=== PATIENT | male | born 1935 | race Caucasian/White ===

== ENCOUNTER 2017-03-01 15:54 | Inpatient (IN) | payer MEDICARE, OTHER ==
[~2017-03-01] VITALS: Ht 170.2 cm; Wt 99.8 kg
[2017-03-01] MEDS ORDERED: ONDANSETRON PF 4 MG/2 ML VIAL. IV PRN ×2 (16:15→17:00)
[2017-03-01 16:19] LABS: BASO % 1 % (0-3); EOS % 1 % (0-3); HEMATOCRIT 47.3 % (39.0-53.0); HEMOGLOBIN 15.9 g/dL (13.0-17.5); LYMPH # 1.6 x10^3/uL (1.0-4.8); LYMPH % 29 % (24-48); MEAN CORPUSCULAR HEMOGLOBIN 31 pg (25-35); MEAN CORPUSCULAR HGB CONC 34 g/dL (31-37); MEAN CORPUSCULAR VOLUME 91 fL (79-100); MONO % 8 % (0-9); NEUT % 61 % (31-73); PLATELET COUNT 187 x10^3/uL (140-400); WHITE BLOOD COUNT 5.4 x10^3/uL (4.0-11.0)
--- NOTE | 2017-03-01 16:19 | PHYS DOC ---
Past Medical History Past Medical History: Dementia, Kidney Stone, Stroke Past Surgical History: Tonsillectomy Alcohol Use: None Drug Use: None Adult General Chief Complaint Chief Complaint: ALTERED MENTAL STATUS [facility] HPI Patient is a 81 year old male presenting to the emergency department for evaluation of worsening confusion to the point where her daughter does not feel comfortable taking care of him at home anymore. 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 Patient was found 3 blocks from his house yesterday Implan[facility] walking to [facility] however [facility] is 7 miles from his house. Patient denies any complaints to me including pain shortness of breath fevers chills nausea vomiting or diarrhea. Review of Systems Review of Systems Constitutional: Denies fever or chills [] Eyes: Denies change in visual acuity, redness, or eye pain [] HENT: Denies nasal congestion or sore throat [] Respiratory: Denies cough or shortness of breath [] Cardiovascular: No additional information not addressed in HPI [] GI: Denies abdominal pain, nausea, vomiting, bloody stools or diarrhea [] : Denies dysuria or hematuria [] Musculoskeletal: Denies back pain or joint pain [] Integument: Denies rash or skin lesions [] Neurologic: Denies headache, focal weakness or sensory changes [] Current Medications Current Medications Current Medications Medications (Trade) Dose Ordered Sig/Ida Start Time Stop Time Status Last Admin Dose Admin Ondansetron HCl (Zofran) 4 mg PRN Q8HRS PRN 03/01/17 16:15 03/01/17 16:47 DC Allergies Allergies Allergies Coded Allergies Type Severity Reaction Last Updated Verified No Known Drug Allergies 03/01/17 No Physical Exam Physical Exam Constitutional: Well developed, well nourished, no acute distress, non-toxic appearance. [] HENT: Normocephalic, atraumatic, bilateral external ears normal, oropharynx moist, no oral exudates, nose normal. [] Eyes: PERRLA, EOMI, conjunctiva normal, no discharge. [] Neck: Normal range of motion, no tenderness, supple, no stridor. [] Cardiovascular:Heart rate regular rhythm, no murmur [] Lungs & Thorax: Bilateral breath sounds clear to auscultation [] Abdomen: Bowel sounds normal, soft, no tenderness, no masses, no pulsatile masses. [] Skin: Warm, dry, no erythema, no rash. [] Back: No tenderness, no CVA tenderness. [] Extremities: No tenderness, no cyanosis, no clubbing, ROM intact, no edema. [] Neurologic: Alert and oriented X 3, normal motor function, normal sensory function, no focal deficits noted. [] Current Patient Data Vital Signs Vital Signs Date Time Temp Pulse Resp B/P (MAP) Pulse Ox O2 Delivery O2 Flow Rate FiO2 03/01/17 16:40 64 108/69 (82) 92 Room Air 03/01/17 16:03 97.7 10 97.7 Lab Values Laboratory Tests Test 03/01/17 16:10 03/01/17 16:25 White Blood Count 5.4 x10^3/uL (4.0-11.0) Red Blood Count 5.20 x10^6/uL (4.30-5.70) Hemoglobin 15.9 g/dL (13.0-17.5) Hematocrit 47.3 % (39.0-53.0) Mean Corpuscular Volume 91 fL (79-100) Mean Corpuscular Hemoglobin 31 pg (25-35) Mean Corpuscular Hemoglobin Concent 34 g/dL (31-37) Red Cell Distribution Width 14.0 % (11.5-14.5) Platelet Count 187 x10^3/uL (140-400) Neutrophils (%) (Auto) 61 % (31-73) Lymphocytes (%) (Auto) 29 % (24-48) Monocytes (%) (Auto) 8 % (0-9) Eosinophils (%) (Auto) 1 % (0-3) Basophils (%) (Auto) 1 % (0-3) Neutrophils # (Auto) 3.3 x10^3uL (1.8-7.7) Lymphocytes # (Auto) 1.6 x10^3/uL (1.0-4.8) Monocytes # (Auto) 0.5 x10^3/uL (0.0-1.1) Eosinophils # (Auto) 0.1 x10^3/uL (0.0-0.7) Basophils # (Auto) 0.0 x10^3/uL (0.0-0.2) Prothrombin Time 13.9 SEC (11.7-14.0) Prothrombin Time INR 1.1 (0.8-1.1) PTT 35 SEC (24-38) Sodium Level 140 mmol/L (136-145) Potassium Level 4.8 mmol/L (3.5-5.1) Chloride Level 105 mmol/L (98-107) Carbon Dioxide Level 27 mmol/L (21-32) Anion Gap 8 (6-14) Blood Urea Nitrogen 15 mg/dL (8-26) Creatinine 1.2 mg/dL (0.7-1.3) Estimated GFR (Cockcroft-Gault) 58.4 BUN/Creatinine Ratio 13 (6-20) Glucose Level 107 mg/dL (70-99) H Calcium Level 9.1 mg/dL (8.5-10.1) Magnesium Level 2.3 mg/dL (1.8-2.4) Total Bilirubin 0.7 mg/dL (0.2-1.0) Aspartate Amino Transferase (AST) 23 U/L (15-37) Alanine Aminotransferase (ALT) 29 U/L (16-63) Alkaline Phosphatase 89 U/L (46-116) Total Protein 6.9 g/dL (6.4-8.2) Albumin 3.6 g/dL (3.4-5.0) Albumin/Globulin Ratio 1.1 (1.0-1.7) Thyroid Stimulating Hormone (TSH) 1.100 uIU/mL (0.358-3.74) Ethyl Alcohol Level < 10 mg/dL (0-10) Urine Collection Type Unknown Urine Color Yellow Urine Clarity Clear Urine pH 6.0 Urine Specific [place] 1.020 Urine Protein Negative mg/dL (NEG-TRACE) Urine Glucose (UA) Negative mg/dL (NEG) Urine Ketones (Stick) Negative mg/dL (NEG) Urine Blood Negative (NEG) Urine Nitrite Negative (NEG) Urine Bilirubin Negative (NEG) Urine Urobilinogen Dipstick 1.0 mg/dL (0.2 mg/dL) Urine Leukocyte Esterase Negative (NEG) Urine RBC 0 /HPF (0-2) Urine WBC 1-4 /HPF (0-4) Urine Squamous Epithelial Cells Few /LPF Urine Bacteria 0 /HPF (0-FEW) Urine Mucus Mod /LPF Urine Opiates Screen Neg (NEG) Urine Methadone Screen Neg (NEG) Urine Barbiturates Neg (NEG) Urine Phencyclidine Screen Neg (NEG) Urine Amphetamine/Methamphetamine Neg (NEG) Urine Benzodiazepines Screen Neg (NEG) Urine Cocaine Screen Neg (NEG) Urine Cannabinoids Screen Neg (NEG) Urine Ethyl Alcohol Neg (NEG) Laboratory Tests 03/01/17 16:10 Laboratory Tests 03/01/17 16:10 EKG EKG [] Radiology/Procedures Radiology/Procedures CT HEAD WO CONTRAST dated 03/01/2017 4:52 PM Indication:CONFUSION. NO PREVIOUS. Comparison: No comparison is available. Technique: Noncontrast images were performed. One or more of the following individualized dose reduction techniques were utilized for this examination: 1. Automated exposure control 2. Adjustment of the mA and/or kV according to patient size 3. Use of iterative reconstruction technique Findings: No intracranial hemorrhage or abnormal extra-axial fluid collection is seen. No mass is evident. Multiple areas of abnormal low density are shown in the brain. There is periventricular low attenuation likely indicating regions of chronic small vessel ischemic injury. Larger areas of abnormal density extending to the cortex and are consistent with chronic infarcts. No definite acute abnormality is seen, although a small acute infarct could easily be obscured by the larger chronic abnormalities. The ventricles and basilar cisterns are normally positioned. The sinuses and mastoid air cells are clear. IMPRESSION: No definite acute abnormality. Regions of abnormal density are favored to be chronic. If further imaging evaluation is needed, MRI may be useful. Electronically signed by: Kristina Cornejo Jr., MD (03/01/2017 5:14 PM) [facility] DICTATED and SIGNED BY: KRISTINA CORNEJO Jr, MD DATE: 03/01/17 1712 Course & Med Decision Making Course & Med Decision Making Patient has worsening confusion to the point he is not safe at his current residence. We will admit for further evaluation and treatment. Dragon Disclaimer Dragon Disclaimer This electronic medical record was generated, in whole or in part, using a voice recognition dictation system. Departure Departure Impression: Primary Impression: Encephalopathy acute Disposition: 09 ADMITTED INPATIENT Admitting Physician: Elmira Garcia Condition: STABLE PHIL HOSKINS DO Mar 01, 2017 16:19
[2017-03-01 16:27] LABS: INR 1.1 (0.8-1.1); PROTHROMBIN TIME PATIENT 13.9 SEC (11.7-14.0)
[2017-03-01 16:28] LABS: CALCIUM 9.1 mg/dL (8.5-10.1); CREATININE 1.2 mg/dL (0.7-1.3); GFR 58.4; POTASSIUM 4.8 mmol/L (3.5-5.1)
[2017-03-01 16:33] LABS: ALBUMIN 3.6 g/dL (3.4-5.0); TOTAL PROTEIN 6.9 g/dL (6.4-8.2)
[2017-03-01 16:34] LABS: ALBUMIN/GLOBULIN RATIO 1.1 (1.0-1.7); MAGNESIUM 2.3 mg/dL (1.8-2.4); TOTAL BILIRUBIN 0.7 mg/dL (0.2-1.0)
[2017-03-01 16:37] LABS: BILIRUBIN,URINE NEGATIVE (NEG); GLUCOSE,URINE NEGATIVE (NEG); NITRITE,URINE NEGATIVE (NEG); PROTEIN,URINE NEGATIVE (NEG-TRACE)
[2017-03-01 16:41] LABS: BARBITURATES NEG (NEG); BENZODIAZEPINES NEG (NEG); CANNABINOIDS NEG (NEG); COCAINE NEG (NEG); METHADONE NEG (NEG); OPIATES NEG (NEG); PHENCYCLIDINE NEG (NEG)
[2017-03-01 16:42] LABS: BACTERIA,URINE 0 /HPF (0-FEW); RBC,URINE 0 /HPF (0-2); SQUAMOUS EPITHELIAL CELL,UR FEW /LPF
[2017-03-01] MEDS ORDERED: HYDROcodone/APAP 5/325MG 1 TAB TABLET PO PRN (16:45)
[2017-03-01] MEDS ORDERED: ACETAMINOPHEN 500 MG TABLET PO PRN (16:45)
--- NOTE | 2017-03-01 17:18 | RAD ---
CT HEAD WO CONTRAST dated 03/01/2017 4:52 PM Indication:CONFUSION. NO PREVIOUS. Comparison: No comparison is available. Technique: Noncontrast images were performed. One or more of the following individualized dose reduction techniques were utilized for this examination: 1. Automated exposure control 2. Adjustment of the mA and/or kV according to patient size 3. Use of iterative reconstruction technique Findings: No intracranial hemorrhage or abnormal extra-axial fluid collection is seen. No mass is evident. Multiple areas of abnormal low density are shown in the brain. There is periventricular low attenuation likely indicating regions of chronic small vessel ischemic injury. Larger areas of abnormal density extending to the cortex and are consistent with chronic infarcts. No definite acute abnormality is seen, although a small acute infarct could easily be obscured by the larger chronic abnormalities. The ventricles and basilar cisterns are normally positioned. The sinuses and mastoid air cells are clear. IMPRESSION: No definite acute abnormality. Regions of abnormal density are favored to be chronic. If further imaging evaluation is needed, MRI may be useful. Electronically signed by: Mohamud Gonzales Jr., MD (03/01/2017 5:14 PM) [facility]
--- NOTE | 2017-03-01 17:20 | PDOC1 ---
History and Physical Date of Admission Date of Admission DATE: 03/01/17 TIME: 17:12 Identification/Chief Complaint Chief Complaint dtr cant take care of him anymore, confusion Problems: Source Source: Caregiver, Chart review, Patient History of Present Illness History of Present Illness 81 y.o male who lives with dtr, hx CVA x 4 ischemic,. 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 LAbs all good, CT head just done, Was dx with beginning dementia when he had the CVA in May 2014, As per dtr, he is cleared to go to SNU despite the ankle monitor as long as it is within the 50 mile radius of their house, She wishes for her dad to go to SNU. Past Medical History Renal/: Benign prostatic enlarg. Past Surgical History Past Surgical History: No pertinent history Family History Family History: No Significant Social History Smoke: Quit ALCOHOL: none Drugs: None Current Problem List Problem List Problems Medical Problems: (1) Encephalopathy acute Status: Acute Problems: Current Medications Current Medications Current Medications Ondansetron HCl (Zofran) 4 mg PRN Q8HRS PRN IV NAUSEA/VOMITING; Start 03/01/17 at 16:15; Stop 03/01/17 at 16:47; Status DC Ondansetron HCl (Zofran) 4 mg PRN Q6HRS PRN IV NAUSEA/VOMITING; Start 03/01/17 at 17:00; Stop 03/02/17 at 16:59 Acetaminophen (Tylenol) 500 mg PRN Q6HRS PRN PO MILD PAIN / TEMP; Start at 16:45 Acetaminophen/ Hydrocodone Bitart (Lortab 5/325) 1 tab PRN Q4HRS PRN PO PAIN; Start 03/01/17 at 16:45 Allergies Allergies: Coded Allergies: No Known Drug Allergies (Unverified , 03/01/17) ROS Review of System forgetfullness, behavior issues per HPI all else is neg Physical Exam General: Alert, Oriented X3, Cooperative, No acute distress HEENT: Atraumatic, PERRLA, EOMI Lungs: Clear to auscultation, Normal air movement Heart: S1S2, RRR, no thrills, no rubs, no gallops, no murmurs Cardiovascular: S1 Abdomen: Normal bowel sounds, Soft, No tenderness, No hepatosplenomegaly, No masses Male Genitals Exam: normal genitalia, normal prostate Extremities: No clubbing, No cyanosis, No edema, Normal pulses, No tenderness/ swelling Skin: No rashes, No breakdown, No significant lesion Neuro: Normal gait, Normal speech, Strength at 5/5 X4 ext, Normal tone, Sensation intact, Cranial nerves 3-12 NL, Reflexes 2+ Psych/Mental Status: Mental status NL, Mood NL Vitals Vitals Vital Signs Date Time Temp Pulse Resp B/P (MAP) Pulse Ox O2 Delivery O2 Flow Rate FiO2 03/01/17 16:40 64 108/69 (82) 92 Room Air 03/01/17 16:03 97.7 10 97.7 Labs Labs Laboratory Tests Test 03/01/17 16:10 03/01/17 16:25 White Blood Count 5.4 x10^3/uL (4.0-11.0) Red Blood Count 5.20 x10^6/uL (4.30-5.70) Hemoglobin 15.9 g/dL (13.0-17.5) Hematocrit 47.3 % (39.0-53.0) Mean Corpuscular Volume 91 fL (79-100) Mean Corpuscular Hemoglobin 31 pg (25-35) Mean Corpuscular Hemoglobin Concent 34 g/dL (31-37) Red Cell Distribution Width 14.0 % (11.5-14.5) Platelet Count 187 x10^3/uL (140-400) Neutrophils (%) (Auto) 61 % (31-73) Lymphocytes (%) (Auto) 29 % (24-48) Monocytes (%) (Auto) 8 % (0-9) Eosinophils (%) (Auto) 1 % (0-3) Basophils (%) (Auto) 1 % (0-3) Neutrophils # (Auto) 3.3 x10^3uL (1.8-7.7) Lymphocytes # (Auto) 1.6 x10^3/uL (1.0-4.8) Monocytes # (Auto) 0.5 x10^3/uL (0.0-1.1) Eosinophils # (Auto) 0.1 x10^3/uL (0.0-0.7) Basophils # (Auto) 0.0 x10^3/uL (0.0-0.2) Prothrombin Time 13.9 SEC (11.7-14.0) Prothromb Time International Ratio 1.1 (0.8-1.1) Activated Partial Thromboplast Time 35 SEC (24-38) Sodium Level 140 mmol/L (136-145) Potassium Level 4.8 mmol/L (3.5-5.1) Chloride Level 105 mmol/L (98-107) Carbon Dioxide Level 27 mmol/L (21-32) Anion Gap 8 (6-14) Blood Urea Nitrogen 15 mg/dL (8-26) Creatinine 1.2 mg/dL (0.7-1.3) Estimated GFR (Cockcroft-Gault) 58.4 BUN/Creatinine Ratio 13 (6-20) Glucose Level 107 mg/dL (70-99) Calcium Level 9.1 mg/dL (8.5-10.1) Magnesium Level 2.3 mg/dL (1.8-2.4) Total Bilirubin 0.7 mg/dL (0.2-1.0) Aspartate Amino Transf (AST/SGOT) 23 U/L (15-37) Alanine Aminotransferase (ALT/SGPT) 29 U/L (16-63) Alkaline Phosphatase 89 U/L (46-116) Total Protein 6.9 g/dL (6.4-8.2) Albumin 3.6 g/dL (3.4-5.0) Albumin/Globulin Ratio 1.1 (1.0-1.7) Thyroid Stimulating Hormone (TSH) 1.100 uIU/mL (0.358-3.74) Ethyl Alcohol Level < 10 mg/dL (0-10) Urine Collection Type Unknown Urine Color Yellow Urine Clarity Clear Urine pH 6.0 Urine Specific [place] 1.020 Urine Protein Negative mg/dL (NEG-TRACE) Urine Glucose (UA) Negative mg/dL (NEG) Urine Ketones (Stick) Negative mg/dL (NEG) Urine Blood Negative (NEG) Urine Nitrite Negative (NEG) Urine Bilirubin Negative (NEG) Urine Urobilinogen Dipstick 1.0 mg/dL (0.2 mg/dL) Urine Leukocyte Esterase Negative (NEG) Urine RBC 0 /HPF (0-2) Urine WBC 1-4 /HPF (0-4) Urine Squamous Epithelial Cells Few /LPF Urine Bacteria 0 /HPF (0-FEW) Urine Mucus Mod /LPF Urine Opiates Screen Neg (NEG) Urine Methadone Screen Neg (NEG) Urine Barbiturates Neg (NEG) Urine Phencyclidine Screen Neg (NEG) Urine Amphetamine/Methamphetamine Neg (NEG) Urine Benzodiazepines Screen Neg (NEG) Urine Cocaine Screen Neg (NEG) Urine Cannabinoids Screen Neg (NEG) Urine Ethyl Alcohol Neg (NEG) Laboratory Tests Test 03/01/17 16:10 03/01/17 16:25 White Blood Count 5.4 x10^3/uL (4.0-11.0) Red Blood Count 5.20 x10^6/uL (4.30-5.70) Hemoglobin 15.9 g/dL (13.0-17.5) Hematocrit 47.3 % (39.0-53.0) Mean Corpuscular Volume 91 fL (79-100) Mean Corpuscular Hemoglobin 31 pg (25-35) Mean Corpuscular Hemoglobin Concent 34 g/dL (31-37) Red Cell Distribution Width 14.0 % (11.5-14.5) Platelet Count 187 x10^3/uL (140-400) Neutrophils (%) (Auto) 61 % (31-73) Lymphocytes (%) (Auto) 29 % (24-48) Monocytes (%) (Auto) 8 % (0-9) Eosinophils (%) (Auto) 1 % (0-3) Basophils (%) (Auto) 1 % (0-3) Neutrophils # (Auto) 3.3 x10^3uL (1.8-7.7) Lymphocytes # (Auto) 1.6 x10^3/uL (1.0-4.8) Monocytes # (Auto) 0.5 x10^3/uL (0.0-1.1) Eosinophils # (Auto) 0.1 x10^3/uL (0.0-0.7) Basophils # (Auto) 0.0 x10^3/uL (0.0-0.2) Prothrombin Time 13.9 SEC (11.7-14.0) Prothromb Time International Ratio 1.1 (0.8-1.1) Activated Partial Thromboplast Time 35 SEC (24-38) Sodium Level 140 mmol/L (136-145) Potassium Level 4.8 mmol/L (3.5-5.1) Chloride Level 105 mmol/L (98-107) Carbon Dioxide Level 27 mmol/L (21-32) Anion Gap 8 (6-14) Blood Urea Nitrogen 15 mg/dL (8-26) Creatinine 1.2 mg/dL (0.7-1.3) Estimated GFR (Cockcroft-Gault) 58.4 BUN/Creatinine Ratio 13 (6-20) Glucose Level 107 mg/dL (70-99) Calcium Level 9.1 mg/dL (8.5-10.1) Magnesium Level 2.3 mg/dL (1.8-2.4) Total Bilirubin 0.7 mg/dL (0.2-1.0) Aspartate Amino Transf (AST/SGOT) 23 U/L (15-37) Alanine Aminotransferase (ALT/SGPT) 29 U/L (16-63) Alkaline Phosphatase 89 U/L (46-116) Total Protein 6.9 g/dL (6.4-8.2) Albumin 3.6 g/dL (3.4-5.0) Albumin/Globulin Ratio 1.1 (1.0-1.7) Thyroid Stimulating Hormone (TSH) 1.100 uIU/mL (0.358-3.74) Ethyl Alcohol Level < 10 mg/dL (0-10) Urine Collection Type Unknown Urine Color Yellow Urine Clarity Clear Urine pH 6.0 Urine Specific [place] 1.020 Urine Protein Negative mg/dL (NEG-TRACE) Urine Glucose (UA) Negative mg/dL (NEG) Urine Ketones (Stick) Negative mg/dL (NEG) Urine Blood Negative (NEG) Urine Nitrite Negative (NEG) Urine Bilirubin Negative (NEG) Urine Urobilinogen Dipstick 1.0 mg/dL (0.2 mg/dL) Urine Leukocyte Esterase Negative (NEG) Urine RBC 0 /HPF (0-2) Urine WBC 1-4 /HPF (0-4) Urine Squamous Epithelial Cells Few /LPF Urine Bacteria 0 /HPF (0-FEW) Urine Mucus Mod /LPF Urine Opiates Screen Neg (NEG) Urine Methadone Screen Neg (NEG) Urine Barbiturates Neg (NEG) Urine Phencyclidine Screen Neg (NEG) Urine Amphetamine/Methamphetamine Neg (NEG) Urine Benzodiazepines Screen Neg (NEG) Urine Cocaine Screen Neg (NEG) Urine Cannabinoids Screen Neg (NEG) Urine Ethyl Alcohol Neg (NEG) VTE Prophylaxis Ordered VTE Prophylaxis Devices: Yes VTE Pharmacological Prophylaxi: Yes Assessment/Plan Assessment/Plan 1. Dementia, moderate to advanced 2. BPH on flomax 3. Ex smoker - some 40 yrs back 4. 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
[2017-03-01 19:00] VITALS: BP 122/66
[2017-03-01] MEDS ORDERED: TAMS0.4C97 PO (19:10)
[2017-03-01] MEDS: TAMSULOSIN 0.4 MG CAP.ER.24H. PO SCH (20:08)
[2017-03-01 23:00] VITALS: BP 123/64
[2017-03-02 03:15] VITALS: BP 95/51
[2017-03-02 07:00] VITALS: BP 110/66
[2017-03-02 11:00] VITALS: BP 114/68
--- NOTE | 2017-03-02 12:04 | PDOC2 ---
NEUROLOGY CONSULT Date of Admission Date of Admission DATE: 03/02/17 TIME: 11:58 Reason for Consult Reason for Consult: Altered mental status Referring Physician Referring Physician: Dr. Garcia Source Source: Caregiver, Chart review, Patient History of Present Illness History of Present Illness The patient is a 81-year-old right-handed male who is not sure why he is here. 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 He has been living with her, but she can no longer handle him. The last straw was 2 nights ago when he attempted to walk 7 miles to [facility]. He says he went out because he wants to stretch his legs and was confined in halfway. There is no history of seizure or head injury. He feels fine now. Past Medical History CENTRAL NERVOUS SYSTEM: CVA, Dementia Renal/: Benign prostatic enlarg. Past Surgical History Past Surgical History: No pertinent history Family History Family History: Cancer Social History Social History Lives with daughter, quit using alcohol and tobacco several years ago Current Medications Current Medications Current Medications Ondansetron HCl (Zofran) 4 mg PRN Q8HRS PRN IV NAUSEA/VOMITING; Start 03/01/17 at 16:15; Stop 03/01/17 at 16:47; Status DC Ondansetron HCl (Zofran) 4 mg PRN Q6HRS PRN IV NAUSEA/VOMITING; Start 03/01/17 at 17:00; Stop 03/02/17 at 16:59 Acetaminophen (Tylenol) 500 mg PRN Q6HRS PRN PO MILD PAIN / TEMP; Start at 16:45 Acetaminophen/ Hydrocodone Bitart (Lortab 5/325) 1 tab PRN Q4HRS PRN PO MODERATE TO SEVERE PAIN; Start 03/01/17 at 16:45 Tamsulosin HCl (Flomax) 0.4 mg QHS PO Last administered on 03/01/17t 20:08; Start 03/01/17 at 21:00 Active Scripts Active Reported Flomax (Tamsulosin Hcl) 0.4 Mg Cap.er.24h 0.4 Mg PO HS Allergies Allergies: Coded Allergies: No Known Drug Allergies (Unverified , 03/01/17) ROS Review of System Negative for fevers, chills, weight loss, shortness of breath, chest pain, indigestion, hematochezia, melena, dysuria. Full 14-point review systems is negative. Physical Exam Physical Examination PHYSICAL EXAMINATION: Vital signs: see above. General appearance is normal and in no acute distress. HEENT: Normocephalic and nontraumatic. Eyes, nose, ears, and throat are unremarkable. Neck is supple. No lymphadenopathy. No bruits are heard over the carotid artery. No crepitus. NEUROLOGICAL EXAMINATION: Mental Status Examination: Alert. Oriented to time, place, and person. Answers questions and follows commends. He is a poor historian. Pupils are equal round and reactive to light and accommodation. Funduscopic exam: No papilledema. Extraocular movements are intact. Visual field exam shows no defect on the direct confrontation. No motor or sensory deficits on the facial exam. Uvula in the midline and the soft palate elevated symmetrically. No deviation of the tongue to any direction. Gross hearing is normal. Shoulder shrug normal. Muscle tone is normal. Muscle strength is 5-/5 on left, 5/5 on right. Deep tendon reflexes are 2+ all around. Plantar reflex is with flexion response bilaterally. [id number] test performance is accurate. Alternative movements are accurate. Romberg test is negative. Gait is consistent with left hemiparesis. Sensory exam shows no deficits. No cerebellar signs are elicited. Vitals VITALS Vital Signs Date Time Temp Pulse Resp B/P (MAP) Pulse Ox O2 Delivery O2 Flow Rate FiO2 03/02/17 11:00 97.3 66 18 114/68 (83) 95 Room Air 97.3 Labs Labs Laboratory Tests Test 03/01/17 16:05 03/01/17 16:10 03/01/17 16:25 Vitamin B12 Level 265 pg/mL (247-911) White Blood Count 5.4 x10^3/uL (4.0-11.0) Red Blood Count 5.20 x10^6/uL (4.30-5.70) Hemoglobin 15.9 g/dL (13.0-17.5) Hematocrit 47.3 % (39.0-53.0) Mean Corpuscular Volume 91 fL (79-100) Mean Corpuscular Hemoglobin 31 pg (25-35) Mean Corpuscular Hemoglobin Concent 34 g/dL (31-37) Red Cell Distribution Width 14.0 % (11.5-14.5) Platelet Count 187 x10^3/uL (140-400) Neutrophils (%) (Auto) 61 % (31-73) Lymphocytes (%) (Auto) 29 % (24-48) Monocytes (%) (Auto) 8 % (0-9) Eosinophils (%) (Auto) 1 % (0-3) Basophils (%) (Auto) 1 % (0-3) Neutrophils # (Auto) 3.3 x10^3uL (1.8-7.7) Lymphocytes # (Auto) 1.6 x10^3/uL (1.0-4.8) Monocytes # (Auto) 0.5 x10^3/uL (0.0-1.1) Eosinophils # (Auto) 0.1 x10^3/uL (0.0-0.7) Basophils # (Auto) 0.0 x10^3/uL (0.0-0.2) Erythrocyte Sedimentation Rate 2 (0-15) Prothrombin Time 13.9 SEC (11.7-14.0) Prothromb Time International Ratio 1.1 (0.8-1.1) Activated Partial Thromboplast Time 35 SEC (24-38) Sodium Level 140 mmol/L (136-145) Potassium Level 4.8 mmol/L (3.5-5.1) Chloride Level 105 mmol/L (98-107) Carbon Dioxide Level 27 mmol/L (21-32) Anion Gap 8 (6-14) Blood Urea Nitrogen 15 mg/dL (8-26) Creatinine 1.2 mg/dL (0.7-1.3) Estimated GFR (Cockcroft-Gault) 58.4 BUN/Creatinine Ratio 13 (6-20) Glucose Level 107 mg/dL (70-99) Calcium Level 9.1 mg/dL (8.5-10.1) Magnesium Level 2.3 mg/dL (1.8-2.4) Total Bilirubin 0.7 mg/dL (0.2-1.0) Aspartate Amino Transf (AST/SGOT) 23 U/L (15-37) Alanine Aminotransferase (ALT/SGPT) 29 U/L (16-63) Alkaline Phosphatase 89 U/L (46-116) Total Protein 6.9 g/dL (6.4-8.2) Albumin 3.6 g/dL (3.4-5.0) Albumin/Globulin Ratio 1.1 (1.0-1.7) Thyroid Stimulating Hormone (TSH) 1.100 uIU/mL (0.358-3.74) Ethyl Alcohol Level < 10 mg/dL (0-10) Urine Collection Type Unknown Urine Color Yellow Urine Clarity Clear Urine pH 6.0 Urine Specific [place] 1.020 Urine Protein Negative mg/dL (NEG-TRACE) Urine Glucose (UA) Negative mg/dL (NEG) Urine Ketones (Stick) Negative mg/dL (NEG) Urine Blood Negative (NEG) Urine Nitrite Negative (NEG) Urine Bilirubin Negative (NEG) Urine Urobilinogen Dipstick 1.0 mg/dL (0.2 mg/dL) Urine Leukocyte Esterase Negative (NEG) Urine RBC 0 /HPF (0-2) Urine WBC 1-4 /HPF (0-4) Urine Squamous Epithelial Cells Few /LPF Urine Bacteria 0 /HPF (0-FEW) Urine Mucus Mod /LPF Urine Opiates Screen Neg (NEG) Urine Methadone Screen Neg (NEG) Urine Barbiturates Neg (NEG) Urine Phencyclidine Screen Neg (NEG) Urine Amphetamine/Methamphetamine Neg (NEG) Urine Benzodiazepines Screen Neg (NEG) Urine Cocaine Screen Neg (NEG) Urine Cannabinoids Screen Neg (NEG) Urine Ethyl Alcohol Neg (NEG) Laboratory Tests Test 03/01/17 16:05 03/01/17 16:10 03/01/17 16:25 Vitamin B12 Level 265 pg/mL (247-911) White Blood Count 5.4 x10^3/uL (4.0-11.0) Red Blood Count 5.20 x10^6/uL (4.30-5.70) Hemoglobin 15.9 g/dL (13.0-17.5) Hematocrit 47.3 % (39.0-53.0) Mean Corpuscular Volume 91 fL (79-100) Mean Corpuscular Hemoglobin 31 pg (25-35) Mean Corpuscular Hemoglobin Concent 34 g/dL (31-37) Red Cell Distribution Width 14.0 % (11.5-14.5) Platelet Count 187 x10^3/uL (140-400) Neutrophils (%) (Auto) 61 % (31-73) Lymphocytes (%) (Auto) 29 % (24-48) Monocytes (%) (Auto) 8 % (0-9) Eosinophils (%) (Auto) 1 % (0-3) Basophils (%) (Auto) 1 % (0-3) Neutrophils # (Auto) 3.3 x10^3uL (1.8-7.7) Lymphocytes # (Auto) 1.6 x10^3/uL (1.0-4.8) Monocytes # (Auto) 0.5 x10^3/uL (0.0-1.1) Eosinophils # (Auto) 0.1 x10^3/uL (0.0-0.7) Basophils # (Auto) 0.0 x10^3/uL (0.0-0.2) Erythrocyte Sedimentation Rate 2 (0-15) Prothrombin Time 13.9 SEC (11.7-14.0) Prothromb Time International Ratio 1.1 (0.8-1.1) Activated Partial Thromboplast Time 35 SEC (24-38) Sodium Level 140 mmol/L (136-145) Potassium Level 4.8 mmol/L (3.5-5.1) Chloride Level 105 mmol/L (98-107) Carbon Dioxide Level 27 mmol/L (21-32) Anion Gap 8 (6-14) Blood Urea Nitrogen 15 mg/dL (8-26) Creatinine 1.2 mg/dL (0.7-1.3) Estimated GFR (Cockcroft-Gault) 58.4 BUN/Creatinine Ratio 13 (6-20) Glucose Level 107 mg/dL (70-99) Calcium Level 9.1 mg/dL (8.5-10.1) Magnesium Level 2.3 mg/dL (1.8-2.4) Total Bilirubin 0.7 mg/dL (0.2-1.0) Aspartate Amino Transf (AST/SGOT) 23 U/L (15-37) Alanine Aminotransferase (ALT/SGPT) 29 U/L (16-63) Alkaline Phosphatase 89 U/L (46-116) Total Protein 6.9 g/dL (6.4-8.2) Albumin 3.6 g/dL (3.4-5.0) Albumin/Globulin Ratio 1.1 (1.0-1.7) Thyroid Stimulating Hormone (TSH) 1.100 uIU/mL (0.358-3.74) Ethyl Alcohol Level < 10 mg/dL (0-10) Urine Collection Type Unknown Urine Color Yellow Urine Clarity Clear Urine pH 6.0 Urine Specific [place] 1.020 Urine Protein Negative mg/dL (NEG-TRACE) Urine Glucose (UA) Negative mg/dL (NEG) Urine Ketones (Stick) Negative mg/dL (NEG) Urine Blood Negative (NEG) Urine Nitrite Negative (NEG) Urine Bilirubin Negative (NEG) Urine Urobilinogen Dipstick 1.0 mg/dL (0.2 mg/dL) Urine Leukocyte Esterase Negative (NEG) Urine RBC 0 /HPF (0-2) Urine WBC 1-4 /HPF (0-4) Urine Squamous Epithelial Cells Few /LPF Urine Bacteria 0 /HPF (0-FEW) Urine Mucus Mod /LPF Urine Opiates Screen Neg (NEG) Urine Methadone Screen Neg (NEG) Urine Barbiturates Neg (NEG) Urine Phencyclidine Screen Neg (NEG) Urine Amphetamine/Methamphetamine Neg (NEG) Urine Benzodiazepines Screen Neg (NEG) Urine Cocaine Screen Neg (NEG) Urine Cannabinoids Screen Neg (NEG) Urine Ethyl Alcohol Neg (NEG) Images Images CT head: No intracranial hemorrhage or abnormal extra-axial fluid collection is seen. No mass is evident. Multiple areas of abnormal low density are shown in the brain. There is periventricular low attenuation likely indicating regions of chronic small vessel ischemic injury. Larger areas of abnormal density extending to the cortex and are consistent with chronic infarcts. No definite acute abnormality is seen, although a small acute infarct could easily be obscured by the larger chronic abnormalities. The ventricles and basilar cisterns are normally positioned. The sinuses and mastoid air cells are clear. IMPRESSION: No definite acute abnormality. Regions of abnormal density are favored to be chronic. If further imaging evaluation is needed, MRI may be useful. Assessment/Plan Assessment/Plan Impression: History of strokes with residual left hemiparesis I am not so sure he is demented, may more be a problem with judgment, which of course could represent a frontal-lobe dementia. Suspect prior substance abuse which may contribute. Recommendations: Daughter says she can't handle him at home, so need to work on placement. Await laboratory studies Speech cognitive evaluation Physical and occupational therapy I will consider a trial of donepezil depending on the results. I discussed my findings with the patient's daughter. Thank you for letting me help the patient's care. WALLY DAVIS MD Mar 02, 2017 12:04
--- NOTE | 2017-03-02 14:09 | PDOC ---
PROGRESS NOTES Chief Complaint Chief Complaint 1. Dementia, moderate with h/o CVA 2. BPH on flomax 3. Ex smoker - some 40 yrs back 4. Recent incarceration x 33 yrs - has ankle monitor with 50 mile radius clearance h/o CVA x4 times with left side weakness vitb12 insurficiency Plan: fu with neuro add vitb12 po daily cont PTOT head ct NEG SW involve for SNF placement swallow eval pending History of Present Illness History of Present Illness ROS: no fever, chills, sob or chest pain feels ok, some forgetful Vitals Vitals Vital Signs Date Time Temp Pulse Resp B/P (MAP) Pulse Ox O2 Delivery O2 Flow Rate FiO2 03/02/17 11:00 97.3 66 18 114/68 (83) 95 Room Air 97.3 Physical Exam General: Alert, Oriented X3, Cooperative, No acute distress Heart: Regular rate, Normal S1, Normal S2 Lungs: Clear Abdomen: Normal bowel sounds, Soft, No tenderness, No hepatosplenomegaly, No masses Extremities: No clubbing, No cyanosis, No edema, Normal pulses, No tenderness/ swelling Skin: No rashes, No breakdown, No significant lesion Labs LABS Laboratory Tests Test 03/01/17 16:05 03/01/17 16:10 03/01/17 16:25 Vitamin B12 Level 265 pg/mL (247-911) White Blood Count 5.4 x10^3/uL (4.0-11.0) Red Blood Count 5.20 x10^6/uL (4.30-5.70) Hemoglobin 15.9 g/dL (13.0-17.5) Hematocrit 47.3 % (39.0-53.0) Mean Corpuscular Volume 91 fL (79-100) Mean Corpuscular Hemoglobin 31 pg (25-35) Mean Corpuscular Hemoglobin Concent 34 g/dL (31-37) Red Cell Distribution Width 14.0 % (11.5-14.5) Platelet Count 187 x10^3/uL (140-400) Neutrophils (%) (Auto) 61 % (31-73) Lymphocytes (%) (Auto) 29 % (24-48) Monocytes (%) (Auto) 8 % (0-9) Eosinophils (%) (Auto) 1 % (0-3) Basophils (%) (Auto) 1 % (0-3) Neutrophils # (Auto) 3.3 x10^3uL (1.8-7.7) Lymphocytes # (Auto) 1.6 x10^3/uL (1.0-4.8) Monocytes # (Auto) 0.5 x10^3/uL (0.0-1.1) Eosinophils # (Auto) 0.1 x10^3/uL (0.0-0.7) Basophils # (Auto) 0.0 x10^3/uL (0.0-0.2) Erythrocyte Sedimentation Rate 2 (0-15) Prothrombin Time 13.9 SEC (11.7-14.0) Prothromb Time International Ratio 1.1 (0.8-1.1) Activated Partial Thromboplast Time 35 SEC (24-38) Sodium Level 140 mmol/L (136-145) Potassium Level 4.8 mmol/L (3.5-5.1) Chloride Level 105 mmol/L (98-107) Carbon Dioxide Level 27 mmol/L (21-32) Anion Gap 8 (6-14) Blood Urea Nitrogen 15 mg/dL (8-26) Creatinine 1.2 mg/dL (0.7-1.3) Estimated GFR (Cockcroft-Gault) 58.4 BUN/Creatinine Ratio 13 (6-20) Glucose Level 107 mg/dL (70-99) Calcium Level 9.1 mg/dL (8.5-10.1) Magnesium Level 2.3 mg/dL (1.8-2.4) Total Bilirubin 0.7 mg/dL (0.2-1.0) Aspartate Amino Transf (AST/SGOT) 23 U/L (15-37) Alanine Aminotransferase (ALT/SGPT) 29 U/L (16-63) Alkaline Phosphatase 89 U/L (46-116) Total Protein 6.9 g/dL (6.4-8.2) Albumin 3.6 g/dL (3.4-5.0) Albumin/Globulin Ratio 1.1 (1.0-1.7) Thyroid Stimulating Hormone (TSH) 1.100 uIU/mL (0.358-3.74) Ethyl Alcohol Level < 10 mg/dL (0-10) Urine Collection Type Unknown Urine Color Yellow Urine Clarity Clear Urine pH 6.0 Urine Specific [place] 1.020 Urine Protein Negative mg/dL (NEG-TRACE) Urine Glucose (UA) Negative mg/dL (NEG) Urine Ketones (Stick) Negative mg/dL (NEG) Urine Blood Negative (NEG) Urine Nitrite Negative (NEG) Urine Bilirubin Negative (NEG) Urine Urobilinogen Dipstick 1.0 mg/dL (0.2 mg/dL) Urine Leukocyte Esterase Negative (NEG) Urine RBC 0 /HPF (0-2) Urine WBC 1-4 /HPF (0-4) Urine Squamous Epithelial Cells Few /LPF Urine Bacteria 0 /HPF (0-FEW) Urine Mucus Mod /LPF Urine Opiates Screen Neg (NEG) Urine Methadone Screen Neg (NEG) Urine Barbiturates Neg (NEG) Urine Phencyclidine Screen Neg (NEG) Urine Amphetamine/Methamphetamine Neg (NEG) Urine Benzodiazepines Screen Neg (NEG) Urine Cocaine Screen Neg (NEG) Urine Cannabinoids Screen Neg (NEG) Urine Ethyl Alcohol Neg (NEG) Assessment and Plan Assessmemt and Plan Problems Medical Problems: (1) Encephalopathy acute Status: Acute Problems: Comment Review of Relevant I have reviewed the following items elizabeth (where applicable) has been applied. Labs Laboratory Tests Test 03/01/17 16:05 03/01/17 16:10 03/01/17 16:25 Vitamin B12 Level 265 pg/mL (247-911) White Blood Count 5.4 x10^3/uL (4.0-11.0) Red Blood Count 5.20 x10^6/uL (4.30-5.70) Hemoglobin 15.9 g/dL (13.0-17.5) Hematocrit 47.3 % (39.0-53.0) Mean Corpuscular Volume 91 fL (79-100) Mean Corpuscular Hemoglobin 31 pg (25-35) Mean Corpuscular Hemoglobin Concent 34 g/dL (31-37) Red Cell Distribution Width 14.0 % (11.5-14.5) Platelet Count 187 x10^3/uL (140-400) Neutrophils (%) (Auto) 61 % (31-73) Lymphocytes (%) (Auto) 29 % (24-48) Monocytes (%) (Auto) 8 % (0-9) Eosinophils (%) (Auto) 1 % (0-3) Basophils (%) (Auto) 1 % (0-3) Neutrophils # (Auto) 3.3 x10^3uL (1.8-7.7) Lymphocytes # (Auto) 1.6 x10^3/uL (1.0-4.8) Monocytes # (Auto) 0.5 x10^3/uL (0.0-1.1) Eosinophils # (Auto) 0.1 x10^3/uL (0.0-0.7) Basophils # (Auto) 0.0 x10^3/uL (0.0-0.2) Erythrocyte Sedimentation Rate 2 (0-15) Prothrombin Time 13.9 SEC (11.7-14.0) Prothromb Time International Ratio 1.1 (0.8-1.1) Activated Partial Thromboplast Time 35 SEC (24-38) Sodium Level 140 mmol/L (136-145) Potassium Level 4.8 mmol/L (3.5-5.1) Chloride Level 105 mmol/L (98-107) Carbon Dioxide Level 27 mmol/L (21-32) Anion Gap 8 (6-14) Blood Urea Nitrogen 15 mg/dL (8-26) Creatinine 1.2 mg/dL (0.7-1.3) Estimated GFR (Cockcroft-Gault) 58.4 BUN/Creatinine Ratio 13 (6-20) Glucose Level 107 mg/dL (70-99) Calcium Level 9.1 mg/dL (8.5-10.1) Magnesium Level 2.3 mg/dL (1.8-2.4) Total Bilirubin 0.7 mg/dL (0.2-1.0) Aspartate Amino Transf (AST/SGOT) 23 U/L (15-37) Alanine Aminotransferase (ALT/SGPT) 29 U/L (16-63) Alkaline Phosphatase 89 U/L (46-116) Total Protein 6.9 g/dL (6.4-8.2) Albumin 3.6 g/dL (3.4-5.0) Albumin/Globulin Ratio 1.1 (1.0-1.7) Thyroid Stimulating Hormone (TSH) 1.100 uIU/mL (0.358-3.74) Ethyl Alcohol Level < 10 mg/dL (0-10) Urine Collection Type Unknown Urine Color Yellow Urine Clarity Clear Urine pH 6.0 Urine Specific [place] 1.020 Urine Protein Negative mg/dL (NEG-TRACE) Urine Glucose (UA) Negative mg/dL (NEG) Urine Ketones (Stick) Negative mg/dL (NEG) Urine Blood Negative (NEG) Urine Nitrite Negative (NEG) Urine Bilirubin Negative (NEG) Urine Urobilinogen Dipstick 1.0 mg/dL (0.2 mg/dL) Urine Leukocyte Esterase Negative (NEG) Urine RBC 0 /HPF (0-2) Urine WBC 1-4 /HPF (0-4) Urine Squamous Epithelial Cells Few /LPF Urine Bacteria 0 /HPF (0-FEW) Urine Mucus Mod /LPF Urine Opiates Screen Neg (NEG) Urine Methadone Screen Neg (NEG) Urine Barbiturates Neg (NEG) Urine Phencyclidine Screen Neg (NEG) Urine Amphetamine/Methamphetamine Neg (NEG) Urine Benzodiazepines Screen Neg (NEG) Urine Cocaine Screen Neg (NEG) Urine Cannabinoids Screen Neg (NEG) Urine Ethyl Alcohol Neg (NEG) Laboratory Tests Test 03/01/17 16:05 03/01/17 16:10 03/01/17 16:25 Vitamin B12 Level 265 pg/mL (247-911) White Blood Count 5.4 x10^3/uL (4.0-11.0) Red Blood Count 5.20 x10^6/uL (4.30-5.70) Hemoglobin 15.9 g/dL (13.0-17.5) Hematocrit 47.3 % (39.0-53.0) Mean Corpuscular Volume 91 fL (79-100) Mean Corpuscular Hemoglobin 31 pg (25-35) Mean Corpuscular Hemoglobin Concent 34 g/dL (31-37) Red Cell Distribution Width 14.0 % (11.5-14.5) Platelet Count 187 x10^3/uL (140-400) Neutrophils (%) (Auto) 61 % (31-73) Lymphocytes (%) (Auto) 29 % (24-48) Monocytes (%) (Auto) 8 % (0-9) Eosinophils (%) (Auto) 1 % (0-3) Basophils (%) (Auto) 1 % (0-3) Neutrophils # (Auto) 3.3 x10^3uL (1.8-7.7) Lymphocytes # (Auto) 1.6 x10^3/uL (1.0-4.8) Monocytes # (Auto) 0.5 x10^3/uL (0.0-1.1) Eosinophils # (Auto) 0.1 x10^3/uL (0.0-0.7) Basophils # (Auto) 0.0 x10^3/uL (0.0-0.2) Erythrocyte Sedimentation Rate 2 (0-15) Prothrombin Time 13.9 SEC (11.7-14.0) Prothromb Time International Ratio 1.1 (0.8-1.1) Activated Partial Thromboplast Time 35 SEC (24-38) Sodium Level 140 mmol/L (136-145) Potassium Level 4.8 mmol/L (3.5-5.1) Chloride Level 105 mmol/L (98-107) Carbon Dioxide Level 27 mmol/L (21-32) Anion Gap 8 (6-14) Blood Urea Nitrogen 15 mg/dL (8-26) Creatinine 1.2 mg/dL (0.7-1.3) Estimated GFR (Cockcroft-Gault) 58.4 BUN/Creatinine Ratio 13 (6-20) Glucose Level 107 mg/dL (70-99) Calcium Level 9.1 mg/dL (8.5-10.1) Magnesium Level 2.3 mg/dL (1.8-2.4) Total Bilirubin 0.7 mg/dL (0.2-1.0) Aspartate Amino Transf (AST/SGOT) 23 U/L (15-37) Alanine Aminotransferase (ALT/SGPT) 29 U/L (16-63) Alkaline Phosphatase 89 U/L (46-116) Total Protein 6.9 g/dL (6.4-8.2) Albumin 3.6 g/dL (3.4-5.0) Albumin/Globulin Ratio 1.1 (1.0-1.7) Thyroid Stimulating Hormone (TSH) 1.100 uIU/mL (0.358-3.74) Ethyl Alcohol Level < 10 mg/dL (0-10) Urine Collection Type Unknown Urine Color Yellow Urine Clarity Clear Urine pH 6.0 Urine Specific [place] 1.020 Urine Protein Negative mg/dL (NEG-TRACE) Urine Glucose (UA) Negative mg/dL (NEG) Urine Ketones (Stick) Negative mg/dL (NEG) Urine Blood Negative (NEG) Urine Nitrite Negative (NEG) Urine Bilirubin Negative (NEG) Urine Urobilinogen Dipstick 1.0 mg/dL (0.2 mg/dL) Urine Leukocyte Esterase Negative (NEG) Urine RBC 0 /HPF (0-2) Urine WBC 1-4 /HPF (0-4) Urine Squamous Epithelial Cells Few /LPF Urine Bacteria 0 /HPF (0-FEW) Urine Mucus Mod /LPF Urine Opiates Screen Neg (NEG) Urine Methadone Screen Neg (NEG) Urine Barbiturates Neg (NEG) Urine Phencyclidine Screen Neg (NEG) Urine Amphetamine/Methamphetamine Neg (NEG) Urine Benzodiazepines Screen Neg (NEG) Urine Cocaine Screen Neg (NEG) Urine Cannabinoids Screen Neg (NEG) Urine Ethyl Alcohol Neg (NEG) Medications Current Medications Ondansetron HCl (Zofran) 4 mg PRN Q8HRS PRN IV NAUSEA/VOMITING; Start 03/01/17 at 16:15; Stop 03/01/17 at 16:47; Status DC Ondansetron HCl (Zofran) 4 mg PRN Q6HRS PRN IV NAUSEA/VOMITING; Start 03/01/17 at 17:00; Stop 03/02/17 at 16:59 Acetaminophen (Tylenol) 500 mg PRN Q6HRS PRN PO MILD PAIN / TEMP; Start at 16:45 Acetaminophen/ Hydrocodone Bitart (Lortab 5/325) 1 tab PRN Q4HRS PRN PO MODERATE TO SEVERE PAIN; Start 03/01/17 at 16:45 Tamsulosin HCl (Flomax) 0.4 mg QHS PO Last administered on 03/01/17t 20:08; Start 03/01/17 at 21:00 Active Scripts Active Reported Flomax (Tamsulosin Hcl) 0.4 Mg Cap.er.24h 0.4 Mg PO HS Vitals/I & O Vital Sign - Last 24 Hours 03/01/17 03/01/17 03/01/17 03/01/17 16:03 16:40 17:50 19:00 Temp 97.7 97.5 97.7 97.5 Pulse 77 64 84 Resp 10 18 B/P (MAP) 119/75 (90) 108/69 (82) 122/66 (84) Pulse Ox 92 92 93 O2 Delivery Room Air Room Air Room Air Room Air 03/01/17 03/01/17 03/02/17 03/02/17 20:02 23:00 03:15 07:00 Temp 96.6 96.7 96.6 96.7 Pulse 67 67 Resp 18 18 B/P (MAP) 123/64 (83) 95/51 (66) Pulse Ox 94 95 O2 Delivery Room Air Room Air Room Air Room Air 03/02/17 03/02/17 07:00 11:00 Temp 97.4 97.3 97.4 97.3 Pulse 58 66 Resp 18 18 B/P (MAP) 110/66 (81) 114/68 (83) Pulse Ox 93 95 O2 Delivery Room Air Room Air KRISS MA MD Mar 02, 2017 14:09
[2017-03-02 15:00] VITALS: BP 131/76
[2017-03-02] MEDS: CYANOCOBALAMIN (VITAMIN B-12) 1,000 MCG TABLET. PO SCH (15:24)
[2017-03-02 19:49] VITALS: BP 125/72
[2017-03-02] MEDS: TAMSULOSIN 0.4 MG CAP.ER.24H. PO SCH (20:49)
[2017-03-02 23:19] VITALS: BP 108/64
[2017-03-03 03:27] VITALS: BP 96/60
[2017-03-03 05:04] LABS: BASO % 1 % (0-3); EOS % 2 % (0-3); HEMATOCRIT 43.2 % (39.0-53.0); LYMPH # 1.7 x10^3/uL (1.0-4.8); LYMPH % 28 % (24-48); MEAN CORPUSCULAR HEMOGLOBIN 31 pg (25-35); MEAN CORPUSCULAR HGB CONC 35 g/dL (31-37); MEAN CORPUSCULAR VOLUME 89 fL (79-100); MONO % 10 % (0-9); NEUT % 59 % (31-73); PLATELET COUNT 171 x10^3/uL (140-400); RED BLOOD COUNT 4.85 x10^6/uL (4.30-5.70); RED CELL DISTRIBUTION WIDTH 13.7 % (11.5-14.5); WHITE BLOOD COUNT 5.9 x10^3/uL (4.0-11.0)
[2017-03-03 05:15] LABS: CALCIUM 8.3 mg/dL (8.5-10.1); CREATININE 1.3 mg/dL (0.7-1.3); GFR 53.3; POTASSIUM 4.1 mmol/L (3.5-5.1)
[2017-03-03 07:00] VITALS: BP 114/74
[2017-03-03] MEDS ORDERED: hydrALAZINE 20 MG/ML VIAL. IVP PRN (08:30)
[2017-03-03] MEDS ORDERED: ONDANSETRON PF 4 MG/2 ML VIAL. IV PRN (08:30)
[2017-03-03] MEDS ORDERED: MORPHINE SULFATE 4 MG/ML DISP.SYRIN. IV PRN (08:30)
[2017-03-03] MEDS ORDERED: ACETAMINOPHEN 325 MG TABLET. PO PRN (08:30)
[2017-03-03] MEDS ORDERED: DOCUSATE SODIUM 100 MG CAPSULE. PO PRN (08:30)
[2017-03-03] MEDS ORDERED: traMADol 50 MG TABLET PO PRN (08:30)
[2017-03-03] MEDS: CYANOCOBALAMIN (VITAMIN B-12) 1,000 MCG TABLET. PO SCH (08:33)
[2017-03-03 11:00] VITALS: BP 121/69
--- NOTE | 2017-03-03 12:31 | PDOC ---
PROGRESS NOTES Assessment Problems Medical Problems: (1) Encephalopathy acute Status: Acute History of strokes with residual left hemiparesis I am not so sure he is demented, may more be a problem with judgment, which of course could represent a frontal-lobe dementia. Suspect prior substance abuse which may contribute. He does have a low-normal B12 level Plan Placement. Donepezil B-12 injections Subjective No complaints Objective Vital Signs Date Time Temp Pulse Resp B/P (MAP) Pulse Ox O2 Delivery O2 Flow Rate FiO2 03/03/17 11:00 97.5 60 18 121/69 (86) 96 Room Air 97.5 PHYSICAL EXAM Alert. Oriented to place and person, does not know date. PERRL. EOMI. CN: no focal findings. Muscle tone: normal. Muscle strength: 5-/5 left hemiparesis, 5/5 on right DTR: 2+ Plantar reflex: flexor Gait: not examined in bed. Sensory exam: no abnormal findings. No cerebellar signs elicited. Review of Relevant I have reviewed the following items elizabeth (where applicable) has been applied. Labs Laboratory Tests Test 03/01/17 16:05 03/01/17 16:10 03/01/17 16:25 03/03/17 03:50 Vitamin B12 Level 265 pg/mL (247-911) White Blood Count 5.4 x10^3/uL (4.0-11.0) 5.9 x10^3/uL (4.0-11.0) Red Blood Count 5.20 x10^6/uL (4.30-5.70) 4.85 x10^6/uL (4.30-5.70) Hemoglobin 15.9 g/dL (13.0-17.5) 15.0 g/dL (13.0-17.5) Hematocrit 47.3 % (39.0-53.0) 43.2 % (39.0-53.0) Mean Corpuscular Volume 91 fL (79-100) 89 fL (79-100) Mean Corpuscular Hemoglobin 31 pg (25-35) 31 pg (25-35) Mean Corpuscular Hemoglobin Concent 34 g/dL (31-37) 35 g/dL (31-37) Red Cell Distribution Width 14.0 % (11.5-14.5) 13.7 % (11.5-14.5) Platelet Count 187 x10^3/uL (140-400) 171 x10^3/uL (140-400) Neutrophils (%) (Auto) 61 % (31-73) 59 % (31-73) Lymphocytes (%) (Auto) 29 % (24-48) 28 % (24-48) Monocytes (%) (Auto) 8 % (0-9) 10 % (0-9) Eosinophils (%) (Auto) 1 % (0-3) 2 % (0-3) Basophils (%) (Auto) 1 % (0-3) 1 % (0-3) Neutrophils # (Auto) 3.3 x10^3uL (1.8-7.7) 3.5 x10^3uL (1.8-7.7) Lymphocytes # (Auto) 1.6 x10^3/uL (1.0-4.8) 1.7 x10^3/uL (1.0-4.8) Monocytes # (Auto) 0.5 x10^3/uL (0.0-1.1) 0.6 x10^3/uL (0.0-1.1) Eosinophils # (Auto) 0.1 x10^3/uL (0.0-0.7) 0.1 x10^3/uL (0.0-0.7) Basophils # (Auto) 0.0 x10^3/uL (0.0-0.2) 0.0 x10^3/uL (0.0-0.2) Erythrocyte Sedimentation Rate 2 (0-15) Prothrombin Time 13.9 SEC (11.7-14.0) Prothromb Time International Ratio 1.1 (0.8-1.1) Activated Partial Thromboplast Time 35 SEC (24-38) Sodium Level 140 mmol/L (136-145) 141 mmol/L (136-145) Potassium Level 4.8 mmol/L (3.5-5.1) 4.1 mmol/L (3.5-5.1) Chloride Level 105 mmol/L (98-107) 107 mmol/L (98-107) Carbon Dioxide Level 27 mmol/L (21-32) 27 mmol/L (21-32) Anion Gap 8 (6-14) 7 (6-14) Blood Urea Nitrogen 15 mg/dL (8-26) 19 mg/dL (8-26) Creatinine 1.2 mg/dL (0.7-1.3) 1.3 mg/dL (0.7-1.3) Estimated GFR (Cockcroft-Gault) 58.4 53.3 BUN/Creatinine Ratio 13 (6-20) Glucose Level 107 mg/dL (70-99) 92 mg/dL (70-99) Calcium Level 9.1 mg/dL (8.5-10.1) 8.3 mg/dL (8.5-10.1) Magnesium Level 2.3 mg/dL (1.8-2.4) Total Bilirubin 0.7 mg/dL (0.2-1.0) Aspartate Amino Transf (AST/SGOT) 23 U/L (15-37) Alanine Aminotransferase (ALT/SGPT) 29 U/L (16-63) Alkaline Phosphatase 89 U/L (46-116) Total Protein 6.9 g/dL (6.4-8.2) Albumin 3.6 g/dL (3.4-5.0) Albumin/Globulin Ratio 1.1 (1.0-1.7) Thyroid Stimulating Hormone (TSH) 1.100 uIU/mL (0.358-3.74) Ethyl Alcohol Level < 10 mg/dL (0-10) Urine Collection Type Unknown Urine Color Yellow Urine Clarity Clear Urine pH 6.0 Urine Specific [place] 1.020 Urine Protein Negative mg/dL (NEG-TRACE) Urine Glucose (UA) Negative mg/dL (NEG) Urine Ketones (Stick) Negative mg/dL (NEG) Urine Blood Negative (NEG) Urine Nitrite Negative (NEG) Urine Bilirubin Negative (NEG) Urine Urobilinogen Dipstick 1.0 mg/dL (0.2 mg/dL) Urine Leukocyte Esterase Negative (NEG) Urine RBC 0 /HPF (0-2) Urine WBC 1-4 /HPF (0-4) Urine Squamous Epithelial Cells Few /LPF Urine Bacteria 0 /HPF (0-FEW) Urine Mucus Mod /LPF Urine Opiates Screen Neg (NEG) Urine Methadone Screen Neg (NEG) Urine Barbiturates Neg (NEG) Urine Phencyclidine Screen Neg (NEG) Urine Amphetamine/Methamphetamine Neg (NEG) Urine Benzodiazepines Screen Neg (NEG) Urine Cocaine Screen Neg (NEG) Urine Cannabinoids Screen Neg (NEG) Urine Ethyl Alcohol Neg (NEG) Laboratory Tests Test 03/03/17 03:50 White Blood Count 5.9 x10^3/uL (4.0-11.0) Red Blood Count 4.85 x10^6/uL (4.30-5.70) Hemoglobin 15.0 g/dL (13.0-17.5) Hematocrit 43.2 % (39.0-53.0) Mean Corpuscular Volume 89 fL (79-100) Mean Corpuscular Hemoglobin 31 pg (25-35) Mean Corpuscular Hemoglobin Concent 35 g/dL (31-37) Red Cell Distribution Width 13.7 % (11.5-14.5) Platelet Count 171 x10^3/uL (140-400) Neutrophils (%) (Auto) 59 % (31-73) Lymphocytes (%) (Auto) 28 % (24-48) Monocytes (%) (Auto) 10 % (0-9) Eosinophils (%) (Auto) 2 % (0-3) Basophils (%) (Auto) 1 % (0-3) Neutrophils # (Auto) 3.5 x10^3uL (1.8-7.7) Lymphocytes # (Auto) 1.7 x10^3/uL (1.0-4.8) Monocytes # (Auto) 0.6 x10^3/uL (0.0-1.1) Eosinophils # (Auto) 0.1 x10^3/uL (0.0-0.7) Basophils # (Auto) 0.0 x10^3/uL (0.0-0.2) Sodium Level 141 mmol/L (136-145) Potassium Level 4.1 mmol/L (3.5-5.1) Chloride Level 107 mmol/L (98-107) Carbon Dioxide Level 27 mmol/L (21-32) Anion Gap 7 (6-14) Blood Urea Nitrogen 19 mg/dL (8-26) Creatinine 1.3 mg/dL (0.7-1.3) Estimated GFR (Cockcroft-Gault) 53.3 Glucose Level 92 mg/dL (70-99) Calcium Level 8.3 mg/dL (8.5-10.1) Medications Current Medications Ondansetron HCl (Zofran) 4 mg PRN Q8HRS PRN IV NAUSEA/VOMITING; Start 03/01/17 at 16:15; Stop 03/01/17 at 16:47; Status DC Ondansetron HCl (Zofran) 4 mg PRN Q6HRS PRN IV NAUSEA/VOMITING; Start 03/01/17 at 17:00; Stop 03/02/17 at 16:59; Status DC Acetaminophen (Tylenol) 500 mg PRN Q6HRS PRN PO MILD PAIN / TEMP; Start at 16:45; Stop 03/03/17 at 08:22; Status DC Acetaminophen/ Hydrocodone Bitart (Lortab 5/325) 1 tab PRN Q4HRS PRN PO MODERATE TO SEVERE PAIN; Start 03/01/17 at 16:45 Tamsulosin HCl (Flomax) 0.4 mg QHS PO Last administered on 03/02/17 20:49; Start 03/01/17 at 21:00 Cyanocobalamin (Vitamin B-12) 1,000 mcg DAILY PO Last administered on 08:33; Start 03/02/17 at 14:30 Acetaminophen (Tylenol) 650 mg PRN Q6HRS PRN PO FEVER; Start 03/03/17 at 08:30 Ondansetron HCl (Zofran) 4 mg PRN Q6HRS PRN IV NAUSEA/VOMITING; Start 03/03/17 at 08:30 Morphine Sulfate 2 mg PRN Q2HR PRN IV PAIN; Start 03/03/17 at 08:30 Tramadol HCl (Ultram) 50 mg PRN Q6HRS PRN PO PAIN; Start 03/03/17 at 08:30 Hydralazine HCl (Apresoline) 10 mg PRN Q4HRS PRN IVP ELEVATED BP, SEE COMMENTS ; Start 03/03/17 at 08:30 Docusate Sodium (Colace) 100 mg PRN DAILY PRN PO CONSTIPATION; Start 03/03/17 at 08:30 Active Scripts Active Reported Flomax (Tamsulosin Hcl) 0.4 Mg Cap.er.24h 0.4 Mg PO HS Vitals/I & O Vital Sign - Last 24 Hours 03/02/17 03/02/17 03/02/17 03/02/17 15:00 19:49 20:00 23:19 Temp 98.0 97.9 98.7 98.0 97.9 98.7 Pulse 71 72 59 Resp 18 18 18 B/P (MAP) 131/76 (94) 125/72 (89) 108/64 (79) Pulse Ox 95 92 95 O2 Delivery Room Air Room Air Room Air Room Air 03/03/17 03/03/17 03/03/17 03/03/17 03:27 07:00 08:20 11:00 Temp 97.9 97.7 97.5 97.9 97.7 97.5 Pulse 67 60 60 Resp 18 18 18 B/P (MAP) 96/60 (72) 114/74 (87) 121/69 (86) Pulse Ox 95 99 96 O2 Delivery Room Air Room Air Room Air Room Air WALLY DAVIS MD Mar 03, 2017 12:31
--- NOTE | 2017-03-03 12:54 | PDOC ---
PROGRESS NOTES Chief Complaint Chief Complaint 1. Dementia, moderate with h/o CVA 2. BPH on flomax 3. Ex smoker - some 40 yrs back 4. 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 neuro add IM qm aricept added by neuro cont PTOT head ct NEG SW involve for SNF placement swallow eval passed , regular diet now plan dc tmr when find a SNF History of Present Illness History of Present Illness ROS: no fever, chills, sob or chest pain feels ok, some forgetful low b12 Vitals Vitals Vital Signs Date Time Temp Pulse Resp B/P (MAP) Pulse Ox O2 Delivery O2 Flow Rate FiO2 03/03/17 11:00 97.5 60 18 121/69 (86) 96 Room Air 97.5 Physical Exam General: Alert, Oriented X3, Cooperative, No acute distress Heart: Regular rate, Normal S1, Normal S2 Lungs: Clear Abdomen: Normal bowel sounds, Soft, No tenderness, No hepatosplenomegaly, No masses Extremities: No clubbing, No cyanosis, No edema, Normal pulses, No tenderness/ swelling Skin: No rashes, No breakdown, No significant lesion Labs LABS Laboratory Tests Test 03/03/17 03:50 White Blood Count 5.9 x10^3/uL (4.0-11.0) Red Blood Count 4.85 x10^6/uL (4.30-5.70) Hemoglobin 15.0 g/dL (13.0-17.5) Hematocrit 43.2 % (39.0-53.0) Mean Corpuscular Volume 89 fL (79-100) Mean Corpuscular Hemoglobin 31 pg (25-35) Mean Corpuscular Hemoglobin Concent 35 g/dL (31-37) Red Cell Distribution Width 13.7 % (11.5-14.5) Platelet Count 171 x10^3/uL (140-400) Neutrophils (%) (Auto) 59 % (31-73) Lymphocytes (%) (Auto) 28 % (24-48) Monocytes (%) (Auto) 10 % (0-9) Eosinophils (%) (Auto) 2 % (0-3) Basophils (%) (Auto) 1 % (0-3) Neutrophils # (Auto) 3.5 x10^3uL (1.8-7.7) Lymphocytes # (Auto) 1.7 x10^3/uL (1.0-4.8) Monocytes # (Auto) 0.6 x10^3/uL (0.0-1.1) Eosinophils # (Auto) 0.1 x10^3/uL (0.0-0.7) Basophils # (Auto) 0.0 x10^3/uL (0.0-0.2) Sodium Level 141 mmol/L (136-145) Potassium Level 4.1 mmol/L (3.5-5.1) Chloride Level 107 mmol/L (98-107) Carbon Dioxide Level 27 mmol/L (21-32) Anion Gap 7 (6-14) Blood Urea Nitrogen 19 mg/dL (8-26) Creatinine 1.3 mg/dL (0.7-1.3) Estimated GFR (Cockcroft-Gault) 53.3 Glucose Level 92 mg/dL (70-99) Calcium Level 8.3 mg/dL (8.5-10.1) Assessment and Plan Assessmemt and Plan Problems Medical Problems: (1) Encephalopathy acute Status: Acute Problems: Comment Review of Relevant I have reviewed the following items elizabeth (where applicable) has been applied. Labs Laboratory Tests Test 03/01/17 16:05 03/01/17 16:10 03/01/17 16:25 03/03/17 03:50 Vitamin B12 Level 265 pg/mL (247-911) White Blood Count 5.4 x10^3/uL (4.0-11.0) 5.9 x10^3/uL (4.0-11.0) Red Blood Count 5.20 x10^6/uL (4.30-5.70) 4.85 x10^6/uL (4.30-5.70) Hemoglobin 15.9 g/dL (13.0-17.5) 15.0 g/dL (13.0-17.5) Hematocrit 47.3 % (39.0-53.0) 43.2 % (39.0-53.0) Mean Corpuscular Volume 91 fL (79-100) 89 fL (79-100) Mean Corpuscular Hemoglobin 31 pg (25-35) 31 pg (25-35) Mean Corpuscular Hemoglobin Concent 34 g/dL (31-37) 35 g/dL (31-37) Red Cell Distribution Width 14.0 % (11.5-14.5) 13.7 % (11.5-14.5) Platelet Count 187 x10^3/uL (140-400) 171 x10^3/uL (140-400) Neutrophils (%) (Auto) 61 % (31-73) 59 % (31-73) Lymphocytes (%) (Auto) 29 % (24-48) 28 % (24-48) Monocytes (%) (Auto) 8 % (0-9) 10 % (0-9) Eosinophils (%) (Auto) 1 % (0-3) 2 % (0-3) Basophils (%) (Auto) 1 % (0-3) 1 % (0-3) Neutrophils # (Auto) 3.3 x10^3uL (1.8-7.7) 3.5 x10^3uL (1.8-7.7) Lymphocytes # (Auto) 1.6 x10^3/uL (1.0-4.8) 1.7 x10^3/uL (1.0-4.8) Monocytes # (Auto) 0.5 x10^3/uL (0.0-1.1) 0.6 x10^3/uL (0.0-1.1) Eosinophils # (Auto) 0.1 x10^3/uL (0.0-0.7) 0.1 x10^3/uL (0.0-0.7) Basophils # (Auto) 0.0 x10^3/uL (0.0-0.2) 0.0 x10^3/uL (0.0-0.2) Erythrocyte Sedimentation Rate 2 (0-15) Prothrombin Time 13.9 SEC (11.7-14.0) Prothromb Time International Ratio 1.1 (0.8-1.1) Activated Partial Thromboplast Time 35 SEC (24-38) Sodium Level 140 mmol/L (136-145) 141 mmol/L (136-145) Potassium Level 4.8 mmol/L (3.5-5.1) 4.1 mmol/L (3.5-5.1) Chloride Level 105 mmol/L (98-107) 107 mmol/L (98-107) Carbon Dioxide Level 27 mmol/L (21-32) 27 mmol/L (21-32) Anion Gap 8 (6-14) 7 (6-14) Blood Urea Nitrogen 15 mg/dL (8-26) 19 mg/dL (8-26) Creatinine 1.2 mg/dL (0.7-1.3) 1.3 mg/dL (0.7-1.3) Estimated GFR (Cockcroft-Gault) 58.4 53.3 BUN/Creatinine Ratio 13 (6-20) Glucose Level 107 mg/dL (70-99) 92 mg/dL (70-99) Calcium Level 9.1 mg/dL (8.5-10.1) 8.3 mg/dL (8.5-10.1) Magnesium Level 2.3 mg/dL (1.8-2.4) Total Bilirubin 0.7 mg/dL (0.2-1.0) Aspartate Amino Transf (AST/SGOT) 23 U/L (15-37) Alanine Aminotransferase (ALT/SGPT) 29 U/L (16-63) Alkaline Phosphatase 89 U/L (46-116) Total Protein 6.9 g/dL (6.4-8.2) Albumin 3.6 g/dL (3.4-5.0) Albumin/Globulin Ratio 1.1 (1.0-1.7) Thyroid Stimulating Hormone (TSH) 1.100 uIU/mL (0.358-3.74) Ethyl Alcohol Level < 10 mg/dL (0-10) Urine Collection Type Unknown Urine Color Yellow Urine Clarity Clear Urine pH 6.0 Urine Specific [place] 1.020 Urine Protein Negative mg/dL (NEG-TRACE) Urine Glucose (UA) Negative mg/dL (NEG) Urine Ketones (Stick) Negative mg/dL (NEG) Urine Blood Negative (NEG) Urine Nitrite Negative (NEG) Urine Bilirubin Negative (NEG) Urine Urobilinogen Dipstick 1.0 mg/dL (0.2 mg/dL) Urine Leukocyte Esterase Negative (NEG) Urine RBC 0 /HPF (0-2) Urine WBC 1-4 /HPF (0-4) Urine Squamous Epithelial Cells Few /LPF Urine Bacteria 0 /HPF (0-FEW) Urine Mucus Mod /LPF Urine Opiates Screen Neg (NEG) Urine Methadone Screen Neg (NEG) Urine Barbiturates Neg (NEG) Urine Phencyclidine Screen Neg (NEG) Urine Amphetamine/Methamphetamine Neg (NEG) Urine Benzodiazepines Screen Neg (NEG) Urine Cocaine Screen Neg (NEG) Urine Cannabinoids Screen Neg (NEG) Urine Ethyl Alcohol Neg (NEG) Laboratory Tests Test 03/03/17 03:50 White Blood Count 5.9 x10^3/uL (4.0-11.0) Red Blood Count 4.85 x10^6/uL (4.30-5.70) Hemoglobin 15.0 g/dL (13.0-17.5) Hematocrit 43.2 % (39.0-53.0) Mean Corpuscular Volume 89 fL (79-100) Mean Corpuscular Hemoglobin 31 pg (25-35) Mean Corpuscular Hemoglobin Concent 35 g/dL (31-37) Red Cell Distribution Width 13.7 % (11.5-14.5) Platelet Count 171 x10^3/uL (140-400) Neutrophils (%) (Auto) 59 % (31-73) Lymphocytes (%) (Auto) 28 % (24-48) Monocytes (%) (Auto) 10 % (0-9) Eosinophils (%) (Auto) 2 % (0-3) Basophils (%) (Auto) 1 % (0-3) Neutrophils # (Auto) 3.5 x10^3uL (1.8-7.7) Lymphocytes # (Auto) 1.7 x10^3/uL (1.0-4.8) Monocytes # (Auto) 0.6 x10^3/uL (0.0-1.1) Eosinophils # (Auto) 0.1 x10^3/uL (0.0-0.7) Basophils # (Auto) 0.0 x10^3/uL (0.0-0.2) Sodium Level 141 mmol/L (136-145) Potassium Level 4.1 mmol/L (3.5-5.1) Chloride Level 107 mmol/L (98-107) Carbon Dioxide Level 27 mmol/L (21-32) Anion Gap 7 (6-14) Blood Urea Nitrogen 19 mg/dL (8-26) Creatinine 1.3 mg/dL (0.7-1.3) Estimated GFR (Cockcroft-Gault) 53.3 Glucose Level 92 mg/dL (70-99) Calcium Level 8.3 mg/dL (8.5-10.1) Medications Current Medications Ondansetron HCl (Zofran) 4 mg PRN Q8HRS PRN IV NAUSEA/VOMITING; Start 03/01/17 at 16:15; Stop 03/01/17 at 16:47; Status DC Ondansetron HCl (Zofran) 4 mg PRN Q6HRS PRN IV NAUSEA/VOMITING; Start 03/01/17 at 17:00; Stop 03/02/17 at 16:59; Status DC Acetaminophen (Tylenol) 500 mg PRN Q6HRS PRN PO MILD PAIN / TEMP; Start at 16:45; Stop 03/03/17 at 08:22; Status DC Acetaminophen/ Hydrocodone Bitart (Lortab 5/325) 1 tab PRN Q4HRS PRN PO MODERATE TO SEVERE PAIN; Start 03/01/17 at 16:45 Tamsulosin HCl (Flomax) 0.4 mg QHS PO Last administered on 03/02/17 20:49; Start 03/01/17 at 21:00 Cyanocobalamin (Vitamin B-12) 1,000 mcg DAILY PO Last administered on 08:33; Start 03/02/17 at 14:30 Acetaminophen (Tylenol) 650 mg PRN Q6HRS PRN PO FEVER; Start 03/03/17 at 08:30 Ondansetron HCl (Zofran) 4 mg PRN Q6HRS PRN IV NAUSEA/VOMITING; Start 03/03/17 at 08:30 Morphine Sulfate 2 mg PRN Q2HR PRN IV PAIN; Start 03/03/17 at 08:30 Tramadol HCl (Ultram) 50 mg PRN Q6HRS PRN PO PAIN; Start 03/03/17 at 08:30 Hydralazine HCl (Apresoline) 10 mg PRN Q4HRS PRN IVP ELEVATED BP, SEE COMMENTS ; Start 03/03/17 at 08:30 Docusate Sodium (Colace) 100 mg PRN DAILY PRN PO CONSTIPATION; Start 03/03/17 at 08:30 Cyanocobalamin (Vitamin B-12) 1,000 mcg QMONTH IM ; Start 03/03/17 at 13:00 Donepezil HCl (Aricept) 5 mg DAILY PO ; Start 03/03/17 at 13:00 Active Scripts Active Reported Flomax (Tamsulosin Hcl) 0.4 Mg Cap.er.24h 0.4 Mg PO HS Vitals/I & O Vital Sign - Last 24 Hours 03/02/17 03/02/17 03/02/17 03/02/17 15:00 19:49 20:00 23:19 Temp 98.0 97.9 98.7 98.0 97.9 98.7 Pulse 71 72 59 Resp 18 18 18 B/P (MAP) 131/76 (94) 125/72 (89) 108/64 (79) Pulse Ox 95 92 95 O2 Delivery Room Air Room Air Room Air Room Air 03/03/17 03/03/17 03/03/17 03/03/17 03:27 07:00 08:20 11:00 Temp 97.9 97.7 97.5 97.9 97.7 97.5 Pulse 67 60 60 Resp 18 18 18 B/P (MAP) 96/60 (72) 114/74 (87) 121/69 (86) Pulse Ox 95 99 96 O2 Delivery Room Air Room Air Room Air Room Air KRISS MA MD Mar 03, 2017 12:54
[2017-03-03] MEDS ORDERED: CYANOCOBALAMIN (VITAMIN B-12) 1,000 MCG/ML VIAL IM SCH (13:00)
[2017-03-03] MEDS: DONEPEZIL HCL 5 MG TABLET. PO SCH (14:28)
[2017-03-03 15:00] VITALS: BP 119/68
[2017-03-03 19:46] VITALS: BP 112/69
[2017-03-03] MEDS: TAMSULOSIN 0.4 MG CAP.ER.24H. PO SCH (20:44)
[2017-03-03 23:15] VITALS: BP 109/65
[2017-03-04 03:29] VITALS: BP 105/59
[2017-03-04 07:00] VITALS: BP 95/44
[2017-03-04] MEDS: DONEPEZIL HCL 5 MG TABLET. PO SCH (08:37)
[2017-03-04] MEDS: CYANOCOBALAMIN (VITAMIN B-12) 1,000 MCG TABLET. PO SCH (08:38)
--- NOTE | 2017-03-04 10:01 | PDOC ---
PROGRESS NOTES Assessment Problems Medical Problems: (1) Encephalopathy acute Status: Acute History of strokes with residual left hemiparesis I am not so sure he is demented, may more be a problem with judgment, which of course could represent a frontal-lobe dementia. Suspect prior substance abuse which may contribute. He does have a low-normal B12 level Plan Placement. Donepezil B-12 injections Follow-up with me in 2 months Subjective No complaints Objective Vital Signs Date Time Temp Pulse Resp B/P (MAP) Pulse Ox O2 Delivery O2 Flow Rate FiO2 03/04/17 07:00 98.0 55 16 95/44 (61) 90 Room Air 98.0 PHYSICAL EXAM Alert. Oriented to place and person, does not know date. PERRL. EOMI. CN: no focal findings. Muscle tone: normal. Muscle strength: 5-/5 left hemiparesis, 5/5 on right DTR: 2+ Plantar reflex: flexor Gait: not examined in bed. Sensory exam: no abnormal findings. No cerebellar signs elicited. Review of Relevant I have reviewed the following items elizabeth (where applicable) has been applied. Labs Laboratory Tests Test 03/03/17 03:50 White Blood Count 5.9 x10^3/uL (4.0-11.0) Red Blood Count 4.85 x10^6/uL (4.30-5.70) Hemoglobin 15.0 g/dL (13.0-17.5) Hematocrit 43.2 % (39.0-53.0) Mean Corpuscular Volume 89 fL (79-100) Mean Corpuscular Hemoglobin 31 pg (25-35) Mean Corpuscular Hemoglobin Concent 35 g/dL (31-37) Red Cell Distribution Width 13.7 % (11.5-14.5) Platelet Count 171 x10^3/uL (140-400) Neutrophils (%) (Auto) 59 % (31-73) Lymphocytes (%) (Auto) 28 % (24-48) Monocytes (%) (Auto) 10 % (0-9) Eosinophils (%) (Auto) 2 % (0-3) Basophils (%) (Auto) 1 % (0-3) Neutrophils # (Auto) 3.5 x10^3uL (1.8-7.7) Lymphocytes # (Auto) 1.7 x10^3/uL (1.0-4.8) Monocytes # (Auto) 0.6 x10^3/uL (0.0-1.1) Eosinophils # (Auto) 0.1 x10^3/uL (0.0-0.7) Basophils # (Auto) 0.0 x10^3/uL (0.0-0.2) Sodium Level 141 mmol/L (136-145) Potassium Level 4.1 mmol/L (3.5-5.1) Chloride Level 107 mmol/L (98-107) Carbon Dioxide Level 27 mmol/L (21-32) Anion Gap 7 (6-14) Blood Urea Nitrogen 19 mg/dL (8-26) Creatinine 1.3 mg/dL (0.7-1.3) Estimated GFR (Cockcroft-Gault) 53.3 Glucose Level 92 mg/dL (70-99) Calcium Level 8.3 mg/dL (8.5-10.1) Medications Current Medications Ondansetron HCl (Zofran) 4 mg PRN Q8HRS PRN IV NAUSEA/VOMITING; Start 03/01/17 at 16:15; Stop 03/01/17 at 16:47; Status DC Ondansetron HCl (Zofran) 4 mg PRN Q6HRS PRN IV NAUSEA/VOMITING; Start 03/01/17 at 17:00; Stop 03/02/17 at 16:59; Status DC Acetaminophen (Tylenol) 500 mg PRN Q6HRS PRN PO MILD PAIN / TEMP; Start at 16:45; Stop 03/03/17 at 08:22; Status DC Acetaminophen/ Hydrocodone Bitart (Lortab 5/325) 1 tab PRN Q4HRS PRN PO MODERATE TO SEVERE PAIN; Start 03/01/17 at 16:45 Tamsulosin HCl (Flomax) 0.4 mg QHS PO Last administered on 03/03/17 20:44; Start 03/01/17 at 21:00 Cyanocobalamin (Vitamin B-12) 1,000 mcg DAILY PO Last administered on 08:38; Start 03/02/17 at 14:30 Acetaminophen (Tylenol) 650 mg PRN Q6HRS PRN PO FEVER; Start 03/03/17 at 08:30 Ondansetron HCl (Zofran) 4 mg PRN Q6HRS PRN IV NAUSEA/VOMITING; Start 03/03/17 at 08:30 Morphine Sulfate 2 mg PRN Q2HR PRN IV PAIN; Start 03/03/17 at 08:30 Tramadol HCl (Ultram) 50 mg PRN Q6HRS PRN PO PAIN; Start 03/03/17 at 08:30 Hydralazine HCl (Apresoline) 10 mg PRN Q4HRS PRN IVP ELEVATED BP, SEE COMMENTS ; Start 03/03/17 at 08:30 Docusate Sodium (Colace) 100 mg PRN DAILY PRN PO CONSTIPATION; Start 03/03/17 at 08:30 Cyanocobalamin (Vitamin B-12) 1,000 mcg QMONTH IM Last administered on 14:24; Start 03/03/17 at 13:00 Donepezil HCl (Aricept) 5 mg DAILY PO Last administered on 03/04/17 08:37; Start 03/03/17 at 13:00 Active Scripts Active Reported Flomax (Tamsulosin Hcl) 0.4 Mg Cap.er.24h 0.4 Mg PO HS Vitals/I & O Vital Sign - Last 24 Hours 03/03/17 03/03/17 03/03/17 03/03/17 11:00 15:00 19:45 19:46 Temp 97.5 97.4 97.6 97.5 97.4 97.6 Pulse 60 65 61 Resp 18 18 18 B/P (MAP) 121/69 (86) 119/68 (85) 112/69 (83) Pulse Ox 96 95 93 O2 Delivery Room Air Room Air Room Air Room Air 03/03/17 03/04/17 03/04/17 23:15 03:29 07:00 Temp 97.8 97.6 98.0 97.8 97.6 98.0 Pulse 56 64 55 Resp 18 18 16 B/P (MAP) 109/65 (80) 105/59 (74) 95/44 (61) Pulse Ox 93 91 90 O2 Delivery Room Air Room Air Room Air WALLY DAVIS MD Mar 04, 2017 10:01
[2017-03-04] MEDS ORDERED: CYAN10005 PO (10:42)
[2017-03-04] MEDS ORDERED: DONE5TAB56 PO (10:43)
[2017-03-04 11:00] VITALS: BP 93/51
--- NOTE | 2017-03-04 14:15 | PDOC ---
PROGRESS NOTES Chief Complaint Chief Complaint 1. Dementia, moderate with h/o CVA 2. BPH on flomax 3. Ex smoker - some 40 yrs back 4. 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 neuro add IM qm aricept added by neuro cont PTOT head ct NEG SW involve for SNF placement swallow eval passed , regular diet now plan dc tmr when find a SNF History of Present Illness History of Present Illness ROS: no fever, chills, sob or chest pain feels ok, some forgetful low b12 Vitals Vitals Vital Signs Date Time Temp Pulse Resp B/P (MAP) Pulse Ox O2 Delivery O2 Flow Rate FiO2 03/04/17 11:00 98.7 61 16 93/51 (65) 92 Room Air 98.7 Physical Exam General: Alert, Oriented X3, Cooperative, No acute distress Heart: Regular rate, Normal S1, Normal S2 Lungs: Clear Abdomen: Normal bowel sounds, Soft, No tenderness, No hepatosplenomegaly, No masses Extremities: No clubbing, No cyanosis, No edema, Normal pulses, No tenderness/ swelling Skin: No rashes, No breakdown, No significant lesion Assessment and Plan Assessmemt and Plan Problems Medical Problems: (1) Encephalopathy acute Status: Acute Problems: Comment Review of Relevant I have reviewed the following items elizabeth (where applicable) has been applied. Labs Laboratory Tests Test 03/03/17 03:50 White Blood Count 5.9 x10^3/uL (4.0-11.0) Red Blood Count 4.85 x10^6/uL (4.30-5.70) Hemoglobin 15.0 g/dL (13.0-17.5) Hematocrit 43.2 % (39.0-53.0) Mean Corpuscular Volume 89 fL (79-100) Mean Corpuscular Hemoglobin 31 pg (25-35) Mean Corpuscular Hemoglobin Concent 35 g/dL (31-37) Red Cell Distribution Width 13.7 % (11.5-14.5) Platelet Count 171 x10^3/uL (140-400) Neutrophils (%) (Auto) 59 % (31-73) Lymphocytes (%) (Auto) 28 % (24-48) Monocytes (%) (Auto) 10 % (0-9) Eosinophils (%) (Auto) 2 % (0-3) Basophils (%) (Auto) 1 % (0-3) Neutrophils # (Auto) 3.5 x10^3uL (1.8-7.7) Lymphocytes # (Auto) 1.7 x10^3/uL (1.0-4.8) Monocytes # (Auto) 0.6 x10^3/uL (0.0-1.1) Eosinophils # (Auto) 0.1 x10^3/uL (0.0-0.7) Basophils # (Auto) 0.0 x10^3/uL (0.0-0.2) Sodium Level 141 mmol/L (136-145) Potassium Level 4.1 mmol/L (3.5-5.1) Chloride Level 107 mmol/L (98-107) Carbon Dioxide Level 27 mmol/L (21-32) Anion Gap 7 (6-14) Blood Urea Nitrogen 19 mg/dL (8-26) Creatinine 1.3 mg/dL (0.7-1.3) Estimated GFR (Cockcroft-Gault) 53.3 Glucose Level 92 mg/dL (70-99) Calcium Level 8.3 mg/dL (8.5-10.1) Medications Current Medications Ondansetron HCl (Zofran) 4 mg PRN Q8HRS PRN IV NAUSEA/VOMITING; Start 03/01/17 at 16:15; Stop 03/01/17 at 16:47; Status DC Ondansetron HCl (Zofran) 4 mg PRN Q6HRS PRN IV NAUSEA/VOMITING; Start 03/01/17 at 17:00; Stop 03/02/17 at 16:59; Status DC Acetaminophen (Tylenol) 500 mg PRN Q6HRS PRN PO MILD PAIN / TEMP; Start at 16:45; Stop 03/03/17 at 08:22; Status DC Acetaminophen/ Hydrocodone Bitart (Lortab 5/325) 1 tab PRN Q4HRS PRN PO MODERATE TO SEVERE PAIN; Start 03/01/17 at 16:45 Tamsulosin HCl (Flomax) 0.4 mg QHS PO Last administered on 03/03/17t 20:44; Start 03/01/17 at 21:00 Cyanocobalamin (Vitamin B-12) 1,000 mcg DAILY PO Last administered on 08:38; Start 03/02/17 at 14:30 Acetaminophen (Tylenol) 650 mg PRN Q6HRS PRN PO FEVER; Start 03/03/17 at 08:30 Ondansetron HCl (Zofran) 4 mg PRN Q6HRS PRN IV NAUSEA/VOMITING; Start 03/03/17 at 08:30 Morphine Sulfate 2 mg PRN Q2HR PRN IV PAIN; Start 03/03/17 at 08:30 Tramadol HCl (Ultram) 50 mg PRN Q6HRS PRN PO PAIN; Start 03/03/17 at 08:30 Hydralazine HCl (Apresoline) 10 mg PRN Q4HRS PRN IVP ELEVATED BP, SEE COMMENTS ; Start 03/03/17 at 08:30 Docusate Sodium (Colace) 100 mg PRN DAILY PRN PO CONSTIPATION; Start 03/03/17 at 08:30 Cyanocobalamin (Vitamin B-12) 1,000 mcg QMONTH IM Last administered on 14:24; Start 03/03/17 at 13:00 Donepezil HCl (Aricept) 5 mg DAILY PO Last administered on 03/04/17 08:37; Start 03/03/17 at 13:00 Active Scripts Active Aricept (Donepezil Hcl) 5 Mg Tablet 5 Mg PO DAILY Vitamin B-12 (Cyanocobalamin (Vitamin B-12)) 1,000 Mcg Tablet 1,000 Mcg PO DAILY Reported Flomax (Tamsulosin Hcl) 0.4 Mg Cap.er.24h 0.4 Mg PO HS Vitals/I & O Vital Sign - Last 24 Hours 03/03/17 03/03/17 03/03/17 03/03/17 15:00 19:45 19:46 23:15 Temp 97.4 97.6 97.8 97.4 97.6 97.8 Pulse 65 61 56 Resp 18 18 18 B/P (MAP) 119/68 (85) 112/69 (83) 109/65 (80) Pulse Ox 95 93 93 O2 Delivery Room Air Room Air Room Air Room Air 03/04/17 03/04/17 03/04/17 03/04/17 03:29 07:00 08:15 11:00 Temp 97.6 98.0 98.7 97.6 98.0 98.7 Pulse 64 55 61 Resp 18 16 16 B/P (MAP) 105/59 (74) 95/44 (61) 93/51 (65) Pulse Ox 91 90 92 O2 Delivery Room Air Room Air Room Air Room Air KRISS MA MD Mar 04, 2017 14:15
[2017-03-04 15:00] VITALS: BP 112/66
[2017-03-04 19:00] VITALS: BP 117/65
[2017-03-04] MEDS: TAMSULOSIN 0.4 MG CAP.ER.24H. PO SCH (21:13)
[2017-03-04 23:11] VITALS: BP 103/52
[2017-03-05 03:26] VITALS: BP 113/65
[2017-03-05 07:00] VITALS: BP 120/73
[2017-03-05] MEDS: CYANOCOBALAMIN (VITAMIN B-12) 1,000 MCG TABLET. PO SCH (09:19)
[2017-03-05] MEDS: DONEPEZIL HCL 5 MG TABLET. PO SCH (09:19)
--- NOTE | 2017-03-05 12:39 | PDOC3 ---
Discharge Summary Visit Information Date of Admission: Mar 01, 2017 Date of Discharge: Mar 05, 2017 Admitting Diagnosis Comment: Assessment/Plan 1. Dementia, moderate to advanced 2. BPH on flomax 3. Ex smoker - some 40 yrs back 4. Recent incarceration x 33 yrs - has ankle monitor with 50 mile radius clearance Final Diagnosis Problems Medical Problems: (1) Encephalopathy acute Status: Acute Brief Hospital Course Allergies Allergies Coded Allergies Type Severity Reaction Last Updated Verified No Known Drug Allergies 03/01/17 No Vital Signs Vital Signs Date Time Temp Pulse Resp B/P (MAP) Pulse Ox O2 Delivery O2 Flow Rate FiO2 03/05/17 08:00 Room Air 03/05/17 07:00 98.5 66 18 120/73 (89) 94 98.5 Brief Hospital Course Mr. Hannah is a 81 old [sex] who presented with [ ]81 y.o male who lives with dtr, hx CVA x 4 ischemic,. 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 LAbs all good, CT head just done, Was dx with beginning dementia when he had the CVA in May 2014, As per dtr, he is cleared to go to SNU despite the ankle monitor as long as it is within the 50 mile radius of their house, She wishes for her dad to go to SNU. COURSE: admitted, neuro agrees with dementia assessment, no other med issues, Accepted at [facility] Seen and examined Only new meds are pain meds prn Cleared to take to SNU by police/security time 31 mins Discharge Information Condition at Discharge: Improved, Stable Disposition/Orders: Other (snu) Scheduled Cyanocobalamin (Vitamin B-12) (Vitamin B-12), 1,000 MCG PO DAILY Donepezil Hcl (Aricept), 5 MG PO DAILY Tamsulosin Hcl (Flomax), 0.4 MG PO HS, (Reported) LAWRENCE BATISTA MD Mar 05, 2017 12:39
--- NOTE | 2017-03-05 14:03 | PDOC ---
PROGRESS NOTES Assessment Problems Medical Problems: (1) Encephalopathy acute Status: Acute History of strokes with residual left hemiparesis I am not so sure he is demented, may more be a problem with judgment, which of course could represent a frontal-lobe dementia. Suspect prior substance abuse which may contribute. He does have a low-normal B12 level Plan Placement. Donepezil B-12 injections Follow-up with me in 2 months Subjective no complaints Objective Vital Signs Date Time Temp Pulse Resp B/P (MAP) Pulse Ox O2 Delivery O2 Flow Rate FiO2 03/05/17 08:00 Room Air 03/05/17 07:00 98.5 66 18 120/73 (89) 94 98.5 Intake and Output 03/06/17 07:00 Intake Total 120 ml Balance 120 ml Intake Oral 120 ml PHYSICAL EXAM Alert. Oriented to place and person, does not know date. PERRL. EOMI. CN: no focal findings. Muscle tone: normal. Muscle strength: 5-/5 left hemiparesis, 5/5 on right DTR: 2+ Plantar reflex: flexor Gait: not examined in bed. Sensory exam: no abnormal findings. No cerebellar signs elicited. Review of Relevant I have reviewed the following items elizabeth (where applicable) has been applied. Medications Current Medications Ondansetron HCl (Zofran) 4 mg PRN Q8HRS PRN IV NAUSEA/VOMITING; Start 03/01/17 at 16:15; Stop 03/01/17 at 16:47; Status DC Ondansetron HCl (Zofran) 4 mg PRN Q6HRS PRN IV NAUSEA/VOMITING; Start 03/01/17 at 17:00; Stop 03/02/17 at 16:59; Status DC Acetaminophen (Tylenol) 500 mg PRN Q6HRS PRN PO MILD PAIN / TEMP; Start at 16:45; Stop 03/03/17 at 08:22; Status DC Acetaminophen/ Hydrocodone Bitart (Lortab 5/325) 1 tab PRN Q4HRS PRN PO MODERATE TO SEVERE PAIN; Start 03/01/17 at 16:45 Tamsulosin HCl (Flomax) 0.4 mg QHS PO Last administered on 03/04/17t 21:13; Start 03/01/17 at 21:00 Cyanocobalamin (Vitamin B-12) 1,000 mcg DAILY PO Last administered on 09:19; Start 03/02/17 at 14:30 Acetaminophen (Tylenol) 650 mg PRN Q6HRS PRN PO FEVER; Start 03/03/17 at 08:30 Ondansetron HCl (Zofran) 4 mg PRN Q6HRS PRN IV NAUSEA/VOMITING; Start 03/03/17 at 08:30 Morphine Sulfate 2 mg PRN Q2HR PRN IV PAIN; Start 03/03/17 at 08:30 Tramadol HCl (Ultram) 50 mg PRN Q6HRS PRN PO PAIN; Start 03/03/17 at 08:30 Hydralazine HCl (Apresoline) 10 mg PRN Q4HRS PRN IVP ELEVATED BP, SEE COMMENTS ; Start 03/03/17 at 08:30 Docusate Sodium (Colace) 100 mg PRN DAILY PRN PO CONSTIPATION; Start 03/03/17 at 08:30 Cyanocobalamin (Vitamin B-12) 1,000 mcg QMONTH IM Last administered on 14:24; Start 03/03/17 at 13:00 Donepezil HCl (Aricept) 5 mg DAILY PO Last administered on 03/05/17 09:19; Start 03/03/17 at 13:00 Active Scripts Active Aricept (Donepezil Hcl) 5 Mg Tablet 5 Mg PO DAILY Vitamin B-12 (Cyanocobalamin (Vitamin B-12)) 1,000 Mcg Tablet 1,000 Mcg PO DAILY Reported Flomax (Tamsulosin Hcl) 0.4 Mg Cap.er.24h 0.4 Mg PO HS Vitals/I & O Vital Sign - Last 24 Hours 03/04/17 03/04/17 03/04/17 03/04/17 15:00 19:00 19:25 23:11 Temp 97.3 98.3 98.7 97.3 98.3 98.7 Pulse 59 57 59 Resp 16 18 18 B/P (MAP) 112/66 (81) 117/65 (82) 103/52 (69) Pulse Ox 94 93 93 O2 Delivery Room Air Room Air Room Air Room Air 03/05/17 03/05/17 03/05/17 03:26 07:00 08:00 Temp 98.1 98.5 98.1 98.5 Pulse 71 66 Resp 18 18 B/P (MAP) 113/65 (81) 120/73 (89) Pulse Ox 92 94 O2 Delivery Room Air Room Air Room Air Intake and Output 03/05/17 03/05/17 03/06/17 15:00 23:00 07:00 Intake Total 120 ml Balance 120 ml WALLY DAVIS MD Mar 05, 2017 14:03
== END 2017-03-05 14:15 | DRG 884 ==
LOC: ER 15:54 → 4 NORTH 16:40
PROVIDERS: ADMIT Internal Medicine; ATTEND Internal Medicine
DX: F03.90 Unspecified dementia, unspecified severity, without behavioral disturbance, psychotic disturbance, mood disturbance, and anxiety (principal); I69.354 Hemiplegia and hemiparesis following cerebral infarction affecting left non-dominant side; N40.0 Benign prostatic hyperplasia without lower urinary tract symptoms; Z87.442 Personal history of urinary calculi; Z87.891 Personal history of nicotine dependence; Z90.89 Acquired absence of other organs; Z84.89 Family history of other specified conditions; E53.9 Vitamin B deficiency, unspecified
CPT/HCPCS: 36415; 70450; 80048; 80053; 80307; 81001; 82607; 83735; 84443; 85025; 85610; 85651; 85730; G0480; J3420; 92523; 92610; 97110; 97116; 97530; 99285-25; G0479

== ENCOUNTER 2017-11-02 13:02 | Inpatient (IN) | payer MEDICARE, OTHER ==
[2017-11-02] MEDS: LIDO:MAALOX 1:1 20 ML SINGLE DOSE. SWSW (13:33)
[2017-11-02] MEDS: IV NORMAL SALINE 1000ML BAG 1,000 ML IV ×3 (13:34→22:59)
[2017-11-02] MEDS: fentaNYL PF VIAL 100 MCG/2 ML VIAL IV (13:35)
[2017-11-02 13:41] LABS: BASO % 0 % (0-3); EOS % 0 % (0-3); HEMATOCRIT 46.5 % (39.0-53.0); HEMOGLOBIN 16.2 g/dL (13.0-17.5); LYMPH # 0.6 x10^3/uL (1.0-4.8); LYMPH % 6 % (24-48); MEAN CORPUSCULAR HEMOGLOBIN 32 pg (25-35); MEAN CORPUSCULAR HGB CONC 35 g/dL (31-37); MEAN CORPUSCULAR VOLUME 91 fL (79-100); MONO # 0.4 x10^3/uL (0.0-1.1); MONO % 4 % (0-9); NEUT # 9.1 x10^3uL (1.8-7.7); NEUT % 90 % (31-73); PLATELET COUNT 186 x10^3/uL (140-400); RED BLOOD COUNT 5.12 x10^6/uL (4.30-5.70); RED CELL DISTRIBUTION WIDTH 14.4 % (11.5-14.5); WHITE BLOOD COUNT 10.1 x10^3/uL (4.0-11.0)
[2017-11-02 13:46] LABS: ADD MAN DIFF? YES
[2017-11-02 13:48] LABS: ANION GAP 9 (6-14); BLOOD UREA NITROGEN 17 mg/dL (8-26); BUN/CREATININE RATIO 13 (6-20); CALCIUM 8.6 mg/dL (8.5-10.1); CARBON DIOXIDE 25 mmol/L (21-32); CHLORIDE 104 mmol/L (98-107); CREATININE 1.3 mg/dL (0.7-1.3); GFR 53.1; GLUCOSE 131 mg/dL (70-99); POTASSIUM 4.5 mmol/L (3.5-5.1); SODIUM 138 mmol/L (136-145)
[2017-11-02 13:49] LABS: ETHANOL < 10 mg/dL (0-10)
[2017-11-02 13:53] LABS: BILIRUBIN,URINE NEGATIVE (NEG); CLARITY,URINE CLEAR; COLOR,URINE YELLOW; GLUCOSE,URINE NEGATIVE (NEG); NITRITE,URINE NEGATIVE (NEG); PROTEIN,URINE 30 mg/dL (NEG-TRACE)
[2017-11-02 13:54] LABS: ALBUMIN 3.6 g/dL (3.4-5.0); ALBUMIN/GLOBULIN RATIO 1.1 (1.0-1.7); ALK PHOS 81 U/L (46-116); ALT (SGPT) 37 U/L (16-63); AST (SGOT) 23 U/L (15-37); LIPASE 142 U/L (73-393); TOTAL BILIRUBIN 0.9 mg/dL (0.2-1.0)
[2017-11-02 13:57] LABS: TROPONINI < 0.017 ng/mL (0.000-0.055)
[2017-11-02 14:18] LABS: BACTERIA,URINE FEW /HPF (0-FEW); SQUAMOUS EPITHELIAL CELL,UR FEW /LPF
[2017-11-02 14:27] LABS: % BANDS 7 % (0-9); % BASOS 1 % (0-3); % LYMPHS 5 % (24-48); % MONOS 2 % (0-10); % SEGS 85 % (35-66)
[2017-11-02 14:29] LABS: PLT ESTIMATE ADEQUATE (ADEQUATE)
[2017-11-02] MEDS: IOHEXOL 300 MG/ML 100ML VIAL. IV (14:45)
[2017-11-02] MEDS ORDERED: CONTRAST GIVEN. MC (14:45)
[2017-11-02] MEDS: MORPHINE SULFATE 4 MG/ML DISP.SYRIN. IV ×3 (16:07→22:58)
[2017-11-02] MEDS ORDERED: ONDANSETRON PF 4 MG/2 ML VIAL. IV ×2 (18:00→18:15)
[2017-11-02] MEDS ORDERED: ACETAMINOPHEN 325 MG TABLET. PO (18:15)
[2017-11-02] MEDS ORDERED: DOCUSATE SODIUM 100 MG CAPSULE. PO (18:15)
[2017-11-02] MEDS ORDERED: hydrALAZINE 20 MG/ML VIAL. IVP (18:15)
[2017-11-02] MEDS ORDERED: MORPHINE SULFATE 4 MG/ML DISP.SYRIN. IV (18:15)
[2017-11-02] MEDS: HEPARIN PF for SUB-Q USE 5,000 UNIT/0.5 ML VIAL. SQ (22:00)
[2017-11-02] MEDS: traMADol 50 MG TABLET PO (22:58)
[2017-11-02] MEDS: FAMOTIDINE 20 MG/2 ML VIAL IVP (22:58)
[2017-11-03 03:52] LABS: ADD MAN DIFF? NO
[2017-11-03 04:27] LABS: ALBUMIN 3.1 g/dL (3.4-5.0); ALK PHOS 72 U/L (46-116); ALT (SGPT) 27 U/L (16-63); ANION GAP 7 (6-14); AST (SGOT) 20 U/L (15-37); BLOOD UREA NITROGEN 15 mg/dL (8-26); CALCIUM 8.5 mg/dL (8.5-10.1); CARBON DIOXIDE 26 mmol/L (21-32); CHLORIDE 105 mmol/L (98-107); CREATININE 1.2 mg/dL (0.7-1.3); DIRECT BILIRUBIN 0.3 mg/dL (0.0-0.2); GFR 58.3; GLUCOSE 97 mg/dL (70-99); POTASSIUM 4.5 mmol/L (3.5-5.1); SODIUM 138 mmol/L (136-145); TOTAL BILIRUBIN 1.1 mg/dL (0.2-1.0); TOTAL PROTEIN 6.5 g/dL (6.4-8.2)
[2017-11-03 05:11] LABS: BASO % 0 % (0-3); EOS % 0 % (0-3); HEMATOCRIT 41.7 % (39.0-53.0); HEMOGLOBIN 14.3 g/dL (13.0-17.5); LYMPH # 1.1 x10^3/uL (1.0-4.8); LYMPH % 11 % (24-48); MEAN CORPUSCULAR HEMOGLOBIN 31 pg (25-35); MEAN CORPUSCULAR HGB CONC 34 g/dL (31-37); MEAN CORPUSCULAR VOLUME 91 fL (79-100); MONO % 10 % (0-9); NEUT # 7.6 x10^3uL (1.8-7.7); NEUT % 79 % (31-73); PLATELET COUNT 163 x10^3/uL (140-400); RED BLOOD COUNT 4.59 x10^6/uL (4.30-5.70); RED CELL DISTRIBUTION WIDTH 14.3 % (11.5-14.5); WHITE BLOOD COUNT 9.6 x10^3/uL (4.0-11.0)
[2017-11-03] MEDS: HEPARIN PF for SUB-Q USE 5,000 UNIT/0.5 ML VIAL. SQ ×3 (06:00→21:50)
[2017-11-03] MEDS: DONEPEZIL HCL 5 MG TABLET. PO (08:55)
[2017-11-03] MEDS: MORPHINE SULFATE 4 MG/ML DISP.SYRIN. IV ×2 (08:56→13:14)
[2017-11-03] MEDS: CYANOCOBALAMIN (VITAMIN B-12) 1,000 MCG TABLET. PO (09:00)
[2017-11-03] MEDS: IV NORMAL SALINE 1000ML BAG 1,000 ML IV (13:19)
[2017-11-03] MEDS: IV RINGERS,LACTATED 1000ML 1,000 ML IV ×2 (13:57→13:58)
[2017-11-03] MEDS ORDERED: LIDOCAINE 1% PF 2 ML VIAL. ID (14:00)
[2017-11-03] MEDS ORDERED: MORPHINE SULFATE 4 MG/ML DISP.SYRIN. IV (14:00)
[2017-11-03] MEDS ORDERED: fentaNYL PF VIAL 100 MCG/2 ML VIAL IV ×2 (14:00)
[2017-11-03] MEDS ORDERED: ONDANSETRON PF 4 MG/2 ML VIAL. IV (14:00)
[2017-11-03] MEDS ORDERED: PROCHLORPERAZINE 10 MG/2 ML VIAL. IV (14:00)
[2017-11-03] MEDS ORDERED: LIDOCAINE 2% PF Vial for OR 5 ML VIAL. (14:29)
[2017-11-03] MEDS ORDERED: PROPOFOL 40 ML IV (14:29)
[2017-11-03] MEDS: ATORVASTATIN CALCIUM 20 MG TABLET PO (21:41)
[2017-11-03] MEDS: TAMSULOSIN 0.4 MG CAP.ER.24H. PO (21:42)
[2017-11-03] MEDS: TERAZOSIN 5 MG CAPSULE. PO (21:42)
[2017-11-03] MEDS: traMADol 50 MG TABLET PO (21:42)
[2017-11-03] MEDS: FAMOTIDINE 20 MG/2 ML VIAL IVP (21:43)
[2017-11-04] MEDS: IV NORMAL SALINE 1000ML BAG 1,000 ML IV ×3 (06:10→15:00)
[2017-11-04] MEDS: traMADol 50 MG TABLET PO ×2 (06:12→15:37)
[2017-11-04] MEDS: HEPARIN PF for SUB-Q USE 5,000 UNIT/0.5 ML VIAL. SQ ×2 (06:18→15:41)
[2017-11-04] MEDS: CYANOCOBALAMIN (VITAMIN B-12) 1,000 MCG TABLET. PO (09:25)
[2017-11-04] MEDS: FINASTERIDE 5 MG TABLET. PO (09:25)
[2017-11-04] MEDS: DONEPEZIL HCL 5 MG TABLET. PO (09:25)
[2017-11-05] MEDS ORDERED: PANTOPRAZOLE 40 MG TABLET.DR. PO (07:30)
[2017-11-05] MEDS ORDERED: POLYETHYLENE GLYCOL 3350 17 GM PACKET. PO (09:00)
== END 2017-11-04 16:35 | disposition home health service (06) | DRG 446 ==
LOC: ER 13:02 → 4 NORTH 17:37
PROC: 0DB38ZX Excision of Lower Esophagus, Via Natural or Artificial Opening Endoscopic, Diagnostic (ICD-10-PCS; principal; 2017-11-03 14:30)
PROC: 0DB78ZX Excision of Stomach, Pylorus, Via Natural or Artificial Opening Endoscopic, Diagnostic (ICD-10-PCS; 2017-11-03 14:30)
PROC: 0D758ZZ Dilation of Esophagus, Via Natural or Artificial Opening Endoscopic (ICD-10-PCS; 2017-11-03 14:30)
DX: K80.20 Calculus of gallbladder without cholecystitis without obstruction (principal); K22.2 Esophageal obstruction; F03.90 Unspecified dementia, unspecified severity, without behavioral disturbance, psychotic disturbance, mood disturbance, and anxiety; K76.89 Other specified diseases of liver; K20.9 Esophagitis, unspecified; N40.1 Benign prostatic hyperplasia with lower urinary tract symptoms; E78.5 Hyperlipidemia, unspecified; G47.00 Insomnia, unspecified; K44.9 Diaphragmatic hernia without obstruction or gangrene; K57.30 Diverticulosis of large intestine without perforation or abscess without bleeding; K82.8 Other specified diseases of gallbladder; N28.89 Other specified disorders of kidney and ureter; Z79.82 Long term (current) use of aspirin; Z86.73 Personal history of transient ischemic attack (TIA), and cerebral infarction without residual deficits; Z87.442 Personal history of urinary calculi; Z87.891 Personal history of nicotine dependence; K29.60 Other gastritis without bleeding
CPT/HCPCS: 36415; 74177; 76705; 76770; 80048; 80053; 80076; 81001; 83690; 84484; 85007; 85025; 87086; 88305; 88342; 93005; 96361; 96374; 96375; 99285; 99285-25; G0480; J2270; J2704; J3010; J7030; J7120; Q9967; S0028

== ENCOUNTER 2018-04-27 10:15 | Emergency (ER) | payer MEDICARE, OTHER ==
[~2018-04-27] VITALS: Ht 175.3 cm; Wt 103.0 kg
[2018-04-27 10:15] VITALS: BP 114/70
[~2018-04-27 10:15] MED LIST: ATOR20TA58 PO; CYAN10005 PO; DOCU-109 PO; DONE5TAB56 PO; FINA5TAB4 PO; Pantoprazole PO; TAMS0.4C97 PO; TERA10CA3 PO; TRAM50TA PO
--- NOTE | 2018-04-27 10:41 | PHYS DOC ---
Past Medical History Past Medical History: CVA, Dementia, Kidney Stone, Stroke Past Surgical History: Tonsillectomy Alcohol Use: None Drug Use: Marijuana Adult General Chief Complaint Chief Complaint: LOWER EXT PAIN HPI HPI Patient is an 82-year-old male who presents to the emergency department for evaluation. He states for the past week or so he has been having pain in his left leg, primarily along the posterior aspect, from his buttocks, radiating all the way down his right leg posteriorly, towards the area of his knee. He denies any injury or falls. He has had some edema in his leg, and he went see his eye doctor today, who thought he might have a DVT and called an ambulance and sent the patient to the emergency department. The patient denies any chest pain or shortness of breath, pleuritic pain, dizziness or lightheadedness, or any other painful areas. Ambulation does seem to worsen his pain. There are no alleviating factors to his symptoms. Review of Systems Review of Systems Constitutional: Denies fever or chills [] Eyes: Denies change in visual acuity, redness, or eye pain [] HENT: Denies nasal congestion or sore throat [] Respiratory: Denies cough or shortness of breath [] Cardiovascular: The patient denies any shortness of breath, chest pain, palpitations, or orthopnea [] GI: Denies abdominal pain, nausea, vomiting, bloody stools or diarrhea [] : Denies dysuria or hematuria [] Musculoskeletal: Denies back pain or joint pain, or myalgias except as noted in the history of present illness [] Integument: Denies rash or skin lesions [] Neurologic: Denies headache, focal weakness or sensory changes [] Endocrine: Denies polyuria or polydipsia [] All other systems were reviewed and found to be within normal limits, except as documented in this note. Allergies Allergies Allergies Coded Allergies Type Severity Reaction Last Updated Verified No Known Drug Allergies 03/01/17 No Physical Exam Physical Exam PHYSICAL EXAM: CONSTITUTIONAL: Well developed, well nourished HEAD: normocephalic, atraumatic EENT: PERRL, EOMI. Conjunctivae normal color, sclerae non-icteric; moist mucous membranes. NECK: Supple, non-tender; no meningismus. LUNGS: Lungs CTA, breathing even and unlabored. Normal air movement. HEART: Regular rate and rhythm, no murmur CHEST: No deformity; non-tender ABDOMEN: The abdomen is soft, and non-tender, no masses or bruits. EXTREM: There is mild tenderness to palpation diffusely in the soft tissues of the posterior left calf, and posterior thigh. There is no tenderness to palpation in the medial thigh and there is no palpable cord. There is no bony tenderness to palpation of the left leg. The knee is not warm, with no effusion , no bony tenderness to palpation. The remainder of extremities are unremarkable , with Normal ROM; no deformity, no calf tenderness. Normal pulses palpable in all extremities. There is no pedal edema. SKIN: No rash; no diaphoresis NEURO: Alert; normal speech and cognition; CN's grossly intact; strength grossly intact without focal deficit. Straight leg raise is negative. There is no foot drop. There is no perineal anesthesia. BACK: No CVA TTP.There is no bony tenderness to palpation of the thoracic or lumbar spine. Current Patient Data Vital Signs Vital Signs Date Time Temp Pulse Resp B/P (MAP) Pulse Ox O2 Delivery O2 Flow Rate FiO2 04/27/18 10:15 97.7 53 20 114/70 (85) 95 Room Air 97.7 EKG EKG [] Radiology/Procedures Radiology/Procedures [PROCEDURE: VENOUS LOWER EXTREMITY LEFT EXAM: Left lower extremity venous Doppler sonogram. HISTORY: Pain and swelling. TECHNIQUE: Garcia scale and color Doppler sonographic evaluation of the left lower extremity veins with spectral waveform analysis was performed. FINDINGS: There is normal color flow, normal compressibility and there are normal spectral waveforms in the common femoral, superficial femoral, popliteal, posterior tibial and greater saphenous veins. IMPRESSION: No Doppler evidence of lower extremity deep venous thrombosis.] PROCEDURE: TIBIA FIBULA LEFT EXAM: Left tibia and fibula, 2 views; left femur, 2 views. HISTORY: Pain. COMPARISON: None. FINDINGS: 2 views of the tibia and fibula and femur are obtained. There is no acute fracture, dislocation or subluxation. There is medial and lateral compartment spurring involving the knee. There is a large enthesophytes along the posterior calcaneus. There is a tiny plantar spur. There is mild marginal femoral head osteophyte formation. There are vascular calcifications. IMPRESSION: 1. Moderate medial and lateral compartment osteoarthritis of left knee. 2. Mild left hip arthritis. Course & Med Decision Making Course & Med Decision Making Pertinent Imaging studies reviewed. (See chart for details) [11:45 AM:Patient remains stable. I discussed test results, the need for close follow-up, and return precautions.] The patient will be given referral to local primary care providers to help establish follow-up. Dragon Disclaimer Dragon Disclaimer This electronic medical record was generated, in whole or in part, using a voice recognition dictation system. Departure Departure Impression: Primary Impression: Pain in left leg Disposition: 01 HOME, SELF-CARE Condition: STABLE Patient Instructions: Arthritis, Nonspecific Additional Instructions: Ibuprofen 400 mg every 6 hours may help improve your symptoms. Applying ice to the affected area may help improve your symptoms. Use the provided list of local physicians to establish care with a primary care provider for further outpatient evaluation and follow-up. PHIL EMMANUEL MD Apr 27, 2018 10:41
--- NOTE | 2018-04-27 10:59 | RAD ---
EXAM: Left lower extremity venous Doppler sonogram. HISTORY: Pain and swelling. TECHNIQUE: Garcia scale and color Doppler sonographic evaluation of the left lower extremity veins with spectral waveform analysis was performed. FINDINGS: There is normal color flow, normal compressibility and there are normal spectral waveforms in the common femoral, superficial femoral, popliteal, posterior tibial and greater saphenous veins. IMPRESSION: No Doppler evidence of lower extremity deep venous thrombosis. Electronically signed by: Barb Pereyra MD (04/27/2018 10:56 AM) [id number]
--- NOTE | 2018-04-27 11:19 | RAD ---
EXAM: Left tibia and fibula, 2 views; left femur, 2 views. HISTORY: Pain. COMPARISON: None. FINDINGS: 2 views of the tibia and fibula and femur are obtained. There is no acute fracture, dislocation or subluxation. There is medial and lateral compartment spurring involving the knee. There is a large enthesophytes along the posterior calcaneus. There is a tiny plantar spur. There is mild marginal femoral head osteophyte formation. There are vascular calcifications. IMPRESSION: 1. Moderate medial and lateral compartment osteoarthritis of left knee. 2. Mild left hip arthritis. Electronically signed by: Barb Pereyra MD (04/27/2018 11:16 AM) [id number]
--- NOTE | 2018-04-27 11:19 | RAD ---
EXAM: Left tibia and fibula, 2 views; left femur, 2 views. HISTORY: Pain. COMPARISON: None. FINDINGS: 2 views of the tibia and fibula and femur are obtained. There is no acute fracture, dislocation or subluxation. There is medial and lateral compartment spurring involving the knee. There is a large enthesophytes along the posterior calcaneus. There is a tiny plantar spur. There is mild marginal femoral head osteophyte formation. There are vascular calcifications. IMPRESSION: 1. Moderate medial and lateral compartment osteoarthritis of left knee. 2. Mild left hip arthritis. Electronically signed by: Barb Pereyra MD (04/27/2018 11:16 AM) [email or web address]
== END 2018-04-27 12:12 | disposition home or self-care (01) ==
LOC: ER 10:15
DX: M17.12 Unilateral primary osteoarthritis, left knee (principal); M16.12 Unilateral primary osteoarthritis, left hip; F03.90 Unspecified dementia, unspecified severity, without behavioral disturbance, psychotic disturbance, mood disturbance, and anxiety; Z86.73 Personal history of transient ischemic attack (TIA), and cerebral infarction without residual deficits
CPT/HCPCS: 73552; 73590; 93971; 99284-25

== ENCOUNTER 2019-01-15 05:24 | Emergency (ER) | payer OTHER, MEDICAID ==
[~2019-01-15] VITALS: Ht 175.3 cm; Wt 105.7 kg
[~2019-01-15 05:24] MED LIST changes: +CYAN-25 PO; -CYAN10005 PO
[2019-01-15 05:38] LABS: BASO % 0 % (0-3); EOS % 1 % (0-3); HEMATOCRIT 45.2 % (39.0-53.0); HEMOGLOBIN 15.5 g/dL (13.0-17.5); LYMPH % 16 % (24-48); MEAN CORPUSCULAR HEMOGLOBIN 31 pg (25-35); MEAN CORPUSCULAR HGB CONC 34 g/dL (31-37); MEAN CORPUSCULAR VOLUME 89 fL (79-100); MONO # 0.4 x10^3/uL (0.0-1.1); MONO % 7 % (0-9); NEUT # 4.8 x10^3/uL (1.8-7.7); NEUT % 77 % (31-73); PLATELET COUNT 205 x10^3/uL (140-400); RED BLOOD COUNT 5.06 x10^6/uL (4.30-5.70); RED CELL DISTRIBUTION WIDTH 14.5 % (11.5-14.5); WHITE BLOOD COUNT 6.3 x10^3/uL (4.0-11.0)
[2019-01-15 05:48] LABS: PROTHROMBIN TIME PATIENT 14.2 SEC (11.7-14.0)
[2019-01-15 06:00] LABS: CALCIUM 9.2 mg/dL (8.5-10.1); CREATININE 1.3 mg/dL (0.7-1.3); POTASSIUM 4.1 mmol/L (3.5-5.1)
[2019-01-15] MEDS ORDERED: KETOROLAC 15 MG/ML VIAL. IV ONE (06:00)
[2019-01-15] MEDS ORDERED: ONDANSETRON PF 4 MG/2 ML VIAL. IV ONE (06:00)
[2019-01-15] MEDS ORDERED: FAMOTIDINE 20 MG/2 ML VIAL IVP ONE (06:00)
[2019-01-15] MEDS ORDERED: IV NORMAL SALINE 1000ML BAG 1,000 ML IV ONE (06:00)
--- NOTE | 2019-01-15 06:05 | PHYS DOC ---
Past Medical History Past Medical History: CVA, Dementia, Kidney Stone, Stroke Past Medical History Limited due to dementia Past Surgical History: Tonsillectomy Past Surgical History Limited due to dementia Smoking: Quit Greater Than 1 Year Alcohol Use: None Drug Use: Marijuana Social History Limited due to dementia Adult General Chief Complaint Chief Complaint: NAUSEA/VOMITING/DIARRHA HPI HPI 83-year-old male presents via EMS with report of nausea and vomiting which started at 0430 this morning. Patient denies any significant pain. Denies fever or chills. Denies known sick contacts. Patient does report pain to his left knee and hip which is chronic in nature. Patient also reporting a headache. Patient does report recent falls. Patient also reports he feels very weak. Patient is a poor historian with past medical history of dementia. History of present illness limited due to dementia. Review of Systems Review of Systems Constitutional: Denies fever or chills GI: Denies abdominal pain; reports nausea and vomiting Musculoskeletal: Reports left knee and hip pain Integument: Denies rash or skin lesions Neurologic: Reports headache Review of systems limited due to dementia Current Medications Current Medications Current Medications Medications (Trade) Dose Ordered Sig/Ida Start Time Stop Time Status Last Admin Dose Admin Famotidine (Pepcid Vial) 20 mg 1X ONCE 01/15/19 06:00 01/15/19 06:01 01/15/19 05:43 20 MG Ketorolac Tromethamine (Toradol 15mg Vial) 10 mg 1X ONCE 01/15/19 06:00 01/15/19 06:01 01/15/19 05:43 10 MG Ondansetron HCl (Zofran) 4 mg 1X ONCE 01/15/19 06:00 01/15/19 06:01 01/15/19 05:43 4 MG Sodium Chloride 1,000 ml @ 1,000 mls/hr 1X ONCE 01/15/19 06:00 01/15/19 06:59 01/15/19 05:43 1,000 MLS/HR Allergies Allergies Allergies Coded Allergies Type Severity Reaction Last Updated Verified No Known Drug Allergies 03/01/17 No Physical Exam Physical Exam Constitutional: Well developed, well nourished, no acute distress, non-toxic appearance HENT: Normocephalic, atraumatic, oropharynx moist Eyes: Conjunctiva normal, no discharge Neck: Normal range of motion, no tenderness, supple Cardiovascular: Heart rate normal, regular rhythm Lungs & Thorax: Bilateral breath sounds clear to auscultation, no wheezing Abdomen: Soft, no tenderness; pelvis stable and nontender Skin: Warm, dry, no erythema, no rash Extremities: left knee tenderness on ROM, no deformity Neurologic: Alert but confused, no focal deficits noted Psychologic: Affect normal, judgement abnormal Current Patient Data Vital Signs Vital Signs Date Time Temp Pulse Resp B/P (MAP) Pulse Ox O2 Delivery O2 Flow Rate FiO2 01/15/19 05:32 97.5 54 16 165/81 (109) 96 Room Air 97.5 Lab Values Laboratory Tests Test 01/15/19 05:23 White Blood Count 6.3 x10^3/uL (4.0-11.0) Red Blood Count 5.06 x10^6/uL (4.30-5.70) Hemoglobin 15.5 g/dL (13.0-17.5) Hematocrit 45.2 % (39.0-53.0) Mean Corpuscular Volume 89 fL (79-100) Mean Corpuscular Hemoglobin 31 pg (25-35) Mean Corpuscular Hemoglobin Concent 34 g/dL (31-37) Red Cell Distribution Width 14.5 % (11.5-14.5) Platelet Count 205 x10^3/uL (140-400) Neutrophils (%) (Auto) 77 % (31-73) H Lymphocytes (%) (Auto) 16 % (24-48) L Monocytes (%) (Auto) 7 % (0-9) Eosinophils (%) (Auto) 1 % (0-3) Basophils (%) (Auto) 0 % (0-3) Neutrophils # (Auto) 4.8 x10^3/uL (1.8-7.7) Lymphocytes # (Auto) 1.0 x10^3/uL (1.0-4.8) Monocytes # (Auto) 0.4 x10^3/uL (0.0-1.1) Eosinophils # (Auto) 0.0 x10^3/uL (0.0-0.7) Basophils # (Auto) 0.0 x10^3/uL (0.0-0.2) Prothrombin Time 14.2 SEC (11.7-14.0) H Prothrombin Time INR 1.1 (0.8-1.1) Activated Partial Thromboplast Time 29 SEC (24-38) Laboratory Tests 01/15/19 05:23 EKG EKG @0537 Sinus bradycardia at 52bpm, NO ST elevation, Q wave in aVL, compared to prior EKG per [facility] from 11/02/17 without significant change. Radiology/Procedures Radiology/Procedures [] Course & Med Decision Making Course & Med Decision Making Elderly patient with pmh of dementia presents with report of N/V, weakness, and headache which started this AM. Abdomen nonperitoneal. Labs ordered and pending. CT abd/pelvis and XR left knee also pending. Symptomatic treatment provided. Sign out given to Dr. Mata for further evaluation and final disposition. Karime Disclaimer Karime Disclaimer This electronic medical record was generated, in whole or in part, using a voice recognition dictation system. Departure Departure Referrals: NO PCP (PCP) CESIA POOLE DO Jan 15, 2019 06:05
[2019-01-15 06:06] LABS: ALBUMIN 3.6 g/dL (3.4-5.0); ALBUMIN/GLOBULIN RATIO 1.1 (1.0-1.7); MAGNESIUM 2.2 mg/dL (1.8-2.4); TOTAL BILIRUBIN 0.8 mg/dL (0.2-1.0); TOTAL PROTEIN 6.8 g/dL (6.4-8.2)
[2019-01-15 06:11] LABS: BILIRUBIN,URINE NEGATIVE (NEG); CLARITY,URINE CLEAR; COLOR,URINE YELLOW; NITRITE,URINE NEGATIVE (NEG); PH,URINE 5.5; PROTEIN,URINE NEGATIVE (NEG-TRACE)
[2019-01-15] MEDS ORDERED: CONTRAST GIVEN. MC PRN (06:15)
[2019-01-15 06:23] LABS: HYALINE CASTS, URINE FEW /HPF; SQUAMOUS EPITHELIAL CELL,UR FEW /LPF
[2019-01-15 06:24] LABS: BACTERIA,URINE FEW /HPF (0-FEW); RBC,URINE OCC /HPF (0-2)
[2019-01-15] MEDS ORDERED: IOHEXOL 300 MG/ML 100ML VIAL. IV ONE (06:30)
--- NOTE | 2019-01-15 06:51 | RAD ---
CT abdomen pelvis with contrast dated 01/15/2019. Comparison made to 11/02/2017. CLINICAL INDICATION: Abdominal pain nausea vomiting. TECHNIQUE: Contiguous axial imaging of the abdomen and pelvis performed after the administration of 60 cc Omnipaque 300. One or more of the following individualized dose reduction techniques were utilized for this examination: 1. Automated exposure control 2. Adjustment of the mA and/or kV according to patient size 3. Use of iterative reconstruction technique. FINDINGS: Limited images of lung bases show pleural thickening and pleural calcifications posteriorly on the left, unchanged. Heart size is stable. Coronary artery calcifications. No pleural or pericardial effusion. There are well-circumscribed low-density lesions in the liver, most consistent with cysts, unchanged. Gallbladder is distended and there is layering sludge and/or small stones at the gallbladder neck, unchanged. No biliary ductal dilatation. Spleen is normal in size. Pancreas, adrenal glands unremarkable. Large calcific stone at the midpole left kidney measures up to 2.2 cm in size, unchanged. There are also prominent cyst at the mid to lower pole left kidney, unchanged. No ureteral stone or hydronephrosis. Unopacified GI tract normal in caliber and contour. Extensive diverticula within the sigmoid colon. There is questionable mild wall thickening of the sigmoid without significant inflammatory changes in the perisigmoid fat. No free fluid or lymphadenopathy. Appendix is normal in caliber. Small umbilical hernia containing only fat. Images the pelvis show mild enlargement of the prostate. Urinary bladder is nondistended. No free fluid or lymphadenopathy. Bone windows show no acute findings. Mild multilevel spondylosis. IMPRESSION: 1. No acute abnormality of abdomen or pelvis. Normal appendix. 2. Extensive diverticulosis with possible mild wall thickening of the sigmoid. This could be related to subacute diverticulitis or very early diverticulitis. There are no significant inflammatory changes in the perisigmoid fat. Correlate clinically. 3. Multiple liver cysts and left renal cysts, unchanged. 4. Gallbladder sludge and/or small stones, unchanged. 5. Left-sided nephrolithiasis, nonobstructive Electronically signed by: Lamin Taylor MD (01/15/2019 6:48 AM) [facility]
--- NOTE | 2019-01-15 07:12 | RAD ---
KNEE LEFT 3V History: Pain after a fall Comparison: Left femur radiographs April 27, 2018 Findings: 4 views of left knee are submitted. There is tricompartmental osteoarthritic change, moderate degenerative change of the medial compartment and patellofemoral articulation, to lesser degree of lateral compartment. No acute fracture is identified by radiographs. There is vascular calcification. IMPRESSION: 1. No acute fracture is identified. There is tricompartmental osteoarthritic change. Electronically signed by: Avelino Rider MD (01/15/2019 7:09 AM) [facility]
[2019-01-15] MEDS ORDERED: ONDA4TAB7 PO (09:29)
[2019-01-15 10:30] VITALS: BP 161/83
--- NOTE | 2019-01-15 12:50 | EKG ---
[facility] [address] [place] [address] Test Date: 2019-01-15 Test Time: 05:37:23 Pat Name: JOSE DEMPSEY Department: Room: Gender: M [employer]: : 1935 Requested By: CESIA POOLE Order Number: [id number] Reading MD: Measurements Intervals [place] Rate: 52 P: 0 SD: 160 QRS: -28 QRSD: 100 T: 17 QT: 452 QTc: 422 Interpretive Statements SINUS RHYTHM LEFTWARD AXIS NO SPECIFIC ECG ABNORMALITIES RI6.01 Unconfirmed report No previous ECG available for comparison
== END 2019-01-15 10:57 | disposition home or self-care (01) ==
LOC: ER 05:24
DX: R11.2 Nausea with vomiting, unspecified (principal); R51 Headache; R53.1 Weakness; M25.562 Pain in left knee; R00.1 Bradycardia, unspecified; F03.90 Unspecified dementia, unspecified severity, without behavioral disturbance, psychotic disturbance, mood disturbance, and anxiety; Z86.73 Personal history of transient ischemic attack (TIA), and cerebral infarction without residual deficits; Z87.442 Personal history of urinary calculi; Z87.891 Personal history of nicotine dependence; W18.39XA Other fall on same level, initial encounter; Y93.89 Activity, other specified; Y92.89 Other specified places as the place of occurrence of the external cause; Y99.8 Other external cause status
CPT/HCPCS: 36415; 73562; 74177; 80053; 81001; 82553; 83690; 83735; 84484; 85025; 85610; 85730; 93005; 96361; 96374; 96375; 99285; J1885; J2405; J3490; J7030; Q9967

== ENCOUNTER 2020-07-24 20:37 | Inpatient (IN) | payer OTHER, MEDICAID ==
[~2020-07-24] VITALS: Ht 175.3 cm; Wt 92.1 kg
[~2020-07-24 20:37] MED LIST changes: +ONDA4TAB7 PO
--- NOTE | 2020-07-24 20:50 | PHYS DOC ---
Past Medical History Past Medical History: CVA, Dementia, Kidney Stone, Stroke Past Surgical History: Tonsillectomy Smoking Status: Former Smoker Alcohol Use: None Drug Use: Marijuana General Adult HPI: HPI: 84-year-old male with significant history of hypertension, hyperlipidemia, dementia, CVA with residual left-sided deficits, who presents from nursing facility for the evaluation of possible "dehydration". They attempted to draw lab work at the outside facility via a 22-gauge wrist IV. However, as they were unable to do so, there was concern for dehydration. Mild hypotension in the 90s prior to arrival. The patient's chief complaint is mild generalized weakness of unclear duration. Staff also reports to EMS that patient may have "aspirated" today. Unclear whether if patient is exclusively tube fed or not. The patient is otherwise a poor historian due to baseline dementia. Review of Systems: Review of Systems: Review of systems limited secondary to baseline dementia. Heart Score: Risk Factors: Risk Factors: DM, Current or recent (<one month) smoker, HTN, HLP, family history of CAD, obesity. Risk Scores: Score 0 - 3: 2.5% MACE over next 6 weeks - Discharge Home Score 4 - 6: 20.3% MACE over next 6 weeks - Admit for Clinical Observation Score 7 - 10: 72.7% MACE over next 6 weeks - Early Invasive Strategies Allergies: Allergies: Allergies Coded Allergies Type Severity Reaction Last Updated Verified No Known Drug Allergies 03/01/17 No Physical Exam: PE: Gen: NAD. Well nourished. Head: NC/AT. Eyes: No scleral icterus. No conjunctival injection. PERRL 3 mm. ENT: MMM. Neck: Supple. CV: RRR. Peripheral pulses intact. Resp: CTAB. Abd: Soft. NT. ND. Left upper abdominal PEG tube in place without surrounding acute skin changes. MSK: No peripheral cyanosis. Mild lower extremity edema. Neuro: Awake and alert. Moves all 4 extremities. Skin. Warm. Dry. Psych: Appropriate mood & affect. Current Patient Data: Labs: Laboratory Tests Test 07/24/20 21:07 White Blood Count 18.0 x10^3/uL (4.0-11.0) Red Blood Count 4.13 x10^6/uL (4.30-5.70) Hemoglobin 12.1 g/dL (13.0-17.5) Hematocrit 37.0 % (39.0-53.0) Mean Corpuscular Volume 90 fL (79-100) Mean Corpuscular Hemoglobin 29 pg (25-35) Mean Corpuscular Hemoglobin Concent 33 g/dL (31-37) Red Cell Distribution Width 15.3 % (11.5-14.5) Platelet Count 206 x10^3/uL (140-400) Neutrophils (%) (Auto) 89 % (31-73) Lymphocytes (%) (Auto) 4 % (24-48) Monocytes (%) (Auto) 7 % (0-9) Eosinophils (%) (Auto) 0 % (0-3) Basophils (%) (Auto) 0 % (0-3) Neutrophils # (Auto) 16.0 x10^3/uL (1.8-7.7) Lymphocytes # (Auto) 0.8 x10^3/uL (1.0-4.8) Monocytes # (Auto) 1.2 x10^3/uL (0.0-1.1) Eosinophils # (Auto) 0.0 x10^3/uL (0.0-0.7) Basophils # (Auto) 0.0 x10^3/uL (0.0-0.2) Segmented Neutrophils % 74 % (35-66) Band Neutrophils % 15 % (0-9) Lymphocytes % 7 % (24-48) Monocytes % 3 % (0-10) Basophils % 1 % (0-3) Toxic Granulation Slight Platelet Estimate Adequate (ADEQUATE) Sodium Level 135 mmol/L (136-145) Chloride Level 101 mmol/L (98-107) Carbon Dioxide Level 27 mmol/L (21-32) Anion Gap 7 (6-14) Blood Urea Nitrogen 34 mg/dL (8-26) Estimated GFR (Cockcroft-Gault) 44.8 BUN/Creatinine Ratio 23 (6-20) Glucose Level 125 mg/dL (70-99) Calcium Level 9.2 mg/dL (8.5-10.1) Total Bilirubin 0.6 mg/dL (0.2-1.0) Aspartate Amino Transf (AST/SGOT) 168 U/L (15-37) Alkaline Phosphatase 104 U/L (46-116) Total Protein 6.7 g/dL (6.4-8.2) Albumin 2.2 g/dL (3.4-5.0) Albumin/Globulin Ratio 0.5 (1.0-1.7) EKG: EKG: [] Radiology/Procedures: Radiology/Procedures: AP chest x-ray HISTORY: Weakness. FINDINGS: Patient is rotated to the left in light of this there is likely mild cardiomegaly present. Calcified granulomas posterior of the heart at the medial left lung base. Prominence of the pulmonary vasculature raising the possibility of mild vascular congestion. Indistinct density at the left lung base limiting visualization of the lateral angle suggesting lower lobe opacity, small left pleural effusion along the diaphragm is not excluded. IMPRESSION: Cardiomegaly and pulmonary vascular congestion. Left lower lobe atelectasis/infiltrate partially obscuring the diaphragm, a small left pleural effusion along the diaphragm is not excluded. Electronically signed by: Conner Chandler MD (07/24/2020 9:38 PM) [facility] [place] Course & Med Decision Making: Course & Med Decision Making Pertinent Labs and Imaging studies reviewed. (See chart for details) In summary, 84M p/w "dehydration" with prehospital hypotension, improved with IVF. NH staff reported an "aspiration" event earlier today as well. HDS. Rhonchorous breath sounds on auscultation. Labs notable for leukocytosis 18 with left shift. CXR shows LLL infiltrate. Will be treated with abx. Will admit. Karime Disclaimer: Karime Disclaimer: This electronic medical record was generated, in whole or in part, using a voice recognition dictation system. Departure Departure Impression: Primary Impression: LLL pneumonia Disposition: ADMITTED INPT THIS HOSP Admitting Physician: AKIKO Condition: STABLE Referrals: DORENE CASTELLANOS D.O. (PCP) DEBRA KINGSLEY DO Jul 24, 2020 20:50
[2020-07-24] MEDS ORDERED: IV NORMAL SALINE 500ML BAG 500 ML IV ONE (21:00)
[2020-07-24 21:25] LABS: BASO % 0 % (0-3); EOS % 0 % (0-3); HEMOGLOBIN 12.1 g/dL (13.0-17.5); LYMPH # 0.8 x10^3/uL (1.0-4.8); LYMPH % 4 % (24-48); MEAN CORPUSCULAR HEMOGLOBIN 29 pg (25-35); MEAN CORPUSCULAR HGB CONC 33 g/dL (31-37); MEAN CORPUSCULAR VOLUME 90 fL (79-100); MONO # 1.2 x10^3/uL (0.0-1.1); MONO % 7 % (0-9); NEUT % 89 % (31-73); PLATELET COUNT 206 x10^3/uL (140-400); RED BLOOD COUNT 4.13 x10^6/uL (4.30-5.70); RED CELL DISTRIBUTION WIDTH 15.3 % (11.5-14.5)
[2020-07-24 21:38] LABS: CALCIUM 9.2 mg/dL (8.5-10.1); CREATININE 1.5 mg/dL (0.7-1.3); GFR 44.8; POTASSIUM 4.2 mmol/L (3.5-5.1)
--- NOTE | 2020-07-24 21:40 | RAD ---
AP chest x-ray HISTORY: Weakness. FINDINGS: Patient is rotated to the left in light of this there is likely mild cardiomegaly present. Calcified granulomas posterior of the heart at the medial left lung base. Prominence of the pulmonary vasculature raising the possibility of mild vascular congestion. Indistinct density at the left lung base limiting visualization of the lateral angle suggesting lower lobe opacity, small left pleural e ffusion along the diaphragm is not excluded. IMPRESSION: Cardiomegaly and pulmonary vascular congestion. Left lower lobe atelectasis/infiltrate partially obsc uring the diaphragm, a small left pleural effusion along the diaphragm is not excluded. Electronically signed by: Conner Chandler MD (07/24/2020 9:38 PM) [facility]
[2020-07-24 21:45] LABS: % BANDS 15 % (0-9); % BASOS 1 % (0-3); % LYMPHS 7 % (24-48); % MONOS 3 % (0-10); % SEGS 74 % (35-66); ALBUMIN 2.2 g/dL (3.4-5.0); ALBUMIN/GLOBULIN RATIO 0.5 (1.0-1.7); MAGNESIUM 1.9 mg/dL (1.8-2.4); PLT ESTIMATE ADEQUATE (ADEQUATE); TOTAL BILIRUBIN 0.6 mg/dL (0.2-1.0); TOTAL PROTEIN 6.7 g/dL (6.4-8.2)
[2020-07-24 21:46] LABS: TOXIC GRANULATION SLIGHT
[2020-07-24] MEDS ORDERED: AZITHRMYCN 500MG IVPB FOR OMNI 250 ML IV ONE (22:30)
[2020-07-24] MEDS ORDERED: cefTRIAXone IV Push 1 GM VIAL. IVP ONE (22:30)
[2020-07-24] MEDS ORDERED: ONDANSETRON PF 4 MG/2 ML VIAL. IV PRN (22:30)
[2020-07-24 22:39] LABS: BILIRUBIN,URINE SMALL (NEG); CLARITY,URINE CLEAR; COLOR,URINE AMBER; NITRITE,URINE NEGATIVE (NEG); PH,URINE 5.5 (<5.0-8.0); PROTEIN,URINE 30 mg/dL (NEG-TRACE)
[2020-07-24 22:52] LABS: HYALINE CASTS, URINE MANY /HPF
[2020-07-24 22:57] LABS: BACTERIA,URINE 0 /HPF (0-FEW)
[2020-07-24 22:58] LABS: GRANULAR CASTS,URINE FEW /HPF
--- NOTE | 2020-07-24 23:53 | NUR ---
Bolus started 2344. Order hasnt appeared in [facility] yet.
[2020-07-24 23:55] VITALS: BP 87/44
[2020-07-25] VITALS (22 sets, daily range): BP systolic 75–132; BP diastolic 40–63
[2020-07-25] MEDS ORDERED: IV NORMAL SALINE 1000ML BAG 1,000 ML IV ONE
[2020-07-25] MEDS ORDERED: ACET650S19 PEG (02:34)
--- NOTE | 2020-07-25 04:09 | NUR ---
Pt arrived to unit by bed @ 0330, accompanied by 5N RN. Pt had no fluids/meds running- alert and oriented (Told me where he was, what day it was and his full name). Updated Dr. Schumacher about current status. No complaints of pain, call light in reach. Will continue monitoring.
[2020-07-25] MEDS: IV NORMAL SALINE 1000ML BAG 1,000 ML IV SCH ×5 (04:30→17:50)
[2020-07-25] MEDS ORDERED: NOREPINEPHRINE VIAL 8 MG in IV DEXTROSE 5% 250 ML IV PRN ×2 (05:15→10:00)
[2020-07-25] MEDS ORDERED: AZIT250T6 PO (05:24)
[2020-07-25] MEDS ORDERED: DOCUSATE SODIUM PEG (05:24)
[2020-07-25] MEDS ORDERED: LIDO1ADH63 TP (05:24)
[2020-07-25] MEDS ORDERED: ATOR10TA PEG (05:24)
[2020-07-25] MEDS ORDERED: SIME80TA14 PEG (05:24)
[2020-07-25] MEDS ORDERED: VITS42.55 TP (05:24)
[2020-07-25] MEDS ORDERED: DOXA2TAB2 PEG (05:24)
[2020-07-25] MEDS ORDERED: MELA5TAB20 PEG (05:24)
[2020-07-25] MEDS ORDERED: DICL100G54 TP (05:24)
[2020-07-25] MEDS ORDERED: GLYC1SUP RC (05:24)
[2020-07-25] MEDS ORDERED: DEBROX EACH EAR (05:24)
[2020-07-25] MEDS ORDERED: METH-38 PO (05:24)
[2020-07-25] MEDS ORDERED: GUAI100L34 PO (05:24)
[2020-07-25] MEDS ORDERED: DEXT15DR5 EACHEYE (05:24)
[2020-07-25] MEDS ORDERED: TRAZ-118 PEG (05:24)
[2020-07-25] MEDS ORDERED: QUET25TA5 PEG (05:24)
[2020-07-25] MEDS ORDERED: OXYCODONE PEG (05:24)
[2020-07-25] MEDS ORDERED: GABA250S6 PO (05:24)
[2020-07-25] MEDS ORDERED: POLY17PO29 PO (05:24)
[2020-07-25] MEDS ORDERED: DONE10TA61 PEG (05:24)
[2020-07-25] MEDS ORDERED: ceftriaxone IV (05:24)
--- NOTE | 2020-07-25 05:25 | NUR ---
Received pt fr ED @ 2330. Lethargic. Unable to get more info from pt due to mental status. Appeared not to be in respiratory distress. Lungs clear but diminished with some rhonchi. Hypotensive @ 80's/40's. Able to state his name, off with the year he's born, he knows he's in the hospital. Dr Schumacher notified of pt's BP, a liter of NS was ordered to run for 3 hrs and update him afterwards. Monitored pt during the administration, no respiratory distress noted, O2 saturation remained stable mid 90's @ 2L/NC. Post bolus, BP remained within 80's/40's range. Dr. Schumacher notified. CXR report was read to Dr. Schumacher. Pt dont seemed to be in respiratory distress/congested. Dr. Schumacher ordered transfer to ICU, pressors to start. Pt more awake @ this time, able to respond to questions. Report given. Unable to notify kin due to no info found from the transfer report papers fr [facility].
--- NOTE | 2020-07-25 09:44 | PDOC1 ---
History and Physical Date of Admission Date of Admission DATE: 07/25/20 TIME: 09:42 Identification/Chief Complaint Chief Complaint SOA, HYPOTENSION History of Present Illness History of Present Illness 84 yr old male presented from nursing facility for the evaluation of possible "dehydration". initial concern for concern for dehydration. Mild hypotension in the 90s prior to arrival. chief complaint is mild generalized weakness of unclear duration. Staff also reports to EMS that patient may have "aspirated" . Unclear whether if patient is exclusively tube fed or not. The patient is otherwise a poor historian due to baseline dementia. became hypotensive after admit, transferred to icu for pressor support, ID, PULM, CARDS CONSULTED Past Medical History Past Medical History Past Medical History Past Medical History: CVA, Dementia, Kidney Stone, Stroke Past Surgical History: Tonsillectomy Smoking Status: Former Smoker Alcohol Use: None Drug Use: Marijuana Past Medical History CENTRAL NERVOUS SYSTEM: CVA, Dementia Renal/: Benign prostatic enlarg. Past Surgical History Past Surgical History: Tonsillectomy Family History Family History: No Significant Social History Smoke: Quit ALCOHOL: none FHX COPD CENTRAL NERVOUS SYSTEM: CVA, Dementia Renal/: Benign prostatic enlarg. Past Surgical History Past Surgical History: Tonsillectomy Family History Family History: No Significant, High Cholestrol Social History Smoke: Quit ALCOHOL: none Drugs: None Current Problem List Problem List Problems Medical Problems: (1) LLL pneumonia Status: Acute Current Medications Current Medications Current Medications Sodium Chloride 500 ml @ 500 mls/hr 1X ONCE IV Last administered on 07/24/20at 21:23; Start 07/24/20 at 21:00; Stop 07/24/20 at 21:59; Status DC Ceftriaxone Sodium (Rocephin) 1 gm 1X ONCE IVP Last administered on 07/24/20at 22:45; Start 07/24/20 at 22:30; Stop 07/24/20 at 22:31; Status DC Azithromycin 250 ml @ 250 mls/hr 1X ONCE IV Last administered on 07/24/20at 22:47; Start 07/24/20 at 22:30; Stop 07/24/20 at 23:29; Status DC Ondansetron HCl (Zofran) 4 mg PRN Q8HRS PRN IV NAUSEA/VOMITING; Start 07/24/20 at 22:30; Stop 07/25/20 at 22:29 Sodium Chloride 1,000 ml @ 1,000 mls/hr 1X ONCE IV Last administered on 07/24/20at 23:55; Start 07/25/20 at 00:00; Stop 07/25/20 at 00:59; Status DC Sodium Chloride 1,000 ml @ 75 mls/hr [id number] IV Last administered on 07/25/20at 04:30; Start 07/25/20 at 04:30 Norepinephrine Bitartrate 8 mg/ Dextrose 258 ml @ 19.06 mls/ hr CONT PRN IV PER PROTOCOL Last administered on 07/25/20at 05:27; Start 07/25/20 at 05:15 Active Scripts Active Reported A and D Ointment (Vits A and D/White Pet/Lanolin) 42.5 Gm Oint...g. 1 [place]ay[place] TP DAILY Trazodone Hcl 50 Mg Tablet 50 Mg PEG HS Simethicone 80 Mg Tab.chew 80 Mg PEG Q6HRS PRN Seroquel (Quetiapine Fumarate) 25 Mg Tablet 1 Tab PEG QHS Miralax (Polyethylene Glycol 3350) 17 Gm Powd.pack 1 Packet PO DAILY PRN 2 Days dissolve in water [oxycodone vandana ] 10 Mg PEG Q4HRS PRN Robaxin-750 (Methocarbamol) 750 Mg Tablet 1 Tab PO Q8HRS 30 Days Melatonin 5 Mg Tab.rapdis 1 Tab PEG QHS 30 Days Lipitor (Atorvastatin Calcium) 10 Mg Tablet 1 Tab PEG DAILY Lidocaine 1 Each Adh..patch 1 Each TP DAILY Tussin (Guaifenesin) 100 Mg/5 Ml Liquid 10 Ml PO Q4HRS PRN 10 Days Adult Glycerin (Glycerin) 1 Each Supp.rect 1 Each RC DAILY PRN Gabapentin Oral Solution (Gabapentin) 250 Mg/5 Ml Solution 4 Ml PO Q8HRS Doxazosin Mesylate 2 Mg Tablet 1 Mg PEG DAILY [docusate sodium liq] 100 Mg PEG BID Voltaren (Diclofenac Sodium) 100 Gm Gel..gram. 1 Chayo TP QID 30 Days apply to affected area(s) Artificial Tears Eye Drops (Dextran 70/Hypromellose) 15 Ml Drops 1 Drop EACHEYE QID PRN [debrox solution] 5 Drop EACH EAR QID [ceftriaxone] 1 Gm IV DAILY PRN Azithromycin Tablet (Azithromycin) 250 Mg Tablet 250 Mg PO DAILY X5 days start 07/25 Aricept (Donepezil Hcl) 10 Mg Tablet 1 Tab PEG DAILY 30 Days Acetaminophen 650 Mg/20.3 Ml Solution 650 Mg PEG Q6HRS PRN Allergies Allergies: Coded Allergies: No Known Drug Allergies (Unverified , 03/01/17) ROS Review of System UNABLE TO GIVE ADEQUATE HX FOR ROS Physical Exam Physical Exam Head: NC/AT. Eyes: No scleral icterus. No conjunctival injection. PERRL 3 mm. ENT: MMM. Neck: Supple. CV: RRR. Peripheral pulses intact. Resp: CTAB. Abd: Soft. NT. ND. Left upper abdominal PEG tube in place without surrounding acute skin changes. MSK: No peripheral cyanosis. Mild lower extremity edema. Neuro: Awake and alert. Moves all 4 extremities. Skin. Warm. Dry. Psych: Appropriate mood & affect. General: Cooperative, mild distress Lungs: Other (FEW CRACKLES lll ) Heart: RRR Breasts: Not examined Abdomen: Normal bowel sounds, Soft Rectal Exam: not examined Extremities: No cyanosis Neuro: Normal speech, Cranial nerves 3-12 NL Vitals Vitals Vital Signs Date Time Temp Pulse Resp B/P (MAP) Pulse Ox O2 Delivery O2 Flow Rate FiO2 07/25/20 09:00 85 31 98/52 (67) 96 Nasal Cannula 2.0 07/25/20 08:00 97.8 97.8 Labs Labs Laboratory Tests Test 07/24/20 21:07 07/24/20 21:27 07/25/20 00:21 White Blood Count 18.0 x10^3/uL (4.0-11.0) Red Blood Count 4.13 x10^6/uL (4.30-5.70) Hemoglobin 12.1 g/dL (13.0-17.5) Hematocrit 37.0 % (39.0-53.0) Mean Corpuscular Volume 90 fL (79-100) Mean Corpuscular Hemoglobin 29 pg (25-35) Mean Corpuscular Hemoglobin Concent 33 g/dL (31-37) Red Cell Distribution Width 15.3 % (11.5-14.5) Platelet Count 206 x10^3/uL (140-400) Neutrophils (%) (Auto) 89 % (31-73) Lymphocytes (%) (Auto) 4 % (24-48) Monocytes (%) (Auto) 7 % (0-9) Eosinophils (%) (Auto) 0 % (0-3) Basophils (%) (Auto) 0 % (0-3) Neutrophils # (Auto) 16.0 x10^3/uL (1.8-7.7) Lymphocytes # (Auto) 0.8 x10^3/uL (1.0-4.8) Monocytes # (Auto) 1.2 x10^3/uL (0.0-1.1) Eosinophils # (Auto) 0.0 x10^3/uL (0.0-0.7) Basophils # (Auto) 0.0 x10^3/uL (0.0-0.2) Segmented Neutrophils % 74 % (35-66) Band Neutrophils % 15 % (0-9) Lymphocytes % 7 % (24-48) Monocytes % 3 % (0-10) Basophils % 1 % (0-3) Toxic Granulation Slight Platelet Estimate Adequate (ADEQUATE) Sodium Level 135 mmol/L (136-145) Potassium Level 4.2 mmol/L (3.5-5.1) Chloride Level 101 mmol/L (98-107) Carbon Dioxide Level 27 mmol/L (21-32) Anion Gap 7 (6-14) Blood Urea Nitrogen 34 mg/dL (8-26) Creatinine 1.5 mg/dL (0.7-1.3) Estimated GFR (Cockcroft-Gault) 44.8 BUN/Creatinine Ratio 23 (6-20) Glucose Level 125 mg/dL (70-99) Lactic Acid Level 1.2 mmol/L (0.4-2.0) Calcium Level 9.2 mg/dL (8.5-10.1) Magnesium Level 1.9 mg/dL (1.8-2.4) Total Bilirubin 0.6 mg/dL (0.2-1.0) Aspartate Amino Transf (AST/SGOT) 168 U/L (15-37) Alanine Aminotransferase (ALT/SGPT) 158 U/L (16-63) Alkaline Phosphatase 104 U/L (46-116) Total Protein 6.7 g/dL (6.4-8.2) Albumin 2.2 g/dL (3.4-5.0) Albumin/Globulin Ratio 0.5 (1.0-1.7) Urine Collection Type Unknown Urine Color Chasity Urine Clarity Clear Urine pH 5.5 (<5.0-8.0) Urine Specific [place] 1.025 (1.000-1.030) Urine Protein 30 mg/dL (NEG-TRACE) Urine Glucose (UA) Negative mg/dL (NEG) Urine Ketones (Stick) Trace mg/dL (NEG) Urine Blood Negative (NEG) Urine Nitrite Negative (NEG) Urine Bilirubin Small (NEG) Urine Urobilinogen Dipstick 1.0 mg/dL (0.2 mg/dL) Urine Leukocyte Esterase Small (NEG) Urine RBC 3-5 /HPF (0-2) Urine WBC 1-4 /HPF (0-4) Urine Renal Epithelial Cells Mod /LPF Urine Bacteria 0 /HPF (0-FEW) Urine Hyaline Casts Many /HPF Urine Granular Casts Few /HPF Urine Mucus Marked /LPF Glucose (Fingerstick) 129 mg/dL (70-99) Laboratory Tests Test 07/24/20 21:07 07/24/20 21:27 07/25/20 00:21 White Blood Count 18.0 x10^3/uL (4.0-11.0) Red Blood Count 4.13 x10^6/uL (4.30-5.70) Hemoglobin 12.1 g/dL (13.0-17.5) Hematocrit 37.0 % (39.0-53.0) Mean Corpuscular Volume 90 fL (79-100) Mean Corpuscular Hemoglobin 29 pg (25-35) Mean Corpuscular Hemoglobin Concent 33 g/dL (31-37) Red Cell Distribution Width 15.3 % (11.5-14.5) Platelet Count 206 x10^3/uL (140-400) Neutrophils (%) (Auto) 89 % (31-73) Lymphocytes (%) (Auto) 4 % (24-48) Monocytes (%) (Auto) 7 % (0-9) Eosinophils (%) (Auto) 0 % (0-3) Basophils (%) (Auto) 0 % (0-3) Neutrophils # (Auto) 16.0 x10^3/uL (1.8-7.7) Lymphocytes # (Auto) 0.8 x10^3/uL (1.0-4.8) Monocytes # (Auto) 1.2 x10^3/uL (0.0-1.1) Eosinophils # (Auto) 0.0 x10^3/uL (0.0-0.7) Basophils # (Auto) 0.0 x10^3/uL (0.0-0.2) Segmented Neutrophils % 74 % (35-66) Band Neutrophils % 15 % (0-9) Lymphocytes % 7 % (24-48) Monocytes % 3 % (0-10) Basophils % 1 % (0-3) Toxic Granulation Slight Platelet Estimate Adequate (ADEQUATE) Sodium Level 135 mmol/L (136-145) Potassium Level 4.2 mmol/L (3.5-5.1) Chloride Level 101 mmol/L (98-107) Carbon Dioxide Level 27 mmol/L (21-32) Anion Gap 7 (6-14) Blood Urea Nitrogen 34 mg/dL (8-26) Creatinine 1.5 mg/dL (0.7-1.3) Estimated GFR (Cockcroft-Gault) 44.8 BUN/Creatinine Ratio 23 (6-20) Glucose Level 125 mg/dL (70-99) Lactic Acid Level 1.2 mmol/L (0.4-2.0) Calcium Level 9.2 mg/dL (8.5-10.1) Magnesium Level 1.9 mg/dL (1.8-2.4) Total Bilirubin 0.6 mg/dL (0.2-1.0) Aspartate Amino Transf (AST/SGOT) 168 U/L (15-37) Alanine Aminotransferase (ALT/SGPT) 158 U/L (16-63) Alkaline Phosphatase 104 U/L (46-116) Total Protein 6.7 g/dL (6.4-8.2) Albumin 2.2 g/dL (3.4-5.0) Albumin/Globulin Ratio 0.5 (1.0-1.7) Urine Collection Type Unknown Urine Color Chasity Urine Clarity Clear Urine pH 5.5 (<5.0-8.0) Urine Specific [place] 1.025 (1.000-1.030) Urine Protein 30 mg/dL (NEG-TRACE) Urine Glucose (UA) Negative mg/dL (NEG) Urine Ketones (Stick) Trace mg/dL (NEG) Urine Blood Negative (NEG) Urine Nitrite Negative (NEG) Urine Bilirubin Small (NEG) Urine Urobilinogen Dipstick 1.0 mg/dL (0.2 mg/dL) Urine Leukocyte Esterase Small (NEG) Urine RBC 3-5 /HPF (0-2) Urine WBC 1-4 /HPF (0-4) Urine Renal Epithelial Cells Mod /LPF Urine Bacteria 0 /HPF (0-FEW) Urine Hyaline Casts Many /HPF Urine Granular Casts Few /HPF Urine Mucus Marked /LPF Glucose (Fingerstick) 129 mg/dL (70-99) Images Images PATIENT: JOSE DEMPSEY ACCOUNT: [id number] : 1935 LOCATION: ER AGE: 84 SEX: M EXAM STATUS: REG ER ORD. PHYSICIAN: DEBRA KINGSLEY DO REASON: Weakness PROCEDURE: CHEST AP ONLY AP chest x-ray HISTORY: Weakness. FINDINGS: Patient is rotated to the left in light of this there is likely mild cardiomegaly present. Calcified granulomas posterior of the heart at the medial left lung base. Prominence of the pulmonary vasculature raising the possibility of mild vascular congestion. Indistinct density at the left lung base limiting visualization of the lateral angle suggesting lower lobe opacity, small left pleural effusion along the diaphragm is not excluded. IMPRESSION: Cardiomegaly and pulmonary vascular congestion. Left lower lobe atel ectasis/infiltrate partially obscuring the diaphragm, a small left pleural effusion along the diaphragm is not excluded. Electronically signed by: Tom Khalil MD (07/24/2020 9:38 PM) [facility] [place] DICTATED and SIGNED BY: TOM KHALIL MD DATE: 07/24/20 [id number] VTE Prophylaxis Ordered VTE Prophylaxis Devices: No VTE Pharmacological Prophylaxi: No Assessment/Plan Assessment/Plan IMPRESSION: Cardiomegaly and pulmonary vascular congestion. Left lower lobe atelectasis/infiltrate GRAM NEG RODS prilim blood culture septic shock dementia plan admit ICU BLOOD CULT Emperic iv antibiotics dvt prophylaxis dictated 36 min cc time Justifications for Admission Other Justification LUZ ELENA BECERRA MD Jul 25, 2020 09:44
[2020-07-25] MEDS ORDERED: IV NORMAL SALINE 500ML BAG 500 ML IV PRN (10:00)
[2020-07-25] MEDS ORDERED: BISACODYL 10 MG SUPP.RECT. PR PRN (10:00)
[2020-07-25] MEDS ORDERED: ONDANSETRON PF 4 MG/2 ML VIAL. IVP PRN (10:00)
[2020-07-25] MEDS ORDERED: 0.9 % SODIUM CHLORIDE 10 ML DISP.SYRIN. IV PRN (10:00)
[2020-07-25 10:42] LABS: CALCIUM 8.9 mg/dL (8.5-10.1); GFR 71.5; POTASSIUM 3.9 mmol/L (3.5-5.1)
[2020-07-25 10:45] LABS: MAGNESIUM 2.1 mg/dL (1.8-2.4)
--- NOTE | 2020-07-25 11:09 | PDOC ---
PULMONARY PROGRESS NOTES DATE: 07/25/20 TIME: 11:08 Vitals Vital Signs Date Time Temp Pulse Resp B/P (MAP) Pulse Ox O2 Delivery O2 Flow Rate FiO2 07/25/20 10:00 64 19 96/49 (65) 99 Nasal Cannula 2.0 07/25/20 08:00 97.8 97.8 Lungs: Clear Cardiovascular: S1 Labs Laboratory Tests Test 07/24/20 21:07 07/24/20 21:27 07/25/20 00:21 07/25/20 10:15 White Blood Count 18.0 x10^3/uL (4.0-11.0) Red Blood Count 4.13 x10^6/uL (4.30-5.70) Hemoglobin 12.1 g/dL (13.0-17.5) Hematocrit 37.0 % (39.0-53.0) Mean Corpuscular Volume 90 fL (79-100) Mean Corpuscular Hemoglobin 29 pg (25-35) Mean Corpuscular Hemoglobin Concent 33 g/dL (31-37) Red Cell Distribution Width 15.3 % (11.5-14.5) Platelet Count 206 x10^3/uL (140-400) Neutrophils (%) (Auto) 89 % (31-73) Lymphocytes (%) (Auto) 4 % (24-48) Monocytes (%) (Auto) 7 % (0-9) Eosinophils (%) (Auto) 0 % (0-3) Basophils (%) (Auto) 0 % (0-3) Neutrophils # (Auto) 16.0 x10^3/uL (1.8-7.7) Lymphocytes # (Auto) 0.8 x10^3/uL (1.0-4.8) Monocytes # (Auto) 1.2 x10^3/uL (0.0-1.1) Eosinophils # (Auto) 0.0 x10^3/uL (0.0-0.7) Basophils # (Auto) 0.0 x10^3/uL (0.0-0.2) Segmented Neutrophils % 74 % (35-66) Band Neutrophils % 15 % (0-9) Lymphocytes % 7 % (24-48) Monocytes % 3 % (0-10) Basophils % 1 % (0-3) Toxic Granulation Slight Platelet Estimate Adequate (ADEQUATE) Sodium Level 135 mmol/L (136-145) 141 mmol/L (136-145) Potassium Level 4.2 mmol/L (3.5-5.1) 3.9 mmol/L (3.5-5.1) Chloride Level 101 mmol/L (98-107) 108 mmol/L (98-107) Carbon Dioxide Level 27 mmol/L (21-32) 27 mmol/L (21-32) Anion Gap 7 (6-14) 6 (6-14) Blood Urea Nitrogen 34 mg/dL (8-26) 33 mg/dL (8-26) Creatinine 1.5 mg/dL (0.7-1.3) 1.0 mg/dL (0.7-1.3) Estimated GFR (Cockcroft-Gault) 44.8 71.5 BUN/Creatinine Ratio 23 (6-20) Glucose Level 125 mg/dL (70-99) 116 mg/dL (70-99) Lactic Acid Level 1.2 mmol/L (0.4-2.0) Calcium Level 9.2 mg/dL (8.5-10.1) 8.9 mg/dL (8.5-10.1) Magnesium Level 1.9 mg/dL (1.8-2.4) 2.1 mg/dL (1.8-2.4) Total Bilirubin 0.6 mg/dL (0.2-1.0) Aspartate Amino Transf (AST/SGOT) 168 U/L (15-37) Alanine Aminotransferase (ALT/SGPT) 158 U/L (16-63) Alkaline Phosphatase 104 U/L (46-116) Total Protein 6.7 g/dL (6.4-8.2) Albumin 2.2 g/dL (3.4-5.0) Albumin/Globulin Ratio 0.5 (1.0-1.7) Urine Collection Type Unknown Urine Color Chasity Urine Clarity Clear Urine pH 5.5 (<5.0-8.0) Urine Specific [place] 1.025 (1.000-1.030) Urine Protein 30 mg/dL (NEG-TRACE) Urine Glucose (UA) Negative mg/dL (NEG) Urine Ketones (Stick) Trace mg/dL (NEG) Urine Blood Negative (NEG) Urine Nitrite Negative (NEG) Urine Bilirubin Small (NEG) Urine Urobilinogen Dipstick 1.0 mg/dL (0.2 mg/dL) Urine Leukocyte Esterase Small (NEG) Urine RBC 3-5 /HPF (0-2) Urine WBC 1-4 /HPF (0-4) Urine Renal Epithelial Cells Mod /LPF Urine Bacteria 0 /HPF (0-FEW) Urine Hyaline Casts Many /HPF Urine Granular Casts Few /HPF Urine Mucus Marked /LPF Glucose (Fingerstick) 129 mg/dL (70-99) Lactate Dehydrogenase 262 U/L (85-227) Troponin I Quantitative 0.036 ng/mL (0.000-0.055) Thyroid Stimulating Hormone (TSH) 0.373 uIU/mL (0.358-3.74) Laboratory Tests Test 07/24/20 21:07 07/24/20 21:27 07/25/20 00:21 07/25/20 10:15 White Blood Count 18.0 x10^3/uL (4.0-11.0) Red Blood Count 4.13 x10^6/uL (4.30-5.70) Hemoglobin 12.1 g/dL (13.0-17.5) Hematocrit 37.0 % (39.0-53.0) Mean Corpuscular Volume 90 fL (79-100) Mean Corpuscular Hemoglobin 29 pg (25-35) Mean Corpuscular Hemoglobin Concent 33 g/dL (31-37) Red Cell Distribution Width 15.3 % (11.5-14.5) Platelet Count 206 x10^3/uL (140-400) Neutrophils (%) (Auto) 89 % (31-73) Lymphocytes (%) (Auto) 4 % (24-48) Monocytes (%) (Auto) 7 % (0-9) Eosinophils (%) (Auto) 0 % (0-3) Basophils (%) (Auto) 0 % (0-3) Neutrophils # (Auto) 16.0 x10^3/uL (1.8-7.7) Lymphocytes # (Auto) 0.8 x10^3/uL (1.0-4.8) Monocytes # (Auto) 1.2 x10^3/uL (0.0-1.1) Eosinophils # (Auto) 0.0 x10^3/uL (0.0-0.7) Basophils # (Auto) 0.0 x10^3/uL (0.0-0.2) Segmented Neutrophils % 74 % (35-66) Band Neutrophils % 15 % (0-9) Lymphocytes % 7 % (24-48) Monocytes % 3 % (0-10) Basophils % 1 % (0-3) Toxic Granulation Slight Platelet Estimate Adequate (ADEQUATE) Sodium Level 135 mmol/L (136-145) 141 mmol/L (136-145) Potassium Level 4.2 mmol/L (3.5-5.1) 3.9 mmol/L (3.5-5.1) Chloride Level 101 mmol/L (98-107) 108 mmol/L (98-107) Carbon Dioxide Level 27 mmol/L (21-32) 27 mmol/L (21-32) Anion Gap 7 (6-14) 6 (6-14) Blood Urea Nitrogen 34 mg/dL (8-26) 33 mg/dL (8-26) Creatinine 1.5 mg/dL (0.7-1.3) 1.0 mg/dL (0.7-1.3) Estimated GFR (Cockcroft-Gault) 44.8 71.5 BUN/Creatinine Ratio 23 (6-20) Glucose Level 125 mg/dL (70-99) 116 mg/dL (70-99) Lactic Acid Level 1.2 mmol/L (0.4-2.0) Calcium Level 9.2 mg/dL (8.5-10.1) 8.9 mg/dL (8.5-10.1) Magnesium Level 1.9 mg/dL (1.8-2.4) 2.1 mg/dL (1.8-2.4) Total Bilirubin 0.6 mg/dL (0.2-1.0) Aspartate Amino Transf (AST/SGOT) 168 U/L (15-37) Alanine Aminotransferase (ALT/SGPT) 158 U/L (16-63) Alkaline Phosphatase 104 U/L (46-116) Total Protein 6.7 g/dL (6.4-8.2) Albumin 2.2 g/dL (3.4-5.0) Albumin/Globulin Ratio 0.5 (1.0-1.7) Urine Collection Type Unknown Urine Color Chasity Urine Clarity Clear Urine pH 5.5 (<5.0-8.0) Urine Specific [place] 1.025 (1.000-1.030) Urine Protein 30 mg/dL (NEG-TRACE) Urine Glucose (UA) Negative mg/dL (NEG) Urine Ketones (Stick) Trace mg/dL (NEG) Urine Blood Negative (NEG) Urine Nitrite Negative (NEG) Urine Bilirubin Small (NEG) Urine Urobilinogen Dipstick 1.0 mg/dL (0.2 mg/dL) Urine Leukocyte Esterase Small (NEG) Urine RBC 3-5 /HPF (0-2) Urine WBC 1-4 /HPF (0-4) Urine Renal Epithelial Cells Mod /LPF Urine Bacteria 0 /HPF (0-FEW) Urine Hyaline Casts Many /HPF Urine Granular Casts Few /HPF Urine Mucus Marked /LPF Glucose (Fingerstick) 129 mg/dL (70-99) Lactate Dehydrogenase 262 U/L (85-227) Troponin I Quantitative 0.036 ng/mL (0.000-0.055) Thyroid Stimulating Hormone (TSH) 0.373 uIU/mL (0.358-3.74) Medications Active Scripts Medications Dose Route/Sig Max Daily Dose Days Date Category Dose Instructions A and D Ointment (Vits A and D/White Pet/Lanolin) 42.5 Gm Oint...g. 1 Chayo TP DAILY 07/25/20 Reported Trazodone Hcl 50 Mg Tablet 50 Mg PEG HS 07/25/20 Reported Simethicone 80 Mg Tab.chew 80 Mg PEG Q6HRS PRN 07/25/20 Reported Seroquel (Quetiapine Fumarate) 25 Mg Tablet 1 Tab PEG QHS 07/25/20 Reported Miralax (Polyethylene Glycol 3350) 17 Gm Powd.pack 1 Packet PO DAILY PRN 2 07/25/20 Reported dissolve in water [oxycodone vandana ] 10 Mg PEG Q4HRS PRN 07/25/20 Reported Robaxin-750 (Methocarbamol) 750 Mg Tablet 1 Tab PO Q8HRS 30 07/25/20 Reported Melatonin 5 Mg Tab.rapdis 1 Tab PEG QHS 30 07/25/20 Reported Lipitor (Atorvastatin Calcium) 10 Mg Tablet 1 Tab PEG DAILY 07/25/20 Reported Lidocaine 1 Each Adh..patch 1 Each TP DAILY 07/25/20 Reported Tussin (Guaifenesin) 100 Mg/5 Ml Liquid 10 Ml PO Q4HRS PRN 10 07/25/20 Reported Adult Glycerin (Glycerin) 1 Each Supp.rect 1 Each RC DAILY PRN 07/25/20 Reported Gabapentin Oral Solution (Gabapentin) 250 Mg/5 Ml Solution 4 Ml PO Q8HRS 07/25/20 Reported Doxazosin Mesylate 2 Mg Tablet 1 Mg PEG DAILY 07/25/20 Reported [docusate sodium liq] 100 Mg PEG BID 07/25/20 Reported Voltaren (Diclofenac Sodium) 100 Gm Gel..gram. 1 Chayo TP QID 30 07/25/20 Reported apply to affected area(s) Artificial Tears Eye Drops (Dextran 70/Hypromellose) 15 Ml Drops 1 Drop EACHEYE QID PRN 07/25/20 Reported [debrox solution] 5 Drop EACH EAR QID 07/25/20 Reported [ceftriaxone] 1 Gm IV DAILY PRN 07/25/20 Reported Azithromycin Tablet (Azithromycin) 250 Mg Tablet 250 Mg PO DAILY 07/25/20 Reported X5 days start 07/25 Aricept (Donepezil Hcl) 10 Mg Tablet 1 Tab PEG DAILY 30 07/25/20 Reported Acetaminophen 650 Mg/20.3 Ml Solution 650 Mg PEG Q6HRS PRN 07/25/20 Reported Impression . FULL CONSULT DICTATED SEPSIS PNEUMONIA RULE OUT NESHA SANTIAGO MD Jul 25, 2020 11:09
[2020-07-25 11:12] LABS: BASO % 0 % (0-3); EOS % 0 % (0-3); HEMATOCRIT 33.3 % (39.0-53.0); HEMOGLOBIN 10.8 g/dL (13.0-17.5); LYMPH # 0.9 x10^3/uL (1.0-4.8); LYMPH % 6 % (24-48); MEAN CORPUSCULAR HEMOGLOBIN 29 pg (25-35); MEAN CORPUSCULAR HGB CONC 32 g/dL (31-37); MEAN CORPUSCULAR VOLUME 90 fL (79-100); MONO # 1.2 x10^3/uL (0.0-1.1); MONO % 7 % (0-9); NEUT # 13.6 x10^3/uL (1.8-7.7); NEUT % 87 % (31-73); PLATELET COUNT 210 x10^3/uL (140-400); RED BLOOD COUNT 3.69 x10^6/uL (4.30-5.70); RED CELL DISTRIBUTION WIDTH 15.5 % (11.5-14.5); WHITE BLOOD COUNT 15.7 x10^3/uL (4.0-11.0)
[2020-07-25] MEDS ORDERED: PIP/TAZO PER PHARMACY MC PRN (11:15)
[2020-07-25 11:56] LABS: INFLUENZA A PATIENT NEGATIVE (NEGATIVE); INFLUENZA B PATIENT NEGATIVE (NEGATIVE)
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
[2020-07-25] MEDS: PIPERACILLIN/TAZOBACTAM 3.375 GM in IV NORMAL SALINE 50ML 50 ML IV SCH ×2 (12:00→18:00)
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
--- NOTE | 2020-07-25 12:27 | PDOC ---
Infectious Disease Note Vital Sign Vital Signs Vital Signs Date Time Temp Pulse Resp B/P (MAP) Pulse Ox O2 Delivery O2 Flow Rate FiO2 07/25/20 11:00 74 19 92/53 (66) 98 Nasal Cannula 2.0 07/25/20 08:00 97.8 97.8 Labs Lab Laboratory Tests Test 07/24/20 21:07 07/24/20 21:27 07/25/20 00:21 07/25/20 10:15 White Blood Count 18.0 x10^3/uL (4.0-11.0) 15.7 x10^3/uL (4.0-11.0) Red Blood Count 4.13 x10^6/uL (4.30-5.70) 3.69 x10^6/uL (4.30-5.70) Hemoglobin 12.1 g/dL (13.0-17.5) 10.8 g/dL (13.0-17.5) Hematocrit 37.0 % (39.0-53.0) 33.3 % (39.0-53.0) Mean Corpuscular Volume 90 fL (79-100) 90 fL (79-100) Mean Corpuscular Hemoglobin 29 pg (25-35) 29 pg (25-35) Mean Corpuscular Hemoglobin Concent 33 g/dL (31-37) 32 g/dL (31-37) Red Cell Distribution Width 15.3 % (11.5-14.5) 15.5 % (11.5-14.5) Platelet Count 206 x10^3/uL (140-400) 210 x10^3/uL (140-400) Neutrophils (%) (Auto) 89 % (31-73) 87 % (31-73) Lymphocytes (%) (Auto) 4 % (24-48) 6 % (24-48) Monocytes (%) (Auto) 7 % (0-9) 7 % (0-9) Eosinophils (%) (Auto) 0 % (0-3) 0 % (0-3) Basophils (%) (Auto) 0 % (0-3) 0 % (0-3) Neutrophils # (Auto) 16.0 x10^3/uL (1.8-7.7) 13.6 x10^3/uL (1.8-7.7) Lymphocytes # (Auto) 0.8 x10^3/uL (1.0-4.8) 0.9 x10^3/uL (1.0-4.8) Monocytes # (Auto) 1.2 x10^3/uL (0.0-1.1) 1.2 x10^3/uL (0.0-1.1) Eosinophils # (Auto) 0.0 x10^3/uL (0.0-0.7) 0.0 x10^3/uL (0.0-0.7) Basophils # (Auto) 0.0 x10^3/uL (0.0-0.2) 0.0 x10^3/uL (0.0-0.2) Segmented Neutrophils % 74 % (35-66) Band Neutrophils % 15 % (0-9) Lymphocytes % 7 % (24-48) Monocytes % 3 % (0-10) Basophils % 1 % (0-3) Toxic Granulation Slight Platelet Estimate Adequate (ADEQUATE) Sodium Level 135 mmol/L (136-145) 141 mmol/L (136-145) Potassium Level 4.2 mmol/L (3.5-5.1) 3.9 mmol/L (3.5-5.1) Chloride Level 101 mmol/L (98-107) 108 mmol/L (98-107) Carbon Dioxide Level 27 mmol/L (21-32) 27 mmol/L (21-32) Anion Gap 7 (6-14) 6 (6-14) Blood Urea Nitrogen 34 mg/dL (8-26) 33 mg/dL (8-26) Creatinine 1.5 mg/dL (0.7-1.3) 1.0 mg/dL (0.7-1.3) Estimated GFR (Cockcroft-Gault) 44.8 71.5 BUN/Creatinine Ratio 23 (6-20) Glucose Level 125 mg/dL (70-99) 116 mg/dL (70-99) Lactic Acid Level 1.2 mmol/L (0.4-2.0) Calcium Level 9.2 mg/dL (8.5-10.1) 8.9 mg/dL (8.5-10.1) Magnesium Level 1.9 mg/dL (1.8-2.4) 2.1 mg/dL (1.8-2.4) Total Bilirubin 0.6 mg/dL (0.2-1.0) Aspartate Amino Transf (AST/SGOT) 168 U/L (15-37) Alanine Aminotransferase (ALT/SGPT) 158 U/L (16-63) Alkaline Phosphatase 104 U/L (46-116) Total Protein 6.7 g/dL (6.4-8.2) Albumin 2.2 g/dL (3.4-5.0) Albumin/Globulin Ratio 0.5 (1.0-1.7) Urine Collection Type Unknown Urine Color Chasity Urine Clarity Clear Urine pH 5.5 (<5.0-8.0) Urine Specific [place] 1.025 (1.000-1.030) Urine Protein 30 mg/dL (NEG-TRACE) Urine Glucose (UA) Negative mg/dL (NEG) Urine Ketones (Stick) Trace mg/dL (NEG) Urine Blood Negative (NEG) Urine Nitrite Negative (NEG) Urine Bilirubin Small (NEG) Urine Urobilinogen Dipstick 1.0 mg/dL (0.2 mg/dL) Urine Leukocyte Esterase Small (NEG) Urine RBC 3-5 /HPF (0-2) Urine WBC 1-4 /HPF (0-4) Urine Renal Epithelial Cells Mod /LPF Urine Bacteria 0 /HPF (0-FEW) Urine Hyaline Casts Many /HPF Urine Granular Casts Few /HPF Urine Mucus Marked /LPF Glucose (Fingerstick) 129 mg/dL (70-99) Lactate Dehydrogenase 262 U/L (85-227) Troponin I Quantitative 0.036 ng/mL (0.000-0.055) Thyroid Stimulating Hormone (TSH) 0.373 uIU/mL (0.358-3.74) Test 07/25/20 11:20 Influenza Type A Antigen Negative (NEGATIVE) Influenza Type B Antigen Negative (NEGATIVE) Objective Assessment Aspiration pneumonia Sepsis with hypotension, now of levophed Leukocytosis Transaminitis Dementia h/o CVA Dysphagia PMH/PSH: includes HLD, BPH, diverticulosis, depression, tonsillectomy and adenoidectomy; h/o smoking Plan Plan of Care Zyvox and Zosyn f/u cultures including BC from [place] 07/24 Monitor lab values/VS Maintain aspiration precautions Discussed with nursing Critically ill Thank you [id number] Attending Co-Sign The patient was seen and examined at the bedside on 07/25. The chart was reviewed. The case was discussed with [facility]. Agree with above A/P. WYATT HOLLINGSWORTH APRN Jul 25, 2020 12:27 GABE MEIER MD Jul 26, 2020 07:58
--- NOTE | 2020-07-25 12:32 | RAD ---
Portable chest x-ray compared to similar exam from July 22, 2020 for pneumonia. FINDINGS: Dense consolidation left lung base is grossly unchanged, likely infiltrate and/or atelectas is. Cardiomegaly and pulmonary vascular congestion is also unchanged. No new lung parenchymal abnorma lities. IMPRESSION: 1. Stable chest x-ray with cardiomegaly and pulmonary vascular congestion as well as persistent dense opacification of the left lung base concerning for pneumonia. Electronically signed by: Shadi Abel MD (07/25/2020 12:29 PM) [id number]
--- NOTE | 2020-07-25 13:02 | CONS ---
DATE OF CONSULTATION: 07/25/2020 Flaco Peoples, nurse practitioner dictating for Dr. Rigo Baum, Infectious Disease. REFERRING PHYSICIAN: Anselmo Schumacher MD REASON FOR CONSULTATION: Pneumonia and severe sepsis. HISTORY OF PRESENT ILLNESS: This patient is an 84-year-old male who is a long term resident with dementia, sent to the Emergency Department for possible aspiration and dehydration. He was started on ceftriaxone and azithromycin prior. He was found to have WBC count of 18,000, segs 74%, bands 15%. A chest x-ray showed indistinct ____ at the left lung base, limiting visualization of the lateral ankle, suggesting lower lobe opacity, small left pleural effusion not excluded. He became hypotensive, requiring vasopressor support and IV fluid resuscitation. Antibiotics have been switched to linezolid and Zosyn. Blood cultures have been ordered. Today, the patient says he is not feeling too good. He complains of sore throat, dry mouth, cough. He is on 3 liters of supplemental oxygen. No fevers have been reported. He experienced choking with a drink of water earlier. He is now n.p.o., awaiting speech evaluation. He has a Davidson catheter that was changed. PAST MEDICAL HISTORY: Dementia, cerebrovascular accident and dysphagia, atrial septal defect, hyperlipidemia, hypertension, benign prostate hyperplasia, depression, bilateral sensorineural hearing loss, kidney stones. PAST SURGICAL HISTORY: Gastrostomy tube. FAMILY HISTORY: Cancer, chronic obstructive pulmonary disease. SOCIAL HISTORY: half-way resident. ALLERGIES: No known drug allergies. MEDICATIONS: Reviewed on MAR includes linezolid, Zosyn. Off Levophed. REVIEW OF SYSTEMS: Per HPI, otherwise all other review of systems are negative. PHYSICAL EXAMINATION: VITAL SIGNS: Temperature 97.8, blood pressure 92/53, heart rate 74, respiratory rate 19, pulse oximetry 98% on 2 liters oxygen. GENERAL: The patient is propped up in bed, alert, calm, in no distress. HEENT: Pupils equally round. Normal conjunctivae. Oropharynx dry. NECK: Supple. LUNGS: Clear to auscultation. No accessory muscle use. HEART: S1 and S2 regular. ABDOMEN: Nondistended, soft, nontender with bowel sounds present. GENITOURINARY: Indwelling Davidson in place. EXTREMITIES: No gross edema or cyanosis. DERMATOLOGIC: Warm to touch. No signs of generalized rash. NEUROLOGIC: Alert, oriented to place. Follows commands. LINES: Peripheral IV looks okay. LABORATORY DATA: WBC 15.7 from 18.0 on admission, hemoglobin 10.8, platelets 210,000, segs 74%, bands 15%. Sodium 141, potassium 3.9, creatinine 1.0, BUN 33, glucose 116. Lactic acid 1.2, total bilirubin 0.6, AST 168, ALT 158, albumin 2.2. Troponin 0.036, LDH 262. TSH 0.373. Influenza screen negative. COVID and blood cultures pending. Urinalysis unremarkable for infection. Chest x-ray per HPI. Repeat pending. Recent blood cultures reportedly show gram-negative rods. IMPRESSION: 1. Sepsis with hypotension. 2. Gram negative bacteremia, 3. Aspiration pneumonia. 4. Leukocytosis. 5. Transaminitis. 6. Dementia. 7. History of cerebrovascular accident. 8. Dysphagia. 9. Pt was on ceftriaxone and azithromycin prior to admission PLAN: 1. Follow up blood cultures including those from a long term, which were done on the and here. 2. Continue the linezolid and Zosyn. 3. Monitor laboratory values and vital signs. 4. Maintain aspiration precautions. 5. Records from [facility] reviewed. Thank you, Dr. Schumacher, for asking us to participate in this patient's care. Should you have further questions or concerns, please call. The patient is seen and examined and plan of care implemented by Dr. Rigo Baum. RIGO BAUM MD DR: HIEN/daniele JOB#: [id number] / [id number] RASHMI
--- NOTE | 2020-07-25 13:15 | HP ---
ADMIT DATE: 07/24/2020 ADMISSION HISTORY AND PHYSICAL CHIEF COMPLAINT: Shortness of air, hypotension and confusion. HISTORY OF PRESENT ILLNESS: This is an 84-year-old male with history of dementia who resides at [facility] who apparently has been there for rehab after a hip fracture a few months ago. He was found to be hypotensive at the care home. Attempts were made for blood draw, but he was a difficult pick. He was sent to the Emergency Room, was found to have leukocytosis and early pneumonia. He was admitted to the regular floor, 15. He became hypotensive, was placed initially on IV Rocephin. This was switched to Zosyn. He was given a fluid challenge, which he did not respond to. He was therefore transferred down to the ICU. Blood cultures were done and he was started on IV Zosyn. PAST MEDICAL HISTORY: Significant for previous stroke, dementia, kidney stones. Former smoker. Drug use includes marijuana. This has a history of benign prostatic enlargement, previous tonsillectomy. FAMILY HISTORY: Positive for severe COPD. CURRENT MEDICATIONS: Please see medication reconciliation. REVIEW OF SYSTEMS: He has no specific complaints except for weakness. He is an unreliable historian due to dementia. After the fluid challenge, he was more alert, but was unable to describe any significant history, was able to recall when he was last admitted here or to the last hospital he was admitted. PHYSICAL EXAMINATION NECK: Supple, atraumatic. HEENT: Throat and pharynx are clear. ABDOMEN: Soft. He has PEG tube in place without surrounding cellulitis. No peripheral cyanosis. There is mild lower extremity edema. EXTREMITIES: He moves all extremities well. SKIN: Dry. Capillary refill less than 2 seconds. LUNGS: Auscultation of the lung showed a few crackles in the left lower lobe. CARDIOVASCULAR: Regular rate. RECTAL: Exam was deferred. NEUROLOGIC: Cranial nerves III-XII are grossly intact. VITAL SIGNS: Blood pressure was 98/52, O2 sat was 96% on 2 liters nasal cannula. LABORATORY DATA: Show white count of 18,000; hemoglobin 12.1; MCV 90; ____ 74%; platelets adequate. BUN 34, creatinine 1.5. GFR was 44.8. Glucose 125, lactic acid 1.2, magnesium 1.9. AST was 168, ALT 158, alk phos 104, albumin 3.2. UA: Specific gravity 1.025, pH is 5.14, nitrite negative small, leukocyte esterase positive, many hyaline casts per high-power field. Arthroscopic exam ____ . Chest x-ray shows pulmonary vascular congestion, left lower lobe atelectasis or infiltrate. ASSESSMENT: This is an 84-year-old male with admission for pneumonia who became hypotensive and septic after admission was transferred to the Intensive Care Unit. We will consult Infectious Disease as well as Pulmonary and Cardiology. 1. Gram-negative rods protocol pulmonary blood cultures. 2. Septic shock. 3. Dementia. 4. Remote tobacco abuse. 5. Severe protein caloric malnutrition. PLAN: Empiric IV antibiotics, DVT prophylaxis. ID, pulmonary and Cardiology consult. Echocardiogram, which is pending. We will repeat blood cultures x 2. Total critical care time was 37 minutes. Prognosis is guarded. We will also ____ COVID-19 PCR antigen. The patient is currently on respiratory isolation. LUZ ELENA BECERRA MD DR: JESSICA/daniele JOB#: [id number] / [id number]
--- NOTE | 2020-07-25 14:42 | NUR ---
SS following for discharge planning. SS reviewed pt chart and discussed with pt RN. Pt is [facility] resident from [place], ; fax [phone]. Pt is currently requiring oxygen at two liters nasal canula. PT/OT ordered. COVID19 test pending. Pt on IV Zosyn and IV Zyvox. Pt transferring to room 648 today. Mariposa SINHA, to follow. Addendum: 07/25/20 at 1447 by SADA MILLER DPOA paperwork in chart. Daughter, Maggi Clarke, , is DPOA.
[2020-07-25] MEDS: HEPARIN for SUB-Q USE 5,000 UNIT/ML VIAL. SQ SCH ×2 (15:39→21:16)
--- NOTE | 2020-07-25 15:52 | RAD ---
Left knee x-rays 2 views HISTORY: Left knee pain. FINDINGS: There is cortical regularity of the proximal fibula metadiaphysis, assessment is limited gi mami overlapping of the tibia and fibula densities on both the AP and lateral views, a fracture at thi s region is a consideration. The tibia, femur and patella demonstrate no fracture or dislocation. Adv anced osteoarthritic joint space narrowing and bone spurring at all 3 compartments. Arterial vascular calcifications are noted. There is lateral knee soft tissue edema. IMPRESSION: Cortical regularity of the proximal fibula metadiaphysis raising the possibility of an ac patricio traumatic fracture. Osteoarthritis of the knee. See above. Left foot x-rays 2 views HISTORY: Left foot pain. FINDINGS: No fracture. No dislocation. Large enthesophyte Achilles tendon insertion calcaneus. Small spur the plantar calcaneus. Arterial vascular calcification. Osteoarthritis of the first MTP joint wi th bone spurring. No fracture or dislocation is evident. IMPRESSION: No acute osseous injury. Electronically signed by: Conner Chandler MD (07/25/2020 3:50 PM) JANINE
[2020-07-25] MEDS ORDERED: ELECTROLYTE (NON-ICU) PROTOCOL. MC PRN (17:45)
--- NOTE | 2020-07-25 19:01 | NUR ---
Pt arrived on unit from ICU at 1800 via bed. IV abx infusing. 2 side rails up, call light in place. Pt watching television. No concerns noted at this time. Will assume care of this pt.
[2020-07-25] MEDS ORDERED: ACETAMINOPHEN 325 MG TABLET. PO PRN (20:15)
[2020-07-25] MEDS: FAMOTIDINE 20 MG/2 ML VIAL IVP SCH (21:12)
[2020-07-25] MEDS: oxyCODONE IR 5 MG TABLET PO PRN (21:12)
[2020-07-25] MEDS: DICLOFENAC SODIUM 1% TOPICAL GEL 100GM TUBE. TP SCH (21:12)
[2020-07-25] MEDS ORDERED: ZOLPIDEM 5 MG TABLET. PO PRN (22:00)
[2020-07-26] MEDS: oxyCODONE IR 5 MG TABLET PO PRN (00:38)
[2020-07-26] MEDS: PIPERACILLIN/TAZOBACTAM 3.375 GM in IV NORMAL SALINE 50ML 50 ML IV SCH ×4 (00:38→18:29)
[2020-07-26 03:00] VITALS: BP 104/62
[2020-07-26] MEDS: HEPARIN for SUB-Q USE 5,000 UNIT/ML VIAL. SQ SCH ×3 (05:54→21:52)
[2020-07-26 06:31] LABS: BASO % 0 % (0-3); EOS % 0 % (0-3); HEMATOCRIT 32.1 % (39.0-53.0); HEMOGLOBIN 10.3 g/dL (13.0-17.5); LYMPH % 7 % (24-48); MEAN CORPUSCULAR HEMOGLOBIN 29 pg (25-35); MEAN CORPUSCULAR HGB CONC 32 g/dL (31-37); MEAN CORPUSCULAR VOLUME 90 fL (79-100); MONO % 8 % (0-9); NEUT # 11.2 x10^3/uL (1.8-7.7); NEUT % 85 % (31-73); PLATELET COUNT 190 x10^3/uL (140-400); RED BLOOD COUNT 3.57 x10^6/uL (4.30-5.70); RED CELL DISTRIBUTION WIDTH 15.7 % (11.5-14.5); WHITE BLOOD COUNT 13.2 x10^3/uL (4.0-11.0)
[2020-07-26 06:39] LABS: PROTHROMBIN TIME PATIENT 16.2 SEC (11.7-14.0)
[2020-07-26 06:51] LABS: ALBUMIN 1.7 g/dL (3.4-5.0); ALBUMIN/GLOBULIN RATIO 0.4 (1.0-1.7); CALCIUM 8.5 mg/dL (8.5-10.1); CREATININE 0.9 mg/dL (0.7-1.3); GFR 80.8; POTASSIUM 3.6 mmol/L (3.5-5.1); TOTAL BILIRUBIN 0.4 mg/dL (0.2-1.0); TOTAL PROTEIN 5.5 g/dL (6.4-8.2)
[2020-07-26 07:00] VITALS: BP 90/51
--- NOTE | 2020-07-26 08:02 | PDOC ---
Infectious Disease Note Subjective: Subjective Patient says does not feel well today He is not able to pinpoint his symptoms to me Feels weak Denies any fever, chills, headache nausea or vomiting, diarrhea Vital Signs: Vital Signs Vital Signs Date Time Temp Pulse Resp B/P (MAP) Pulse Ox O2 Delivery O2 Flow Rate FiO2 07/26/20 07:00 94.7 65 18 90/51 (64) 93 Room Air 94.7 07/26/20 01:38 2.0 Physical Exam: PHYSICAL EXAM GENERAL: , alert, calm, tired appearing male in no acute distress HEENT: Pupils equally round. Normal conjunctivae. Oropharynx dry. NECK: Supple. LUNGS: Clear to auscultation. No accessory muscle use. HEART: S1 and S2 regular. ABDOMEN: Nondistended, soft, nontender with bowel sounds present. GENITOURINARY: Indwelling Davidson in place. EXTREMITIES: No gross edema or cyanosis. DERMATOLOGIC: Warm to touch. No signs of generalized rash. NEUROLOGIC: Alert, oriented to place. Follows commands.Lt sided weakness( chronic) LINES: Peripheral IV looks okay. Medications: Inpatient Meds: Medications reviewed. Labs: Lab Laboratory Tests Test 07/25/20 10:15 07/25/20 11:20 07/26/20 05:40 White Blood Count 15.7 x10^3/uL (4.0-11.0) 13.2 x10^3/uL (4.0-11.0) Red Blood Count 3.69 x10^6/uL (4.30-5.70) 3.57 x10^6/uL (4.30-5.70) Hemoglobin 10.8 g/dL (13.0-17.5) 10.3 g/dL (13.0-17.5) Hematocrit 33.3 % (39.0-53.0) 32.1 % (39.0-53.0) Mean Corpuscular Volume 90 fL (79-100) 90 fL (79-100) Mean Corpuscular Hemoglobin 29 pg (25-35) 29 pg (25-35) Mean Corpuscular Hemoglobin Concent 32 g/dL (31-37) 32 g/dL (31-37) Red Cell Distribution Width 15.5 % (11.5-14.5) 15.7 % (11.5-14.5) Platelet Count 210 x10^3/uL (140-400) 190 x10^3/uL (140-400) Neutrophils (%) (Auto) 87 % (31-73) 85 % (31-73) Lymphocytes (%) (Auto) 6 % (24-48) 7 % (24-48) Monocytes (%) (Auto) 7 % (0-9) 8 % (0-9) Eosinophils (%) (Auto) 0 % (0-3) 0 % (0-3) Basophils (%) (Auto) 0 % (0-3) 0 % (0-3) Neutrophils # (Auto) 13.6 x10^3/uL (1.8-7.7) 11.2 x10^3/uL (1.8-7.7) Lymphocytes # (Auto) 0.9 x10^3/uL (1.0-4.8) 1.0 x10^3/uL (1.0-4.8) Monocytes # (Auto) 1.2 x10^3/uL (0.0-1.1) 1.0 x10^3/uL (0.0-1.1) Eosinophils # (Auto) 0.0 x10^3/uL (0.0-0.7) 0.0 x10^3/uL (0.0-0.7) Basophils # (Auto) 0.0 x10^3/uL (0.0-0.2) 0.0 x10^3/uL (0.0-0.2) Sodium Level 141 mmol/L (136-145) 142 mmol/L (136-145) Potassium Level 3.9 mmol/L (3.5-5.1) 3.6 mmol/L (3.5-5.1) Chloride Level 108 mmol/L (98-107) 110 mmol/L (98-107) Carbon Dioxide Level 27 mmol/L (21-32) 26 mmol/L (21-32) Anion Gap 6 (6-14) 6 (6-14) Blood Urea Nitrogen 33 mg/dL (8-26) 25 mg/dL (8-26) Creatinine 1.0 mg/dL (0.7-1.3) 0.9 mg/dL (0.7-1.3) Estimated GFR (Cockcroft-Gault) 71.5 80.8 Glucose Level 116 mg/dL (70-99) 86 mg/dL (70-99) Calcium Level 8.9 mg/dL (8.5-10.1) 8.5 mg/dL (8.5-10.1) Magnesium Level 2.1 mg/dL (1.8-2.4) Lactate Dehydrogenase 262 U/L (85-227) Troponin I Quantitative 0.036 ng/mL (0.000-0.055) Procalcitonin 2.79 ng/mL (0.00-0.10) Thyroid Stimulating Hormone (TSH) 0.373 uIU/mL (0.358-3.74) Coronavirus (PCR) Not detected (Not Detected) Influenza Type A Antigen Negative (NEGATIVE) Influenza Type B Antigen Negative (NEGATIVE) Prothrombin Time 16.2 SEC (11.7-14.0) Prothromb Time International Ratio 1.3 (0.8-1.1) Activated Partial Thromboplast Time 35 SEC (24-38) BUN/Creatinine Ratio 28 (6-20) Total Bilirubin 0.4 mg/dL (0.2-1.0) Aspartate Amino Transf (AST/SGOT) 104 U/L (15-37) Alanine Aminotransferase (ALT/SGPT) 155 U/L (16-63) Alkaline Phosphatase 87 U/L (46-116) Total Protein 5.5 g/dL (6.4-8.2) Albumin 1.7 g/dL (3.4-5.0) Albumin/Globulin Ratio 0.4 (1.0-1.7) Objective: Assessment: 1.Gram neg bacteremia on admission 07/05 bottles 2. Sepsis with hypotension. 3. Leukocytosis. 4. Aspiration pneumonia. 5. Transaminitis. 5. Dementia. 6. History of cerebrovascular accident. 7. Dysphagia. Plan: Plan of Care Zyvox and Zosyn f/u cultures including BC from NH 07/24 and here on 07/25 Monitor lab values and cultures Maintain aspiration precautions Critically ill Discussed with nursing GABE MEIER MD Jul 26, 2020 08:02
[2020-07-26] MEDS: ASPIRIN ENTERIC COATED 81 MG TABLET.DR. PO SCH (08:15)
[2020-07-26] MEDS: FAMOTIDINE 20 MG/2 ML VIAL IVP SCH ×2 (08:40→21:39)
[2020-07-26] MEDS: DICLOFENAC SODIUM 1% TOPICAL GEL 100GM TUBE. TP SCH ×2 (09:00→21:40)
[2020-07-26] MEDS ORDERED: PERFLUTREN PROTEIN-A MICROSPHR 0.22 MG/ML 3 ML VIAL. IV ONE ×2 (09:33→10:15)
[2020-07-26 11:00] VITALS: BP 102/50
--- NOTE | 2020-07-26 11:06 | PDOC ---
ESE ROOT WARM IN 07/26/20 1106: CARDIO Progress Notes Date and Time Date of Service 07/26/20 Time of Evaluation 1110 Subjective Subjective: No Chest Pain, No shortness of breath, No Palpitations Vitals Vitals Vital Signs Date Time Temp Pulse Resp B/P (MAP) Pulse Ox O2 Delivery O2 Flow Rate FiO2 07/26/20 08:08 Nasal Cannula 2.0 07/26/20 07:00 98.1 65 18 90/51 (64) 93 98.1 Weight Weight [ ] Input and Output Intake and Output Intake and Output 07/26/20 07:00 Intake Total 2600 ml Output Total 1025 ml Balance 1575 ml Intake Oral 120 ml IV Total 2480 ml Output Urine Total 1025 ml Laboratory Labs Laboratory Tests Test 07/25/20 11:20 07/26/20 05:40 Coronavirus (PCR) Not detected (Not Detected) Influenza Type A Antigen Negative (NEGATIVE) Influenza Type B Antigen Negative (NEGATIVE) White Blood Count 13.2 x10^3/uL (4.0-11.0) Red Blood Count 3.57 x10^6/uL (4.30-5.70) Hemoglobin 10.3 g/dL (13.0-17.5) Hematocrit 32.1 % (39.0-53.0) Mean Corpuscular Volume 90 fL (79-100) Mean Corpuscular Hemoglobin 29 pg (25-35) Mean Corpuscular Hemoglobin Concent 32 g/dL (31-37) Red Cell Distribution Width 15.7 % (11.5-14.5) Platelet Count 190 x10^3/uL (140-400) Neutrophils (%) (Auto) 85 % (31-73) Lymphocytes (%) (Auto) 7 % (24-48) Monocytes (%) (Auto) 8 % (0-9) Eosinophils (%) (Auto) 0 % (0-3) Basophils (%) (Auto) 0 % (0-3) Neutrophils # (Auto) 11.2 x10^3/uL (1.8-7.7) Lymphocytes # (Auto) 1.0 x10^3/uL (1.0-4.8) Monocytes # (Auto) 1.0 x10^3/uL (0.0-1.1) Eosinophils # (Auto) 0.0 x10^3/uL (0.0-0.7) Basophils # (Auto) 0.0 x10^3/uL (0.0-0.2) Prothrombin Time 16.2 SEC (11.7-14.0) Prothromb Time International Ratio 1.3 (0.8-1.1) Activated Partial Thromboplast Time 35 SEC (24-38) Sodium Level 142 mmol/L (136-145) Potassium Level 3.6 mmol/L (3.5-5.1) Chloride Level 110 mmol/L (98-107) Carbon Dioxide Level 26 mmol/L (21-32) Anion Gap 6 (6-14) Blood Urea Nitrogen 25 mg/dL (8-26) Creatinine 0.9 mg/dL (0.7-1.3) Estimated GFR (Cockcroft-Gault) 80.8 BUN/Creatinine Ratio 28 (6-20) Glucose Level 86 mg/dL (70-99) Calcium Level 8.5 mg/dL (8.5-10.1) Total Bilirubin 0.4 mg/dL (0.2-1.0) Aspartate Amino Transf (AST/SGOT) 104 U/L (15-37) Alanine Aminotransferase (ALT/SGPT) 155 U/L (16-63) Alkaline Phosphatase 87 U/L (46-116) Total Protein 5.5 g/dL (6.4-8.2) Albumin 1.7 g/dL (3.4-5.0) Albumin/Globulin Ratio 0.4 (1.0-1.7) Microbiology Micro Microbiology 07/25/20 Blood Culture - Preliminary, Resulted NO GROWTH AFTER 1 DAY Physical Exam HEENT: Neck Supple W Full Motion Chest: Symmetric LUNGS: Other (diminished bases ) Heart: RRR Abdomen: Soft N/T Extremities: Other (trace bilateral LE edema ) Neurology: alert, follow commands, other (forgetful ) Assessment Assessment 1. Leukocytosis, bacteremia, sepsis. BC with GNR 2. Probable aspiration PNA. 3. Mild acute on chronic diastolic CHF; appears compensated 4. ANTHONY; improved 5. H/o hypertension with present hypotension; low end, but adequate 6. Hyperlipidemia 7. H/o CVA 8. BPH 9. Transaminitis 10. Dysphagia; overt aspiration with thin liquids Recommendations Echo as ordered Ongoing antibiotic therapy Follow cultures, ID recs Secondary prevention as able No statin with transaminitis ASA therapy Supportive care Justicifation of Admission Dx: Justifications for Admission: Justification of Admission Dx: Yes Comments: sepsis bacteremia KRISTINA HALEY MD 07/26/20 1745: CARDIO Progress Notes Assessment Assessment Patient seen and examined I agree with our nurse practitioners assessment and plan. Possible aspiration PNA. Covid negative. Continue present treatment. Mild acute on chronic diastolic CHF. compensated ANTHONY; improved H/o hypertension with present hypotension; low end, but adequate Hyperlipidemia. No statins with transaminitis H/o CVA ESE ROOT APRN Jul 26, 2020 11:06 KRISTINA HALEY MD Jul 26, 2020 17:45
--- NOTE | 2020-07-26 11:18 | PDOC ---
[employer] PROGRESS NOTE Date of Service DOS: DATE: 07/26/20 TIME: 11:15 Chief Complaint Chief Complaint Pneumonia History of Present Illness History of Present Illness 07/26/2020 Patient seen and examined, was undergoing echo Will go to CT later today DWRN Chart reviewed Vitals/I&O Vitals/I&O: Vital Signs Date Time Temp Pulse Resp B/P (MAP) Pulse Ox O2 Delivery O2 Flow Rate FiO2 07/26/20 08:08 Nasal Cannula 2.0 07/26/20 07:00 98.1 65 18 90/51 (64) 93 98.1 I & O 07/25/20 07/25/20 07/26/20 15:00 23:00 07:00 Intake Total 2430 ml 170 ml 0 ml Output Total 550 ml 75 ml 400 ml Balance 1880 ml 95 ml -400 ml Physical Exam Physical Exam: GENERAL: , alert, calm, tired appearing male in no acute distress HEENT: Pupils equally round. Normal conjunctivae. Oropharynx dry. NECK: Supple. LUNGS: Clear to auscultation. No accessory muscle use. HEART: S1 and S2 regular. ABDOMEN: Nondistended, soft, nontender with bowel sounds present. GENITOURINARY: Indwelling Davidson in place. EXTREMITIES: No gross edema or cyanosis. DERMATOLOGIC: Warm to touch. No signs of generalized rash. NEUROLOGIC: Alert, oriented to place. Follows commands.Lt sided weakness( chronic) LINES: Peripheral IV looks okay. General: Alert, Cooperative, No acute distress, Other (alert to person and place ) Heart: Regular rate Lungs: Clear Abdomen: Soft, No tenderness Extremities: No edema Skin: No significant lesion Labs Labs: Laboratory Tests Test 07/25/20 11:20 07/26/20 05:40 Coronavirus (PCR) Not detected (Not Detected) Influenza Type A Antigen Negative (NEGATIVE) Influenza Type B Antigen Negative (NEGATIVE) White Blood Count 13.2 x10^3/uL (4.0-11.0) Red Blood Count 3.57 x10^6/uL (4.30-5.70) Hemoglobin 10.3 g/dL (13.0-17.5) Hematocrit 32.1 % (39.0-53.0) Mean Corpuscular Volume 90 fL (79-100) Mean Corpuscular Hemoglobin 29 pg (25-35) Mean Corpuscular Hemoglobin Concent 32 g/dL (31-37) Red Cell Distribution Width 15.7 % (11.5-14.5) Platelet Count 190 x10^3/uL (140-400) Neutrophils (%) (Auto) 85 % (31-73) Lymphocytes (%) (Auto) 7 % (24-48) Monocytes (%) (Auto) 8 % (0-9) Eosinophils (%) (Auto) 0 % (0-3) Basophils (%) (Auto) 0 % (0-3) Neutrophils # (Auto) 11.2 x10^3/uL (1.8-7.7) Lymphocytes # (Auto) 1.0 x10^3/uL (1.0-4.8) Monocytes # (Auto) 1.0 x10^3/uL (0.0-1.1) Eosinophils # (Auto) 0.0 x10^3/uL (0.0-0.7) Basophils # (Auto) 0.0 x10^3/uL (0.0-0.2) Prothrombin Time 16.2 SEC (11.7-14.0) Prothromb Time International Ratio 1.3 (0.8-1.1) Activated Partial Thromboplast Time 35 SEC (24-38) Sodium Level 142 mmol/L (136-145) Potassium Level 3.6 mmol/L (3.5-5.1) Chloride Level 110 mmol/L (98-107) Carbon Dioxide Level 26 mmol/L (21-32) Anion Gap 6 (6-14) Blood Urea Nitrogen 25 mg/dL (8-26) Creatinine 0.9 mg/dL (0.7-1.3) Estimated GFR (Cockcroft-Gault) 80.8 BUN/Creatinine Ratio 28 (6-20) Glucose Level 86 mg/dL (70-99) Calcium Level 8.5 mg/dL (8.5-10.1) Total Bilirubin 0.4 mg/dL (0.2-1.0) Aspartate Amino Transf (AST/SGOT) 104 U/L (15-37) Alanine Aminotransferase (ALT/SGPT) 155 U/L (16-63) Alkaline Phosphatase 87 U/L (46-116) Total Protein 5.5 g/dL (6.4-8.2) Albumin 1.7 g/dL (3.4-5.0) Albumin/Globulin Ratio 0.4 (1.0-1.7) Review of Systems Review of Systems: No fever or nausea Assessment and Plan Assessmemt and Plan Problems Medical Problems: (1) LLL pneumonia Status: Acute Cardiomegaly and pulmonary vascular congestion. Left lower lobe atelectasis/infiltrate GRAM NEG RODS prilim blood culture septic shock dementia Plan Cont 2L O2 per NC PRN Await results from echo and CT Cont cardiac monitoring Cont IV abx Cont DVT prophylaxis Await input from specialists Full code Comment Review of Relevant I have reviewed the following items elizabeth (where applicable) has been applied. Medications: Current Medications Medications (Trade) Dose Ordered Sig/Ida Route PRN Reason Start Time Stop Time Status Last Admin Dose Admin Famotidine (Pepcid Vial) 20 mg BID IVP 07/25/20 21:00 07/26/20 08:40 Heparin Sodium (Porcine) (Heparin Sodium) 5,000 unit Q8HRS SQ 07/25/20 14:00 07/26/20 05:54 Piperacillin Sod/ Tazobactam Sod 3.375 gm/Sodium Chloride 50 ml @ 100 mls/hr Q6HRS IV 07/25/20 12:00 07/26/20 05:53 Aspirin (Ecotrin) 81 mg [id number] PO 07/26/20 08:00 07/26/20 08:15 Diclofenac Sodium (Voltaren) 1 monie BID TP 07/25/20 21:00 07/25/20 21:12 Acetaminophen (Tylenol) 650 mg PRN Q6HRS PRN PO MILD PAIN / TEMP > 100.3'F 07/25/20 20:15 07/25/20 21:11 Oxycodone HCl (Roxicodone) 5 mg PRN Q6HRS PRN PO MODERATE - SEVERE PAIN 07/25/20 20:15 07/26/20 00:38 Zolpidem Tartrate (Ambien) 5 mg 1X PRN PRN PO INSOMNIA 07/25/20 22:00 07/27/20 21:59 07/25/20 22:04 Perflutren Protein Type A Microsphe (Optison) 0.66 mg 1X ONCE IV 07/26/20 10:15 07/26/20 10:19 DC 07/26/20 10:16 Justifications for Admission Other Justification PNEUMONIA WITH SEPSIS NICHOLE CARD III DO Jul 26, 2020 11:18
--- NOTE | 2020-07-26 11:33 | NUR ---
SS following up with discharge planning. SS reviewed pt chart and discussed with pt RN. Pt is currently on room air. Pt is LTC resident from [place], ; fax [phone]. Pt on IV Zosyn and IV Zyvox. COVID19 negative. PT/OT recommended LTC placement. Pt is able to return when medically stable for discharge. SS will continue to follow for discharge planning.
--- NOTE | 2020-07-26 11:40 | RAD ---
CT scan abdomen and pelvis without contrast 07/26/2020 CLINICAL HISTORY: Rectal pain aggravated with bowel movements. TECHNIQUE: Unenhanced, contiguous, 2.5 mm axial sections were obtained through the abdomen and pelvis . One or more of the following individualized dose reduction techniques were utilized for this study: 1. Automated exposure control. 2. Adjustment of the mA and/or kV according to patient size. 3. Use of iterative reconstruction technique. FINDINGS: Comparison study is dated 11/02/2017. Images through the lung bases demonstrate mild to moderate cardiomegaly. Small calcified granulomas a re seen involving both lower lobes. There is a small left pleural effusion. Bilateral lower lobe atel ectasis and/or infiltrate is seen. Multiple rounded low-attenuation lesions are seen scattered throughout both lobes of the liver consis tent with hepatic cysts. These measure 3 mm to 3.4 cm in size. A cyst is seen projecting anteriorly f rom the left lobe of the liver. This measures 3.3 cm in size. It has a partially calcified wall, post eriorly. It is unchanged. The spleen, pancreas, adrenal glands and right kidney are within normal mortensen its. A 7 mm nonobstructing calculus is seen involving the superior pole of the left kidney. A group o f nonobstructing calculi are seen involving the midpole of the left kidney. These measure 2 mm to 1.6 cm in size. Rounded low-attenuation lesions are seen involving the mid/lower pole of the left kidney which measure 1 to 4.4 cm in size. They likely represent cysts. No further imaging evaluation is rec ommended. Atherosclerotic calcification of the abdominal aorta is seen. The abdominal aorta tapers normally. Th e gallbladder is contracted. A gastrostomy tube extends into the body the stomach. No free fluid or f ree air is within the abdomen. There is no evidence of bowel obstruction. Images through the pelvis demonstrate a Davidson catheter within the urinary bladder contracted. A moder ate to large amount stool is seen involving the rectum and sigmoid colon. Scattered diverticula are s een involving the descending and sigmoid colon. No inflammatory changes are seen in the adjacent fat. No free fluid is seen. Minimal S-shaped curvature of the thoracolumbar spine is seen. Degenerative c hanges are seen involving the lower thoracic and throughout the lumbar spine along with both hips. A hip screw and intramedullary carlie are seen within the proximal right femur. IMPRESSION: Moderate to large amount of stool is seen throughout the colon. No acute abnormality is s een. Electronically signed by: Jose Padilla MD (07/26/2020 11:38 AM) [id number]
[2020-07-26] MEDS: IV NORMAL SALINE 1000ML BAG 1,000 ML IV SCH (12:05)
--- NOTE | 2020-07-26 14:17 | PDOC ---
PULMONARY PROGRESS NOTES DATE: 07/26/20 TIME: 14:15 Vitals Vital Signs Date Time Temp Pulse Resp B/P (MAP) Pulse Ox O2 Delivery O2 Flow Rate FiO2 07/26/20 11:00 98.1 67 20 102/50 (67) 93 Room Air 98.1 07/26/20 08:08 2.0 Lungs: Clear Cardiovascular: S1 Labs Laboratory Tests Test 07/24/20 21:07 07/24/20 21:27 07/25/20 00:21 07/25/20 10:15 White Blood Count 18.0 x10^3/uL (4.0-11.0) 15.7 x10^3/uL (4.0-11.0) Red Blood Count 4.13 x10^6/uL (4.30-5.70) 3.69 x10^6/uL (4.30-5.70) Hemoglobin 12.1 g/dL (13.0-17.5) 10.8 g/dL (13.0-17.5) Hematocrit 37.0 % (39.0-53.0) 33.3 % (39.0-53.0) Mean Corpuscular Volume 90 fL (79-100) 90 fL (79-100) Mean Corpuscular Hemoglobin 29 pg (25-35) 29 pg (25-35) Mean Corpuscular Hemoglobin Concent 33 g/dL (31-37) 32 g/dL (31-37) Red Cell Distribution Width 15.3 % (11.5-14.5) 15.5 % (11.5-14.5) Platelet Count 206 x10^3/uL (140-400) 210 x10^3/uL (140-400) Neutrophils (%) (Auto) 89 % (31-73) 87 % (31-73) Lymphocytes (%) (Auto) 4 % (24-48) 6 % (24-48) Monocytes (%) (Auto) 7 % (0-9) 7 % (0-9) Eosinophils (%) (Auto) 0 % (0-3) 0 % (0-3) Basophils (%) (Auto) 0 % (0-3) 0 % (0-3) Neutrophils # (Auto) 16.0 x10^3/uL (1.8-7.7) 13.6 x10^3/uL (1.8-7.7) Lymphocytes # (Auto) 0.8 x10^3/uL (1.0-4.8) 0.9 x10^3/uL (1.0-4.8) Monocytes # (Auto) 1.2 x10^3/uL (0.0-1.1) 1.2 x10^3/uL (0.0-1.1) Eosinophils # (Auto) 0.0 x10^3/uL (0.0-0.7) 0.0 x10^3/uL (0.0-0.7) Basophils # (Auto) 0.0 x10^3/uL (0.0-0.2) 0.0 x10^3/uL (0.0-0.2) Segmented Neutrophils % 74 % (35-66) Band Neutrophils % 15 % (0-9) Lymphocytes % 7 % (24-48) Monocytes % 3 % (0-10) Basophils % 1 % (0-3) Toxic Granulation Slight Platelet Estimate Adequate (ADEQUATE) Sodium Level 135 mmol/L (136-145) 141 mmol/L (136-145) Potassium Level 4.2 mmol/L (3.5-5.1) 3.9 mmol/L (3.5-5.1) Chloride Level 101 mmol/L (98-107) 108 mmol/L (98-107) Carbon Dioxide Level 27 mmol/L (21-32) 27 mmol/L (21-32) Anion Gap 7 (6-14) 6 (6-14) Blood Urea Nitrogen 34 mg/dL (8-26) 33 mg/dL (8-26) Creatinine 1.5 mg/dL (0.7-1.3) 1.0 mg/dL (0.7-1.3) Estimated GFR (Cockcroft-Gault) 44.8 71.5 BUN/Creatinine Ratio 23 (6-20) Glucose Level 125 mg/dL (70-99) 116 mg/dL (70-99) Lactic Acid Level 1.2 mmol/L (0.4-2.0) Calcium Level 9.2 mg/dL (8.5-10.1) 8.9 mg/dL (8.5-10.1) Magnesium Level 1.9 mg/dL (1.8-2.4) 2.1 mg/dL (1.8-2.4) Total Bilirubin 0.6 mg/dL (0.2-1.0) Aspartate Amino Transf (AST/SGOT) 168 U/L (15-37) Alanine Aminotransferase (ALT/SGPT) 158 U/L (16-63) Alkaline Phosphatase 104 U/L (46-116) Total Protein 6.7 g/dL (6.4-8.2) Albumin 2.2 g/dL (3.4-5.0) Albumin/Globulin Ratio 0.5 (1.0-1.7) Urine Collection Type Unknown Urine Color Chasity Urine Clarity Clear Urine pH 5.5 (<5.0-8.0) Urine Specific [place] 1.025 (1.000-1.030) Urine Protein 30 mg/dL (NEG-TRACE) Urine Glucose (UA) Negative mg/dL (NEG) Urine Ketones (Stick) Trace mg/dL (NEG) Urine Blood Negative (NEG) Urine Nitrite Negative (NEG) Urine Bilirubin Small (NEG) Urine Urobilinogen Dipstick 1.0 mg/dL (0.2 mg/dL) Urine Leukocyte Esterase Small (NEG) Urine RBC 3-5 /HPF (0-2) Urine WBC 1-4 /HPF (0-4) Urine Renal Epithelial Cells Mod /LPF Urine Bacteria 0 /HPF (0-FEW) Urine Hyaline Casts Many /HPF Urine Granular Casts Few /HPF Urine Mucus Marked /LPF Glucose (Fingerstick) 129 mg/dL (70-99) Lactate Dehydrogenase 262 U/L (85-227) Troponin I Quantitative 0.036 ng/mL (0.000-0.055) Procalcitonin 2.79 ng/mL (0.00-0.10) Thyroid Stimulating Hormone (TSH) 0.373 uIU/mL (0.358-3.74) Test 07/25/20 11:20 07/26/20 05:40 Coronavirus (PCR) Not detected (Not Detected) Influenza Type A Antigen Negative (NEGATIVE) Influenza Type B Antigen Negative (NEGATIVE) White Blood Count 13.2 x10^3/uL (4.0-11.0) Red Blood Count 3.57 x10^6/uL (4.30-5.70) Hemoglobin 10.3 g/dL (13.0-17.5) Hematocrit 32.1 % (39.0-53.0) Mean Corpuscular Volume 90 fL (79-100) Mean Corpuscular Hemoglobin 29 pg (25-35) Mean Corpuscular Hemoglobin Concent 32 g/dL (31-37) Red Cell Distribution Width 15.7 % (11.5-14.5) Platelet Count 190 x10^3/uL (140-400) Neutrophils (%) (Auto) 85 % (31-73) Lymphocytes (%) (Auto) 7 % (24-48) Monocytes (%) (Auto) 8 % (0-9) Eosinophils (%) (Auto) 0 % (0-3) Basophils (%) (Auto) 0 % (0-3) Neutrophils # (Auto) 11.2 x10^3/uL (1.8-7.7) Lymphocytes # (Auto) 1.0 x10^3/uL (1.0-4.8) Monocytes # (Auto) 1.0 x10^3/uL (0.0-1.1) Eosinophils # (Auto) 0.0 x10^3/uL (0.0-0.7) Basophils # (Auto) 0.0 x10^3/uL (0.0-0.2) Prothrombin Time 16.2 SEC (11.7-14.0) Prothromb Time International Ratio 1.3 (0.8-1.1) Activated Partial Thromboplast Time 35 SEC (24-38) Sodium Level 142 mmol/L (136-145) Potassium Level 3.6 mmol/L (3.5-5.1) Chloride Level 110 mmol/L (98-107) Carbon Dioxide Level 26 mmol/L (21-32) Anion Gap 6 (6-14) Blood Urea Nitrogen 25 mg/dL (8-26) Creatinine 0.9 mg/dL (0.7-1.3) Estimated GFR (Cockcroft-Gault) 80.8 BUN/Creatinine Ratio 28 (6-20) Glucose Level 86 mg/dL (70-99) Calcium Level 8.5 mg/dL (8.5-10.1) Total Bilirubin 0.4 mg/dL (0.2-1.0) Aspartate Amino Transf (AST/SGOT) 104 U/L (15-37) Alanine Aminotransferase (ALT/SGPT) 155 U/L (16-63) Alkaline Phosphatase 87 U/L (46-116) Total Protein 5.5 g/dL (6.4-8.2) Albumin 1.7 g/dL (3.4-5.0) Albumin/Globulin Ratio 0.4 (1.0-1.7) Laboratory Tests Test 07/26/20 05:40 White Blood Count 13.2 x10^3/uL (4.0-11.0) Red Blood Count 3.57 x10^6/uL (4.30-5.70) Hemoglobin 10.3 g/dL (13.0-17.5) Hematocrit 32.1 % (39.0-53.0) Mean Corpuscular Volume 90 fL (79-100) Mean Corpuscular Hemoglobin 29 pg (25-35) Mean Corpuscular Hemoglobin Concent 32 g/dL (31-37) Red Cell Distribution Width 15.7 % (11.5-14.5) Platelet Count 190 x10^3/uL (140-400) Neutrophils (%) (Auto) 85 % (31-73) Lymphocytes (%) (Auto) 7 % (24-48) Monocytes (%) (Auto) 8 % (0-9) Eosinophils (%) (Auto) 0 % (0-3) Basophils (%) (Auto) 0 % (0-3) Neutrophils # (Auto) 11.2 x10^3/uL (1.8-7.7) Lymphocytes # (Auto) 1.0 x10^3/uL (1.0-4.8) Monocytes # (Auto) 1.0 x10^3/uL (0.0-1.1) Eosinophils # (Auto) 0.0 x10^3/uL (0.0-0.7) Basophils # (Auto) 0.0 x10^3/uL (0.0-0.2) Prothrombin Time 16.2 SEC (11.7-14.0) Prothromb Time International Ratio 1.3 (0.8-1.1) Activated Partial Thromboplast Time 35 SEC (24-38) Sodium Level 142 mmol/L (136-145) Potassium Level 3.6 mmol/L (3.5-5.1) Chloride Level 110 mmol/L (98-107) Carbon Dioxide Level 26 mmol/L (21-32) Anion Gap 6 (6-14) Blood Urea Nitrogen 25 mg/dL (8-26) Creatinine 0.9 mg/dL (0.7-1.3) Estimated GFR (Cockcroft-Gault) 80.8 BUN/Creatinine Ratio 28 (6-20) Glucose Level 86 mg/dL (70-99) Calcium Level 8.5 mg/dL (8.5-10.1) Total Bilirubin 0.4 mg/dL (0.2-1.0) Aspartate Amino Transf (AST/SGOT) 104 U/L (15-37) Alanine Aminotransferase (ALT/SGPT) 155 U/L (16-63) Alkaline Phosphatase 87 U/L (46-116) Total Protein 5.5 g/dL (6.4-8.2) Albumin 1.7 g/dL (3.4-5.0) Albumin/Globulin Ratio 0.4 (1.0-1.7) Medications Active Scripts Medications Dose Route/Sig Max Daily Dose Days Date Category Dose Instructions A and D Ointment (Vits A and D/White Pet/Lanolin) 42.5 Gm Oint...g. 1 Chayo TP DAILY 07/25/20 Reported Trazodone Hcl 50 Mg Tablet 50 Mg PEG HS 07/25/20 Reported Simethicone 80 Mg Tab.chew 80 Mg PEG Q6HRS PRN 07/25/20 Reported Seroquel (Quetiapine Fumarate) 25 Mg Tablet 1 Tab PEG QHS 07/25/20 Reported Miralax (Polyethylene Glycol 3350) 17 Gm Powd.pack 1 Packet PO DAILY PRN 2 07/25/20 Reported dissolve in water [oxycodone vandana ] 10 Mg PEG Q4HRS PRN 07/25/20 Reported Robaxin-750 (Methocarbamol) 750 Mg Tablet 1 Tab PO Q8HRS 30 07/25/20 Reported Melatonin 5 Mg Tab.rapdis 1 Tab PEG QHS 30 07/25/20 Reported Lipitor (Atorvastatin Calcium) 10 Mg Tablet 1 Tab PEG DAILY 07/25/20 Reported Lidocaine 1 Each Adh..patch 1 Each TP DAILY 07/25/20 Reported Tussin (Guaifenesin) 100 Mg/5 Ml Liquid 10 Ml PO Q4HRS PRN 10 07/25/20 Reported Adult Glycerin (Glycerin) 1 Each Supp.rect 1 Each RC DAILY PRN 07/25/20 Reported Gabapentin Oral Solution (Gabapentin) 250 Mg/5 Ml Solution 4 Ml PO Q8HRS 07/25/20 Reported Doxazosin Mesylate 2 Mg Tablet 1 Mg PEG DAILY 07/25/20 Reported [docusate sodium liq] 100 Mg PEG BID 07/25/20 Reported Voltaren (Diclofenac Sodium) 100 Gm Gel..gram. 1 Chayo TP QID 30 07/25/20 Reported apply to affected area(s) Artificial Tears Eye Drops (Dextran 70/Hypromellose) 15 Ml Drops 1 Drop EACHEYE QID PRN 07/25/20 Reported [debrox solution] 5 Drop EACH EAR QID 07/25/20 Reported [ceftriaxone] 1 Gm IV DAILY PRN 07/25/20 Reported Azithromycin Tablet (Azithromycin) 250 Mg Tablet 250 Mg PO DAILY 07/25/20 Reported X5 days start 07/25 Aricept (Donepezil Hcl) 10 Mg Tablet 1 Tab PEG DAILY 30 07/25/20 Reported Acetaminophen 650 Mg/20.3 Ml Solution 650 Mg PEG Q6HRS PRN 07/25/20 Reported Impression . IMPRESSION: 1. Acute hypoxemic respiratory failure, multifactorial, suspect combination of congestive heart failure and pneumonia. 2. Abnormal x-ray compatible with pneumonia, possible gram-negative, gram-positive. 3. SARS Covid 2 neg 4. Hypotension related to sepsis. 5. Acute kidney injury. 6. Protein malnutrition present upon admission. 7. Elevated liver chemistries. 8. Chronic anemia. Other comorbidities as listed above, dementia, hyperlipidemia, previous cerebrovascular accident. Plan . 1. Continue support with oxygen supplementation. 2. IV fluids. 3. Pressors for mean arterial pressure above 60. 4. Empiric antibiotics to cover both gram-positive and gram-negative organism. 5. SARS-CoV-2 pending. 6. DVT prophylaxis. 7. Continue home medications. NESHA VIZCAINO MD Jul 26, 2020 14:17
[2020-07-26 15:00] VITALS: BP 106/58
--- NOTE | 2020-07-26 16:03 | PDOC ---
PULMONARY PROGRESS NOTES DATE: 07/26/20 TIME: 16:02 Subjective Patient feels better, not more short of air. Vitals Vital Signs Date Time Temp Pulse Resp B/P (MAP) Pulse Ox O2 Delivery O2 Flow Rate FiO2 07/26/20 15:00 97.9 61 20 106/58 (74) 91 Room Air 97.9 07/26/20 08:08 2.0 ROS: No Nausea, No Chest Pain, No Abdominal Pain, No Increase Cough Lungs: Clear Cardiovascular: S1 Abdomen: Soft Neuro Exam: Alert Extremities: No Edema Skin: Warm Labs Laboratory Tests Test 07/24/20 21:07 07/24/20 21:27 07/25/20 00:21 07/25/20 10:15 White Blood Count 18.0 x10^3/uL (4.0-11.0) 15.7 x10^3/uL (4.0-11.0) Red Blood Count 4.13 x10^6/uL (4.30-5.70) 3.69 x10^6/uL (4.30-5.70) Hemoglobin 12.1 g/dL (13.0-17.5) 10.8 g/dL (13.0-17.5) Hematocrit 37.0 % (39.0-53.0) 33.3 % (39.0-53.0) Mean Corpuscular Volume 90 fL (79-100) 90 fL (79-100) Mean Corpuscular Hemoglobin 29 pg (25-35) 29 pg (25-35) Mean Corpuscular Hemoglobin Concent 33 g/dL (31-37) 32 g/dL (31-37) Red Cell Distribution Width 15.3 % (11.5-14.5) 15.5 % (11.5-14.5) Platelet Count 206 x10^3/uL (140-400) 210 x10^3/uL (140-400) Neutrophils (%) (Auto) 89 % (31-73) 87 % (31-73) Lymphocytes (%) (Auto) 4 % (24-48) 6 % (24-48) Monocytes (%) (Auto) 7 % (0-9) 7 % (0-9) Eosinophils (%) (Auto) 0 % (0-3) 0 % (0-3) Basophils (%) (Auto) 0 % (0-3) 0 % (0-3) Neutrophils # (Auto) 16.0 x10^3/uL (1.8-7.7) 13.6 x10^3/uL (1.8-7.7) Lymphocytes # (Auto) 0.8 x10^3/uL (1.0-4.8) 0.9 x10^3/uL (1.0-4.8) Monocytes # (Auto) 1.2 x10^3/uL (0.0-1.1) 1.2 x10^3/uL (0.0-1.1) Eosinophils # (Auto) 0.0 x10^3/uL (0.0-0.7) 0.0 x10^3/uL (0.0-0.7) Basophils # (Auto) 0.0 x10^3/uL (0.0-0.2) 0.0 x10^3/uL (0.0-0.2) Segmented Neutrophils % 74 % (35-66) Band Neutrophils % 15 % (0-9) Lymphocytes % 7 % (24-48) Monocytes % 3 % (0-10) Basophils % 1 % (0-3) Toxic Granulation Slight Platelet Estimate Adequate (ADEQUATE) Sodium Level 135 mmol/L (136-145) 141 mmol/L (136-145) Potassium Level 4.2 mmol/L (3.5-5.1) 3.9 mmol/L (3.5-5.1) Chloride Level 101 mmol/L (98-107) 108 mmol/L (98-107) Carbon Dioxide Level 27 mmol/L (21-32) 27 mmol/L (21-32) Anion Gap 7 (6-14) 6 (6-14) Blood Urea Nitrogen 34 mg/dL (8-26) 33 mg/dL (8-26) Creatinine 1.5 mg/dL (0.7-1.3) 1.0 mg/dL (0.7-1.3) Estimated GFR (Cockcroft-Gault) 44.8 71.5 BUN/Creatinine Ratio 23 (6-20) Glucose Level 125 mg/dL (70-99) 116 mg/dL (70-99) Lactic Acid Level 1.2 mmol/L (0.4-2.0) Calcium Level 9.2 mg/dL (8.5-10.1) 8.9 mg/dL (8.5-10.1) Magnesium Level 1.9 mg/dL (1.8-2.4) 2.1 mg/dL (1.8-2.4) Total Bilirubin 0.6 mg/dL (0.2-1.0) Aspartate Amino Transf (AST/SGOT) 168 U/L (15-37) Alanine Aminotransferase (ALT/SGPT) 158 U/L (16-63) Alkaline Phosphatase 104 U/L (46-116) Total Protein 6.7 g/dL (6.4-8.2) Albumin 2.2 g/dL (3.4-5.0) Albumin/Globulin Ratio 0.5 (1.0-1.7) Urine Collection Type Unknown Urine Color Chasity Urine Clarity Clear Urine pH 5.5 (<5.0-8.0) Urine Specific [place] 1.025 (1.000-1.030) Urine Protein 30 mg/dL (NEG-TRACE) Urine Glucose (UA) Negative mg/dL (NEG) Urine Ketones (Stick) Trace mg/dL (NEG) Urine Blood Negative (NEG) Urine Nitrite Negative (NEG) Urine Bilirubin Small (NEG) Urine Urobilinogen Dipstick 1.0 mg/dL (0.2 mg/dL) Urine Leukocyte Esterase Small (NEG) Urine RBC 3-5 /HPF (0-2) Urine WBC 1-4 /HPF (0-4) Urine Renal Epithelial Cells Mod /LPF Urine Bacteria 0 /HPF (0-FEW) Urine Hyaline Casts Many /HPF Urine Granular Casts Few /HPF Urine Mucus Marked /LPF Glucose (Fingerstick) 129 mg/dL (70-99) Lactate Dehydrogenase 262 U/L (85-227) Troponin I Quantitative 0.036 ng/mL (0.000-0.055) Procalcitonin 2.79 ng/mL (0.00-0.10) Thyroid Stimulating Hormone (TSH) 0.373 uIU/mL (0.358-3.74) Test 07/25/20 11:20 07/26/20 05:40 Coronavirus (PCR) Not detected (Not Detected) Influenza Type A Antigen Negative (NEGATIVE) Influenza Type B Antigen Negative (NEGATIVE) White Blood Count 13.2 x10^3/uL (4.0-11.0) Red Blood Count 3.57 x10^6/uL (4.30-5.70) Hemoglobin 10.3 g/dL (13.0-17.5) Hematocrit 32.1 % (39.0-53.0) Mean Corpuscular Volume 90 fL (79-100) Mean Corpuscular Hemoglobin 29 pg (25-35) Mean Corpuscular Hemoglobin Concent 32 g/dL (31-37) Red Cell Distribution Width 15.7 % (11.5-14.5) Platelet Count 190 x10^3/uL (140-400) Neutrophils (%) (Auto) 85 % (31-73) Lymphocytes (%) (Auto) 7 % (24-48) Monocytes (%) (Auto) 8 % (0-9) Eosinophils (%) (Auto) 0 % (0-3) Basophils (%) (Auto) 0 % (0-3) Neutrophils # (Auto) 11.2 x10^3/uL (1.8-7.7) Lymphocytes # (Auto) 1.0 x10^3/uL (1.0-4.8) Monocytes # (Auto) 1.0 x10^3/uL (0.0-1.1) Eosinophils # (Auto) 0.0 x10^3/uL (0.0-0.7) Basophils # (Auto) 0.0 x10^3/uL (0.0-0.2) Prothrombin Time 16.2 SEC (11.7-14.0) Prothromb Time International Ratio 1.3 (0.8-1.1) Activated Partial Thromboplast Time 35 SEC (24-38) Sodium Level 142 mmol/L (136-145) Potassium Level 3.6 mmol/L (3.5-5.1) Chloride Level 110 mmol/L (98-107) Carbon Dioxide Level 26 mmol/L (21-32) Anion Gap 6 (6-14) Blood Urea Nitrogen 25 mg/dL (8-26) Creatinine 0.9 mg/dL (0.7-1.3) Estimated GFR (Cockcroft-Gault) 80.8 BUN/Creatinine Ratio 28 (6-20) Glucose Level 86 mg/dL (70-99) Calcium Level 8.5 mg/dL (8.5-10.1) Total Bilirubin 0.4 mg/dL (0.2-1.0) Aspartate Amino Transf (AST/SGOT) 104 U/L (15-37) Alanine Aminotransferase (ALT/SGPT) 155 U/L (16-63) Alkaline Phosphatase 87 U/L (46-116) Total Protein 5.5 g/dL (6.4-8.2) Albumin 1.7 g/dL (3.4-5.0) Albumin/Globulin Ratio 0.4 (1.0-1.7) Laboratory Tests Test 07/26/20 05:40 White Blood Count 13.2 x10^3/uL (4.0-11.0) Red Blood Count 3.57 x10^6/uL (4.30-5.70) Hemoglobin 10.3 g/dL (13.0-17.5) Hematocrit 32.1 % (39.0-53.0) Mean Corpuscular Volume 90 fL (79-100) Mean Corpuscular Hemoglobin 29 pg (25-35) Mean Corpuscular Hemoglobin Concent 32 g/dL (31-37) Red Cell Distribution Width 15.7 % (11.5-14.5) Platelet Count 190 x10^3/uL (140-400) Neutrophils (%) (Auto) 85 % (31-73) Lymphocytes (%) (Auto) 7 % (24-48) Monocytes (%) (Auto) 8 % (0-9) Eosinophils (%) (Auto) 0 % (0-3) Basophils (%) (Auto) 0 % (0-3) Neutrophils # (Auto) 11.2 x10^3/uL (1.8-7.7) Lymphocytes # (Auto) 1.0 x10^3/uL (1.0-4.8) Monocytes # (Auto) 1.0 x10^3/uL (0.0-1.1) Eosinophils # (Auto) 0.0 x10^3/uL (0.0-0.7) Basophils # (Auto) 0.0 x10^3/uL (0.0-0.2) Prothrombin Time 16.2 SEC (11.7-14.0) Prothromb Time International Ratio 1.3 (0.8-1.1) Activated Partial Thromboplast Time 35 SEC (24-38) Sodium Level 142 mmol/L (136-145) Potassium Level 3.6 mmol/L (3.5-5.1) Chloride Level 110 mmol/L (98-107) Carbon Dioxide Level 26 mmol/L (21-32) Anion Gap 6 (6-14) Blood Urea Nitrogen 25 mg/dL (8-26) Creatinine 0.9 mg/dL (0.7-1.3) Estimated GFR (Cockcroft-Gault) 80.8 BUN/Creatinine Ratio 28 (6-20) Glucose Level 86 mg/dL (70-99) Calcium Level 8.5 mg/dL (8.5-10.1) Total Bilirubin 0.4 mg/dL (0.2-1.0) Aspartate Amino Transf (AST/SGOT) 104 U/L (15-37) Alanine Aminotransferase (ALT/SGPT) 155 U/L (16-63) Alkaline Phosphatase 87 U/L (46-116) Total Protein 5.5 g/dL (6.4-8.2) Albumin 1.7 g/dL (3.4-5.0) Albumin/Globulin Ratio 0.4 (1.0-1.7) Medications Active Scripts Medications Dose Route/Sig Max Daily Dose Days Date Category Dose Instructions A and D Ointment (Vits A and D/White Pet/Lanolin) 42.5 Gm Oint...g. 1 Chayo TP DAILY 07/25/20 Reported Trazodone Hcl 50 Mg Tablet 50 Mg PEG HS 07/25/20 Reported Simethicone 80 Mg Tab.chew 80 Mg PEG Q6HRS PRN 07/25/20 Reported Seroquel (Quetiapine Fumarate) 25 Mg Tablet 1 Tab PEG QHS 07/25/20 Reported Miralax (Polyethylene Glycol 3350) 17 Gm Powd.pack 1 Packet PO DAILY PRN 2 07/25/20 Reported dissolve in water [oxycodone vandana ] 10 Mg PEG Q4HRS PRN 07/25/20 Reported Robaxin-750 (Methocarbamol) 750 Mg Tablet 1 Tab PO Q8HRS 30 07/25/20 Reported Melatonin 5 Mg Tab.rapdis 1 Tab PEG QHS 30 07/25/20 Reported Lipitor (Atorvastatin Calcium) 10 Mg Tablet 1 Tab PEG DAILY 07/25/20 Reported Lidocaine 1 Each Adh..patch 1 Each TP DAILY 07/25/20 Reported Tussin (Guaifenesin) 100 Mg/5 Ml Liquid 10 Ml PO Q4HRS PRN 10 07/25/20 Reported Adult Glycerin (Glycerin) 1 Each Supp.rect 1 Each RC DAILY PRN 07/25/20 Reported Gabapentin Oral Solution (Gabapentin) 250 Mg/5 Ml Solution 4 Ml PO Q8HRS 07/25/20 Reported Doxazosin Mesylate 2 Mg Tablet 1 Mg PEG DAILY 07/25/20 Reported [docusate sodium liq] 100 Mg PEG BID 07/25/20 Reported Voltaren (Diclofenac Sodium) 100 Gm Gel..gram. 1 Chayo TP QID 30 07/25/20 Reported apply to affected area(s) Artificial Tears Eye Drops (Dextran 70/Hypromellose) 15 Ml Drops 1 Drop EACHEYE QID PRN 07/25/20 Reported [debrox solution] 5 Drop EACH EAR QID 07/25/20 Reported [ceftriaxone] 1 Gm IV DAILY PRN 07/25/20 Reported Azithromycin Tablet (Azithromycin) 250 Mg Tablet 250 Mg PO DAILY 07/25/20 Reported X5 days start 07/25 Aricept (Donepezil Hcl) 10 Mg Tablet 1 Tab PEG DAILY 30 07/25/20 Reported Acetaminophen 650 Mg/20.3 Ml Solution 650 Mg PEG Q6HRS PRN 07/25/20 Reported Impression . IMPRESSION: 1. Acute hypoxemic respiratory failure, multifactorial, suspect combination of congestive heart failure and pneumonia. 2. Abnormal x-ray compatible with pneumonia, possible gram-negative, gram-positive. 3. SARS Covid 2 neg 4. Hypotension related to sepsis. 5. Acute kidney injury. 6. Protein malnutrition present upon admission. 7. Elevated liver chemistries. 8. Chronic anemia. Other comorbidities as listed above, dementia, hyperlipidemia, previous cerebrovascular accident. Plan . Suspect mostly CHF Responded nicely to diuresis Antibiotics per ID Continue current support NESHA VIZCAINO MD Jul 26, 2020 16:03
--- NOTE | 2020-07-26 16:05 | CARD ---
MR#: [id number] Date of Study: 07/26/2020 Ordering Physician: LUZ ELENA BECERRA, Referring Physician: LUZ ELENA BECERRA, Tech: Sarah Rdz [facility] APPROVED REPORT EXAM: Two-dimensional and M-mode echocardiogram with Doppler and color Doppler. Other Information Quality : AverageHR: 61bpm Rhythm : NSRTechnically limited study due to body habitus. INDICATION CVA/TIA Echo Enhancing Agent Indication: Rule out thrombus Agent/Amount Used: Optison 2mL RISK FACTORS Hypertension 2D DIMENSIONS RVDd3.8 (2.9-3.5cm)Left Atrium(2D)4.7 (1.6-4.0cm) IVSd1.0 (0.7-1.1cm)Aortic Root(2D)3.8 (2.0-3.7cm) LVDd5.7 (3.9-5.9cm)LVOT Diameter2.1 (1.8-2.4cm) PWd1.1 (0.7-1.1cm)LVDs4.2 (2.5-4.0cm) FS (%) 25.3 %SV78.1 ml LVEF(%)49.2 (>50%) Aortic Valve AoV Peak Markel.144.4cm/sAoV VTI29.9cm AO Peak GR.8.3mmHgLVOT Peak Markel.87.7cm/s AO Mean GR.4mmHgAVA (VMAX)2.04cm2 Mitral Valve MV E Bnpvnwmy47.3cm/sMV DECEL [id number] MV A Mfjruuez75.8cm/sE/A Ratio1.0 Pulmonary Valve PV Peak Hnbiuvpw276.2cm/s Tricuspid Valve TR P. Qulznvid206qt/sTR Peak Gr.30mmHg LEFT VENTRICLE The left ventricle is borderline dialated at 5.7 cm. There is normal left ventricular wall thickness. The systolic function is mildly impaired. Estimated ejection fraction 45-50%. There is mild global h ypokinesis of the left ventricle. Tissue Doppler imaging reveals moderate left ventricular diastolic dysfunction. No left ventricle thrombus noted on this study. RIGHT VENTRICLE The right ventricle is normal size. There is normal right ventricular wall thickness. The right ventr icular systolic function is normal. ATRIA The left atrium size is normal. The right atrium size is normal. The interatrial septum is intact wit h no evidence for an atrial septal defect or patent foramen ovale as noted on 2-D or Doppler imaging. AORTIC VALVE The aortic valve is normal in structure and function. Doppler and Color Flow revealed no significant aortic regurgitation. There is no significant aortic valvular stenosis. There is no aortic valvular v egetation. MITRAL VALVE The mitral valve is normal in structure and function. There is no evidence of mitral valve prolapse. There is no mitral valve stenosis. Doppler and Color-flow revealed mild mitral regurgitation. TRICUSPID VALVE The tricuspid valve is normal in structure and function. Doppler and Color Flow revealed mild tricusp id regurgitation. Estimated PAP 35 mmHg. There is no tricuspid valve stenosis. PULMONIC VALVE Doppler and Color Flow revealed moderate pulmonic valvular regurgitation. There is no pulmonic valvul ar stenosis. GREAT VESSELS The aortic root is mildly enlarged. The ascending aorta is mildly dilated at 3.8 cm. The IVC is isela l in size and collapses >50% with inspiration. PERICARDIAL EFFUSION There is no evidence of significant pericardial effusion. Critical Notification Critical Value: No <Conclusion> The systolic function is mildly impaired. Estimated ejection fraction 45%. There is mild global hypokinesis of the left ventricle. Septal motion suggestive of conduction defect . Doppler and Color Flow revealed moderate pulmonic valvular regurgitation. The ascending aorta is mildly dilated at 3.8 cm. Signed by : Brett Ventura, Electronically Approved : 07/26/2020 16:04:46
--- NOTE | 2020-07-26 18:27 | NUR ---
Pt transferred to room 202 by bed at approx 1820. Pt had BM prior to transfer-pt cleaned, and positioned supine. Report given to BRONWYN Medina.
[2020-07-26 19:00] VITALS: BP 152/59
[2020-07-26] MEDS: LACTOBACILLUS RHAMNOSUS GG 1 CAPSULE. PO SCH (21:39)
[2020-07-26 22:28] VITALS: BP 142/55
[2020-07-27] MEDS: PIPERACILLIN/TAZOBACTAM 3.375 GM in IV NORMAL SALINE 50ML 50 ML IV SCH ×3 (00:12→11:16)
[2020-07-27] MEDS: IV NORMAL SALINE 1000ML BAG 1,000 ML IV SCH ×3 (02:09→23:55)
[2020-07-27 02:37] VITALS: BP 122/61
[2020-07-27] MEDS: HEPARIN for SUB-Q USE 5,000 UNIT/ML VIAL. SQ SCH ×3 (05:57→21:15)
[2020-07-27 07:00] VITALS: BP 122/71
[2020-07-27] MEDS: ASPIRIN ENTERIC COATED 81 MG TABLET.DR. PO SCH (07:49)
[2020-07-27] MEDS: oxyCODONE IR 5 MG TABLET PO PRN ×2 (07:49→12:59)
[2020-07-27] MEDS: FAMOTIDINE 20 MG/2 ML VIAL IVP SCH ×2 (07:50→21:14)
[2020-07-27] MEDS: LACTOBACILLUS RHAMNOSUS GG 1 CAPSULE. PO SCH ×2 (07:50→21:13)
[2020-07-27] MEDS: DICLOFENAC SODIUM 1% TOPICAL GEL 100GM TUBE. TP SCH ×2 (08:26→21:18)
--- NOTE | 2020-07-27 08:50 | PDOC ---
PROGRESS NOTES Date of Service: DATE: 07/27/20 TIME: 08:50 Chief Complaint Chief Complaint IMPRESSION ASSESSMENT: 84-year-old male with admission for pneumonia who became hypotensive and septic after admission was transferred to [facility] consult Infectious Disease as well as Pulmonary and Cardiology. 1. Gram-negative rods protocol pulmonary blood cultures. 2. Septic shock. 3. Dementia. 4. Remote tobacco abuse. 5. Severe protein caloric malnutrition. PLAN: Empiric IV antibiotics, Zyvox and Zosyn f/u cultures including BC from [place] 07/24 and here on 07/25 DVT prophylaxis. CONSULT ID, pulmonary and Cardiology consult. Echocardiogram, repeat blood cultures x 2. D/W RN BLOOD CULTURE LC Final Final GROWTH OF GRAM NEGATIVE RODS FINAL ID= [ENTEROBACTER AEROGENES] ENTEROBACTER AEROGENES ANTIMICROBIAL SUSCEPTIBILITY Final History of Present Illness History of Present Illness 07/27/2020 Patient seen and examined, DWRN Chart reviewed Moderate to large amount of stool is seen throughout the colon. No acute abnormality is seen. Vitals Vitals Vital Signs Date Time Temp Pulse Resp B/P (MAP) Pulse Ox O2 Delivery O2 Flow Rate FiO2 07/27/20 07:49 92 Room Air 07/27/20 07:00 97.8 77 22 122/71 (88) 97.8 07/26/20 08:08 2.0 Physical Exam Physical Exam GENERAL: , alert, calm, tired appearing male in no acute distress, WEAK HEENT: Pupils equally round. Normal conjunctivae. Oropharynx dry. NECK: Supple. LUNGS: Clear to auscultation. No accessory muscle use. HEART: S1 and S2 regular. ABDOMEN: Nondistended, soft, nontender with bowel sounds present. GENITOURINARY: Indwelling Davidson in place. EXTREMITIES: No gross edema or cyanosis. DERMATOLOGIC: Warm to touch. No signs of generalized rash. NEUROLOGIC: Alert, oriented to place. Follows commands.Lt sided weakness( chronic) LINES: Peripheral IV looks okay. General: Alert, Cooperative, No acute distress, Other (alert to person and place , CONFUSED TO DETAILS) Heart: Regular rate Lungs: Clear Abdomen: Normal bowel sounds, Soft, No tenderness Extremities: No clubbing, No cyanosis, No edema, No tenderness/swelling Skin: No significant lesion Labs LABS SPEC #: [id number] TRACIE: 07/24/20 STATUS: COMP REQ #: [id number] RECD: 07/24/[address]: DEBRA KINGSLEY DO SOURCE: BLOOD ENTR: 07/25/20-[address]: DORENE CASTELLANOS D.O. [facility]: ORDERED: BLD CULT - LC Procedure Result BLOOD CULTURE LC Final Final GROWTH OF GRAM NEGATIVE RODS FINAL ID= [ENTEROBACTER AEROGENES] ENTEROBACTER AEROGENES ANTIMICROBIAL SUSCEPTIBILITY Final Comment NEG CHENCHO 56 ENTEROBACTER AEROGENES ANTIBIOTIC RESULT INTERPRETATION AMPICILLIN/SULBACTAM <=4/2 R* AMIKACIN <=16 S AMPICILLIN 16 R* AMOXICILLIN/K CLAVULANATE 16/8 R* AZTREONAM <=4 S CEFTRIAXONE <=1 S CEFTAZIDIME 8 S CEFOTAXIME <=2 S CEFOXITIN >16 R CEFAZOLIN 4 R* CIPROFLOXACIN <=0.25 S CEFEPIME <=2 S CEFUROXIME <=4 R* CEFTAZIDIME/AVIBACTAM <=4 S ERTAPENEM <=0.5 S GENTAMICIN <=2 S LEVOFLOXACIN <=0.5 S MEROPENEM <=1 S PIPERACILLIN/TAZOBACTAM <=8 S TRIMETHOPRIM/SULFAMETHOXAZOLE <=0.5/9.5 S TETRACYCLINE <=4 S TOBRAMYCIN <=2 S Unless otherwise specified, Testing Performed by: [address] [address] For Inquires, the Physician may contact the Microbiology department at [phone] RUN DATE: 07/27/20 [facility] *LIVE* PAGE 1 RUN TIME: 726 Specimen Inquiry SPEC: [id number] PATIENT: JOSE DEMPSEY [id number] (Continued) CT scan abdomen and pelvis without contrast 07/26/2020 CLINICAL HISTORY: Rectal pain aggravated with bowel movements. TECHNIQUE: Unenhanced, contiguous, 2.5 mm axial sections were obtained through the abdomen and pelvis. One or more of the following individualized dose reduction techniques were utilized for this study: 1. Automated exposure control. 2. Adjustment of the mA and/or kV according to patient size. 3. Use of iterative reconstruction technique. FINDINGS: Comparison study is dated 11/02/2017. Images through the lung bases demonstrate mild to moderate cardiomegaly. Small calcified granulomas are seen involving both lower lobes. There is a small left pleural effusion. Bilateral lower lobe atelectasis and/or infiltrate is seen. Multiple rounded low-attenuation lesions are seen scattered throughout both lobes of the liver consistent with hepatic cysts. These measure 3 mm to 3.4 cm in size. A cyst is seen projecting anteriorly from the left lobe of the liver. This measures 3.3 cm in size. It has a partially calcified wall, posteriorly. It is unchanged. The spleen, pancreas, adrenal glands and right kidney are within normal limits. A 7 mm nonobstructing calculus is seen involving the superior pole of the left kidney. A group of nonobstructing calculi are seen involving the midpole of the left kidney. These measure 2 mm to 1.6 cm in size. Rounded low-attenuation lesions are seen involving the mid/lower pole of the left kidney which measure 1 to 4.4 cm in size. They likely represent cysts. No further imaging evaluation is recommended. Atherosclerotic calcification of the abdominal aorta is seen. The abdominal aorta tapers normally. The gallbladder is contracted. A gastrostomy tube extends into the body the stomach. No free fluid or free air is within the abdomen. There is no evidence of bowel obstruction. Images through the pelvis demonstrate a Davidson catheter within the urinary bladder contracted. A moderate to large amount stool is seen involving the rectum and sigmoid colon. Scattered diverticula are seen involving the descending and sigmoid colon. No inflammatory changes are seen in the adjacent fat. No free fluid is seen. Minimal S-shaped curvature of the thoracolumbar spine is seen. Degenerative changes are seen involving the lower thoracic and throughout the lumbar spine along with both hips. A hip screw and intramedullary carlie are seen within the proximal right femur. IMPRESSION: Moderate to large amount of stool is seen throughout the colon. No acute abnormality is seen. Electronically signed by: Julius Padilla MD (07/26/2020 11:38 AM) [id number] DICTATED and SIGNED BY: JULIUS PADILLA MD DATE: 07/26/20 [id number] Assessment and Plan Assessmemt and Plan Problems Medical Problems: (1) LLL pneumonia Status: Acute Comment Review of Relevant I have reviewed the following items elizabeth (where applicable) has been applied. Labs Laboratory Tests Test 07/25/20 10:15 07/25/20 11:20 07/26/20 05:40 White Blood Count 15.7 x10^3/uL (4.0-11.0) 13.2 x10^3/uL (4.0-11.0) Red Blood Count 3.69 x10^6/uL (4.30-5.70) 3.57 x10^6/uL (4.30-5.70) Hemoglobin 10.8 g/dL (13.0-17.5) 10.3 g/dL (13.0-17.5) Hematocrit 33.3 % (39.0-53.0) 32.1 % (39.0-53.0) Mean Corpuscular Volume 90 fL (79-100) 90 fL (79-100) Mean Corpuscular Hemoglobin 29 pg (25-35) 29 pg (25-35) Mean Corpuscular Hemoglobin Concent 32 g/dL (31-37) 32 g/dL (31-37) Red Cell Distribution Width 15.5 % (11.5-14.5) 15.7 % (11.5-14.5) Platelet Count 210 x10^3/uL (140-400) 190 x10^3/uL (140-400) Neutrophils (%) (Auto) 87 % (31-73) 85 % (31-73) Lymphocytes (%) (Auto) 6 % (24-48) 7 % (24-48) Monocytes (%) (Auto) 7 % (0-9) 8 % (0-9) Eosinophils (%) (Auto) 0 % (0-3) 0 % (0-3) Basophils (%) (Auto) 0 % (0-3) 0 % (0-3) Neutrophils # (Auto) 13.6 x10^3/uL (1.8-7.7) 11.2 x10^3/uL (1.8-7.7) Lymphocytes # (Auto) 0.9 x10^3/uL (1.0-4.8) 1.0 x10^3/uL (1.0-4.8) Monocytes # (Auto) 1.2 x10^3/uL (0.0-1.1) 1.0 x10^3/uL (0.0-1.1) Eosinophils # (Auto) 0.0 x10^3/uL (0.0-0.7) 0.0 x10^3/uL (0.0-0.7) Basophils # (Auto) 0.0 x10^3/uL (0.0-0.2) 0.0 x10^3/uL (0.0-0.2) Sodium Level 141 mmol/L (136-145) 142 mmol/L (136-145) Potassium Level 3.9 mmol/L (3.5-5.1) 3.6 mmol/L (3.5-5.1) Chloride Level 108 mmol/L (98-107) 110 mmol/L (98-107) Carbon Dioxide Level 27 mmol/L (21-32) 26 mmol/L (21-32) Anion Gap 6 (6-14) 6 (6-14) Blood Urea Nitrogen 33 mg/dL (8-26) 25 mg/dL (8-26) Creatinine 1.0 mg/dL (0.7-1.3) 0.9 mg/dL (0.7-1.3) Estimated GFR (Cockcroft-Gault) 71.5 80.8 Glucose Level 116 mg/dL (70-99) 86 mg/dL (70-99) Calcium Level 8.9 mg/dL (8.5-10.1) 8.5 mg/dL (8.5-10.1) Magnesium Level 2.1 mg/dL (1.8-2.4) Lactate Dehydrogenase 262 U/L (85-227) Troponin I Quantitative 0.036 ng/mL (0.000-0.055) Procalcitonin 2.79 ng/mL (0.00-0.10) Thyroid Stimulating Hormone (TSH) 0.373 uIU/mL (0.358-3.74) Coronavirus (PCR) Not detected (Not Detected) Influenza Type A Antigen Negative (NEGATIVE) Influenza Type B Antigen Negative (NEGATIVE) Prothrombin Time 16.2 SEC (11.7-14.0) Prothromb Time International Ratio 1.3 (0.8-1.1) Activated Partial Thromboplast Time 35 SEC (24-38) BUN/Creatinine Ratio 28 (6-20) Total Bilirubin 0.4 mg/dL (0.2-1.0) Aspartate Amino Transf (AST/SGOT) 104 U/L (15-37) Alanine Aminotransferase (ALT/SGPT) 155 U/L (16-63) Alkaline Phosphatase 87 U/L (46-116) Total Protein 5.5 g/dL (6.4-8.2) Albumin 1.7 g/dL (3.4-5.0) Albumin/Globulin Ratio 0.4 (1.0-1.7) Microbiology 07/25/20 Blood Culture - Preliminary, Resulted NO GROWTH AFTER 1 DAY Medications Current Medications Sodium Chloride 500 ml @ 500 mls/hr 1X ONCE IV Last administered on 07/24/20at 21:23; Start 07/24/20 at 21:00; Stop 07/24/20 at 21:59; Status DC Ceftriaxone Sodium (Rocephin) 1 gm 1X ONCE IVP Last administered on 07/24/20at 22:45; Start 07/24/20 at 22:30; Stop 07/24/20 at 22:31; Status DC Azithromycin 250 ml @ 250 mls/hr 1X ONCE IV Last administered on 07/24/20at 22:47; Start 07/24/20 at 22:30; Stop 07/24/20 at 23:29; Status DC Ondansetron HCl (Zofran) 4 mg PRN Q8HRS PRN IV NAUSEA/VOMITING; Start 07/24/20 at 22:30; Stop 07/25/20 at 22:29; Status DC Sodium Chloride 1,000 ml @ 1,000 mls/hr 1X ONCE IV Last administered on 07/24/20at 23:55; Start 07/25/20 at 00:00; Stop 07/25/20 at 00:59; Status DC Sodium Chloride 1,000 ml @ 75 mls/hr [id number] IV Last administered on 07/27/20at 02:09; Start 07/25/20 at 04:30 Norepinephrine Bitartrate 8 mg/ Dextrose 258 ml @ 19.06 mls/ hr CONT PRN IV PER PROTOCOL Last administered on 07/25/20at 05:27; Start 07/25/20 at 05:15; Stop 07/26/20 at 12:57; Status DC Linezolid/Dextrose 300 ml @ 300 mls/hr Q12HR IV Last administered on 07/27/20at 07:50; Start 07/25/20 at 10:00 Sodium Chloride 1,000 ml @ 2,130 mls/hr Q29M IV Last administered on 07/25/20at 10:29; Start 07/25/20 at 10:00; Stop 07/25/20 at 11:00; Status DC Sodium Chloride 500 ml @ 1,000 mls/hr PRN Q30MIN PRN IV SEE COMMENTS; Start 07/25/20 at 10:00 Norepinephrine Bitartrate 8 mg/ Dextrose 258 ml @ 0 mls/hr CONT PRN IV SEE I/O RECORD; Start 07/25/20 at 10:00; Stop 07/25/20 at 09:54; Status DC Dobutamine HCl/ Dextrose 250 ml @ 5.526 mls/ hr CONT PRN IV SEE I/O RECORD; Start 07/25/20 at 10:00; Stop 07/26/20 at 13:18; Status DC Ondansetron HCl (Zofran) 4 mg PRN Q6HRS PRN IVP NAUSEA/VOMITING; Start 07/25/20 at 10:00 Famotidine (Pepcid Vial) 20 mg BID IVP Last administered on 07/27/20at 07:50; Start 07/25/20 at 21:00 Info (Non-Icu Electrolyte Protocol) 1 ea CONT PRN PRN MC SEE COMMENTS; Start 07/25/20 at 17:45 Heparin Sodium (Porcine) (Heparin Sodium) 5,000 unit Q8HRS SQ Last administered on 07/27/20at 05:57; Start 07/25/20 at 14:00 Sodium Chloride (Normal Saline Flush) 3 ml QSHIFT PRN IV AFTER MEDS AND BLOOD D RAWS; Start 07/25/20 at 10:00 Bisacodyl (Dulcolax Supp) 10 mg PRN DAILY PRN [place] CONSTIPATION; Start 07/25/20 at 10:00 Piperacillin Sod/ Tazobactam Sod (Zosyn Per Pharmacy) 1 each PRN DAILY PRN MC SEE COMMENTS; Start 07/25/20 at 11:15 Piperacillin Sod/ Tazobactam Sod 3.375 gm/Sodium Chloride 50 ml @ 100 mls/hr Q6HRS IV Last administered on 07/27/20at 05:56; Start 07/25/20 at 12:00 Aspirin (Ecotrin) 81 mg [id number] PO Last administered on 07/27/20at 07:49; Start 07/26/20 at 08:00 Diclofenac Sodium (Voltaren) 1 monie BID TP Last administered on 07/27/20at 08:26; Start 07/25/20 at 21:00 Acetaminophen (Tylenol) 650 mg PRN Q6HRS PRN PO MILD PAIN / TEMP > 100.3'F Last administered on 07/25/20at 21:11; Start 07/25/20 at 20:15 Oxycodone HCl (Roxicodone) 5 mg PRN Q6HRS PRN PO MODERATE - SEVERE PAIN Last administered on 07/27/20at 07:49; Start 07/25/20 at 20:15 Zolpidem Tartrate (Ambien) 5 mg 1X PRN PRN PO INSOMNIA Last administered on 07/25/20at 22:04; Start 07/25/20 at 22:00; Stop 07/27/20 at 21:59 Perflutren Protein Type A Microsphe (Optison) 0.66 mg STK-MED ONCE IV ; Start 07/26/20 at 09:33; Stop 07/26/20 at 09:33; Status DC Perflutren Protein Type A Microsphe (Optison) 0.66 mg 1X ONCE IV Last administered on 07/26/20at 10:16; Start 07/26/20 at 10:15; Stop 07/26/20 at 10:19; Status DC Lactobacillus Rhamnosus (Culturelle) 1 cap BID PO Last administered on 07/27/20at 07:50; Start 07/26/20 at 21:00 Active Scripts Active Reported A and D Ointment (Vits A and D/White Pet/Lanolin) 42.5 Gm Oint...g. 1 Monie TP DAILY Trazodone Hcl 50 Mg Tablet 50 Mg PEG HS Simethicone 80 Mg Tab.chew 80 Mg PEG Q6HRS PRN Seroquel (Quetiapine Fumarate) 25 Mg Tablet 1 Tab PEG QHS Miralax (Polyethylene Glycol 3350) 17 Gm Powd.pack 1 Packet PO DAILY PRN 2 Days dissolve in water [oxycodone vandana ] 10 Mg PEG Q4HRS PRN Robaxin-750 (Methocarbamol) 750 Mg Tablet 1 Tab PO Q8HRS 30 Days Melatonin 5 Mg Tab.rapdis 1 Tab PEG QHS 30 Days Lipitor (Atorvastatin Calcium) 10 Mg Tablet 1 Tab PEG DAILY Lidocaine 1 Each Adh..patch 1 Each TP DAILY Tussin (Guaifenesin) 100 Mg/5 Ml Liquid 10 Ml PO Q4HRS PRN 10 Days Adult Glycerin (Glycerin) 1 Each Supp.rect 1 Each RC DAILY PRN Gabapentin Oral Solution (Gabapentin) 250 Mg/5 Ml Solution 4 Ml PO Q8HRS Doxazosin Mesylate 2 Mg Tablet 1 Mg PEG DAILY [docusate sodium liq] 100 Mg PEG BID Voltaren (Diclofenac Sodium) 100 Gm Gel..gram. 1 Monie TP QID 30 Days apply to affected area(s) Artificial Tears Eye Drops (Dextran 70/Hypromellose) 15 Ml Drops 1 Drop EACHEYE QID PRN [debrox solution] 5 Drop EACH EAR QID [ceftriaxone] 1 Gm IV DAILY PRN Azithromycin Tablet (Azithromycin) 250 Mg Tablet 250 Mg PO DAILY X5 days start 07/25 Aricept (Donepezil Hcl) 10 Mg Tablet 1 Tab PEG DAILY 30 Days Acetaminophen 650 Mg/20.3 Ml Solution 650 Mg PEG Q6HRS PRN Vitals/I & O Vital Sign - Last 24 Hours 07/26/20 07/26/20 07/26/20 07/26/20 11:00 15:00 18:25 19:00 Temp 98.1 97.9 98.7 98.1 97.9 98.7 Pulse 67 61 74 Resp 20 20 19 B/P (MAP) 102/50 (67) 106/58 (74) 152/59 (90) Pulse Ox 93 91 94 O2 Delivery Room Air Room Air Room Air Room Air 07/26/20 07/26/20 07/27/20 07/27/20 20:05 22:28 02:37 07:00 Temp 97.8 98.1 97.8 97.8 98.1 97.8 Pulse 73 78 77 Resp 18 18 22 B/P (MAP) 142/55 (84) 122/61 (81) 122/71 (88) Pulse Ox 92 92 91 O2 Delivery Room Air Room Air Room Air Room Air 07/27/20 07:49 Pulse Ox 92 O2 Delivery Room Air Intake and Output 07/26/20 07/26/20 07/27/20 15:00 23:00 07:00 Intake Total 1470 ml 300 ml 250 ml Output Total 500 ml Balance 1470 ml -200 ml 250 ml Justicifation of Admission Dx: Justifications for Admission: Justification of Admission Dx: Yes LUZ ELENA BECERRA MD Jul 27, 2020 08:50
--- NOTE | 2020-07-27 09:41 | PDOC ---
PULMONARY PROGRESS NOTE Diagnosis PROBLEM LIST Problems Medical Problems: (1) LLL pneumonia Status: Acute Objective Vital Signs Date Time Temp Pulse Resp B/P (MAP) Pulse Ox O2 Delivery O2 Flow Rate FiO2 07/27/20 08:49 92 Room Air 07/27/20 07:00 97.8 77 22 122/71 (88) 97.8 07/26/20 08:08 2.0 Intake and Output 07/27/20 07:00 Intake Total 2020 ml Output Total 500 ml Balance 1520 ml Intake Oral 320 ml IV Total 1700 ml Output Urine Total 500 ml # Bowel Movements 2 VITALS/I&O Vital Sign - Last 24 Hours 07/26/20 07/26/20 07/26/20 07/26/20 11:00 15:00 18:25 19:00 Temp 98.1 97.9 98.7 98.1 97.9 98.7 Pulse 67 61 74 Resp 20 20 19 B/P (MAP) 102/50 (67) 106/58 (74) 152/59 (90) Pulse Ox 93 91 94 O2 Delivery Room Air Room Air Room Air Room Air 07/26/20 07/26/20 07/27/20 07/27/20 20:05 22:28 02:37 07:00 Temp 97.8 98.1 97.8 97.8 98.1 97.8 Pulse 73 78 77 Resp 18 18 22 B/P (MAP) 142/55 (84) 122/61 (81) 122/71 (88) Pulse Ox 92 92 91 O2 Delivery Room Air Room Air Room Air Room Air 07/27/20 07/27/20 07/27/20 07:45 07:49 08:49 Pulse Ox 92 92 O2 Delivery Room Air Room Air Room Air Intake and Output 07/26/20 07/26/20 07/27/20 15:00 23:00 07:00 Intake Total 1470 ml 300 ml 250 ml Output Total 500 ml Balance 1470 ml -200 ml 250 ml Review of Relevant I have reviewed the following items elizabeth (where applicable) has been applied. Labs Laboratory Tests Test 07/25/20 10:15 07/25/20 11:20 07/26/20 05:40 White Blood Count 15.7 x10^3/uL (4.0-11.0) 13.2 x10^3/uL (4.0-11.0) Red Blood Count 3.69 x10^6/uL (4.30-5.70) 3.57 x10^6/uL (4.30-5.70) Hemoglobin 10.8 g/dL (13.0-17.5) 10.3 g/dL (13.0-17.5) Hematocrit 33.3 % (39.0-53.0) 32.1 % (39.0-53.0) Mean Corpuscular Volume 90 fL (79-100) 90 fL (79-100) Mean Corpuscular Hemoglobin 29 pg (25-35) 29 pg (25-35) Mean Corpuscular Hemoglobin Concent 32 g/dL (31-37) 32 g/dL (31-37) Red Cell Distribution Width 15.5 % (11.5-14.5) 15.7 % (11.5-14.5) Platelet Count 210 x10^3/uL (140-400) 190 x10^3/uL (140-400) Neutrophils (%) (Auto) 87 % (31-73) 85 % (31-73) Lymphocytes (%) (Auto) 6 % (24-48) 7 % (24-48) Monocytes (%) (Auto) 7 % (0-9) 8 % (0-9) Eosinophils (%) (Auto) 0 % (0-3) 0 % (0-3) Basophils (%) (Auto) 0 % (0-3) 0 % (0-3) Neutrophils # (Auto) 13.6 x10^3/uL (1.8-7.7) 11.2 x10^3/uL (1.8-7.7) Lymphocytes # (Auto) 0.9 x10^3/uL (1.0-4.8) 1.0 x10^3/uL (1.0-4.8) Monocytes # (Auto) 1.2 x10^3/uL (0.0-1.1) 1.0 x10^3/uL (0.0-1.1) Eosinophils # (Auto) 0.0 x10^3/uL (0.0-0.7) 0.0 x10^3/uL (0.0-0.7) Basophils # (Auto) 0.0 x10^3/uL (0.0-0.2) 0.0 x10^3/uL (0.0-0.2) Sodium Level 141 mmol/L (136-145) 142 mmol/L (136-145) Potassium Level 3.9 mmol/L (3.5-5.1) 3.6 mmol/L (3.5-5.1) Chloride Level 108 mmol/L (98-107) 110 mmol/L (98-107) Carbon Dioxide Level 27 mmol/L (21-32) 26 mmol/L (21-32) Anion Gap 6 (6-14) 6 (6-14) Blood Urea Nitrogen 33 mg/dL (8-26) 25 mg/dL (8-26) Creatinine 1.0 mg/dL (0.7-1.3) 0.9 mg/dL (0.7-1.3) Estimated GFR (Cockcroft-Gault) 71.5 80.8 Glucose Level 116 mg/dL (70-99) 86 mg/dL (70-99) Calcium Level 8.9 mg/dL (8.5-10.1) 8.5 mg/dL (8.5-10.1) Magnesium Level 2.1 mg/dL (1.8-2.4) Lactate Dehydrogenase 262 U/L (85-227) Troponin I Quantitative 0.036 ng/mL (0.000-0.055) Procalcitonin 2.79 ng/mL (0.00-0.10) Thyroid Stimulating Hormone (TSH) 0.373 uIU/mL (0.358-3.74) Coronavirus (PCR) Not detected (Not Detected) Influenza Type A Antigen Negative (NEGATIVE) Influenza Type B Antigen Negative (NEGATIVE) Prothrombin Time 16.2 SEC (11.7-14.0) Prothromb Time International Ratio 1.3 (0.8-1.1) Activated Partial Thromboplast Time 35 SEC (24-38) BUN/Creatinine Ratio 28 (6-20) Total Bilirubin 0.4 mg/dL (0.2-1.0) Aspartate Amino Transf (AST/SGOT) 104 U/L (15-37) Alanine Aminotransferase (ALT/SGPT) 155 U/L (16-63) Alkaline Phosphatase 87 U/L (46-116) Total Protein 5.5 g/dL (6.4-8.2) Albumin 1.7 g/dL (3.4-5.0) Albumin/Globulin Ratio 0.4 (1.0-1.7) Microbiology 07/25/20 Blood Culture - Preliminary, Resulted NO GROWTH AFTER 1 DAY Medications Current Medications Sodium Chloride 500 ml @ 500 mls/hr 1X ONCE IV Last administered on 07/24/20at 21:23; Start 07/24/20 at 21:00; Stop 07/24/20 at 21:59; Status DC Ceftriaxone Sodium (Rocephin) 1 gm 1X ONCE IVP Last administered on 07/24/20at 22:45; Start 07/24/20 at 22:30; Stop 07/24/20 at 22:31; Status DC Azithromycin 250 ml @ 250 mls/hr 1X ONCE IV Last administered on 07/24/20at 22:47; Start 07/24/20 at 22:30; Stop 07/24/20 at 23:29; Status DC Ondansetron HCl (Zofran) 4 mg PRN Q8HRS PRN IV NAUSEA/VOMITING; Start 07/24/20 at 22:30; Stop 07/25/20 at 22:29; Status DC Sodium Chloride 1,000 ml @ 1,000 mls/hr 1X ONCE IV Last administered on 07/24/20at 23:55; Start 07/25/20 at 00:00; Stop 07/25/20 at 00:59; Status DC Sodium Chloride 1,000 ml @ 75 mls/hr [id number] IV Last administered on 07/27/20at 02:09; Start 07/25/20 at 04:30 Norepinephrine Bitartrate 8 mg/ Dextrose 258 ml @ 19.06 mls/ hr CONT PRN IV PER PROTOCOL Last administered on 07/25/20at 05:27; Start 07/25/20 at 05:15; Stop 07/26/20 at 12:57; Status DC Linezolid/Dextrose 300 ml @ 300 mls/hr Q12HR IV Last administered on 07/27/20at 07:50; Start 07/25/20 at 10:00 Sodium Chloride 1,000 ml @ 2,130 mls/hr Q29M IV Last administered on 07/25/20at 10:29; Start 07/25/20 at 10:00; Stop 07/25/20 at 11:00; Status DC Sodium Chloride 500 ml @ 1,000 mls/hr PRN Q30MIN PRN IV SEE COMMENTS; Start 07/25/20 at 10:00 Norepinephrine Bitartrate 8 mg/ Dextrose 258 ml @ 0 mls/hr CONT PRN IV SEE I/O RECORD; Start 07/25/20 at 10:00; Stop 07/25/20 at 09:54; Status DC Dobutamine HCl/ Dextrose 250 ml @ 5.526 mls/ hr CONT PRN IV SEE I/O RECORD; Start 07/25/20 at 10:00; Stop 07/26/20 at 13:18; Status DC Ondansetron HCl (Zofran) 4 mg PRN Q6HRS PRN IVP NAUSEA/VOMITING; Start 07/25/20 at 10:00 Famotidine (Pepcid Vial) 20 mg BID IVP Last administered on 07/27/20at 07:50; Start 07/25/20 at 21:00 Info (Non-Icu Electrolyte Protocol) 1 ea CONT PRN PRN MC SEE COMMENTS; Start 07/25/20 at 17:45 Heparin Sodium (Porcine) (Heparin Sodium) 5,000 unit Q8HRS SQ Last administered on 07/27/20at 05:57; Start 07/25/20 at 14:00 Sodium Chloride (Normal Saline Flush) 3 ml QSHIFT PRN IV AFTER MEDS AND BLOOD DRAWS; Start 07/25/20 at 10:00 Bisacodyl (Dulcolax Supp) 10 mg PRN DAILY PRN MS CONSTIPATION; Start 07/25/20 at 10:00 Piperacillin Sod/ Tazobactam Sod (Zosyn Per Pharmacy) 1 each PRN DAILY PRN MC SEE COMMENTS; Start 07/25/20 at 11:15 Piperacillin Sod/ Tazobactam Sod 3.375 gm/Sodium Chloride 50 ml @ 100 mls/hr Q6HRS IV Last administered on 07/27/20at 05:56; Start 07/25/20 at 12:00 Aspirin (Ecotrin) 81 mg DAILYWBKFT PO Last administered on 07/27/20at 07:49; Start 07/26/20 at 08:00 Diclofenac Sodium (Voltaren) 1 chayo BID TP Last administered on 07/27/20at 08:26; Start 07/25/20 at 21:00 Acetaminophen (Tylenol) 650 mg PRN Q6HRS PRN PO MILD PAIN / TEMP > 100.3'F Last administered on 07/25/20at 21:11; Start 07/25/20 at 20:15 Oxycodone HCl (Roxicodone) 5 mg PRN Q6HRS PRN PO MODERATE - SEVERE PAIN Last administered on 07/27/20at 07:49; Start 07/25/20 at 20:15 Zolpidem Tartrate (Ambien) 5 mg 1X PRN PRN PO INSOMNIA Last administered on 07/25/20at 22:04; Start 07/25/20 at 22:00; Stop 07/27/20 at 21:59 Perflutren Protein Type A Microsphe (Optison) 0.66 mg STK-MED ONCE IV ; Start 07/26/20 at 09:33; Stop 07/26/20 at 09:33; Status DC Perflutren Protein Type A Microsphe (Optison) 0.66 mg 1X ONCE IV Last administered on 07/26/20at 10:16; Start 07/26/20 at 10:15; Stop 07/26/20 at 10:19; Status DC Lactobacillus Rhamnosus (Culturelle) 1 cap BID PO Last administered on 07/27/20at 07:50; Start 07/26/20 at 21:00 Active Scripts Active Reported A and D Ointment (Vits A and D/White Pet/Lanolin) 42.5 Gm Oint...g. 1 Chayo TP DAILY Trazodone Hcl 50 Mg Tablet 50 Mg PEG HS Simethicone 80 Mg Tab.chew 80 Mg PEG Q6HRS PRN Seroquel (Quetiapine Fumarate) 25 Mg Tablet 1 Tab PEG QHS Miralax (Polyethylene Glycol 3350) 17 Gm Powd.pack 1 Packet PO DAILY PRN 2 Days dissolve in water [oxycodone vandana ] 10 Mg PEG Q4HRS PRN Robaxin-750 (Methocarbamol) 750 Mg Tablet 1 Tab PO Q8HRS 30 Days Melatonin 5 Mg Tab.rapdis 1 Tab PEG QHS 30 Days Lipitor (Atorvastatin Calcium) 10 Mg Tablet 1 Tab PEG DAILY Lidocaine 1 Each Adh..patch 1 Each TP DAILY Tussin (Guaifenesin) 100 Mg/5 Ml Liquid 10 Ml PO Q4HRS PRN 10 Days Adult Glycerin (Glycerin) 1 Each Supp.rect 1 Each RC DAILY PRN Gabapentin Oral Solution (Gabapentin) 250 Mg/5 Ml Solution 4 Ml PO Q8HRS Doxazosin Mesylate 2 Mg Tablet 1 Mg PEG DAILY [docusate sodium liq] 100 Mg PEG BID Voltaren (Diclofenac Sodium) 100 Gm Gel..gram. 1 Chayo TP QID 30 Days apply to affected area(s) Artificial Tears Eye Drops (Dextran 70/Hypromellose) 15 Ml Drops 1 Drop EACHEYE QID PRN [debrox solution] 5 Drop EACH EAR QID [ceftriaxone] 1 Gm IV DAILY PRN Azithromycin Tablet (Azithromycin) 250 Mg Tablet 250 Mg PO DAILY X5 days start 07/25 Aricept (Donepezil Hcl) 10 Mg Tablet 1 Tab PEG DAILY 30 Days Acetaminophen 650 Mg/20.3 Ml Solution 650 Mg PEG Q6HRS PRN Justicifation of Admission Dx: Justifications for Admission: Justification of Admission Dx: Yes NESHA VIZCAINO MD Jul 27, 2020 09:41
--- NOTE | 2020-07-27 10:40 | NUR ---
SS following up with discharge planning. SS reviewed pt chart and discussed with pt RN. Pt is LTC resident from [place], ; fax [phone]. COVID19 negative. Pt on Zosyn and IV Zyvox. Tube feeds being restarted. Pt is currently on room air. SS phoned and faxed clinical updates to [facility]. SS will continue to follow for discharge planning.
[2020-07-27 10:41] LABS: BASO % 0 % (0-3); EOS % 0 % (0-3); HEMATOCRIT 33.4 % (39.0-53.0); HEMOGLOBIN 10.9 g/dL (13.0-17.5); LYMPH # 1.2 x10^3/uL (1.0-4.8); LYMPH % 11 % (24-48); MEAN CORPUSCULAR HEMOGLOBIN 29 pg (25-35); MEAN CORPUSCULAR HGB CONC 33 g/dL (31-37); MEAN CORPUSCULAR VOLUME 90 fL (79-100); MONO # 0.6 x10^3/uL (0.0-1.1); MONO % 5 % (0-9); NEUT # 9.3 x10^3/uL (1.8-7.7); NEUT % 83 % (31-73); PLATELET COUNT 224 x10^3/uL (140-400); RED BLOOD COUNT 3.71 x10^6/uL (4.30-5.70); RED CELL DISTRIBUTION WIDTH 15.8 % (11.5-14.5); WHITE BLOOD COUNT 11.1 x10^3/uL (4.0-11.0)
[2020-07-27] MEDS ORDERED: BISACODYL 10 MG SUPP.RECT. PR ONE (10:45)
[2020-07-27 10:55] LABS: ALBUMIN 1.8 g/dL (3.4-5.0); ALBUMIN/GLOBULIN RATIO 0.4 (1.0-1.7); CALCIUM 8.6 mg/dL (8.5-10.1); CREATININE 0.9 mg/dL (0.7-1.3); GFR 80.8; TOTAL BILIRUBIN 0.5 mg/dL (0.2-1.0); TOTAL PROTEIN 5.9 g/dL (6.4-8.2)
--- NOTE | 2020-07-27 10:56 | NUR ---
Spoke with Dr Schumacher this morning about his order yesterday for bolus tube feedings. He stated if patient refuses his meals then to give him a bolus feeding which is ordered 5X a day thru his PEG tube. Patient refused his breakfast and a bolus of Jevity 1.5 was given per order. Will continue to monitor. TELE BEING MONITORED BY CHARGE NURSE MARIBEL
[2020-07-27 11:00] VITALS: BP 111/59
--- NOTE | 2020-07-27 11:10 | NUR ---
Discussed with patient that he had a suppository ordered. He had a large BM this morning per previous shift and patient stated he did not want to go again. Patient refused suppository at this time. Will continue to monitor/assess.
--- NOTE | 2020-07-27 11:39 | PDOC ---
Infectious Disease Note Subjective: Subjective Patient feels better today Denies any fever, chills, headache nausea or vomiting, diarrhea Vital Signs: Vital Signs Vital Signs Date Time Temp Pulse Resp B/P (MAP) Pulse Ox O2 Delivery O2 Flow Rate FiO2 07/27/20 08:49 92 Room Air 07/27/20 07:00 97.8 77 22 122/71 (88) 97.8 07/26/20 08:08 2.0 Physical Exam: PHYSICAL EXAM GENERAL: , alert, calm, tired appearing male in no acute distress, WEAK HEENT: Pupils equally round. Normal conjunctivae. Oropharynx dry. NECK: Supple. LUNGS: Clear to auscultation. No accessory muscle use. HEART: S1 and S2 regular. ABDOMEN: Nondistended, soft, nontender with bowel sounds present. GENITOURINARY: Indwelling Davidson in place. EXTREMITIES: No gross edema or cyanosis. DERMATOLOGIC: Warm to touch. No signs of generalized rash. NEUROLOGIC: Alert, oriented to place. Follows commands.Lt sided weakness( chronic) LINES: Peripheral IV looks okay. Medications: Inpatient Meds: Medications reviewed. Labs: Lab Laboratory Tests Test 07/27/20 10:05 White Blood Count 11.1 x10^3/uL (4.0-11.0) Red Blood Count 3.71 x10^6/uL (4.30-5.70) Hemoglobin 10.9 g/dL (13.0-17.5) Hematocrit 33.4 % (39.0-53.0) Mean Corpuscular Volume 90 fL (79-100) Mean Corpuscular Hemoglobin 29 pg (25-35) Mean Corpuscular Hemoglobin Concent 33 g/dL (31-37) Red Cell Distribution Width 15.8 % (11.5-14.5) Platelet Count 224 x10^3/uL (140-400) Neutrophils (%) (Auto) 83 % (31-73) Lymphocytes (%) (Auto) 11 % (24-48) Monocytes (%) (Auto) 5 % (0-9) Eosinophils (%) (Auto) 0 % (0-3) Basophils (%) (Auto) 0 % (0-3) Neutrophils # (Auto) 9.3 x10^3/uL (1.8-7.7) Lymphocytes # (Auto) 1.2 x10^3/uL (1.0-4.8) Monocytes # (Auto) 0.6 x10^3/uL (0.0-1.1) Eosinophils # (Auto) 0.0 x10^3/uL (0.0-0.7) Basophils # (Auto) 0.0 x10^3/uL (0.0-0.2) Sodium Level 145 mmol/L (136-145) Potassium Level 3.0 mmol/L (3.5-5.1) Chloride Level 109 mmol/L (98-107) Carbon Dioxide Level 25 mmol/L (21-32) Anion Gap 11 (6-14) Blood Urea Nitrogen 19 mg/dL (8-26) Creatinine 0.9 mg/dL (0.7-1.3) Estimated GFR (Cockcroft-Gault) 80.8 BUN/Creatinine Ratio 21 (6-20) Glucose Level 153 mg/dL (70-99) Calcium Level 8.6 mg/dL (8.5-10.1) Total Bilirubin 0.5 mg/dL (0.2-1.0) Aspartate Amino Transf (AST/SGOT) 60 U/L (15-37) Alanine Aminotransferase (ALT/SGPT) 119 U/L (16-63) Alkaline Phosphatase 88 U/L (46-116) BE-Wfk-X-Type Natriuretic Peptide 3956 pg/mL (0-449) Total Protein 5.9 g/dL (6.4-8.2) Albumin 1.8 g/dL (3.4-5.0) Albumin/Globulin Ratio 0.4 (1.0-1.7) Micro RUN DATE: 07/27/20 [facility] *LIVE* PAGE 1 RUN TIME: 726 Specimen Inquiry PATIENT: JOSE DEMPSEY ACCT: [id number] LOC: [address] [place] [address] U: [id number] AGE/SX: 84/M ROOM: 202 RE07/24/[address]: LUZ ELENA BECERRA MD : [id number] BED: 1 DIS: STATUS: ADM IN TLOC: -- SPEC #: [id number] TRACIE: 07/24/20 STATUS: COMP REQ #: [id number] RECD: 07/24/[address]: DEBRA KINGSLEY DO SOURCE: BLOOD ENTR: 07/25/20-[address] [facility] [address]: DORENE CASTELLANOS D.O. [facility]: ORDERED: BLD CULT - LC Procedure Result BLOOD CULTURE LC Final Final GROWTH OF GRAM NEGATIVE RODS FINAL ID= [ENTEROBACTER AEROGENES] ENTEROBACTER AEROGENES ANTIMICROBIAL SUSCEPTIBILITY Final Comment NEG CHENCHO 56 ENTEROBACTER AEROGENES ANTIBIOTIC RESULT INTERPRETATION AMPICILLIN/SULBACTAM <=4/2 R* AMIKACIN <=16 S AMPICILLIN 16 R* AMOXICILLIN/K CLAVULANATE 16/8 R* AZTREONAM <=4 S CEFTRIAXONE <=1 S CEFTAZIDIME 8 S CEFOTAXIME <=2 S CEFOXITIN >16 R CEFAZOLIN 4 R* CIPROFLOXACIN <=0.25 S CEFEPIME <=2 S CEFUROXIME <=4 R* CEFTAZIDIME/AVIBACTAM <=4 S ERTAPENEM <=0.5 S GENTAMICIN <=2 S LEVOFLOXACIN <=0.5 S MEROPENEM <=1 S PIPERACILLIN/TAZOBACTAM <=8 S TRIMETHOPRIM/SULFAMETHOXAZOLE <=0.5/9.5 S TETRACYCLINE <=4 S TOBRAMYCIN <=2 S Unless otherwise specified, Testing Performed by: [address] [address] For Inquires, the Physician may contact the Microbiology department at [phone] Objective: Assessment: 1.Enterobacter bacteremia present on admission 2 bottles 2. Sepsis with hypotension. Improved 3. Leukocytosis. Improving 4. Aspiration pneumonia. 5. Transaminitis. 5. Dementia. 6. History of cerebrovascular accident. 7. Dysphagia. Plan: Plan of Care DC Zyvox and Zosyn Start meropenem Monitor lab values and cultures Maintain aspiration precautions Discussed with nursing GABE MEIER MD Jul 27, 2020 11:39
[2020-07-27] MEDS: MEROPENEM 500 MG in IV NORMAL SALINE 50ML 50 ML IV SCH ×3 (12:30→23:54)
[2020-07-27 15:00] VITALS: BP 107/45
--- NOTE | 2020-07-27 15:37 | PDOC ---
PULMONARY PROGRESS NOTES DATE: 07/27/20 TIME: 15:32 Subjective Patient is resting on room air no increased cough or SOA no overnight concerns Vitals Vital Signs Date Time Temp Pulse Resp B/P (MAP) Pulse Ox O2 Delivery O2 Flow Rate FiO2 07/27/20 13:59 91 Room Air 07/27/20 11:00 98.8 93 20 111/59 (76) 98.8 07/26/20 08:08 2.0 ROS: No Nausea, No Chest Pain, No Abdominal Pain, No Increase Cough Lungs: Clear Cardiovascular: S1 Abdomen: Soft Neuro Exam: Alert Extremities: No Edema Skin: Warm Labs Laboratory Tests Test 07/26/20 05:40 07/27/20 10:05 White Blood Count 13.2 x10^3/uL (4.0-11.0) 11.1 x10^3/uL (4.0-11.0) Red Blood Count 3.57 x10^6/uL (4.30-5.70) 3.71 x10^6/uL (4.30-5.70) Hemoglobin 10.3 g/dL (13.0-17.5) 10.9 g/dL (13.0-17.5) Hematocrit 32.1 % (39.0-53.0) 33.4 % (39.0-53.0) Mean Corpuscular Volume 90 fL (79-100) 90 fL (79-100) Mean Corpuscular Hemoglobin 29 pg (25-35) 29 pg (25-35) Mean Corpuscular Hemoglobin Concent 32 g/dL (31-37) 33 g/dL (31-37) Red Cell Distribution Width 15.7 % (11.5-14.5) 15.8 % (11.5-14.5) Platelet Count 190 x10^3/uL (140-400) 224 x10^3/uL (140-400) Neutrophils (%) (Auto) 85 % (31-73) 83 % (31-73) Lymphocytes (%) (Auto) 7 % (24-48) 11 % (24-48) Monocytes (%) (Auto) 8 % (0-9) 5 % (0-9) Eosinophils (%) (Auto) 0 % (0-3) 0 % (0-3) Basophils (%) (Auto) 0 % (0-3) 0 % (0-3) Neutrophils # (Auto) 11.2 x10^3/uL (1.8-7.7) 9.3 x10^3/uL (1.8-7.7) Lymphocytes # (Auto) 1.0 x10^3/uL (1.0-4.8) 1.2 x10^3/uL (1.0-4.8) Monocytes # (Auto) 1.0 x10^3/uL (0.0-1.1) 0.6 x10^3/uL (0.0-1.1) Eosinophils # (Auto) 0.0 x10^3/uL (0.0-0.7) 0.0 x10^3/uL (0.0-0.7) Basophils # (Auto) 0.0 x10^3/uL (0.0-0.2) 0.0 x10^3/uL (0.0-0.2) Prothrombin Time 16.2 SEC (11.7-14.0) Prothromb Time International Ratio 1.3 (0.8-1.1) Activated Partial Thromboplast Time 35 SEC (24-38) Sodium Level 142 mmol/L (136-145) 145 mmol/L (136-145) Potassium Level 3.6 mmol/L (3.5-5.1) 3.0 mmol/L (3.5-5.1) Chloride Level 110 mmol/L (98-107) 109 mmol/L (98-107) Carbon Dioxide Level 26 mmol/L (21-32) 25 mmol/L (21-32) Anion Gap 6 (6-14) 11 (6-14) Blood Urea Nitrogen 25 mg/dL (8-26) 19 mg/dL (8-26) Creatinine 0.9 mg/dL (0.7-1.3) 0.9 mg/dL (0.7-1.3) Estimated GFR (Cockcroft-Gault) 80.8 80.8 BUN/Creatinine Ratio 28 (6-20) 21 (6-20) Glucose Level 86 mg/dL (70-99) 153 mg/dL (70-99) Calcium Level 8.5 mg/dL (8.5-10.1) 8.6 mg/dL (8.5-10.1) Total Bilirubin 0.4 mg/dL (0.2-1.0) 0.5 mg/dL (0.2-1.0) Aspartate Amino Transf (AST/SGOT) 104 U/L (15-37) 60 U/L (15-37) Alanine Aminotransferase (ALT/SGPT) 155 U/L (16-63) 119 U/L (16-63) Alkaline Phosphatase 87 U/L (46-116) 88 U/L (46-116) Total Protein 5.5 g/dL (6.4-8.2) 5.9 g/dL (6.4-8.2) Albumin 1.7 g/dL (3.4-5.0) 1.8 g/dL (3.4-5.0) Albumin/Globulin Ratio 0.4 (1.0-1.7) 0.4 (1.0-1.7) BU-Isb-M-Type Natriuretic Peptide 3956 pg/mL (0-449) Laboratory Tests Test 07/27/20 10:05 White Blood Count 11.1 x10^3/uL (4.0-11.0) Red Blood Count 3.71 x10^6/uL (4.30-5.70) Hemoglobin 10.9 g/dL (13.0-17.5) Hematocrit 33.4 % (39.0-53.0) Mean Corpuscular Volume 90 fL (79-100) Mean Corpuscular Hemoglobin 29 pg (25-35) Mean Corpuscular Hemoglobin Concent 33 g/dL (31-37) Red Cell Distribution Width 15.8 % (11.5-14.5) Platelet Count 224 x10^3/uL (140-400) Neutrophils (%) (Auto) 83 % (31-73) Lymphocytes (%) (Auto) 11 % (24-48) Monocytes (%) (Auto) 5 % (0-9) Eosinophils (%) (Auto) 0 % (0-3) Basophils (%) (Auto) 0 % (0-3) Neutrophils # (Auto) 9.3 x10^3/uL (1.8-7.7) Lymphocytes # (Auto) 1.2 x10^3/uL (1.0-4.8) Monocytes # (Auto) 0.6 x10^3/uL (0.0-1.1) Eosinophils # (Auto) 0.0 x10^3/uL (0.0-0.7) Basophils # (Auto) 0.0 x10^3/uL (0.0-0.2) Sodium Level 145 mmol/L (136-145) Potassium Level 3.0 mmol/L (3.5-5.1) Chloride Level 109 mmol/L (98-107) Carbon Dioxide Level 25 mmol/L (21-32) Anion Gap 11 (6-14) Blood Urea Nitrogen 19 mg/dL (8-26) Creatinine 0.9 mg/dL (0.7-1.3) Estimated GFR (Cockcroft-Gault) 80.8 BUN/Creatinine Ratio 21 (6-20) Glucose Level 153 mg/dL (70-99) Calcium Level 8.6 mg/dL (8.5-10.1) Total Bilirubin 0.5 mg/dL (0.2-1.0) Aspartate Amino Transf (AST/SGOT) 60 U/L (15-37) Alanine Aminotransferase (ALT/SGPT) 119 U/L (16-63) Alkaline Phosphatase 88 U/L (46-116) XH-Ddy-F-Type Natriuretic Peptide 3956 pg/mL (0-449) Total Protein 5.9 g/dL (6.4-8.2) Albumin 1.8 g/dL (3.4-5.0) Albumin/Globulin Ratio 0.4 (1.0-1.7) Medications Active Scripts Medications Dose Route/Sig Max Daily Dose Days Date Category Dose Instructions A and D Ointment (Vits A and D/White Pet/Lanolin) 42.5 Gm Oint...g. 1 Chayo TP DAILY 07/25/20 Reported Trazodone Hcl 50 Mg Tablet 50 Mg PEG HS 07/25/20 Reported Simethicone 80 Mg Tab.chew 80 Mg PEG Q6HRS PRN 07/25/20 Reported Seroquel (Quetiapine Fumarate) 25 Mg Tablet 1 Tab PEG QHS 07/25/20 Reported Miralax (Polyethylene Glycol 3350) 17 Gm Powd.pack 1 Packet PO DAILY PRN 2 07/25/20 Reported dissolve in water [oxycodone vandana ] 10 Mg PEG Q4HRS PRN 2/24/21 Reported Robaxin-750 (Methocarbamol) 750 Mg Tablet 1 Tab PO Q8HRS 30 07/25/20 Reported Melatonin 5 Mg Tab.rapdis 1 Tab PEG QHS 30 07/25/20 Reported Lipitor (Atorvastatin Calcium) 10 Mg Tablet 1 Tab PEG DAILY 07/25/20 Reported Lidocaine 1 Each Adh..patch 1 Each TP DAILY 07/25/20 Reported Tussin (Guaifenesin) 100 Mg/5 Ml Liquid 10 Ml PO Q4HRS PRN 10 07/25/20 Reported Adult Glycerin (Glycerin) 1 Each Supp.rect 1 Each RC DAILY PRN 07/25/20 Reported Gabapentin Oral Solution (Gabapentin) 250 Mg/5 Ml Solution 4 Ml PO Q8HRS 07/25/20 Reported Doxazosin Mesylate 2 Mg Tablet 1 Mg PEG DAILY 07/25/20 Reported [docusate sodium liq] 100 Mg PEG BID 07/25/20 Reported Voltaren (Diclofenac Sodium) 100 Gm Gel..gram. 1 Chayo TP QID 30 07/25/20 Reported apply to affected area(s) Artificial Tears Eye Drops (Dextran 70/Hypromellose) 15 Ml Drops 1 Drop EACHEYE QID PRN 07/25/20 Reported [debrox solution] 5 Drop EACH EAR QID 07/25/20 Reported [ceftriaxone] 1 Gm IV DAILY PRN 07/25/20 Reported Azithromycin Tablet (Azithromycin) 250 Mg Tablet 250 Mg PO DAILY 07/25/20 Reported X5 days start 07/25 Aricept (Donepezil Hcl) 10 Mg Tablet 1 Tab PEG DAILY 30 07/25/20 Reported Acetaminophen 650 Mg/20.3 Ml Solution 650 Mg PEG Q6HRS PRN 07/25/20 Reported Comments ECHO<Conclusion> The systolic function is mildly impaired. Estimated ejection fraction 45%. There is mild global hypokinesis of the left ventricle. Septal motion suggestive of conduction defect. Doppler and Color Flow revealed moderate pulmonic valvular regurgitation. The ascending aorta is mildly dilated at 3.8 cm. Impression . IMPRESSION: 1. Acute hypoxemic respiratory failure, multifactorial, suspect combination of congestive heart failure and pneumonia-- resolved 2. Abnormal x-ray compatible with pneumonia, possible gram-negative, gram-positive. 3. SARS Covid 2 neg 4. Hypotension related to sepsis. 5. Acute kidney injury--improved 6. Protein malnutrition present upon admission. 7. Elevated liver chemistries. 8. Chronic anemia. Other comorbidities as listed above, dementia, hyperlipidemia, previous cerebrovascular accident. Plan . Pt. is stable from respiratory standpoint, remains on room air PT. has improved with diuresis ECHO reviewed- cardiomyopathy Follow Cardiology recs Follow ID recs for ABX PT/OT DVT/GI PPX NESHA VIZCAINO MD Jul 27, 2020 15:36
[2020-07-27] MEDS ORDERED: FUROSEMIDE 40 MG TABLET. PO ONE (16:00)
--- NOTE | 2020-07-27 16:04 | PDOC ---
CARDIO Progress Notes Date and Time Date of Service 07/27/2020 Time of Evaluation 1600 Subjective Subjective: No Chest Pain, No shortness of breath, No Palpitations Vitals Vitals Vital Signs Date Time Temp Pulse Resp B/P (MAP) Pulse Ox O2 Delivery O2 Flow Rate FiO2 07/27/20 15:00 98.2 90 22 107/45 (65) 92 Room Air 98.2 07/26/20 08:08 2.0 Weight Weight [ ] Input and Output Intake and Output Intake and Output 07/27/20 07:00 Intake Total 2020 ml Output Total 500 ml Balance 1520 ml Intake Oral 320 ml IV Total 1700 ml Output Urine Total 500 ml # Bowel Movements 2 Laboratory Labs Laboratory Tests Test 07/27/20 10:05 White Blood Count 11.1 x10^3/uL (4.0-11.0) Red Blood Count 3.71 x10^6/uL (4.30-5.70) Hemoglobin 10.9 g/dL (13.0-17.5) Hematocrit 33.4 % (39.0-53.0) Mean Corpuscular Volume 90 fL (79-100) Mean Corpuscular Hemoglobin 29 pg (25-35) Mean Corpuscular Hemoglobin Concent 33 g/dL (31-37) Red Cell Distribution Width 15.8 % (11.5-14.5) Platelet Count 224 x10^3/uL (140-400) Neutrophils (%) (Auto) 83 % (31-73) Lymphocytes (%) (Auto) 11 % (24-48) Monocytes (%) (Auto) 5 % (0-9) Eosinophils (%) (Auto) 0 % (0-3) Basophils (%) (Auto) 0 % (0-3) Neutrophils # (Auto) 9.3 x10^3/uL (1.8-7.7) Lymphocytes # (Auto) 1.2 x10^3/uL (1.0-4.8) Monocytes # (Auto) 0.6 x10^3/uL (0.0-1.1) Eosinophils # (Auto) 0.0 x10^3/uL (0.0-0.7) Basophils # (Auto) 0.0 x10^3/uL (0.0-0.2) Sodium Level 145 mmol/L (136-145) Potassium Level 3.0 mmol/L (3.5-5.1) Chloride Level 109 mmol/L (98-107) Carbon Dioxide Level 25 mmol/L (21-32) Anion Gap 11 (6-14) Blood Urea Nitrogen 19 mg/dL (8-26) Creatinine 0.9 mg/dL (0.7-1.3) Estimated GFR (Cockcroft-Gault) 80.8 BUN/Creatinine Ratio 21 (6-20) Glucose Level 153 mg/dL (70-99) Calcium Level 8.6 mg/dL (8.5-10.1) Total Bilirubin 0.5 mg/dL (0.2-1.0) Aspartate Amino Transf (AST/SGOT) 60 U/L (15-37) Alanine Aminotransferase (ALT/SGPT) 119 U/L (16-63) Alkaline Phosphatase 88 U/L (46-116) NW-Faq-Y-Type Natriuretic Peptide 3956 pg/mL (0-449) Total Protein 5.9 g/dL (6.4-8.2) Albumin 1.8 g/dL (3.4-5.0) Albumin/Globulin Ratio 0.4 (1.0-1.7) Microbiology Micro Microbiology 07/25/20 Blood Culture - Preliminary, Resulted NO GROWTH AFTER 2 DAYS Physical Exam HEENT: Neck Supple W Full Motion Chest: Symmetric LUNGS: Other (diminished bases ) Heart: RRR Abdomen: Soft N/T Extremities: Other (trace bilateral LE edema ) Neurology: alert, follow commands, other (forgetful ) Justicifation of Admission Dx: Justifications for Admission: Justification of Admission Dx: Yes CHRISTOPHE MACKEY APRN Jul 27, 2020 16:04
[2020-07-27] MEDS ORDERED: POTASSIUM BICARB 20 MEQ EFFERVESCENT TABLET. PEG ONE ×2 (16:15→21:00)
[2020-07-27] MEDS ORDERED: POTASSIUM CHLORIDE 20 MEQ TABLET.ER. PO ONE ×2 (16:30→21:00)
[2020-07-27 16:32] LABS: CHOLESTEROL/HDL RATIO 5.1
--- NOTE | 2020-07-27 17:10 | PDOC ---
CHRISTOPHE MACKEY [employer] 07/27/20 1710: CARDIO Progress Notes Date and Time Date of Service 07/27/2020 Time of Evaluation 1630 Subjective Subjective: No Chest Pain, No shortness of breath, No Palpitations Vitals Vitals Vital Signs Date Time Temp Pulse Resp B/P (MAP) Pulse Ox O2 Delivery O2 Flow Rate FiO2 07/27/20 15:00 98.2 90 22 107/45 (65) 92 Room Air 98.2 07/26/20 08:08 2.0 Weight Weight [ ] Input and Output Intake and Output Intake and Output 07/27/20 07:00 Intake Total 2020 ml Output Total 500 ml Balance 1520 ml Intake Oral 320 ml IV Total 1700 ml Output Urine Total 500 ml # Bowel Movements 2 Laboratory Labs Laboratory Tests Test 07/27/20 10:05 White Blood Count 11.1 x10^3/uL (4.0-11.0) Red Blood Count 3.71 x10^6/uL (4.30-5.70) Hemoglobin 10.9 g/dL (13.0-17.5) Hematocrit 33.4 % (39.0-53.0) Mean Corpuscular Volume 90 fL (79-100) Mean Corpuscular Hemoglobin 29 pg (25-35) Mean Corpuscular Hemoglobin Concent 33 g/dL (31-37) Red Cell Distribution Width 15.8 % (11.5-14.5) Platelet Count 224 x10^3/uL (140-400) Neutrophils (%) (Auto) 83 % (31-73) Lymphocytes (%) (Auto) 11 % (24-48) Monocytes (%) (Auto) 5 % (0-9) Eosinophils (%) (Auto) 0 % (0-3) Basophils (%) (Auto) 0 % (0-3) Neutrophils # (Auto) 9.3 x10^3/uL (1.8-7.7) Lymphocytes # (Auto) 1.2 x10^3/uL (1.0-4.8) Monocytes # (Auto) 0.6 x10^3/uL (0.0-1.1) Eosinophils # (Auto) 0.0 x10^3/uL (0.0-0.7) Basophils # (Auto) 0.0 x10^3/uL (0.0-0.2) Sodium Level 145 mmol/L (136-145) Potassium Level 3.0 mmol/L (3.5-5.1) Chloride Level 109 mmol/L (98-107) Carbon Dioxide Level 25 mmol/L (21-32) Anion Gap 11 (6-14) Blood Urea Nitrogen 19 mg/dL (8-26) Creatinine 0.9 mg/dL (0.7-1.3) Estimated GFR (Cockcroft-Gault) 80.8 BUN/Creatinine Ratio 21 (6-20) Glucose Level 153 mg/dL (70-99) Calcium Level 8.6 mg/dL (8.5-10.1) Total Bilirubin 0.5 mg/dL (0.2-1.0) Aspartate Amino Transf (AST/SGOT) 60 U/L (15-37) Alanine Aminotransferase (ALT/SGPT) 119 U/L (16-63) Alkaline Phosphatase 88 U/L (46-116) DX-Hmn-G-Type Natriuretic Peptide 3956 pg/mL (0-449) Total Protein 5.9 g/dL (6.4-8.2) Albumin 1.8 g/dL (3.4-5.0) Albumin/Globulin Ratio 0.4 (1.0-1.7) Triglycerides Level 87 mg/dL (0-150) Cholesterol Level 77 mg/dL (0-200) LDL Cholesterol, Calculated 45 mg/dL (0-100) VLDL Cholesterol, Calculated 17 mg/dL (0-40) Non-HDL Cholesterol Calculated 62 mg/dL (0-129) HDL Cholesterol 15 mg/dL (40-60) Cholesterol/HDL Ratio 5.1 Microbiology Micro Microbiology 07/25/20 Blood Culture - Preliminary, Resulted NO GROWTH AFTER 2 DAYS Physical Exam HEENT: Neck Supple W Full Motion Chest: Symmetric LUNGS: Other (diminished bases ) Heart: RRR (SR) Abdomen: Soft N/T Extremities: Other (trace bilateral LE edema ) Neurology: alert, follow commands, other (forgetful ) Assessment Assessment 1. Leukocytosis, bacteremia, sepsis. BC with GNR 2. Probable aspiration PNA. 3. Mild acute on chronic diastolic CHF; appears compensated 4. ANTHONY; improved 5. H/o hypertension with present hypotension; low end, but adequate 6. Hyperlipidemia 7. H/o CVA 8. BPH 9. Transaminitis 10. Dysphagia; overt aspiration with thin liquids 11. Hypokalemia 12. Mild Cardiomyopathy Recommendations 1. Lasix therapy, replace K 2. Start on low dose BB. ASA 3. Ongoing antibiotic therapy.Follow cultures, ID recs 4. Secondary prevention as able 5. No statin with transaminitis Justicifation of Admission Dx: Justifications for Admission: Justification of Admission Dx: Yes CALEB RAMOS MD 07/27/20 2338: CARDIO Progress Notes Plan Plan The patient was seen and interviewed as well as examined at the bedside. The chart was reviewed. The case was discussed. Agree with the plan of care. CHRISTOPHE MACKEY APRN Jul 27, 2020 17:10 CALEB RAMOS MD Jul 27, 2020 22:48
[2020-07-27 19:42] VITALS: BP 118/62
[2020-07-27 22:27] VITALS: BP 104/52
[2020-07-28 03:16] VITALS: BP 116/73
[2020-07-28] MEDS: oxyCODONE IR 5 MG TABLET PO PRN ×3 (03:36→19:13)
[2020-07-28] MEDS: HEPARIN for SUB-Q USE 5,000 UNIT/ML VIAL. SQ SCH ×3 (06:06→20:54)
[2020-07-28] MEDS: MEROPENEM 500 MG in IV NORMAL SALINE 50ML 50 ML IV SCH ×4 (06:06→23:43)
[2020-07-28 07:35] VITALS: BP 123/79
--- NOTE | 2020-07-28 07:41 | PDOC ---
PULMONARY PROGRESS NOTES DATE: 07/28/20 TIME: 07:39 Subjective on RA denies sob, has occ cough no overnight concerns Vitals Vital Signs Date Time Temp Pulse Resp B/P (MAP) Pulse Ox O2 Delivery O2 Flow Rate FiO2 07/28/20 07:35 98.8 93 18 123/79 (94) 90 Room Air 98.8 ROS: No Nausea, No Chest Pain, No Abdominal Pain HEENT: Other (nc at) Lungs: Clear Cardiovascular: S1 Abdomen: Soft Neuro Exam: Alert Extremities: No Edema Skin: Warm Labs Laboratory Tests Test 07/27/20 10:05 White Blood Count 11.1 x10^3/uL (4.0-11.0) Red Blood Count 3.71 x10^6/uL (4.30-5.70) Hemoglobin 10.9 g/dL (13.0-17.5) Hematocrit 33.4 % (39.0-53.0) Mean Corpuscular Volume 90 fL (79-100) Mean Corpuscular Hemoglobin 29 pg (25-35) Mean Corpuscular Hemoglobin Concent 33 g/dL (31-37) Red Cell Distribution Width 15.8 % (11.5-14.5) Platelet Count 224 x10^3/uL (140-400) Neutrophils (%) (Auto) 83 % (31-73) Lymphocytes (%) (Auto) 11 % (24-48) Monocytes (%) (Auto) 5 % (0-9) Eosinophils (%) (Auto) 0 % (0-3) Basophils (%) (Auto) 0 % (0-3) Neutrophils # (Auto) 9.3 x10^3/uL (1.8-7.7) Lymphocytes # (Auto) 1.2 x10^3/uL (1.0-4.8) Monocytes # (Auto) 0.6 x10^3/uL (0.0-1.1) Eosinophils # (Auto) 0.0 x10^3/uL (0.0-0.7) Basophils # (Auto) 0.0 x10^3/uL (0.0-0.2) Sodium Level 145 mmol/L (136-145) Potassium Level 3.0 mmol/L (3.5-5.1) Chloride Level 109 mmol/L (98-107) Carbon Dioxide Level 25 mmol/L (21-32) Anion Gap 11 (6-14) Blood Urea Nitrogen 19 mg/dL (8-26) Creatinine 0.9 mg/dL (0.7-1.3) Estimated GFR (Cockcroft-Gault) 80.8 BUN/Creatinine Ratio 21 (6-20) Glucose Level 153 mg/dL (70-99) Calcium Level 8.6 mg/dL (8.5-10.1) Total Bilirubin 0.5 mg/dL (0.2-1.0) Aspartate Amino Transf (AST/SGOT) 60 U/L (15-37) Alanine Aminotransferase (ALT/SGPT) 119 U/L (16-63) Alkaline Phosphatase 88 U/L (46-116) HV-Ugx-R-Type Natriuretic Peptide 3956 pg/mL (0-449) Total Protein 5.9 g/dL (6.4-8.2) Albumin 1.8 g/dL (3.4-5.0) Albumin/Globulin Ratio 0.4 (1.0-1.7) Triglycerides Level 87 mg/dL (0-150) Cholesterol Level 77 mg/dL (0-200) LDL Cholesterol, Calculated 45 mg/dL (0-100) VLDL Cholesterol, Calculated 17 mg/dL (0-40) Non-HDL Cholesterol Calculated 62 mg/dL (0-129) HDL Cholesterol 15 mg/dL (40-60) Cholesterol/HDL Ratio 5.1 Laboratory Tests Test 07/27/20 10:05 White Blood Count 11.1 x10^3/uL (4.0-11.0) Red Blood Count 3.71 x10^6/uL (4.30-5.70) Hemoglobin 10.9 g/dL (13.0-17.5) Hematocrit 33.4 % (39.0-53.0) Mean Corpuscular Volume 90 fL (79-100) Mean Corpuscular Hemoglobin 29 pg (25-35) Mean Corpuscular Hemoglobin Concent 33 g/dL (31-37) Red Cell Distribution Width 15.8 % (11.5-14.5) Platelet Count 224 x10^3/uL (140-400) Neutrophils (%) (Auto) 83 % (31-73) Lymphocytes (%) (Auto) 11 % (24-48) Monocytes (%) (Auto) 5 % (0-9) Eosinophils (%) (Auto) 0 % (0-3) Basophils (%) (Auto) 0 % (0-3) Neutrophils # (Auto) 9.3 x10^3/uL (1.8-7.7) Lymphocytes # (Auto) 1.2 x10^3/uL (1.0-4.8) Monocytes # (Auto) 0.6 x10^3/uL (0.0-1.1) Eosinophils # (Auto) 0.0 x10^3/uL (0.0-0.7) Basophils # (Auto) 0.0 x10^3/uL (0.0-0.2) Sodium Level 145 mmol/L (136-145) Potassium Level 3.0 mmol/L (3.5-5.1) Chloride Level 109 mmol/L (98-107) Carbon Dioxide Level 25 mmol/L (21-32) Anion Gap 11 (6-14) Blood Urea Nitrogen 19 mg/dL (8-26) Creatinine 0.9 mg/dL (0.7-1.3) Estimated GFR (Cockcroft-Gault) 80.8 BUN/Creatinine Ratio 21 (6-20) Glucose Level 153 mg/dL (70-99) Calcium Level 8.6 mg/dL (8.5-10.1) Total Bilirubin 0.5 mg/dL (0.2-1.0) Aspartate Amino Transf (AST/SGOT) 60 U/L (15-37) Alanine Aminotransferase (ALT/SGPT) 119 U/L (16-63) Alkaline Phosphatase 88 U/L (46-116) NT-Ifg-F-Type Natriuretic Peptide 3956 pg/mL (0-449) Total Protein 5.9 g/dL (6.4-8.2) Albumin 1.8 g/dL (3.4-5.0) Albumin/Globulin Ratio 0.4 (1.0-1.7) Triglycerides Level 87 mg/dL (0-150) Cholesterol Level 77 mg/dL (0-200) LDL Cholesterol, Calculated 45 mg/dL (0-100) VLDL Cholesterol, Calculated 17 mg/dL (0-40) Non-HDL Cholesterol Calculated 62 mg/dL (0-129) HDL Cholesterol 15 mg/dL (40-60) Cholesterol/HDL Ratio 5.1 Medications Active Scripts Medications Dose Route/Sig Max Daily Dose Days Date Category Dose Instructions A and D Ointment (Vits A and D/White Pet/Lanolin) 42.5 Gm Oint...g. 1 Chayo TP DAILY 07/25/20 Reported Trazodone Hcl 50 Mg Tablet 50 Mg PEG HS 07/25/20 Reported Simethicone 80 Mg Tab.chew 80 Mg PEG Q6HRS PRN 07/25/20 Reported Seroquel (Quetiapine Fumarate) 25 Mg Tablet 1 Tab PEG QHS 07/25/20 Reported Miralax (Polyethylene Glycol 3350) 17 Gm Powd.pack 1 Packet PO DAILY PRN 2 07/25/20 Reported dissolve in water [oxycodone vandana ] 10 Mg PEG Q4HRS PRN 07/25/20 Reported Robaxin-750 (Methocarbamol) 750 Mg Tablet 1 Tab PO Q8HRS 30 07/25/20 Reported Melatonin 5 Mg Tab.rapdis 1 Tab PEG QHS 30 07/25/20 Reported Lipitor (Atorvastatin Calcium) 10 Mg Tablet 1 Tab PEG DAILY 07/25/20 Reported Lidocaine 1 Each Adh..patch 1 Each TP DAILY 07/25/20 Reported Tussin (Guaifenesin) 100 Mg/5 Ml Liquid 10 Ml PO Q4HRS PRN 10 07/25/20 Reported Adult Glycerin (Glycerin) 1 Each Supp.rect 1 Each RC DAILY PRN 07/25/20 Reported Gabapentin Oral Solution (Gabapentin) 250 Mg/5 Ml Solution 4 Ml PO Q8HRS 07/25/20 Reported Doxazosin Mesylate 2 Mg Tablet 1 Mg PEG DAILY 07/25/20 Reported [docusate sodium liq] 100 Mg PEG BID 07/25/20 Reported Voltaren (Diclofenac Sodium) 100 Gm Gel..gram. 1 Chayo TP QID 30 07/25/20 Reported apply to affected area(s) Artificial Tears Eye Drops (Dextran 70/Hypromellose) 15 Ml Drops 1 Drop EACHEYE QID PRN 07/25/20 Reported [debrox solution] 5 Drop EACH EAR QID 07/25/20 Reported [ceftriaxone] 1 Gm IV DAILY PRN 07/25/20 Reported Azithromycin Tablet (Azithromycin) 250 Mg Tablet 250 Mg PO DAILY 07/25/20 Reported X5 days start 07/25 Aricept (Donepezil Hcl) 10 Mg Tablet 1 Tab PEG DAILY 30 07/25/20 Reported Acetaminophen 650 Mg/20.3 Ml Solution 650 Mg PEG Q6HRS PRN 07/25/20 Reported Comments ECHO<Conclusion> The systolic function is mildly impaired. Estimated ejection fraction 45%. There is mild global hypokinesis of the left ventricle. Septal motion suggestive of conduction defect. Doppler and Color Flow revealed moderate pulmonic valvular regurgitation. The ascending aorta is mildly dilated at 3.8 cm. Impression . IMPRESSION: 1. Acute hypoxemic respiratory failure, multifactorial, suspect combination of congestive heart failure and pneumonia-- resolved 2. Abnormal x-ray compatible with pneumonia, possible gram-negative, gram-positive. 3. SARS Covid 2 neg 4. Hypotension related to sepsis. 5. Acute kidney injury--improved 6. Protein malnutrition present upon admission. 7. Elevated liver chemistries. 8. Chronic anemia. Other comorbidities as listed above, dementia, hyperlipidemia, previous cerebrovascular accident. Plan . Pt. is stable from respiratory standpoint, remains on room air PT. has improved with diuresis ECHO reviewed- cardiomyopathy Follow Cardiology recs Follow ID recs for ABX PT/OT DVT/GI PPX MAX GUERRIER MD Jul 28, 2020 07:41
--- NOTE | 2020-07-28 07:50 | RAD ---
EXAM: XR CHEST 1V INDICATION: Reason: PNEUMONIA / Spl. Instructions: / History: . TECHNIQUE: Single view COMPARISON: 07/25/2020 chest x-ray FINDINGS: The heart size is normal. The great vessels appear unremarkable. There is no hilar or mediastinal mass. Lungs show slight increase in interstitial opacities compatible with pulmonary vascular congestion an d a more confluent opacity at the left lung base that has slightly improved in interval. Small left pleural effusion is present. No pneumothorax. There are no significant osseous abnormalities. IMPRESSION: Improving left basilar infiltrate compatible with pneumonia and slight worsening pulmonary vascular c ongestion with a residual small left pleural effusion. Electronically signed by: Shabana Boone MD (07/28/2020 7:48 AM) [facility] [place]
[2020-07-28] MEDS ORDERED: POTASSIUM CHLORIDE 20 MEQ TABLET.ER. PO SCH (08:00)
[2020-07-28] MEDS: IV NORMAL SALINE 1000ML BAG 1,000 ML IV SCH (08:40)
[2020-07-28] MEDS: FAMOTIDINE 20 MG/2 ML VIAL IVP SCH ×2 (08:40→20:54)
[2020-07-28] MEDS: DICLOFENAC SODIUM 1% TOPICAL GEL 100GM TUBE. TP SCH ×2 (08:40→20:57)
[2020-07-28] MEDS: FUROSEMIDE 20 MG TABLET PO SCH (08:41)
[2020-07-28] MEDS: METOPROLOL SUCC 24HR ER 25 MG TAB.ER.24H. PO SCH (08:41)
[2020-07-28] MEDS: ASPIRIN ENTERIC COATED 81 MG TABLET.DR. PO SCH (08:41)
[2020-07-28] MEDS: LACTOBACILLUS RHAMNOSUS GG 1 CAPSULE. PO SCH ×2 (08:41→20:54)
[2020-07-28] MEDS: POTASSIUM BICARB 20 MEQ EFFERVESCENT TABLET. PEG SCH (08:41)
--- NOTE | 2020-07-28 10:27 | PDOC ---
PROGRESS NOTES Date of Service: DATE: 07/28/20 TIME: 10:27 Chief Complaint Chief Complaint IMPRESSION ASSESSMENT: 84-year-old male with admission for pneumonia who became hypotensive and septic after admission was transferred to [facility] consult Infectious Disease as well as Pulmonary and Cardiology. 1. Gram-negative rods blood cultures. Enterobacter bacteremia present on admission 07/05 bottles here and at [facility],source likely GI 2. Septic shock. 3. Dementia. 4. Remote tobacco abuse. 5. Severe protein caloric malnutrition. 6. HYPOKALEMIA, ON REPLACEMENT PLAN: Empiric IV antibiotics, cont meropenem f/u cultures including BC from ID 07/24 and here on 07/25 DVT prophylaxis. CONSULT ID, pulmonary and Cardiology consult. Echocardiogram, repeat blood cultures x 2. 38 MIN PT EXAM, chart review, > 50% of time spent with exam, chart review, pt care coordination BLOOD CULTURE LC Final Final GROWTH OF GRAM NEGATIVE RODS FINAL ID= [ENTEROBACTER AEROGENES] ENTEROBACTER AEROGENES ANTIMICROBIAL SUSCEPTIBILITY Final History of Present Illness History of Present Illness 07/28/2020 Patient seen and examined, Chart reviewed Moderate to large amount of stool is seen throughout the colon. No acute abnormality is seen. continue iv merem q 6 hrs D/W RN ON ECHO systolic function is mildly impaired. Estimated ejection fraction 45%. There is mild global hypokinesis of the left ventricle. Septal motion suggestive of conduction defect. Doppler and Color Flow revealed moderate pulmonic valvular regurgitation. The ascending aorta is mildly dilated at 3.8 cm. 07/27/2020 Patient seen and examined, DWRN Chart reviewed Moderate to large amount of stool is seen throughout the colon. No acute abnormality is seen. Vitals Vitals Vital Signs Date Time Temp Pulse Resp B/P (MAP) Pulse Ox O2 Delivery O2 Flow Rate FiO2 07/28/20 08:41 93 123/79 07/28/20 08:40 Room Air 07/28/20 07:35 98.8 18 90 98.8 Physical Exam Physical Exam GENERAL: , alert, calm, tired appearing male in no acute distress, WEAK HEENT: Pupils equally round. Normal conjunctivae. Oropharynx dry. NECK: Supple. LUNGS: Clear to auscultation. No accessory muscle use. HEART: S1 and S2 regular. ABDOMEN: Nondistended, soft, nontender with bowel sounds present. GENITOURINARY: Indwelling Davidson in place. EXTREMITIES: No gross edema or cyanosis. DERMATOLOGIC: Warm to touch. No signs of generalized rash. NEUROLOGIC: Alert, oriented to place. Follows commands.Lt sided weakness( chronic) LINES: Peripheral IV looks okay. General: Alert, Cooperative, No acute distress, Other (alert to person and place , CONFUSED TO DETAILS) Heart: Regular rate Lungs: Clear Abdomen: Normal bowel sounds, Soft, No tenderness Extremities: No clubbing, No cyanosis, No edema, No tenderness/swelling Skin: No significant lesion Labs LABS Mitral Valve MV E Velocity 80.3cm/s MV DECEL TIME 204ms MV A Velocity 78.8cm/s E/A Ratio 1.0 Pulmonary Valve PV Peak Velocity 103.2cm/s Tricuspid Valve TR P. Velocity 274cm/s TR Peak Gr. 30mmHg LEFT VENTRICLE The left ventricle is borderline dialated at 5.7 cm. There is normal left ventricular wall thickness. The systolic function is mildly impaired. Estimated ejection fraction 45-50%. There is mild global hypokinesis of the left ventricle. Tissue Doppler imaging reveals moderate left ventricular diastolic dysfunction. No left ventricle thrombus noted on this study. RIGHT VENTRICLE The right ventricle is normal size. There is normal right ventricular wall thickness. The right ventricular systolic function is normal. ATRIA The left atrium size is normal. The right atrium size is normal. The interatrial septum is intact with no evidence for an atrial septal defect or patent foramen ovale as noted on 2-D or Doppler imaging. AORTIC VALVE The aortic valve is normal in structure and function. Doppler and Color Flow revealed no significant aortic regurgitation. There is no significant aortic valvular stenosis. There is no aortic valvular vegetation. MITRAL VALVE The mitral valve is normal in structure and function. There is no evidence of mitral valve prolapse. There is no mitral valve stenosis. Doppler and Color-flow revealed mild mitral regurgitation. TRICUSPID VALVE The tricuspid valve is normal in structure and function. Doppler and Color Flow revealed mild tricuspid regurgitation. Estimated PAP 35 mmHg. There is no t ricuspid valve stenosis. PULMONIC VALVE Doppler and Color Flow revealed moderate pulmonic valvular regurgitation. There is no pulmonic valvular stenosis. GREAT VESSELS The aortic root is mildly enlarged. The ascending aorta is mildly dilated at 3.8 cm. The IVC is normal in size and collapses >50% with inspiration. PERICARDIAL EFFUSION There is no evidence of significant pericardial effusion. Critical Notification Critical Value: No <Conclusion> The systolic function is mildly impaired. Estimated ejection fraction 45%. There is mild global hypokinesis of the left ventricle. Septal motion suggestive of conduction defect. Doppler and Color Flow revealed moderate pulmonic valvular regurgitation. The ascending aorta is mildly dilated at 3.8 cm. Signed by : Caleb Ventura, Electronically Approved : 07/26/2020 16:04:46 DICTATED and SIGNED BY: CALEB VENTURA MD DATE: 07/26/20 [id number] SPEC #: [id number] TRACIE: 07/24/20 STATUS: COMP REQ #: [id number] RECD: 07/24/[address]: DEBRA KINGSLEY DO SOURCE: BLOOD ENTR: 07/25/20-[address] [facility] [address]: DORENE CASTELLANOS D.O. [facility]: ORDERED: BLD CULT - LC Procedure Result BLOOD CULTURE LC Final Final GROWTH OF GRAM NEGATIVE RODS FINAL ID= [ENTEROBACTER AEROGENES] ENTEROBACTER AEROGENES ANTIMICROBIAL SUSCEPTIBILITY Final Comment NEG CHENCHO 56 ENTEROBACTER AEROGENES ANTIBIOTIC RESULT INTERPRETATION AMPICILLIN/SULBACTAM <=4/2 R* AMIKACIN <=16 S AMPICILLIN 16 R* AMOXICILLIN/K CLAVULANATE 16/8 R* AZTREONAM <=4 S CEFTRIAXONE <=1 S CEFTAZIDIME 8 S CEFOTAXIME <=2 S CEFOXITIN >16 R CEFAZOLIN 4 R* CIPROFLOXACIN <=0.25 S CEFEPIME <=2 S CEFUROXIME <=4 R* CEFTAZIDIME/AVIBACTAM <=4 S ERTAPENEM <=0.5 S GENTAMICIN <=2 S LEVOFLOXACIN <=0.5 S MEROPENEM <=1 S PIPERACILLIN/TAZOBACTAM <=8 S TRIMETHOPRIM/SULFAMETHOXAZOLE <=0.5/9.5 S TETRACYCLINE <=4 S TOBRAMYCIN <=2 S Unless otherwise specified, Testing Performed by: [address] [address] For Inquires, the Physician may contact the Microbiology department at [phone] Assessment and Plan Assessmemt and Plan Problems Medical Problems: (1) LLL pneumonia Status: Acute Comment Review of Relevant I have reviewed the following items elizabeth (where applicable) has been applied. Labs Laboratory Tests Test 07/27/20 10:05 White Blood Count 11.1 x10^3/uL (4.0-11.0) Red Blood Count 3.71 x10^6/uL (4.30-5.70) Hemoglobin 10.9 g/dL (13.0-17.5) Hematocrit 33.4 % (39.0-53.0) Mean Corpuscular Volume 90 fL (79-100) Mean Corpuscular Hemoglobin 29 pg (25-35) Mean Corpuscular Hemoglobin Concent 33 g/dL (31-37) Red Cell Distribution Width 15.8 % (11.5-14.5) Platelet Count 224 x10^3/uL (140-400) Neutrophils (%) (Auto) 83 % (31-73) Lymphocytes (%) (Auto) 11 % (24-48) Monocytes (%) (Auto) 5 % (0-9) Eosinophils (%) (Auto) 0 % (0-3) Basophils (%) (Auto) 0 % (0-3) Neutrophils # (Auto) 9.3 x10^3/uL (1.8-7.7) Lymphocytes # (Auto) 1.2 x10^3/uL (1.0-4.8) Monocytes # (Auto) 0.6 x10^3/uL (0.0-1.1) Eosinophils # (Auto) 0.0 x10^3/uL (0.0-0.7) Basophils # (Auto) 0.0 x10^3/uL (0.0-0.2) Sodium Level 145 mmol/L (136-145) Potassium Level 3.0 mmol/L (3.5-5.1) Chloride Level 109 mmol/L (98-107) Carbon Dioxide Level 25 mmol/L (21-32) Anion Gap 11 (6-14) Blood Urea Nitrogen 19 mg/dL (8-26) Creatinine 0.9 mg/dL (0.7-1.3) Estimated GFR (Cockcroft-Gault) 80.8 BUN/Creatinine Ratio 21 (6-20) Glucose Level 153 mg/dL (70-99) Calcium Level 8.6 mg/dL (8.5-10.1) Total Bilirubin 0.5 mg/dL (0.2-1.0) Aspartate Amino Transf (AST/SGOT) 60 U/L (15-37) Alanine Aminotransferase (ALT/SGPT) 119 U/L (16-63) Alkaline Phosphatase 88 U/L (46-116) GZ-Niu-D-Type Natriuretic Peptide 3956 pg/mL (0-449) Total Protein 5.9 g/dL (6.4-8.2) Albumin 1.8 g/dL (3.4-5.0) Albumin/Globulin Ratio 0.4 (1.0-1.7) Triglycerides Level 87 mg/dL (0-150) Cholesterol Level 77 mg/dL (0-200) LDL Cholesterol, Calculated 45 mg/dL (0-100) VLDL Cholesterol, Calculated 17 mg/dL (0-40) Non-HDL Cholesterol Calculated 62 mg/dL (0-129) HDL Cholesterol 15 mg/dL (40-60) Cholesterol/HDL Ratio 5.1 Microbiology 07/25/20 Blood Culture - Preliminary, Resulted NO GROWTH AFTER 2 DAYS Medications Current Medications Sodium Chloride 500 ml @ 500 mls/hr 1X ONCE IV Last administered on 07/24/20at 21:23; Start 07/24/20 at 21:00; Stop 07/24/20 at 21:59; Status DC Ceftriaxone Sodium (Rocephin) 1 gm 1X ONCE IVP Last administered on 07/24/20at 22:45; Start 07/24/20 at 22:30; Stop 07/24/20 at 22:31; Status DC Azithromycin 250 ml @ 250 mls/hr 1X ONCE IV Last administered on 07/24/20at 22:47; Start 07/24/20 at 22:30; Stop 07/24/20 at 23:29; Status DC Ondansetron HCl (Zofran) 4 mg PRN Q8HRS PRN IV NAUSEA/VOMITING; Start 07/24/20 at 22:30; Stop 07/25/20 at 22:29; Status DC Sodium Chloride 1,000 ml @ 1,000 mls/hr 1X ONCE IV Last administered on 07/24/20at 23:55; Start 07/25/20 at 00:00; Stop 07/25/20 at 00:59; Status DC Sodium Chloride 1,000 ml @ 75 mls/hr [id number] IV Last administered on 07/28/20at 08:40; Start 07/25/20 at 04:30 Norepinephrine Bitartrate 8 mg/ Dextrose 258 ml @ 19.06 mls/ hr CONT PRN IV PER PROTOCOL Last administered on 07/25/20at 05:27; Start 07/25/20 at 05:15; Stop 07/26/20 at 12:57; Status DC Linezolid/Dextrose 300 ml @ 300 mls/hr Q12HR IV Last administered on 07/27/20at 07:50; Start 07/25/20 at 10:00; Stop 07/27/20 at 11:54; Status DC Sodium Chloride 1,000 ml @ 2,130 mls/hr Q29M IV Last administered on 07/25/20at 10:29; Start 07/25/20 at 10:00; Stop 07/25/20 at 11:00; Status DC Sodium Chloride 500 ml @ 1,000 mls/hr PRN Q30MIN PRN IV SEE COMMENTS; Start 07/25/20 at 10:00 Norepinephrine Bitartrate 8 mg/ Dextrose 258 ml @ 0 mls/hr CONT PRN IV SEE I/O RECORD; Start 07/25/20 at 10:00; Stop 07/25/20 at 09:54; Status DC Dobutamine HCl/ Dextrose 250 ml @ 5.526 mls/ hr CONT PRN IV SEE I/O RECORD; Start 07/25/20 at 10:00; Stop 07/26/20 at 13:18; Status DC Ondansetron HCl (Zofran) 4 mg PRN Q6HRS PRN IVP NAUSEA/VOMITING; Start 07/25/20 at 10:00 Famotidine (Pepcid Vial) 20 mg BID IVP Last administered on 07/28/20at 08:40; Start 07/25/20 at 21:00 Info (Non-Icu Electrolyte Protocol) 1 ea CONT PRN PRN MC SEE COMMENTS; Start 07/25/20 at 17:45 Heparin Sodium (Porcine) (Heparin Sodium) 5,000 unit Q8HRS SQ Last administered on 07/28/20at 06:06; Start 07/25/20 at 14:00 Sodium Chloride (Normal Saline Flush) 3 ml QSHIFT PRN IV AFTER MEDS AND BLOOD DRAWS; Start 07/25/20 at 10:00 Bisacodyl (Dulcolax Supp) 10 mg PRN DAILY PRN CO CONSTIPATION; Start 07/25/20 at 10:00 Piperacillin Sod/ Tazobactam Sod (Zosyn Per Pharmacy) 1 each PRN DAILY PRN MC SEE COMMENTS; Start 07/25/20 at 11:15 Piperacillin Sod/ Tazobactam Sod 3.375 gm/Sodium Chloride 50 ml @ 100 mls/hr Q6HRS IV Last administered on 07/27/20at 11:16; Start 07/25/20 at 12:00; Stop 07/27/20 at 11:54; Status DC Aspirin (Ecotrin) 81 mg DAILYWBKFT PO Last administered on 07/28/20at 08:41; Start 07/26/20 at 08:00 Diclofenac Sodium (Voltaren) 1 chayo BID TP Last administered on 07/28/20at 08:40; Start 07/25/20 at 21:00 Acetaminophen (Tylenol) 650 mg PRN Q6HRS PRN PO MILD PAIN / TEMP > 100.3'F Last administered on 07/25/20at 21:11; Start 07/25/20 at 20:15 Oxycodone HCl (Roxicodone) 5 mg PRN Q6HRS PRN PO MODERATE - SEVERE PAIN Last administered on 07/28/20at 08:40; Start 07/25/20 at 20:15 Zolpidem Tartrate (Ambien) 5 mg 1X PRN PRN PO INSOMNIA Last administered on 07/25/20at 22:04; Start 07/25/20 at 22:00; Stop 07/27/20 at 21:59; Status DC Perflutren Protein Type A Microsphe (Optison) 0.66 mg STK-MED ONCE IV ; Start 07/26/20 at 09:33; Stop 07/26/20 at 09:33; Status DC Perflutren Protein Type A Microsphe (Optison) 0.66 mg 1X ONCE IV Last administered on 07/26/20at 10:16; Start 07/26/20 at 10:15; Stop 07/26/20 at 10:19; Status DC Lactobacillus Rhamnosus (Culturelle) 1 cap BID PO Last administered on 07/28/20at 08:41; Start 07/26/20 at 21:00 Bisacodyl (Dulcolax Supp) 10 mg 1X ONCE CO ; Start 07/27/20 at 10:45; Stop 07/27/20 at 10:46; Status DC Meropenem 500 mg/ Sodium Chloride 50 ml @ 100 mls/hr Q6HRS IV Last administered on 07/28/20at 06:06; Start 07/27/20 at 12:00 Potassium Chloride (Klor-Con) 40 meq 1X ONCE PO ; Start 07/27/20 at 16:30; Stop 07/27/20 at 16:12; Status DC Furosemide (Lasix) 40 mg 1X ONCE PO Last administered on 07/27/20at 16:23; Start 07/27/20 at 16:00; Stop 07/27/20 at 16:08; Status DC Furosemide (Lasix) 20 mg DAILY PO Last administered on 07/28/20at 08:41; Start 07/28/20 at 09:00 Metoprolol Succinate (Toprol Xl) 25 mg DAILY PO Last administered on 07/28/20at 08:41; Start 07/28/20 at 09:00 Potassium Chloride (Klor-Con) 20 meq DAILYWBKFT PO ; Start 07/28/20 at 08:00; Stop 07/27/20 at 16:12; Status DC Potassium Chloride (Klor-Con) 40 meq 1X ONCE PO ; Start 07/27/20 at 21:00; Stop 07/27/20 at 16:12; Status DC Potassium Bicarbonate (Potassium Effervescent Tablet) 40 meq 1X ONCE PEG Last administered on 07/27/20at 16:21; Start 07/27/20 at 16:15; Stop 07/27/20 at 16:16; Status DC Potassium Bicarbonate (Potassium Effervescent Tablet) 40 meq 1X ONCE PEG Last administered on 07/27/20at 21:14; Start 07/27/20 at 21:00; Stop 07/27/20 at 21:01; Status DC Potassium Bicarbonate (Potassium Effervescent Tablet) 20 meq DAILY08 PEG Last administered on 07/28/20at 08:41; Start 07/28/20 at 08:00 Lorazepam (Ativan Inj) 0.5 mg PRN Q3HRS PRN IVP ANXIETY / AGITATION; Start 07/28/20 at 04:15 Active Scripts Active Reported A and D Ointment (Vits A and D/White Pet/Lanolin) 42.5 Gm Oint...g. 1 Chayo TP DAILY Trazodone Hcl 50 Mg Tablet 50 Mg PEG HS Simethicone 80 Mg Tab.chew 80 Mg PEG Q6HRS PRN Seroquel (Quetiapine Fumarate) 25 Mg Tablet 1 Tab PEG QHS Miralax (Polyethylene Glycol 3350) 17 Gm Powd.pack 1 Packet PO DAILY PRN 2 Days dissolve in water [oxycodone vandana ] 10 Mg PEG Q4HRS PRN Robaxin-750 (Methocarbamol) 750 Mg Tablet 1 Tab PO Q8HRS 30 Days Melatonin 5 Mg Tab.rapdis 1 Tab PEG QHS 30 Days Lipitor (Atorvastatin Calcium) 10 Mg Tablet 1 Tab PEG DAILY Lidocaine 1 Each Adh..patch 1 Each TP DAILY Tussin (Guaifenesin) 100 Mg/5 Ml Liquid 10 Ml PO Q4HRS PRN 10 Days Adult Glycerin (Glycerin) 1 Each Supp.rect 1 Each RC DAILY PRN Gabapentin Oral Solution (Gabapentin) 250 Mg/5 Ml Solution 4 Ml PO Q8HRS Doxazosin Mesylate 2 Mg Tablet 1 Mg PEG DAILY [docusate sodium liq] 100 Mg PEG BID Voltaren (Diclofenac Sodium) 100 Gm Gel..gram. 1 Chayo TP QID 30 Days apply to affected area(s) Artificial Tears Eye Drops (Dextran 70/Hypromellose) 15 Ml Drops 1 Drop EACHEYE QID PRN [debrox solution] 5 Drop EACH EAR QID [ceftriaxone] 1 Gm IV DAILY PRN Azithromycin Tablet (Azithromycin) 250 Mg Tablet 250 Mg PO DAILY X5 days start 07/25 Aricept (Donepezil Hcl) 10 Mg Tablet 1 Tab PEG DAILY 30 Days Acetaminophen 650 Mg/20.3 Ml Solution 650 Mg PEG Q6HRS PRN Vitals/I & O Vital Sign - Last 24 Hours 07/27/20 07/27/20 07/27/20 07/27/20 11:00 12:59 13:59 15:00 Temp 98.8 98.2 98.8 98.2 Pulse 93 90 Resp 20 22 B/P (MAP) 111/59 (76) 107/45 (65) Pulse Ox 91 91 91 92 O2 Delivery Room Air Room Air Room Air Room Air 07/27/20 07/27/20 07/27/20 07/28/20 19:42 20:00 22:27 03:16 Temp 97.8 98.6 97.4 97.8 98.6 97.4 Pulse 95 92 89 Resp 18 16 18 B/P (MAP) 118/62 (80) 104/52 (69) 116/73 (87) Pulse Ox 92 94 90 O2 Delivery Room Air Room Air Room Air Room Air 07/28/20 07/28/20 07/28/20 07/28/20 03:36 04:36 07:35 08:00 Temp 98.8 98.8 Pulse 93 Resp 18 B/P (MAP) 123/79 (94) Pulse Ox 90 O2 Delivery Room Air Room Air Room Air Room Air 07/28/20 07/28/20 08:40 08:41 Pulse 93 B/P (MAP) 123/79 O2 Delivery Room Air Intake and Output 07/27/20 07/27/20 07/28/20 15:00 23:00 07:00 Intake Total 720 ml 450 ml 915 ml Output Total 400 ml 900 ml Balance 720 ml 50 ml 15 ml Justicifation of Admission Dx: Justifications for Admission: Justification of Admission Dx: Yes LUZ ELENA BECERRA MD Jul 28, 2020 10:27
[2020-07-28 10:32] VITALS: BP 102/58
--- NOTE | 2020-07-28 10:46 | PDOC ---
Infectious Disease Note Subjective: Subjective Patient feels better today Denies any fever, chills, headache nausea or vomiting, diarrhea Vital Signs: Vital Signs Vital Signs Date Time Temp Pulse Resp B/P (MAP) Pulse Ox O2 Delivery O2 Flow Rate FiO2 07/28/20 10:32 98.5 95 18 102/58 (73) 93 Room Air 98.5 Physical Exam: PHYSICAL EXAM GENERAL: , alert, calm, tired appearing male in no acute distress, WEAK HEENT: Pupils equally round. Normal conjunctivae. Oropharynx dry. NECK: Supple. LUNGS: Clear to auscultation. No accessory muscle use. HEART: S1 and S2 regular. ABDOMEN: Nondistended, soft, nontender with bowel sounds present. GENITOURINARY: Indwelling Davidson in place. EXTREMITIES: No gross edema or cyanosis. DERMATOLOGIC: Warm to touch. No signs of generalized rash. NEUROLOGIC: Alert, oriented to place. Follows commands.Lt sided weakness( chronic) LINES: Peripheral IV looks okay. Medications: Inpatient Meds: Medications reviewed. Labs: Micro RUN DATE: 07/27/20 [facility] LAB *LIVE* PAGE 1 RUN TIME: 726 Specimen Inquiry PATIENT: JOSE DEMPSEY ACCT: [id number] LOC: [address] [place] [address] U: [id number] AGE/SX: 84/M ROOM: 202 RE07/24/[address]: LUZ ELENA BECERRA MD : [id number] BED: 1 DIS: STATUS: ADM IN TLOC: --------- --- SPEC #: [id number] TRACIE: 07/24/20 STATUS: COMP REQ #: [id number] RECD: 07/24/[address]: DEBRA KINGSLEY DO SOURCE: BLOOD ENTR: 07/25/20-[address]: DORENE CASTELLANOS D.O. [facility]: ORDERED: BLD CULT - LC Procedure Result BLOOD CULTURE LC Final Final GROWTH OF GRAM NEGATIVE RODS FINAL ID= [ENTEROBACTER AEROGENES] ENTEROBACTER AEROGENES ANTIMICROBIAL SUSCEPTIBILITY Final Comment NEG CHENCHO 56 ENTEROBACTER AEROGENES ANTIBIOTIC RESULT INTERPRETATION AMPICILLIN/SULBACTAM <=4/2 R* AMIKACIN <=16 S AMPICILLIN 16 R* AMOXICILLIN/K CLAVULANATE 16/8 R* AZTREONAM <=4 S CEFTRIAXONE <=1 S CEFTAZIDIME 8 S CEFOTAXIME <=2 S CEFOXITIN >16 R CEFAZOLIN 4 R* CIPROFLOXACIN <=0.25 S CEFEPIME <=2 S CEFUROXIME <=4 R* CEFTAZIDIME/AVIBACTAM <=4 S ERTAPENEM <=0.5 S GENTAMICIN <=2 S LEVOFLOXACIN <=0.5 S MEROPENEM <=1 S PIPERACILLIN/TAZOBACTAM <=8 S TRIMETHOPRIM/SULFAMETHOXAZOLE <=0.5/9.5 S TETRACYCLINE <=4 S TOBRAMYCIN <=2 S Unless otherwise specified, Testing Performed by: [address] [address] For Inquires, the Physician may contact the Microbiology department at [phone] Objective: Assessment: 1.Enterobacter bacteremia present on admission 2/4 bottles here and at [facility],source likely GI 2. Sepsis with hypotension. Improved 3. Leukocytosis. Improving 4. Aspiration pneumonia. 5. Transaminitis. 5. Dementia. 6. History of cerebrovascular accident. 7. Dysphagia. Plan: Plan of Care cont meropenem 07/27 Monitor lab values and cultures Maintain aspiration precautions Discussed with nursing GABE MEIER MD Jul 28, 2020 10:46
[2020-07-28 13:21] LABS: BASO # 0.1 x10^3/uL (0.0-0.2); BASO % 1 % (0-3); EOS # 0.1 x10^3/uL (0.0-0.7); EOS % 1 % (0-3); HEMATOCRIT 32.4 % (39.0-53.0); HEMOGLOBIN 10.7 g/dL (13.0-17.5); LYMPH # 1.4 x10^3/uL (1.0-4.8); LYMPH % 15 % (24-48); MEAN CORPUSCULAR HEMOGLOBIN 29 pg (25-35); MEAN CORPUSCULAR HGB CONC 33 g/dL (31-37); MEAN CORPUSCULAR VOLUME 89 fL (79-100); MONO # 0.7 x10^3/uL (0.0-1.1); MONO % 8 % (0-9); NEUT # 6.6 x10^3/uL (1.8-7.7); NEUT % 75 % (31-73); PLATELET COUNT 256 x10^3/uL (140-400); RED BLOOD COUNT 3.65 x10^6/uL (4.30-5.70); RED CELL DISTRIBUTION WIDTH 15.8 % (11.5-14.5); WHITE BLOOD COUNT 8.8 x10^3/uL (4.0-11.0)
[2020-07-28 13:42] LABS: CALCIUM 7.6 mg/dL (8.5-10.1); CREATININE 0.9 mg/dL (0.7-1.3); GFR 80.8; POTASSIUM 3.5 mmol/L (3.5-5.1)
[2020-07-28 14:40] VITALS: BP 157/76
[2020-07-28 19:58] VITALS: BP 104/53
[2020-07-28 22:38] VITALS: BP 116/70
[2020-07-29 03:00] VITALS: BP 112/61
[2020-07-29] MEDS: oxyCODONE IR 5 MG TABLET PO PRN ×3 (03:40→17:18)
[2020-07-29] MEDS: MEROPENEM 500 MG in IV NORMAL SALINE 50ML 50 ML IV SCH ×4 (05:57→23:54)
[2020-07-29] MEDS: HEPARIN for SUB-Q USE 5,000 UNIT/ML VIAL. SQ SCH ×3 (06:08→20:18)
[2020-07-29 07:00] VITALS: BP 100/54
--- NOTE | 2020-07-29 07:55 | PDOC ---
PULMONARY PROGRESS NOTES DATE: 07/29/20 TIME: 07:54 Subjective on RA denies sob, has occ cough no overnight concerns Vitals Vital Signs Date Time Temp Pulse Resp B/P (MAP) Pulse Ox O2 Delivery O2 Flow Rate FiO2 07/29/20 07:00 98.4 73 16 100/54 (69) 92 Room Air 98.4 ROS: No Nausea, No Chest Pain, No Abdominal Pain HEENT: Other (nc at) Lungs: Clear Cardiovascular: S1 Abdomen: Soft Neuro Exam: Alert Extremities: No Edema Skin: Warm Labs Laboratory Tests Test 07/27/20 10:05 07/28/20 13:13 White Blood Count 11.1 x10^3/uL (4.0-11.0) 8.8 x10^3/uL (4.0-11.0) Red Blood Count 3.71 x10^6/uL (4.30-5.70) 3.65 x10^6/uL (4.30-5.70) Hemoglobin 10.9 g/dL (13.0-17.5) 10.7 g/dL (13.0-17.5) Hematocrit 33.4 % (39.0-53.0) 32.4 % (39.0-53.0) Mean Corpuscular Volume 90 fL (79-100) 89 fL (79-100) Mean Corpuscular Hemoglobin 29 pg (25-35) 29 pg (25-35) Mean Corpuscular Hemoglobin Concent 33 g/dL (31-37) 33 g/dL (31-37) Red Cell Distribution Width 15.8 % (11.5-14.5) 15.8 % (11.5-14.5) Platelet Count 224 x10^3/uL (140-400) 256 x10^3/uL (140-400) Neutrophils (%) (Auto) 83 % (31-73) 75 % (31-73) Lymphocytes (%) (Auto) 11 % (24-48) 15 % (24-48) Monocytes (%) (Auto) 5 % (0-9) 8 % (0-9) Eosinophils (%) (Auto) 0 % (0-3) 1 % (0-3) Basophils (%) (Auto) 0 % (0-3) 1 % (0-3) Neutrophils # (Auto) 9.3 x10^3/uL (1.8-7.7) 6.6 x10^3/uL (1.8-7.7) Lymphocytes # (Auto) 1.2 x10^3/uL (1.0-4.8) 1.4 x10^3/uL (1.0-4.8) Monocytes # (Auto) 0.6 x10^3/uL (0.0-1.1) 0.7 x10^3/uL (0.0-1.1) Eosinophils # (Auto) 0.0 x10^3/uL (0.0-0.7) 0.1 x10^3/uL (0.0-0.7) Basophils # (Auto) 0.0 x10^3/uL (0.0-0.2) 0.1 x10^3/uL (0.0-0.2) Sodium Level 145 mmol/L (136-145) 144 mmol/L (136-145) Potassium Level 3.0 mmol/L (3.5-5.1) 3.5 mmol/L (3.5-5.1) Chloride Level 109 mmol/L (98-107) 111 mmol/L (98-107) Carbon Dioxide Level 25 mmol/L (21-32) 29 mmol/L (21-32) Anion Gap 11 (6-14) 4 (6-14) Blood Urea Nitrogen 19 mg/dL (8-26) 14 mg/dL (8-26) Creatinine 0.9 mg/dL (0.7-1.3) 0.9 mg/dL (0.7-1.3) Estimated GFR (Cockcroft-Gault) 80.8 80.8 BUN/Creatinine Ratio 21 (6-20) Glucose Level 153 mg/dL (70-99) 96 mg/dL (70-99) Calcium Level 8.6 mg/dL (8.5-10.1) 7.6 mg/dL (8.5-10.1) Total Bilirubin 0.5 mg/dL (0.2-1.0) Aspartate Amino Transf (AST/SGOT) 60 U/L (15-37) Alanine Aminotransferase (ALT/SGPT) 119 U/L (16-63) Alkaline Phosphatase 88 U/L (46-116) MT-Jqg-I-Type Natriuretic Peptide 3956 pg/mL (0-449) Total Protein 5.9 g/dL (6.4-8.2) Albumin 1.8 g/dL (3.4-5.0) Albumin/Globulin Ratio 0.4 (1.0-1.7) Triglycerides Level 87 mg/dL (0-150) Cholesterol Level 77 mg/dL (0-200) LDL Cholesterol, Calculated 45 mg/dL (0-100) VLDL Cholesterol, Calculated 17 mg/dL (0-40) Non-HDL Cholesterol Calculated 62 mg/dL (0-129) HDL Cholesterol 15 mg/dL (40-60) Cholesterol/HDL Ratio 5.1 Laboratory Tests Test 07/28/20 13:13 White Blood Count 8.8 x10^3/uL (4.0-11.0) Red Blood Count 3.65 x10^6/uL (4.30-5.70) Hemoglobin 10.7 g/dL (13.0-17.5) Hematocrit 32.4 % (39.0-53.0) Mean Corpuscular Volume 89 fL (79-100) Mean Corpuscular Hemoglobin 29 pg (25-35) Mean Corpuscular Hemoglobin Concent 33 g/dL (31-37) Red Cell Distribution Width 15.8 % (11.5-14.5) Platelet Count 256 x10^3/uL (140-400) Neutrophils (%) (Auto) 75 % (31-73) Lymphocytes (%) (Auto) 15 % (24-48) Monocytes (%) (Auto) 8 % (0-9) Eosinophils (%) (Auto) 1 % (0-3) Basophils (%) (Auto) 1 % (0-3) Neutrophils # (Auto) 6.6 x10^3/uL (1.8-7.7) Lymphocytes # (Auto) 1.4 x10^3/uL (1.0-4.8) Monocytes # (Auto) 0.7 x10^3/uL (0.0-1.1) Eosinophils # (Auto) 0.1 x10^3/uL (0.0-0.7) Basophils # (Auto) 0.1 x10^3/uL (0.0-0.2) Sodium Level 144 mmol/L (136-145) Potassium Level 3.5 mmol/L (3.5-5.1) Chloride Level 111 mmol/L (98-107) Carbon Dioxide Level 29 mmol/L (21-32) Anion Gap 4 (6-14) Blood Urea Nitrogen 14 mg/dL (8-26) Creatinine 0.9 mg/dL (0.7-1.3) Estimated GFR (Cockcroft-Gault) 80.8 Glucose Level 96 mg/dL (70-99) Calcium Level 7.6 mg/dL (8.5-10.1) Medications Active Scripts Medications Dose Route/Sig Max Daily Dose Days Date Category Dose Instructions A and D Ointment (Vits A and D/White Pet/Lanolin) 42.5 Gm Oint...g. 1 Chayo TP DAILY 07/25/20 Reported Trazodone Hcl 50 Mg Tablet 50 Mg PEG HS 07/25/20 Reported Simethicone 80 Mg Tab.chew 80 Mg PEG Q6HRS PRN 07/25/20 Reported Seroquel (Quetiapine Fumarate) 25 Mg Tablet 1 Tab PEG QHS 07/25/20 Reported Miralax (Polyethylene Glycol 3350) 17 Gm Powd.pack 1 Packet PO DAILY PRN 2 07/25/20 Reported dissolve in water [oxycodone vandana ] 10 Mg PEG Q4HRS PRN 07/25/20 Reported Robaxin-750 (Methocarbamol) 750 Mg Tablet 1 Tab PO Q8HRS 30 07/25/20 Reported Melatonin 5 Mg Tab.rapdis 1 Tab PEG QHS 30 07/25/20 Reported Lipitor (Atorvastatin Calcium) 10 Mg Tablet 1 Tab PEG DAILY 07/25/20 Reported Lidocaine 1 Each Adh..patch 1 Each TP DAILY 07/25/20 Reported Tussin (Guaifenesin) 100 Mg/5 Ml Liquid 10 Ml PO Q4HRS PRN 10 07/25/20 Reported Adult Glycerin (Glycerin) 1 Each Supp.rect 1 Each RC DAILY PRN 07/25/20 Reported Gabapentin Oral Solution (Gabapentin) 250 Mg/5 Ml Solution 4 Ml PO Q8HRS 07/25/20 Reported Doxazosin Mesylate 2 Mg Tablet 1 Mg PEG DAILY 07/25/20 Reported [docusate sodium liq] 100 Mg PEG BID 07/25/20 Reported Voltaren (Diclofenac Sodium) 100 Gm Gel..gram. 1 Chayo TP QID 30 07/25/20 Reported apply to affected area(s) Artificial Tears Eye Drops (Dextran 70/Hypromellose) 15 Ml Drops 1 Drop EACHEYE QID PRN 07/25/20 Reported [debrox solution] 5 Drop EACH EAR QID 07/25/20 Reported [ceftriaxone] 1 Gm IV DAILY PRN 07/25/20 Reported Azithromycin Tablet (Azithromycin) 250 Mg Tablet 250 Mg PO DAILY 07/25/20 Reported X5 days start 07/25 Aricept (Donepezil Hcl) 10 Mg Tablet 1 Tab PEG DAILY 30 07/25/20 Reported Acetaminophen 650 Mg/20.3 Ml Solution 650 Mg PEG Q6HRS PRN 07/25/20 Reported Comments ECHO<Conclusion> The systolic function is mildly impaired. Estimated ejection fraction 45%. There is mild global hypokinesis of the left ventricle. Septal motion suggestive of conduction defect. Doppler and Color Flow revealed moderate pulmonic valvular regurgitation. The ascending aorta is mildly dilated at 3.8 cm. Impression . IMPRESSION: 1. Acute hypoxemic respiratory failure, multifactorial, suspect combination of congestive heart failure and pneumonia-- resolved 2. Abnormal x-ray compatible with pneumonia, possible gram-negative, gram-positive. 3. SARS Covid 2 neg 4. Hypotension related to sepsis. 5. Acute kidney injury--improved 6. Protein malnutrition present upon admission. 7. Elevated liver chemistries. 8. Chronic anemia. Other comorbidities as listed above, dementia, hyperlipidemia, previous cerebrovascular accident. 9. Enterobacter bacteremia present on admission 2/4 bottles here and at [facility],source likely GI Plan . Pt. is stable from respiratory standpoint, remains on room air PT. has improved with diuresis ECHO reviewed- cardiomyopathy Follow Cardiology recs Follow ID recs for ABX PT/OT increase activity DVT/GI PPX discussed w MAX Del Rosario MD Jul 29, 2020 07:54
[2020-07-29 08:29] LABS: BASO % 0 % (0-3); EOS # 0.1 x10^3/uL (0.0-0.7); EOS % 2 % (0-3); HEMOGLOBIN 10.6 g/dL (13.0-17.5); LYMPH # 1.6 x10^3/uL (1.0-4.8); LYMPH % 18 % (24-48); MEAN CORPUSCULAR HEMOGLOBIN 29 pg (25-35); MEAN CORPUSCULAR HGB CONC 33 g/dL (31-37); MEAN CORPUSCULAR VOLUME 88 fL (79-100); MONO # 0.7 x10^3/uL (0.0-1.1); MONO % 8 % (0-9); NEUT # 6.4 x10^3/uL (1.8-7.7); NEUT % 72 % (31-73); PLATELET COUNT 290 x10^3/uL (140-400); RED BLOOD COUNT 3.63 x10^6/uL (4.30-5.70); RED CELL DISTRIBUTION WIDTH 15.9 % (11.5-14.5); WHITE BLOOD COUNT 8.9 x10^3/uL (4.0-11.0)
--- NOTE | 2020-07-29 08:44 | PDOC ---
Infectious Disease Note Subjective: Subjective Patient without complaints Denies any fever, chills, headache nausea or vomiting, diarrhea Vital Signs: Vital Signs Vital Signs Date Time Temp Pulse Resp B/P (MAP) Pulse Ox O2 Delivery O2 Flow Rate FiO2 07/29/20 07:48 Room Air 2.0 07/29/20 07:00 98.4 73 16 100/54 (69) 92 98.4 Physical Exam: PHYSICAL EXAM GENERAL: , alert, calm, tired appearing male in no acute distress, WEAK HEENT: Pupils equally round. Normal conjunctivae. Oropharynx dry. NECK: Supple. LUNGS: Clear to auscultation. No accessory muscle use. HEART: S1 and S2 regular. ABDOMEN: Nondistended, soft, nontender with bowel sounds present. PEG tube present GENITOURINARY: Indwelling Davidson in place. EXTREMITIES: No gross edema or cyanosis. DERMATOLOGIC: Warm to touch. No signs of generalized rash. NEUROLOGIC: Alert, oriented to place. Follows commands.Lt sided weakness( chronic) LINES: Peripheral IV looks okay. Medications: Inpatient Meds: Medications reviewed. Labs: Lab Laboratory Tests Test 07/28/20 13:13 07/29/20 07:55 White Blood Count 8.8 x10^3/uL (4.0-11.0) 8.9 x10^3/uL (4.0-11.0) Red Blood Count 3.65 x10^6/uL (4.30-5.70) 3.63 x10^6/uL (4.30-5.70) Hemoglobin 10.7 g/dL (13.0-17.5) 10.6 g/dL (13.0-17.5) Hematocrit 32.4 % (39.0-53.0) 32.0 % (39.0-53.0) Mean Corpuscular Volume 89 fL (79-100) 88 fL (79-100) Mean Corpuscular Hemoglobin 29 pg (25-35) 29 pg (25-35) Mean Corpuscular Hemoglobin Concent 33 g/dL (31-37) 33 g/dL (31-37) Red Cell Distribution Width 15.8 % (11.5-14.5) 15.9 % (11.5-14.5) Platelet Count 256 x10^3/uL (140-400) 290 x10^3/uL (140-400) Neutrophils (%) (Auto) 75 % (31-73) 72 % (31-73) Lymphocytes (%) (Auto) 15 % (24-48) 18 % (24-48) Monocytes (%) (Auto) 8 % (0-9) 8 % (0-9) Eosinophils (%) (Auto) 1 % (0-3) 2 % (0-3) Basophils (%) (Auto) 1 % (0-3) 0 % (0-3) Neutrophils # (Auto) 6.6 x10^3/uL (1.8-7.7) 6.4 x10^3/uL (1.8-7.7) Lymphocytes # (Auto) 1.4 x10^3/uL (1.0-4.8) 1.6 x10^3/uL (1.0-4.8) Monocytes # (Auto) 0.7 x10^3/uL (0.0-1.1) 0.7 x10^3/uL (0.0-1.1) Eosinophils # (Auto) 0.1 x10^3/uL (0.0-0.7) 0.1 x10^3/uL (0.0-0.7) Basophils # (Auto) 0.1 x10^3/uL (0.0-0.2) 0.0 x10^3/uL (0.0-0.2) Sodium Level 144 mmol/L (136-145) Potassium Level 3.5 mmol/L (3.5-5.1) Chloride Level 111 mmol/L (98-107) Carbon Dioxide Level 29 mmol/L (21-32) Anion Gap 4 (6-14) Blood Urea Nitrogen 14 mg/dL (8-26) Creatinine 0.9 mg/dL (0.7-1.3) Estimated GFR (Cockcroft-Gault) 80.8 Glucose Level 96 mg/dL (70-99) Calcium Level 7.6 mg/dL (8.5-10.1) Micro RUN DATE: 07/27/20 [facility] LAB *LIVE* PAGE 1 RUN TIME: 726 Specimen Inquiry PATIENT: JOSE DEMPSEY ACCT: [id number] LOC: [address] [place] [address] U: [id number] AGE/SX: 84/M ROOM: [facility] [place] RE07/24/[address]: LUZ ELENA BECERRA MD : [id number] BED: 1 DIS: STATUS: ADM IN TLOC: --- --------- SPEC #: [id number] TRACIE: 07/24/20 STATUS: COMP REQ #: [id number] RECD: 07/24/[address]: DEBRA KINGSLEY DO SOURCE: BLOOD ENTR: 07/25/20-3 [facility] [address]: DORENE CASTELLANOS D.O. SPDESC: ORDERED: BLD CULT - LC Procedure Result BLOOD CULTURE LC Final Final GROWTH OF GRAM NEGATIVE RODS FINAL ID= [ENTEROBACTER AEROGENES] ENTEROBACTER AEROGENES ANTIMICROBIAL SUSCEPTIBILITY Final Comment NEG CHENCHO 56 ENTEROBACTER AEROGENES ANTIBIOTIC RESULT INTERPRETATION AMPICILLIN/SULBACTAM <=4/2 R* AMIKACIN <=16 S AMPICILLIN 16 R* AMOXICILLIN/K CLAVULANATE 16/8 R* AZTREONAM <=4 S CEFTRIAXONE <=1 S CEFTAZIDIME 8 S CEFOTAXIME <=2 S CEFOXITIN >16 R CEFAZOLIN 4 R* CIPROFLOXACIN <=0.25 S CEFEPIME <=2 S CEFUROXIME <=4 R* CEFTAZIDIME/AVIBACTAM <=4 S ERTAPENEM <=0.5 S GENTAMICIN <=2 S LEVOFLOXACIN <=0.5 S MEROPENEM <=1 S PIPERACILLIN/TAZOBACTAM <=8 S TRIMETHOPRIM/SULFAMETHOXAZOLE <=0.5/9.5 S TETRACYCLINE <=4 S TOBRAMYCIN <=2 S Unless otherwise specified, Testing Performed by: [address] [address] For Inquires, the Physician may contact the Microbiology department at [phone] Objective: Assessment: 1.Enterobacter bacteremia present on admission 2/4 bottles here and at [facility],source likely GI 2. Sepsis with hypotension. Improved 3. Leukocytosis. Improving 4. Aspiration pneumonia. 5. Transaminitis. 5. Dementia. 6. History of cerebrovascular accident. 7. Dysphagia. Plan: Plan of Care cont meropenem 07/27 Monitor lab values and cultures Maintain aspiration precautions Discussed with nursing GABE MEIER MD Jul 29, 2020 08:44
[2020-07-29 08:47] LABS: ALBUMIN 1.6 g/dL (3.4-5.0); ALBUMIN/GLOBULIN RATIO 0.4 (1.0-1.7); CALCIUM 8.1 mg/dL (8.5-10.1); CREATININE 0.9 mg/dL (0.7-1.3); GFR 80.8; POTASSIUM 3.6 mmol/L (3.5-5.1); TOTAL BILIRUBIN 0.5 mg/dL (0.2-1.0); TOTAL PROTEIN 5.6 g/dL (6.4-8.2)
[2020-07-29] MEDS: LACTOBACILLUS RHAMNOSUS GG 1 CAPSULE. PO SCH ×2 (08:51→20:11)
[2020-07-29] MEDS: POTASSIUM BICARB 20 MEQ EFFERVESCENT TABLET. PEG SCH (08:51)
[2020-07-29] MEDS: ASPIRIN ENTERIC COATED 81 MG TABLET.DR. PO SCH (08:51)
[2020-07-29] MEDS: FUROSEMIDE 20 MG TABLET PO SCH (08:51)
[2020-07-29] MEDS: DICLOFENAC SODIUM 1% TOPICAL GEL 100GM TUBE. TP SCH ×2 (08:52→20:20)
[2020-07-29] MEDS: METOPROLOL SUCC 24HR ER 25 MG TAB.ER.24H. PO SCH (08:52)
[2020-07-29] MEDS: FAMOTIDINE 20 MG/2 ML VIAL IVP SCH ×2 (08:52→20:05)
--- NOTE | 2020-07-29 10:19 | PDOC ---
PROGRESS NOTES Date of Service: DATE: 07/29/20 TIME: 10:18 Chief Complaint Chief Complaint IMPRESSION ASSESSMENT: 84-year-old male with admission for pneumonia who became hypotensive and septic after admission was transferred to [facility] consult Infectious Disease as well as Pulmonary and Cardiology. 1. Gram-negative rods blood cultures. Enterobacter bacteremia present on admission 07/05 bottles here and at [facility],source likely GI 2. Septic shock. 3. Dementia. 4. Remote tobacco abuse. 5. Severe protein caloric malnutrition. 6. HYPOKALEMIA, ON REPLACEMENT PLAN: Empiric IV antibiotics, cont meropenem f/u cultures including BC from [place] 07/24 and here on 07/25 DVT prophylaxis. CONSULT ID, pulmonary and Cardiology consult. Echocardiogram, repeat blood cultures x 2. add zyprexia 2.5 mg po daily 28 MIN PT EXAM, chart review, > 50% of time spent with exam, chart review, pt care coordination BLOOD CULTURE LC Final Final GROWTH OF GRAM NEGATIVE RODS FINAL ID= [ENTEROBACTER AEROGENES] ENTEROBACTER AEROGENES ANTIMICROBIAL SUSCEPTIBILITY Final History of Present Illness History of Present Illness 07/29/2020 Patient seen and examined, seem mildly agitated at times, will add zyprexa 2.5 mg po daily Chart reviewed Moderate to large amount of stool is seen throughout the colon. No acute abnormality is seen. continue iv merem q 6 hrs D/W RN ON ECHO systolic function is mildly impaired. Estimated ejection fraction 45%. There is mild global hypokinesis of the left ventricle. Septal motion suggestive of conduction defect. Doppler and Color Flow revealed moderate pulmonic valvular regurgitation. The ascending aorta is mildly dilated at 3.8 cm. Discharge Recommendations * Director Dance Care 07/28/2020 Patient seen and examined, DWRN Chart reviewed Moderate to large amount of stool is seen throughout the colon. No acute abnormality is seen. 07/27/2020 Patient seen and examined, DWRN Chart reviewed Moderate to large amount of stool is seen throughout the colon. No acute abnormality is seen. Vitals Vitals Vital Signs Date Time Temp Pulse Resp B/P (MAP) Pulse Ox O2 Delivery O2 Flow Rate FiO2 07/29/20 08:52 73 100/54 07/29/20 07:48 Room Air 2.0 07/29/20 07:00 98.4 16 92 98.4 Physical Exam Physical Exam GENERAL: , alert, calm, tired appearing male in no acute distress, WEAK HEENT: Pupils equally round. Normal conjunctivae. Oropharynx dry. NECK: Supple. LUNGS: Clear to auscultation. No accessory muscle use. HEART: S1 and S2 regular. ABDOMEN: Nondistended, soft, nontender with bowel sounds present. PEG tube present GENITOURINARY: Indwelling Davidson in place. EXTREMITIES: No gross edema or cyanosis. DERMATOLOGIC: Warm to touch. No signs of generalized rash. NEUROLOGIC: Alert, oriented to place. Follows commands.Lt sided weakness( chronic) LINES: Peripheral IV looks okay. General: Alert, Cooperative, No acute distress, Other (alert to person and place , CONFUSED TO DETAILS) Heart: Regular rate, Normal S1, Normal S2 Lungs: Clear Abdomen: Normal bowel sounds, Soft, No tenderness Extremities: No clubbing, No cyanosis, No edema, No tenderness/swelling Skin: No significant lesion Labs LABS CT scan abdomen and pelvis without contrast 07/26/2020 CLINICAL HISTORY: Rectal pain aggravated with bowel movements. TECHNIQUE: Unenhanced, contiguous, 2.5 mm axial sections were obtained through the abdomen and pelvis. One or more of the following individualized dose reduction techniques were utilized for this study: 1. Automated exposure control. 2. Adjustment of the mA and/or kV according to patient size. 3. Use of iterative reconstruction technique. FINDINGS: Comparison study is dated 11/02/2017. Images through the lung bases demonstrate mild to moderate cardiomegaly. Small calcified granulomas are seen involving both lower lobes. There is a small left pleural effusion. Bilateral lower lobe atelectasis and/or infiltrate is seen. Multiple rounded low-attenuation lesions are seen scattered throughout both lobes of the liver consistent with hepatic cysts. These measure 3 mm to 3.4 cm in size. A cyst is seen projecting anteriorly from the left lobe of the liver. This measures 3.3 cm in size. It has a partially calcified wall, posteriorly. It is unchanged. The spleen, pancreas, adrenal glands and right kidney are within normal limits. A 7 mm nonobstructing calculus is seen involving the superior pole of the left kidney. A group of nonobstructing calculi are seen involving the midpole of the left kidney. These measure 2 mm to 1.6 cm in size. Rounded low-attenuation lesions are seen involving the mid/lower pole of the left kidney which measure 1 to 4.4 cm in size. They likely represent cysts. No further imaging evaluation is recommended. Atherosclerotic calcification of the abdominal aorta is seen. The abdominal aorta tapers normally. The gallbladder is contracted. A gastrostomy tube extends into the body the stomach. No free fluid or free air is within the abdomen. There is no evidence of bowel obstruction. Images through the pelvis demonstrate a Davidson catheter within the urinary bladder contracted. A moderate to large amount stool is seen involving the rectum and sigmoid colon. Scattered diverticula are seen involving the descending and sigmoid colon. No inflammatory changes are seen in the adjacent fat. No free fluid is seen. Minimal S-shaped curvature of the thoracolumbar spine is seen. Degenerative changes are seen involving the lower thoracic and throughout the lumbar spine along with both hips. A hip screw and intramedullary carlie are seen within the proximal right femur. IMPRESSION: Moderate to large amount of stool is seen throughout the colon. No acute abnormality is seen. Electronically signed by: Jose Miller MD (07/26/2020 11:38 AM) [id number] DICTATED and SIGNED BY: JOSE MILLER MD DATE: 07/26/20 [id number] Laboratory Tests Test 07/28/20 13:13 07/29/20 07:55 White Blood Count 8.8 x10^3/uL (4.0-11.0) 8.9 x10^3/uL (4.0-11.0) Red Blood Count 3.65 x10^6/uL (4.30-5.70) 3.63 x10^6/uL (4.30-5.70) Hemoglobin 10.7 g/dL (13.0-17.5) 10.6 g/dL (13.0-17.5) Hematocrit 32.4 % (39.0-53.0) 32.0 % (39.0-53.0) Mean Corpuscular Volume 89 fL (79-100) 88 fL (79-100) Mean Corpuscular Hemoglobin 29 pg (25-35) 29 pg (25-35) Mean Corpuscular Hemoglobin Concent 33 g/dL (31-37) 33 g/dL (31-37) Red Cell Distribution Width 15.8 % (11.5-14.5) 15.9 % (11.5-14.5) Platelet Count 256 x10^3/uL (140-400) 290 x10^3/uL (140-400) Neutrophils (%) (Auto) 75 % (31-73) 72 % (31-73) Lymphocytes (%) (Auto) 15 % (24-48) 18 % (24-48) Monocytes (%) (Auto) 8 % (0-9) 8 % (0-9) Eosinophils (%) (Auto) 1 % (0-3) 2 % (0-3) Basophils (%) (Auto) 1 % (0-3) 0 % (0-3) Neutrophils # (Auto) 6.6 x10^3/uL (1.8-7.7) 6.4 x10^3/uL (1.8-7.7) Lymphocytes # (Auto) 1.4 x10^3/uL (1.0-4.8) 1.6 x10^3/uL (1.0-4.8) Monocytes # (Auto) 0.7 x10^3/uL (0.0-1.1) 0.7 x10^3/uL (0.0-1.1) Eosinophils # (Auto) 0.1 x10^3/uL (0.0-0.7) 0.1 x10^3/uL (0.0-0.7) Basophils # (Auto) 0.1 x10^3/uL (0.0-0.2) 0.0 x10^3/uL (0.0-0.2) Sodium Level 144 mmol/L (136-145) 146 mmol/L (136-145) Potassium Level 3.5 mmol/L (3.5-5.1) 3.6 mmol/L (3.5-5.1) Chloride Level 111 mmol/L (98-107) 113 mmol/L (98-107) Carbon Dioxide Level 29 mmol/L (21-32) 30 mmol/L (21-32) Anion Gap 4 (6-14) 3 (6-14) Blood Urea Nitrogen 14 mg/dL (8-26) 13 mg/dL (8-26) Creatinine 0.9 mg/dL (0.7-1.3) 0.9 mg/dL (0.7-1.3) Estimated GFR (Cockcroft-Gault) 80.8 80.8 Glucose Level 96 mg/dL (70-99) 96 mg/dL (70-99) Calcium Level 7.6 mg/dL (8.5-10.1) 8.1 mg/dL (8.5-10.1) BUN/Creatinine Ratio 14 (6-20) Total Bilirubin 0.5 mg/dL (0.2-1.0) Aspartate Amino Transf (AST/SGOT) 32 U/L (15-37) Alanine Aminotransferase (ALT/SGPT) 69 U/L (16-63) Alkaline Phosphatase 78 U/L (46-116) Total Protein 5.6 g/dL (6.4-8.2) Albumin 1.6 g/dL (3.4-5.0) Albumin/Globulin Ratio 0.4 (1.0-1.7) Assessment and Plan Assessmemt and Plan Problems Medical Problems: (1) LLL pneumonia Status: Acute * Family Other Prior Level of Function Information * dependent with transfers - RNs used mechanical lift Level of Consciousness * Alert Follows Direction * Complex Behavior * Cooperative Sitting Balance * 0 Pt performs <25% Supine to Sit Assistance Required * Dependent * Two-Person Assistance Sit to Supine Assistance Required * Dependent * Two-Person Assistance Other Information * pt unable to assist with mobility. pt required total assist to maintain sitting. Pt states used mechanical lift with all transfers. I recommend RNs continue to use mechanical lift for all transfers. Pt/caregiver agrees with plan of care/goals * Yes Patient condition at conclusion of therapy * Pt in bed Communicated Patient Care With (Name, Title) * mechanical or slide-board transfers No Further Skilled P.T. Intervention Required * Eval only-No PT Needs Discharge Recommendations * Director Dance Care Comment Review of Relevant I have reviewed the following items elizabeth (where applicable) has been applied. Labs Laboratory Tests Test 07/28/20 13:13 07/29/20 07:55 White Blood Count 8.8 x10^3/uL (4.0-11.0) 8.9 x10^3/uL (4.0-11.0) Red Blood Count 3.65 x10^6/uL (4.30-5.70) 3.63 x10^6/uL (4.30-5.70) Hemoglobin 10.7 g/dL (13.0-17.5) 10.6 g/dL (13.0-17.5) Hematocrit 32.4 % (39.0-53.0) 32.0 % (39.0-53.0) Mean Corpuscular Volume 89 fL (79-100) 88 fL (79-100) Mean Corpuscular Hemoglobin 29 pg (25-35) 29 pg (25-35) Mean Corpuscular Hemoglobin Concent 33 g/dL (31-37) 33 g/dL (31-37) Red Cell Distribution Width 15.8 % (11.5-14.5) 15.9 % (11.5-14.5) Platelet Count 256 x10^3/uL (140-400) 290 x10^3/uL (140-400) Neutrophils (%) (Auto) 75 % (31-73) 72 % (31-73) Lymphocytes (%) (Auto) 15 % (24-48) 18 % (24-48) Monocytes (%) (Auto) 8 % (0-9) 8 % (0-9) Eosinophils (%) (Auto) 1 % (0-3) 2 % (0-3) Basophils (%) (Auto) 1 % (0-3) 0 % (0-3) Neutrophils # (Auto) 6.6 x10^3/uL (1.8-7.7) 6.4 x10^3/uL (1.8-7.7) Lymphocytes # (Auto) 1.4 x10^3/uL (1.0-4.8) 1.6 x10^3/uL (1.0-4.8) Monocytes # (Auto) 0.7 x10^3/uL (0.0-1.1) 0.7 x10^3/uL (0.0-1.1) Eosinophils # (Auto) 0.1 x10^3/uL (0.0-0.7) 0.1 x10^3/uL (0.0-0.7) Basophils # (Auto) 0.1 x10^3/uL (0.0-0.2) 0.0 x10^3/uL (0.0-0.2) Sodium Level 144 mmol/L (136-145) 146 mmol/L (136-145) Potassium Level 3.5 mmol/L (3.5-5.1) 3.6 mmol/L (3.5-5.1) Chloride Level 111 mmol/L (98-107) 113 mmol/L (98-107) Carbon Dioxide Level 29 mmol/L (21-32) 30 mmol/L (21-32) Anion Gap 4 (6-14) 3 (6-14) Blood Urea Nitrogen 14 mg/dL (8-26) 13 mg/dL (8-26) Creatinine 0.9 mg/dL (0.7-1.3) 0.9 mg/dL (0.7-1.3) Estimated GFR (Cockcroft-Gault) 80.8 80.8 Glucose Level 96 mg/dL (70-99) 96 mg/dL (70-99) Calcium Level 7.6 mg/dL (8.5-10.1) 8.1 mg/dL (8.5-10.1) BUN/Creatinine Ratio 14 (6-20) Total Bilirubin 0.5 mg/dL (0.2-1.0) Aspartate Amino Transf (AST/SGOT) 32 U/L (15-37) Alanine Aminotransferase (ALT/SGPT) 69 U/L (16-63) Alkaline Phosphatase 78 U/L (46-116) Total Protein 5.6 g/dL (6.4-8.2) Albumin 1.6 g/dL (3.4-5.0) Albumin/Globulin Ratio 0.4 (1.0-1.7) Laboratory Tests Test 07/28/20 13:13 07/29/20 07:55 White Blood Count 8.8 x10^3/uL (4.0-11.0) 8.9 x10^3/uL (4.0-11.0) Red Blood Count 3.65 x10^6/uL (4.30-5.70) 3.63 x10^6/uL (4.30-5.70) Hemoglobin 10.7 g/dL (13.0-17.5) 10.6 g/dL (13.0-17.5) Hematocrit 32.4 % (39.0-53.0) 32.0 % (39.0-53.0) Mean Corpuscular Volume 89 fL (79-100) 88 fL (79-100) Mean Corpuscular Hemoglobin 29 pg (25-35) 29 pg (25-35) Mean Corpuscular Hemoglobin Concent 33 g/dL (31-37) 33 g/dL (31-37) Red Cell Distribution Width 15.8 % (11.5-14.5) 15.9 % (11.5-14.5) Platelet Count 256 x10^3/uL (140-400) 290 x10^3/uL (140-400) Neutrophils (%) (Auto) 75 % (31-73) 72 % (31-73) Lymphocytes (%) (Auto) 15 % (24-48) 18 % (24-48) Monocytes (%) (Auto) 8 % (0-9) 8 % (0-9) Eosinophils (%) (Auto) 1 % (0-3) 2 % (0-3) Basophils (%) (Auto) 1 % (0-3) 0 % (0-3) Neutrophils # (Auto) 6.6 x10^3/uL (1.8-7.7) 6.4 x10^3/uL (1.8-7.7) Lymphocytes # (Auto) 1.4 x10^3/uL (1.0-4.8) 1.6 x10^3/uL (1.0-4.8) Monocytes # (Auto) 0.7 x10^3/uL (0.0-1.1) 0.7 x10^3/uL (0.0-1.1) Eosinophils # (Auto) 0.1 x10^3/uL (0.0-0.7) 0.1 x10^3/uL (0.0-0.7) Basophils # (Auto) 0.1 x10^3/uL (0.0-0.2) 0.0 x10^3/uL (0.0-0.2) Sodium Level 144 mmol/L (136-145) 146 mmol/L (136-145) Potassium Level 3.5 mmol/L (3.5-5.1) 3.6 mmol/L (3.5-5.1) Chloride Level 111 mmol/L (98-107) 113 mmol/L (98-107) Carbon Dioxide Level 29 mmol/L (21-32) 30 mmol/L (21-32) Anion Gap 4 (6-14) 3 (6-14) Blood Urea Nitrogen 14 mg/dL (8-26) 13 mg/dL (8-26) Creatinine 0.9 mg/dL (0.7-1.3) 0.9 mg/dL (0.7-1.3) Estimated GFR (Cockcroft-Gault) 80.8 80.8 Glucose Level 96 mg/dL (70-99) 96 mg/dL (70-99) Calcium Level 7.6 mg/dL (8.5-10.1) 8.1 mg/dL (8.5-10.1) BUN/Creatinine Ratio 14 (6-20) Total Bilirubin 0.5 mg/dL (0.2-1.0) Aspartate Amino Transf (AST/SGOT) 32 U/L (15-37) Alanine Aminotransferase (ALT/SGPT) 69 U/L (16-63) Alkaline Phosphatase 78 U/L (46-116) Total Protein 5.6 g/dL (6.4-8.2) Albumin 1.6 g/dL (3.4-5.0) Albumin/Globulin Ratio 0.4 (1.0-1.7) Microbiology 07/25/20 Blood Culture - Preliminary, Resulted NO GROWTH AFTER 3 DAYS Medications Current Medications Sodium Chloride 500 ml @ 500 mls/hr 1X ONCE IV Last administered on 07/24/20at 21:23; Start 07/24/20 at 21:00; Stop 07/24/20 at 21:59; Status DC Ceftriaxone Sodium (Rocephin) 1 gm 1X ONCE IVP Last administered on 07/24/20at 22:45; Start 07/24/20 at 22:30; Stop 07/24/20 at 22:31; Status DC Azithromycin 250 ml @ 250 mls/hr 1X ONCE IV Last administered on 07/24/20at 22:47; Start 07/24/20 at 22:30; Stop 07/24/20 at 23:29; Status DC Ondansetron HCl (Zofran) 4 mg PRN Q8HRS PRN IV NAUSEA/VOMITING; Start 07/24/20 at 22:30; Stop 07/25/20 at 22:29; Status DC Sodium Chloride 1,000 ml @ 1,000 mls/hr 1X ONCE IV Last administered on 07/24/20at 23:55; Start 07/25/20 at 00:00; Stop 07/25/20 at 00:59; Status DC Sodium Chloride 1,000 ml @ 75 mls/hr [id number] IV Last administered on 07/28/20at 08:40; Start 07/25/20 at 04:30; Stop 07/28/20 at 13:08; Status DC Norepinephrine Bitartrate 8 mg/ Dextrose 258 ml @ 19.06 mls/ hr CONT PRN IV PER PROTOCOL Last administered on 07/25/20at 05:27; Start 07/25/20 at 05:15; Stop 07/26/20 at 12:57; Status DC Linezolid/Dextrose 300 ml @ 300 mls/hr Q12HR IV Last administered on 07/27/20at 07:50; Start 07/25/20 at 10:00; Stop 07/27/20 at 11:54; Status DC Sodium Chloride 1,000 ml @ 2,130 mls/hr Q29M IV Last administered on 07/25/20at 10:29; Start 07/25/20 at 10:00; Stop 07/25/20 at 11:00; Status DC Sodium Chloride 500 ml @ 1,000 mls/hr PRN Q30MIN PRN IV SEE COMMENTS; Start 07/25/20 at 10:00 Norepinephrine Bitartrate 8 mg/ Dextrose 258 ml @ 0 mls/hr CONT PRN IV SEE I/O RECORD; Start 07/25/20 at 10:00; Stop 07/25/20 at 09:54; Status DC Dobutamine HCl/ Dextrose 250 ml @ 5.526 mls/ hr CONT PRN IV SEE I/O RECORD; Start 07/25/20 at 10:00; Stop 07/26/20 at 13:18; Status DC Ondansetron HCl (Zofran) 4 mg PRN Q6HRS PRN IVP NAUSEA/VOMITING; Start 07/25/20 at 10:00 Famotidine (Pepcid Vial) 20 mg BID IVP Last administered on 07/29/20at 08:52; Start 07/25/20 at 21:00 Info (Non-Icu Electrolyte Protocol) 1 ea CONT PRN PRN MC SEE COMMENTS; Start 07/25/20 at 17:45 Heparin Sodium (Porcine) (Heparin Sodium) 5,000 unit Q8HRS SQ Last administered on 07/29/20at 06:08; Start 07/25/20 at 14:00 Sodium Chloride (Normal Saline Flush) 3 ml QSHIFT PRN IV AFTER MEDS AND BLOOD DRAWS; Start 07/25/20 at 10:00 Bisacodyl (Dulcolax Supp) 10 mg PRN DAILY PRN NC CONSTIPATION; Start 07/25/20 at 10:00 Piperacillin Sod/ Tazobactam Sod (Zosyn Per Pharmacy) 1 each PRN DAILY PRN MC SEE COMMENTS; Start 07/25/20 at 11:15; Stop 07/29/20 at 08:48; Status DC Piperacillin Sod/ Tazobactam Sod 3.375 gm/Sodium Chloride 50 ml @ 100 mls/hr Q6HRS IV Last administered on 07/27/20at 11:16; Start 07/25/20 at 12:00; Stop 07/27/20 at 11:54; Status DC Aspirin (Ecotrin) 81 mg DAILYWBKFT PO Last administered on 07/29/20at 08:51; Start 07/26/20 at 08:00 Diclofenac Sodium (Voltaren) 1 monie BID TP Last administered on 07/29/20at 08:52; Start 07/25/20 at 21:00 Acetaminophen (Tylenol) 650 mg PRN Q6HRS PRN PO MILD PAIN / TEMP > 100.3'F Last administered on 07/25/20at 21:11; Start 07/25/20 at 20:15 Oxycodone HCl (Roxicodone) 5 mg PRN Q6HRS PRN PO MODERATE - SEVERE PAIN Last administered on 07/29/20at 03:40; Start 07/25/20 at 20:15 Zolpidem Tartrate (Ambien) 5 mg 1X PRN PRN PO INSOMNIA Last administered on 07/25/20at 22:04; Start 07/25/20 at 22:00; Stop 07/27/20 at 21:59; Status DC Perflutren Protein Type A Microsphe (Optison) 0.66 mg STK-MED ONCE IV ; Start 07/26/20 at 09:33; Stop 07/26/20 at 09:33; Status DC Perflutren Protein Type A Microsphe (Optison) 0.66 mg 1X ONCE IV Last administ ered on 07/26/20at 10:16; Start 07/26/20 at 10:15; Stop 07/26/20 at 10:19; Status DC Lactobacillus Rhamnosus (Culturelle) 1 cap BID PO Last administered on 07/29/20at 08:51; Start 07/26/20 at 21:00 Bisacodyl (Dulcolax Supp) 10 mg 1X ONCE NC ; Start 07/27/20 at 10:45; Stop 07/27/20 at 10:46; Status DC Meropenem 500 mg/ Sodium Chloride 50 ml @ 100 mls/hr Q6HRS IV Last administere d on 07/29/20at 05:57; Start 07/27/20 at 12:00 Potassium Chloride (Klor-Con) 40 meq 1X ONCE PO ; Start 07/27/20 at 16:30; Stop 07/27/20 at 16:12; Status DC Furosemide (Lasix) 40 mg 1X ONCE PO Last administered on 07/27/20at 16:23; Start 07/27/20 at 16:00; Stop 07/27/20 at 16:08; Status DC Furosemide (Lasix) 20 mg DAILY PO Last administered on 07/29/20at 08:51; Start 07/28/20 at 09:00 Metoprolol Succinate (Toprol Xl) 25 mg DAILY PO Last administered on 07/29/20at 08:52; Start 07/28/20 at 09:00 Potassium Chloride (Klor-Con) 20 meq DAILYWBKFT PO ; Start 07/28/20 at 08:00; Stop 07/27/20 at 16:12; Status DC Potassium Chloride (Klor-Con) 40 meq 1X ONCE PO ; Start 07/27/20 at 21:00; Stop 07/27/20 at 16:12; Status DC Potassium Bicarbonate (Potassium Effervescent Tablet) 40 meq 1X ONCE PEG Last administered on 07/27/20at 16:21; Start 07/27/20 at 16:15; Stop 07/27/20 at 16:16; Status DC Potassium Bicarbonate (Potassium Effervescent Tablet) 40 meq 1X ONCE PEG Last administered on 07/27/20at 21:14; Start 07/27/20 at 21:00; Stop 07/27/20 at 21:01; Status DC Potassium Bicarbonate (Potassium Effervescent Tablet) 20 meq DAILY08 PEG Last administered on 07/29/20at 08:51; Start 07/28/20 at 08:00 Lorazepam (Ativan Inj) 0.5 mg PRN Q3HRS PRN IVP ANXIETY / AGITATION Last administered on 07/29/20at 08:53; Start 07/28/20 at 04:15 Active Scripts Active Reported A and D Ointment (Vits A and D/White Pet/Lanolin) 42.5 Gm Oint...g. 1 Monie TP DAILY Trazodone Hcl 50 Mg Tablet 50 Mg PEG HS Simethicone 80 Mg Tab.chew 80 Mg PEG Q6HRS PRN Seroquel (Quetiapine Fumarate) 25 Mg Tablet 1 Tab PEG QHS Miralax (Polyethylene Glycol 3350) 17 Gm Powd.pack 1 Packet PO DAILY PRN 2 Days dissolve in water [oxycodone vandana ] 10 Mg PEG Q4HRS PRN Robaxin-750 (Methocarbamol) 750 Mg Tablet 1 Tab PO Q8HRS 30 Days Melatonin 5 Mg Tab.rapdis 1 Tab PEG QHS 30 Days Lipitor (Atorvastatin Calcium) 10 Mg Tablet 1 Tab PEG DAILY Lidocaine 1 Each Adh..patch 1 Each TP DAILY Tussin (Guaifenesin) 100 Mg/5 Ml Liquid 10 Ml PO Q4HRS PRN 10 Days Adult Glycerin (Glycerin) 1 Each Supp.rect 1 Each RC DAILY PRN Gabapentin Oral Solution (Gabapentin) 250 Mg/5 Ml Solution 4 Ml PO Q8HRS Doxazosin Mesylate 2 Mg Tablet 1 Mg PEG DAILY [docusate sodium liq] 100 Mg PEG BID Voltaren (Diclofenac Sodium) 100 Gm Gel..gram. 1 Monie TP QID 30 Days apply to affected area(s) Artificial Tears Eye Drops (Dextran 70/Hypromellose) 15 Ml Drops 1 Drop EACHEYE QID PRN [debrox solution] 5 Drop EACH EAR QID [ceftriaxone] 1 Gm IV DAILY PRN Azithromycin Tablet (Azithromycin) 250 Mg Tablet 250 Mg PO DAILY X5 days start 07/25 Aricept (Donepezil Hcl) 10 Mg Tablet 1 Tab PEG DAILY 30 Days Acetaminophen 650 Mg/20.3 Ml Solution 650 Mg PEG Q6HRS PRN Vitals/I & O Vital Sign - Last 24 Hours 07/28/20 07/28/20 07/28/20 07/28/20 10:32 14:40 19:13 19:58 Temp 98.5 98.6 98.4 98.5 98.6 98.4 Pulse 95 81 103 Resp 18 18 16 B/P (MAP) 102/58 (73) 157/76 (103) 104/53 (70) Pulse Ox 93 92 92 O2 Delivery Room Air Room Air Room Air Room Air 07/28/20 07/28/20 07/28/20 07/29/20 20:07 20:13 22:38 03:00 Temp 98.8 98.9 98.8 98.9 Pulse 89 90 Resp 16 20 B/P (MAP) 116/70 (85) 112/61 (78) Pulse Ox 93 93 O2 Delivery Room Air Room Air Room Air Room Air 07/29/20 07/29/20 07/29/20 07/29/20 03:40 04:40 07:00 07:48 Temp 98.4 98.4 Pulse 73 Resp 16 B/P (MAP) 100/54 (69) Pulse Ox 92 O2 Delivery Room Air Room Air Room Air Room Air O2 Flow Rate 2.0 07/29/20 08:52 Pulse 73 B/P (MAP) 100/54 Intake and Output 07/28/20 07/28/20 07/29/20 15:00 23:00 07:00 Intake Total 395 ml 415 ml 100 ml Output Total 700 ml 600 ml Balance 395 ml -285 ml -500 ml Justicifation of Admission Dx: Justifications for Admission: Justification of Admission Dx: Yes LUZ ELENA BECERRA MD Jul 29, 2020 10:18
[2020-07-29 10:49] VITALS: BP 104/57
[2020-07-29] MEDS: OLANZapine 2.5 MG TABLET PO SCH (12:59)
[2020-07-29 14:51] VITALS: BP 132/67
[2020-07-29 19:05] VITALS: BP 95/50
[2020-07-29 23:12] VITALS: BP 114/58
[2020-07-30 03:24] VITALS: BP 117/64
[2020-07-30] MEDS: MEROPENEM 500 MG in IV NORMAL SALINE 50ML 50 ML IV SCH (05:29)
[2020-07-30] MEDS: HEPARIN for SUB-Q USE 5,000 UNIT/ML VIAL. SQ SCH (05:56)
[2020-07-30 07:00] VITALS: BP 105/59
[2020-07-30 07:33] LABS: BASO % 1 % (0-3); EOS # 0.2 x10^3/uL (0.0-0.7); EOS % 2 % (0-3); HEMATOCRIT 33.1 % (39.0-53.0); LYMPH # 1.6 x10^3/uL (1.0-4.8); LYMPH % 17 % (24-48); MEAN CORPUSCULAR HEMOGLOBIN 30 pg (25-35); MEAN CORPUSCULAR HGB CONC 33 g/dL (31-37); MEAN CORPUSCULAR VOLUME 89 fL (79-100); MONO # 0.8 x10^3/uL (0.0-1.1); MONO % 8 % (0-9); NEUT # 6.7 x10^3/uL (1.8-7.7); NEUT % 72 % (31-73); PLATELET COUNT 334 x10^3/uL (140-400); RED BLOOD COUNT 3.71 x10^6/uL (4.30-5.70); RED CELL DISTRIBUTION WIDTH 15.8 % (11.5-14.5); WHITE BLOOD COUNT 9.3 x10^3/uL (4.0-11.0)
[2020-07-30 07:47] LABS: CALCIUM 8.1 mg/dL (8.5-10.1); CREATININE 0.8 mg/dL (0.7-1.3); GFR 92.5; POTASSIUM 3.6 mmol/L (3.5-5.1)
--- NOTE | 2020-07-30 08:02 | PDOC ---
[employer] PROGRESS NOTE Date of Service DOS: DATE: 07/30/20 TIME: 07:58 Chief Complaint Chief Complaint A/P: Gram-negative rods blood cultures. Enterobacter bacteremia present on admission 07/05 bottles here and at [facility],source likely GI Septic shock. Dementia. Remote tobacco abuse. Severe protein caloric malnutrition. HYPOKALEMIA, ON REPLACEMENT PLAN: Empiric IV antibiotics, cont meropenem f/u cultures including BC from [place] 07/24 and here on 07/25 DVT prophylaxis. CONSULT ID, pulmonary and Cardiology consult. Echocardiogram, repeat blood cultures x 2. add zyprexia 2.5 mg po daily 28 MIN PT EXAM, chart review, > 50% of time spent with exam, chart review, pt care coordination BLOOD CULTURE LC Final Final GROWTH OF GRAM NEGATIVE RODS FINAL ID= [ENTEROBACTER AEROGENES] ENTEROBACTER AEROGENES ANTIMICROBIAL SUSCEPTIBILITY Final History of Present Illness History of Present Illness Mr Hannah is an 84-year-old male with admission for pneumonia who became hypotensive and septic after admission was transferred to [facility] consult Infectious Disease as well as Pulmonary and Cardiology. 07/27: Agitated, bacteremic from [place] with enterobacter 07/28: Seen and examined, CT abdomen:Moderate to large amount of stool is seen throughout the colon. No acute abnormality is seen. 07/29: Mildly agitated at times, will add zyprexa 2.5 mg po daily. iv merem q 6 hrs. ECHO ejection fraction 45%. mild global hypokinesis of LV.Ascending aorta mildly dilated at 3.8 cm. Feeling improved. D/w ID based on sensitivities Enterobacter can be treated p.o. with Levaquin. Still not eating to goal though he is swallowing on honey thick dysphagia 1 diet with supplemental Jevity tube feed boluses 4 times daily. Discharge Recommendations * [facility] Vitals/I&O Vitals/I&O: Vital Signs Date Time Temp Pulse Resp B/P (MAP) Pulse Ox O2 Delivery O2 Flow Rate FiO2 07/30/20 03:24 81 16 117/64 (81) 07/29/20 20:00 Room Air 07/29/20 19:05 98.0 91 98.0 07/29/20 07:48 2.0 I & O 07/29/20 07/29/20 07/30/20 15:00 23:00 07:00 Intake Total 400 ml 120 ml 620 ml Output Total 600 ml 750 ml Balance 400 ml -480 ml -130 ml Physical Exam Physical Exam: GENERAL: , alert, calm, tired appearing male in no acute distress, WEAK HEENT: Pupils equally round. Normal conjunctivae. Oropharynx dry. NECK: Supple. LUNGS: Clear to auscultation. No accessory muscle use. HEART: S1 and S2 regular. ABDOMEN: Nondistended, soft, nontender with bowel sounds present. PEG tube present GENITOURINARY: Indwelling Davidson in place. EXTREMITIES: No gross edema or cyanosis. DERMATOLOGIC: Warm to touch. No signs of generalized rash. NEUROLOGIC: Alert, oriented to place. Follows commands.Lt sided weakness( chronic) LINES: Peripheral IV looks okay. General: Alert, Cooperative, No acute distress, Other (alert to person and place , CONFUSED TO DETAILS) Heart: Regular rate, Normal S1, Normal S2 Lungs: Clear Abdomen: Normal bowel sounds, Soft, No tenderness Extremities: No clubbing, No cyanosis, No edema, No tenderness/swelling Skin: No significant lesion Labs Labs: Laboratory Tests Test 07/30/20 05:55 White Blood Count 9.3 x10^3/uL (4.0-11.0) Red Blood Count 3.71 x10^6/uL (4.30-5.70) Hemoglobin 11.0 g/dL (13.0-17.5) Hematocrit 33.1 % (39.0-53.0) Mean Corpuscular Volume 89 fL (79-100) Mean Corpuscular Hemoglobin 30 pg (25-35) Mean Corpuscular Hemoglobin Concent 33 g/dL (31-37) Red Cell Distribution Width 15.8 % (11.5-14.5) Platelet Count 334 x10^3/uL (140-400) Neutrophils (%) (Auto) 72 % (31-73) Lymphocytes (%) (Auto) 17 % (24-48) Monocytes (%) (Auto) 8 % (0-9) Eosinophils (%) (Auto) 2 % (0-3) Basophils (%) (Auto) 1 % (0-3) Neutrophils # (Auto) 6.7 x10^3/uL (1.8-7.7) Lymphocytes # (Auto) 1.6 x10^3/uL (1.0-4.8) Monocytes # (Auto) 0.8 x10^3/uL (0.0-1.1) Eosinophils # (Auto) 0.2 x10^3/uL (0.0-0.7) Basophils # (Auto) 0.0 x10^3/uL (0.0-0.2) Sodium Level 143 mmol/L (136-145) Potassium Level 3.6 mmol/L (3.5-5.1) Chloride Level 109 mmol/L (98-107) Carbon Dioxide Level 29 mmol/L (21-32) Anion Gap 5 (6-14) Blood Urea Nitrogen 13 mg/dL (8-26) Creatinine 0.8 mg/dL (0.7-1.3) Estimated GFR (Cockcroft-Gault) 92.5 Glucose Level 84 mg/dL (70-99) Calcium Level 8.1 mg/dL (8.5-10.1) Assessment and Plan Assessmemt and Plan Problems Medical Problems: (1) LLL pneumonia Status: Acute Comment Review of Relevant I have reviewed the following items elizabeth (where applicable) has been applied. Medications: Current Medications Medications (Trade) Dose Ordered Sig/Ida Route PRN Reason Start Time Stop Time Status Last Admin Dose Admin Olanzapine (ZyPREXA) 2.5 mg DAILY PO 07/29/20 12:00 07/29/20 12:59 Justifications for Admission Other Justification PNEUMONIA WITH SEPSIS PENNY LUGO MD Jul 30, 2020 08:02
--- NOTE | 2020-07-30 08:27 | PDOC ---
PULMONARY PROGRESS NOTES DATE: 07/30/20 TIME: 08:27 Subjective on RA denies sob, has occ cough no overnight concerns Vitals Vital Signs Date Time Temp Pulse Resp B/P (MAP) Pulse Ox O2 Delivery O2 Flow Rate FiO2 07/30/20 03:24 81 16 117/64 (81) 07/29/20 20:00 Room Air 07/29/20 19:05 98.0 91 98.0 07/29/20 07:48 2.0 ROS: No Nausea, No Chest Pain, No Abdominal Pain HEENT: Other (nc at) Lungs: Clear Cardiovascular: S1 Abdomen: Soft Neuro Exam: Alert Extremities: No Edema Skin: Warm Labs Laboratory Tests Test 07/28/20 13:13 07/29/20 07:55 07/30/20 05:55 White Blood Count 8.8 x10^3/uL (4.0-11.0) 8.9 x10^3/uL (4.0-11.0) 9.3 x10^3/uL (4.0-11.0) Red Blood Count 3.65 x10^6/uL (4.30-5.70) 3.63 x10^6/uL (4.30-5.70) 3.71 x10^6/uL (4.30-5.70) Hemoglobin 10.7 g/dL (13.0-17.5) 10.6 g/dL (13.0-17.5) 11.0 g/dL (13.0-17.5) Hematocrit 32.4 % (39.0-53.0) 32.0 % (39.0-53.0) 33.1 % (39.0-53.0) Mean Corpuscular Volume 89 fL (79-100) 88 fL (79-100) 89 fL (79-100) Mean Corpuscular Hemoglobin 29 pg (25-35) 29 pg (25-35) 30 pg (25-35) Mean Corpuscular Hemoglobin Concent 33 g/dL (31-37) 33 g/dL (31-37) 33 g/dL (31-37) Red Cell Distribution Width 15.8 % (11.5-14.5) 15.9 % (11.5-14.5) 15.8 % (11.5-14.5) Platelet Count 256 x10^3/uL (140-400) 290 x10^3/uL (140-400) 334 x10^3/uL (140-400) Neutrophils (%) (Auto) 75 % (31-73) 72 % (31-73) 72 % (31-73) Lymphocytes (%) (Auto) 15 % (24-48) 18 % (24-48) 17 % (24-48) Monocytes (%) (Auto) 8 % (0-9) 8 % (0-9) 8 % (0-9) Eosinophils (%) (Auto) 1 % (0-3) 2 % (0-3) 2 % (0-3) Basophils (%) (Auto) 1 % (0-3) 0 % (0-3) 1 % (0-3) Neutrophils # (Auto) 6.6 x10^3/uL (1.8-7.7) 6.4 x10^3/uL (1.8-7.7) 6.7 x10^3/uL (1.8-7.7) Lymphocytes # (Auto) 1.4 x10^3/uL (1.0-4.8) 1.6 x10^3/uL (1.0-4.8) 1.6 x10^3/uL (1.0-4.8) Monocytes # (Auto) 0.7 x10^3/uL (0.0-1.1) 0.7 x10^3/uL (0.0-1.1) 0.8 x10^3/uL (0.0-1.1) Eosinophils # (Auto) 0.1 x10^3/uL (0.0-0.7) 0.1 x10^3/uL (0.0-0.7) 0.2 x10^3/uL (0.0-0.7) Basophils # (Auto) 0.1 x10^3/uL (0.0-0.2) 0.0 x10^3/uL (0.0-0.2) 0.0 x10^3/uL (0.0-0.2) Sodium Level 144 mmol/L (136-145) 146 mmol/L (136-145) 143 mmol/L (136-145) Potassium Level 3.5 mmol/L (3.5-5.1) 3.6 mmol/L (3.5-5.1) 3.6 mmol/L (3.5-5.1) Chloride Level 111 mmol/L (98-107) 113 mmol/L (98-107) 109 mmol/L (98-107) Carbon Dioxide Level 29 mmol/L (21-32) 30 mmol/L (21-32) 29 mmol/L (21-32) Anion Gap 4 (6-14) 3 (6-14) 5 (6-14) Blood Urea Nitrogen 14 mg/dL (8-26) 13 mg/dL (8-26) 13 mg/dL (8-26) Creatinine 0.9 mg/dL (0.7-1.3) 0.9 mg/dL (0.7-1.3) 0.8 mg/dL (0.7-1.3) Estimated GFR (Cockcroft-Gault) 80.8 80.8 92.5 Glucose Level 96 mg/dL (70-99) 96 mg/dL (70-99) 84 mg/dL (70-99) Calcium Level 7.6 mg/dL (8.5-10.1) 8.1 mg/dL (8.5-10.1) 8.1 mg/dL (8.5-10.1) BUN/Creatinine Ratio 14 (6-20) Total Bilirubin 0.5 mg/dL (0.2-1.0) Aspartate Amino Transf (AST/SGOT) 32 U/L (15-37) Alanine Aminotransferase (ALT/SGPT) 69 U/L (16-63) Alkaline Phosphatase 78 U/L (46-116) Total Protein 5.6 g/dL (6.4-8.2) Albumin 1.6 g/dL (3.4-5.0) Albumin/Globulin Ratio 0.4 (1.0-1.7) Laboratory Tests Test 07/30/20 05:55 White Blood Count 9.3 x10^3/uL (4.0-11.0) Red Blood Count 3.71 x10^6/uL (4.30-5.70) Hemoglobin 11.0 g/dL (13.0-17.5) Hematocrit 33.1 % (39.0-53.0) Mean Corpuscular Volume 89 fL (79-100) Mean Corpuscular Hemoglobin 30 pg (25-35) Mean Corpuscular Hemoglobin Concent 33 g/dL (31-37) Red Cell Distribution Width 15.8 % (11.5-14.5) Platelet Count 334 x10^3/uL (140-400) Neutrophils (%) (Auto) 72 % (31-73) Lymphocytes (%) (Auto) 17 % (24-48) Monocytes (%) (Auto) 8 % (0-9) Eosinophils (%) (Auto) 2 % (0-3) Basophils (%) (Auto) 1 % (0-3) Neutrophils # (Auto) 6.7 x10^3/uL (1.8-7.7) Lymphocytes # (Auto) 1.6 x10^3/uL (1.0-4.8) Monocytes # (Auto) 0.8 x10^3/uL (0.0-1.1) Eosinophils # (Auto) 0.2 x10^3/uL (0.0-0.7) Basophils # (Auto) 0.0 x10^3/uL (0.0-0.2) Sodium Level 143 mmol/L (136-145) Potassium Level 3.6 mmol/L (3.5-5.1) Chloride Level 109 mmol/L (98-107) Carbon Dioxide Level 29 mmol/L (21-32) Anion Gap 5 (6-14) Blood Urea Nitrogen 13 mg/dL (8-26) Creatinine 0.8 mg/dL (0.7-1.3) Estimated GFR (Cockcroft-Gault) 92.5 Glucose Level 84 mg/dL (70-99) Calcium Level 8.1 mg/dL (8.5-10.1) Medications Active Scripts Medications Dose Route/Sig Max Daily Dose Days Date Category Dose Instructions A and D Ointment (Vits A and D/White Pet/Lanolin) 42.5 Gm Oint...g. 1 Chayo TP DAILY 07/25/20 Reported Trazodone Hcl 50 Mg Tablet 50 Mg PEG HS 07/25/20 Reported Simethicone 80 Mg Tab.chew 80 Mg PEG Q6HRS PRN 07/25/20 Reported Seroquel (Quetiapine Fumarate) 25 Mg Tablet 1 Tab PEG QHS 07/25/20 Reported Miralax (Polyethylene Glycol 3350) 17 Gm Powd.pack 1 Packet PO DAILY PRN 2 07/25/20 Reported dissolve in water [oxycodone vandana ] 10 Mg PEG Q4HRS PRN 07/25/20 Reported Robaxin-750 (Methocarbamol) 750 Mg Tablet 1 Tab PO Q8HRS 30 07/25/20 Reported Melatonin 5 Mg Tab.rapdis 1 Tab PEG QHS 30 07/25/20 Reported Lipitor (Atorvastatin Calcium) 10 Mg Tablet 1 Tab PEG DAILY 07/25/20 Reported Lidocaine 1 Each Adh..patch 1 Each TP DAILY 07/25/20 Reported Tussin (Guaifenesin) 100 Mg/5 Ml Liquid 10 Ml PO Q4HRS PRN 10 07/25/20 Reported Adult Glycerin (Glycerin) 1 Each Supp.rect 1 Each RC DAILY PRN 07/25/20 Reported Gabapentin Oral Solution (Gabapentin) 250 Mg/5 Ml Solution 4 Ml PO Q8HRS 07/25/20 Reported Doxazosin Mesylate 2 Mg Tablet 1 Mg PEG DAILY 07/25/20 Reported [docusate sodium liq] 100 Mg PEG BID 07/25/20 Reported Voltaren (Diclofenac Sodium) 100 Gm Gel..gram. 1 Chayo TP QID 30 07/25/20 Reported apply to affected area(s) Artificial Tears Eye Drops (Dextran 70/Hypromellose) 15 Ml Drops 1 Drop EACHEYE QID PRN 07/25/20 Reported [debrox solution] 5 Drop EACH EAR QID 07/25/20 Reported [ceftriaxone] 1 Gm IV DAILY PRN 07/25/20 Reported Azithromycin Tablet (Azithromycin) 250 Mg Tablet 250 Mg PO DAILY 07/25/20 Reported X5 days start 07/25 Aricept (Donepezil Hcl) 10 Mg Tablet 1 Tab PEG DAILY 30 07/25/20 Reported Acetaminophen 650 Mg/20.3 Ml Solution 650 Mg PEG Q6HRS PRN 07/25/20 Reported Comments ECHO<Conclusion> The systolic function is mildly impaired. Estimated ejection fraction 45%. There is mild global hypokinesis of the left ventricle. Septal motion suggestive of conduction defect. Doppler and Color Flow revealed moderate pulmonic valvular regurgitation. The ascending aorta is mildly dilated at 3.8 cm. Impression . IMPRESSION: 1. Acute hypoxemic respiratory failure, multifactorial, suspect combination of congestive heart failure and pneumonia-- resolved 2. Abnormal x-ray compatible with pneumonia, possible gram-negative, gram-positive. 3. SARS Covid 2 neg 4. Hypotension related to sepsis. 5. Acute kidney injury--improved 6. Protein malnutrition present upon admission. 7. Elevated liver chemistries. 8. Chronic anemia. Other comorbidities as listed above, dementia, hyperlipidemia, previous cerebrovascular accident. 9. Enterobacter bacteremia present on admission 2/4 bottles here and at [facility],source likely GI Plan . Pt. is stable from respiratory standpoint, remains on room air PT. has improved with diuresis ECHO reviewed- cardiomyopathy Follow Cardiology recs Follow ID recs for ABX PT/OT increase activity DVT/GI PPX discussed w NESHA Avendano MD Jul 30, 2020 08:27
--- NOTE | 2020-07-30 08:56 | PDOC ---
Infectious Disease Note Subjective Subjective Patient without complaints Denies any fever, chills, headache nausea or vomiting, diarrhea ROS ROS no n/v/d/ Vital Sign Vital Signs Vital Signs Date Time Temp Pulse Resp B/P (MAP) Pulse Ox O2 Delivery O2 Flow Rate FiO2 07/30/20 03:24 81 16 117/64 (81) 07/29/20 20:00 Room Air 07/29/20 19:05 98.0 91 98.0 07/29/20 07:48 2.0 Physical Exam PHYSICAL EXAM GENERAL: , alert, calm, tired appearing male in no acute distress, WEAK HEENT: Pupils equally round. Normal conjunctivae. Oropharynx dry. NECK: Supple. LUNGS: Clear to auscultation. No accessory muscle use. HEART: S1 and S2 regular. ABDOMEN: Nondistended, soft, nontender with bowel sounds present. PEG tube present GENITOURINARY: Indwelling Davidson in place. EXTREMITIES: No gross edema or cyanosis. DERMATOLOGIC: Warm to touch. No signs of generalized rash. NEUROLOGIC: Alert, oriented to place. Follows commands.Lt sided weakness( chronic) LINES: Peripheral IV looks okay. Labs Lab Laboratory Tests Test 07/30/20 05:55 White Blood Count 9.3 x10^3/uL (4.0-11.0) Red Blood Count 3.71 x10^6/uL (4.30-5.70) Hemoglobin 11.0 g/dL (13.0-17.5) Hematocrit 33.1 % (39.0-53.0) Mean Corpuscular Volume 89 fL (79-100) Mean Corpuscular Hemoglobin 30 pg (25-35) Mean Corpuscular Hemoglobin Concent 33 g/dL (31-37) Red Cell Distribution Width 15.8 % (11.5-14.5) Platelet Count 334 x10^3/uL (140-400) Neutrophils (%) (Auto) 72 % (31-73) Lymphocytes (%) (Auto) 17 % (24-48) Monocytes (%) (Auto) 8 % (0-9) Eosinophils (%) (Auto) 2 % (0-3) Basophils (%) (Auto) 1 % (0-3) Neutrophils # (Auto) 6.7 x10^3/uL (1.8-7.7) Lymphocytes # (Auto) 1.6 x10^3/uL (1.0-4.8) Monocytes # (Auto) 0.8 x10^3/uL (0.0-1.1) Eosinophils # (Auto) 0.2 x10^3/uL (0.0-0.7) Basophils # (Auto) 0.0 x10^3/uL (0.0-0.2) Sodium Level 143 mmol/L (136-145) Potassium Level 3.6 mmol/L (3.5-5.1) Chloride Level 109 mmol/L (98-107) Carbon Dioxide Level 29 mmol/L (21-32) Anion Gap 5 (6-14) Blood Urea Nitrogen 13 mg/dL (8-26) Creatinine 0.8 mg/dL (0.7-1.3) Estimated GFR (Cockcroft-Gault) 92.5 Glucose Level 84 mg/dL (70-99) Calcium Level 8.1 mg/dL (8.5-10.1) Micro Microbiology 07/25/20 Blood Culture - Preliminary, Resulted NO GROWTH AFTER 4 DAYS Objective Assessment 1.Enterobacter bacteremia present on admission 2/4 bottles here and at [facility],source likely GI 2. Sepsis with hypotension. Improved 3. Leukocytosis. Improving 4. Aspiration pneumonia. 5. Transaminitis. 5. Dementia. 6. History of cerebrovascular accident. 7. Dysphagia. Plan Plan of Care change meropenem to po levaquin Monitor lab values and cultures Maintain aspiration precautions ok to d/c to NH pt should be DNR/DNI Discussed with nursing IVONNE MEIER MD Jul 30, 2020 08:56
[2020-07-30] MEDS: LACTOBACILLUS RHAMNOSUS GG 1 CAPSULE. PO SCH (09:00)
[2020-07-30] MEDS: DICLOFENAC SODIUM 1% TOPICAL GEL 100GM TUBE. TP SCH (09:00)
[2020-07-30] MEDS ORDERED: METO-239 PO (09:17)
[2020-07-30] MEDS ORDERED: ASPI-886 PO (09:17)
[2020-07-30] MEDS ORDERED: LACT1CAP19 PO (09:17)
[2020-07-30] MEDS ORDERED: LEVO500T8 PO ×2 (09:17→11:10)
--- NOTE | 2020-07-30 09:18 | SNU/HH DC ---
DISCHARGE ORDERS DISCHARGE INFORMATION: DISCHARGE DATE: Jul 30, 2020 FINAL DIAGNOSIS Problems Medical Problems: (1) LLL pneumonia Status: Acute CONDITION ON DISCHARGE: Stable CODE STATUS: Code Status: Full POST DISCHARGE ORDERS: ACTIVITY ORDERS: Activity as tolerated WEIGHT BEARING STATUS: As tolerated DIET AFTER DISCHARGE: Regular (dysphagia I w/honey thick liquids. PEG feeds, jevity 4x daily supplement) WOUND/INCISION CARE: No wound care needed CHECKS AFTER DISCHARGE: CHECKS AFTER DISCHARGE: Check blood press - daily, Check your Temp as needed TREATMENT/EQUIPMENT ORDERS: ADAPTIVE EQUIPMENT NEEDED: None DISCHARGE MEDICATIONS: Home Meds Active Scripts Levofloxacin (LEVOFLOXACIN) 500 Mg Tablet, 500 MG PO DAILY06 for Pneumonia for 10 Days, #10 TAB Prov:PENNY LUGO MD 07/30/20 [oxycodone vandana ] No Conflict Check, 10 MG PEG Q4HRS PRN for PAIN for 6 Days, #30 ML Prov:PENNY LUGO MD 07/30/20 Aspirin (ASPIRIN EC) 81 Mg Tablet.dr, 81 MG PO DAILYWBKFT for CAD for 30 Days, #30 TAB.SR 5 Refills Prov:PENNY LUGO MD 07/30/20 Lactobacillus Rhamnosus Gg (CULTURELLE) 1 Each Cap.sprink, 1 CAP PO BID for Diarrhea for 14 Days, #28 CAP Prov:PENNY LUGO MD 07/30/20 Metoprolol Succinate (METOPROLOL SUCCINATE ( XL )) 25 Mg Tab.er.24h, 25 MG PO DAILY for HTN for 30 Days, #30 TAB.SR 5 Refills Prov:PENNY LUGO MD 07/30/20 Reported Medications Vits A and D/White Pet/Lanolin (A and D Ointment) 42.5 Gm Oint...g., 1 MICHAEL TP DAILY for dry skin, MISC 07/25/20 Trazodone Hcl (TRAZODONE HCL) 50 Mg Tablet, 50 MG PEG HS for depression, TAB 07/25/20 Simethicone (SIMETHICONE) 80 Mg Tab.chew, 80 MG PEG Q6HRS PRN for GAS / BLOATING, TAB.CHEW 07/25/20 Quetiapine Fumarate (SEROQUEL) 25 Mg Tablet, 1 TAB PEG QHS for antipsychotic, #30 TAB 2 Refills 07/25/20 Polyethylene Glycol 3350 (MIRALAX) 17 Gm Powd.pack, 1 PACKET PO DAILY PRN for CONSTIPATION for 2 Days, #2 PACKET 0 Refills dissolve in water 07/25/20 Melatonin (MELATONIN) 5 Mg Tab.rapdis, 1 TAB PEG QHS for sleep for 30 Days, #30 TAB 0 Refills 07/25/20 Atorvastatin Calcium (LIPITOR) 10 Mg Tablet, 1 TAB PEG DAILY for HTN, #30 TAB 5 Refills 07/25/20 Lidocaine (Lidocaine) 1 Each Adh..patch, 1 EACH TP DAILY for pain, PATCH 07/25/20 Guaifenesin (TUSSIN) 100 Mg/5 Ml Liquid, 10 ML PO Q4HRS PRN for COUGH for 10 Days, #200 ML 0 Refills 07/25/20 Glycerin (ADULT GLYCERIN) 1 Each Supp.rect, 1 EACH RC DAILY PRN for constipation, SUPP.RECT 07/25/20 Gabapentin (GABAPENTIN ORAL SOLUTION) 250 Mg/5 Ml Solution, 4 ML PO Q8HRS for anticonvulsant, ML 07/25/20 Doxazosin Mesylate (DOXAZOSIN MESYLATE) 2 Mg Tablet, 1 MG PEG DAILY for HTN, #30 TAB 5 Refills 07/25/20 [docusate sodium liq] No Conflict Check, 100 MG PEG BID for bowel care 07/25/20 Diclofenac Sodium (VOLTAREN) 100 Gm Gel..gram., 1 MICHAEL TP QID for pain for 30 Days, #1 EACH 0 Refills apply to affected area(s) 07/25/20 Dextran 70/Hypromellose (ARTIFICIAL TEARS EYE DROPS) 15 Ml Drops, 1 DROP EACHEYE QID PRN for dry eyes, #30 ML 0 Refills 07/25/20 [debrox solution] No Conflict Check, 5 DROP EACH EAR QID for ear wax 07/25/20 Donepezil Hcl (ARICEPT) 10 Mg Tablet, 1 TAB PEG DAILY for dementia for 30 Days, #30 TAB 0 Refills 07/25/20 Acetaminophen (Acetaminophen) 650 Mg/20.3 Ml Solution, 650 MG PEG Q6HRS PRN for PAIN, MISC 07/25/20 Discontinued Reported Medications Methocarbamol (ROBAXIN-750) 750 Mg Tablet, 1 TAB PO Q8HRS for muscle relaxer for 30 Days, #90 TAB 0 Refills 07/25/20 Azithromycin (AZITHROMYCIN TABLET) 250 Mg Tablet, 250 MG PO DAILY for ANTI- BIOTIC, TAB 0 Refills X5 days start 07/2507/25/20 PENNY LUGO MD Jul 30, 2020 09:18
[2020-07-30] MEDS: ASPIRIN ENTERIC COATED 81 MG TABLET.DR. PO SCH (09:22)
[2020-07-30] MEDS: POTASSIUM BICARB 20 MEQ EFFERVESCENT TABLET. PEG SCH (09:22)
[2020-07-30] MEDS: OLANZapine 2.5 MG TABLET PO SCH (09:22)
[2020-07-30] MEDS: FUROSEMIDE 20 MG TABLET PO SCH (09:22)
[2020-07-30 09:23] VITALS: BP 105/59
[2020-07-30] MEDS: METOPROLOL SUCC 24HR ER 25 MG TAB.ER.24H. PO SCH (09:23)
[2020-07-30] MEDS: FAMOTIDINE 20 MG/2 ML VIAL IVP SCH (09:23)
--- NOTE | 2020-07-30 10:14 | NUR ---
SS following up with discharge planning. SS reviewed pt chart and discussed with pt RN. Pt is currently on room air. Pt switched to PO antibiotics today. COVID19 negative. Discharge orders for return to [facility], ; fax [phone], received. SS phoned and faxed discharge orders and clinical updates to [facility]. Pt will discharge today and return to [facility] at 1130 via stretcher transport. [facility] to provide transportation. Pt, pt's RN, and pt's DPOA notified.
--- NOTE | 2020-07-30 11:06 | PDOC ---
CARDIOLOGY PROGRESS NOTE SUBJECTIVE: No new changes OBJECTIVE: Vital Signs/I&O: Vital Signs Date Time Temp Pulse Resp B/P (MAP) Pulse Ox O2 Delivery O2 Flow Rate FiO2 07/30/20 09:23 81 105/59 07/30/20 08:00 Room Air 07/30/20 07:00 99.0 24 93 99.0 07/29/20 07:48 2.0 I & O 07/29/20 07/29/20 07/30/20 15:00 23:00 07:00 Intake Total 400 ml 120 ml 620 ml Output Total 600 ml 750 ml Balance 400 ml -480 ml -130 ml Objective: No new changes. Normal Cardiovascular, pulmonary exam No edema. 2+ radial pulses. CURRENT MEDICATIONS: asa, metoprolol and lasix. DIAGNOSTIC TESTING: labs reviewed Labs: Laboratory Tests 07/30/20 05:55 Laboratory Tests Test 07/30/20 05:55 White Blood Count 9.3 x10^3/uL (4.0-11.0) Red Blood Count 3.71 x10^6/uL (4.30-5.70) L Hemoglobin 11.0 g/dL (13.0-17.5) L Hematocrit 33.1 % (39.0-53.0) L Mean Corpuscular Volume 89 fL (79-100) Mean Corpuscular Hemoglobin 30 pg (25-35) Mean Corpuscular Hemoglobin Concent 33 g/dL (31-37) Red Cell Distribution Width 15.8 % (11.5-14.5) H Platelet Count 334 x10^3/uL (140-400) Neutrophils (%) (Auto) 72 % (31-73) Lymphocytes (%) (Auto) 17 % (24-48) L Monocytes (%) (Auto) 8 % (0-9) Eosinophils (%) (Auto) 2 % (0-3) Basophils (%) (Auto) 1 % (0-3) Neutrophils # (Auto) 6.7 x10^3/uL (1.8-7.7) Lymphocytes # (Auto) 1.6 x10^3/uL (1.0-4.8) Monocytes # (Auto) 0.8 x10^3/uL (0.0-1.1) Eosinophils # (Auto) 0.2 x10^3/uL (0.0-0.7) Basophils # (Auto) 0.0 x10^3/uL (0.0-0.2) Sodium Level 143 mmol/L (136-145) Potassium Level 3.6 mmol/L (3.5-5.1) Chloride Level 109 mmol/L (98-107) H Carbon Dioxide Level 29 mmol/L (21-32) Anion Gap 5 (6-14) L Blood Urea Nitrogen 13 mg/dL (8-26) Creatinine 0.8 mg/dL (0.7-1.3) Estimated GFR (Cockcroft-Gault) 92.5 Glucose Level 84 mg/dL (70-99) Calcium Level 8.1 mg/dL (8.5-10.1) L ASSESSMENT: 1. Presumed NICM, EF 45% in the setting of PNA PLAN: 1. currently euvolemic. Ok to stop toprol XL and lasix as he is euvolemic and hypotensive and not eating much. 2. Outpt f/u based on goals of care after discussion with PCP at nursing. Pls call with questions. Thanks Justicifation of Admission Dx: Justifications for Admission: Justification of Admission Dx: Yes CALEB RAMOS MD Jul 30, 2020 11:06
[2020-07-30] MEDS ORDERED: OXYCODONE PEG (11:10)
--- NOTE | 2020-07-30 11:20 | PDOC3 ---
Discharge Summary Visit Information Date of Admission: Jul 24, 2020 Date of Discharge: Jul 30, 2020 Admitting Diagnosis: LLE pneumonia Final Diagnosis Problems Medical Problems: (1) LLL pneumonia Status: Acute Brief Hospital Course Allergies Allergies Coded Allergies Type Severity Reaction Last Updated Verified No Known Drug Allergies 03/01/17 No Vital Signs Vital Signs Date Time Temp Pulse Resp B/P (MAP) Pulse Ox O2 Delivery O2 Flow Rate FiO2 07/30/20 09:23 81 105/59 07/30/20 08:00 Room Air 07/30/20 07:00 99.0 24 93 99.0 07/29/20 07:48 2.0 Lab Results Laboratory Tests Test 07/28/20 13:13 07/29/20 07:55 07/30/20 05:55 White Blood Count 8.8 x10^3/uL (4.0-11.0) 8.9 x10^3/uL (4.0-11.0) 9.3 x10^3/uL (4.0-11.0) Red Blood Count 3.65 x10^6/uL (4.30-5.70) 3.63 x10^6/uL (4.30-5.70) 3.71 x10^6/uL (4.30-5.70) Hemoglobin 10.7 g/dL (13.0-17.5) 10.6 g/dL (13.0-17.5) 11.0 g/dL (13.0-17.5) Hematocrit 32.4 % (39.0-53.0) 32.0 % (39.0-53.0) 33.1 % (39.0-53.0) Mean Corpuscular Volume 89 fL (79-100) 88 fL (79-100) 89 fL (79-100) Mean Corpuscular Hemoglobin 29 pg (25-35) 29 pg (25-35) 30 pg (25-35) Mean Corpuscular Hemoglobin Concent 33 g/dL (31-37) 33 g/dL (31-37) 33 g/dL (31-37) Red Cell Distribution Width 15.8 % (11.5-14.5) 15.9 % (11.5-14.5) 15.8 % (11.5-14.5) Platelet Count 256 x10^3/uL (140-400) 290 x10^3/uL (140-400) 334 x10^3/uL (140-400) Neutrophils (%) (Auto) 75 % (31-73) 72 % (31-73) 72 % (31-73) Lymphocytes (%) (Auto) 15 % (24-48) 18 % (24-48) 17 % (24-48) Monocytes (%) (Auto) 8 % (0-9) 8 % (0-9) 8 % (0-9) Eosinophils (%) (Auto) 1 % (0-3) 2 % (0-3) 2 % (0-3) Basophils (%) (Auto) 1 % (0-3) 0 % (0-3) 1 % (0-3) Neutrophils # (Auto) 6.6 x10^3/uL (1.8-7.7) 6.4 x10^3/uL (1.8-7.7) 6.7 x10^3/uL (1.8-7.7) Lymphocytes # (Auto) 1.4 x10^3/uL (1.0-4.8) 1.6 x10^3/uL (1.0-4.8) 1.6 x10^3/uL (1.0-4.8) Monocytes # (Auto) 0.7 x10^3/uL (0.0-1.1) 0.7 x10^3/uL (0.0-1.1) 0.8 x10^3/uL (0.0-1.1) Eosinophils # (Auto) 0.1 x10^3/uL (0.0-0.7) 0.1 x10^3/uL (0.0-0.7) 0.2 x10^3/uL (0.0-0.7) Basophils # (Auto) 0.1 x10^3/uL (0.0-0.2) 0.0 x10^3/uL (0.0-0.2) 0.0 x10^3/uL (0.0-0.2) Sodium Level 144 mmol/L (136-145) 146 mmol/L (136-145) 143 mmol/L (136-145) Potassium Level 3.5 mmol/L (3.5-5.1) 3.6 mmol/L (3.5-5.1) 3.6 mmol/L (3.5-5.1) Chloride Level 111 mmol/L (98-107) 113 mmol/L (98-107) 109 mmol/L (98-107) Carbon Dioxide Level 29 mmol/L (21-32) 30 mmol/L (21-32) 29 mmol/L (21-32) Anion Gap 4 (6-14) 3 (6-14) 5 (6-14) Blood Urea Nitrogen 14 mg/dL (8-26) 13 mg/dL (8-26) 13 mg/dL (8-26) Creatinine 0.9 mg/dL (0.7-1.3) 0.9 mg/dL (0.7-1.3) 0.8 mg/dL (0.7-1.3) Estimated GFR (Cockcroft-Gault) 80.8 80.8 92.5 Glucose Level 96 mg/dL (70-99) 96 mg/dL (70-99) 84 mg/dL (70-99) Calcium Level 7.6 mg/dL (8.5-10.1) 8.1 mg/dL (8.5-10.1) 8.1 mg/dL (8.5-10.1) BUN/Creatinine Ratio 14 (6-20) Total Bilirubin 0.5 mg/dL (0.2-1.0) Aspartate Amino Transf (AST/SGOT) 32 U/L (15-37) Alanine Aminotransferase (ALT/SGPT) 69 U/L (16-63) Alkaline Phosphatase 78 U/L (46-116) Total Protein 5.6 g/dL (6.4-8.2) Albumin 1.6 g/dL (3.4-5.0) Albumin/Globulin Ratio 0.4 (1.0-1.7) Laboratory Tests Test 07/30/20 05:55 White Blood Count 9.3 x10^3/uL (4.0-11.0) Red Blood Count 3.71 x10^6/uL (4.30-5.70) Hemoglobin 11.0 g/dL (13.0-17.5) Hematocrit 33.1 % (39.0-53.0) Mean Corpuscular Volume 89 fL (79-100) Mean Corpuscular Hemoglobin 30 pg (25-35) Mean Corpuscular Hemoglobin Concent 33 g/dL (31-37) Red Cell Distribution Width 15.8 % (11.5-14.5) Platelet Count 334 x10^3/uL (140-400) Neutrophils (%) (Auto) 72 % (31-73) Lymphocytes (%) (Auto) 17 % (24-48) Monocytes (%) (Auto) 8 % (0-9) Eosinophils (%) (Auto) 2 % (0-3) Basophils (%) (Auto) 1 % (0-3) Neutrophils # (Auto) 6.7 x10^3/uL (1.8-7.7) Lymphocytes # (Auto) 1.6 x10^3/uL (1.0-4.8) Monocytes # (Auto) 0.8 x10^3/uL (0.0-1.1) Eosinophils # (Auto) 0.2 x10^3/uL (0.0-0.7) Basophils # (Auto) 0.0 x10^3/uL (0.0-0.2) Sodium Level 143 mmol/L (136-145) Potassium Level 3.6 mmol/L (3.5-5.1) Chloride Level 109 mmol/L (98-107) Carbon Dioxide Level 29 mmol/L (21-32) Anion Gap 5 (6-14) Blood Urea Nitrogen 13 mg/dL (8-26) Creatinine 0.8 mg/dL (0.7-1.3) Estimated GFR (Cockcroft-Gault) 92.5 Glucose Level 84 mg/dL (70-99) Calcium Level 8.1 mg/dL (8.5-10.1) Brief Hospital Course Mr Hannah is an 84-year-old male with admission for pneumonia who became hypotensive and septic after admission was transferred to [facility] consult Infectious Disease as well as Pulmonary and Cardiology. 07/27: Agitated, bacteremic from [place] with enterobacter 07/28: Seen and examined, CT abdomen:Moderate to large amount of stool is seen throughout the colon. No acute abnormality is seen. 07/29: Mildly agitated at times, will add zyprexa 2.5 mg po daily. iv merem q 6 hrs. ECHO ejection fraction 45%. mild global hypokinesis of LV.Ascending aorta mildly dilated at 3.8 cm. Feeling improved. D/w ID based on sensitivities Enterobacter can be treated p.o. with Levaquin. Still not eating to goal though he is swallowing on honey thick dysphagia 1 diet with supplemental Jevity tube feed boluses 4 times daily. 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 Enterobacter bacteremia present on admission 2/ bottles here and at [facility],source likely GI Septic shock. Dementia. Remote tobacco abuse. Severe protein caloric malnutrition. HYPOKALEMIA, ON REPLACEMENT Echocardiogram with: The systolic function is mildly impaired. Estimated ejection fraction 45%. There is mild global hypokinesis of the left ventricle. Septal motion suggestive of conduction defect. Doppler and Color Flow revealed moderate pulmonic valvular regurgitation. The ascending aorta is mildly dilated at 3.8 cm. Greater than 30 minutes spent on d/c to SNF Discharge Information Condition at Discharge: Stable Follow Up: Weeks (1) Disposition/Orders: D/C to Another Facility ([facility]) Scheduled Aspirin (Aspirin Ec) 81 Mg Tablet.dr, 81 MG PO DAILYWBKFT for CAD for 30 Days, #30 Ref 5 Prescribed by: PENNY LUGO MD on 07/30/20916 Atorvastatin Calcium (Lipitor) 10 Mg Tablet, 1 TAB PEG DAILY for HTN, #30 Ref 5 (Reported) Entered as Reported by: HEATH BATEMAN on 07/25/20523 Last Action: Reviewed on 07/25/202143 by Tarah Ruvalcaba Diclofenac Sodium (Voltaren) 100 Gm Gel..gram., 1 MICHAEL TP QID for pain for 30 Days, #1 Ref 0 (Reported) apply to affected area(s) Entered as Reported by: HEATH BATEMAN on 07/25/20523 Last Action: Reviewed on 07/25/202143 by Tarah Ruvalcaba Donepezil Hcl (Aricept) 10 Mg Tablet, 1 TAB PEG DAILY for dementia for 30 Days, #30 Ref 0 (Reported) Entered as Reported by: HEATH BATEMAN on 07/25/20523 Last Action: Reviewed on 07/25/202143 by Tarah Ruvalcaba Doxazosin Mesylate (Doxazosin Mesylate) 2 Mg Tablet, 1 MG PEG DAILY for HTN, #30 Ref 5 (Reported) Entered as Reported by: HEATH BATEMAN on 07/25/20523 Last Action: Reviewed on 07/25/202143 by Tarah Ruvalcaba Gabapentin (Gabapentin Oral Solution) 250 Mg/5 Ml Solution, 4 ML PO Q8HRS for anticonvulsant, (Reported) Entered as Reported by: HEATH BATEMAN on 07/25/20523 Last Action: New Order on 07/25/20523 by HEATH BATEMAN Lactobacillus Rhamnosus Gg (Culturelle) 1 Each Cap.sprink, 1 CAP PO BID for Diarrhea for 14 Days, #28 Prescribed by: PENNY LUGO MD on 07/30/20 0917 Levofloxacin (Levofloxacin) 500 Mg Tablet, 500 MG PO DAILY06 for Pneumonia for 10 Days, #10 Prescribed by: PENNY LUGO MD on 07/30/20 1110 Lidocaine (Lidocaine) 1 Each Adh..patch, 1 EACH TP DAILY for pain, (Reported) Entered as Reported by: HEATH BATEMAN on 07/25/20523 Last Action: New Order on 07/25/20523 by HEATH BATEMAN Melatonin (Melatonin) 5 Mg Tab.rapdis, 1 TAB PEG QHS for sleep for 30 Days, #30 Ref 0 (Reported) Entered as Reported by: HEATH BATEMAN on 07/25/20523 Last Action: New Order on 07/25/20523 by HEATH BATEMAN Metoprolol Succinate (Metoprolol Succinate ( Xl )) 25 Mg Tab.er.24h, 25 MG PO DAILY for HTN for 30 Days, #30 Ref 5 Prescribed by: PENNY ULGO MD on 07/30/2017 Quetiapine Fumarate (Seroquel) 25 Mg Tablet, 1 TAB PEG QHS for antipsychotic, #30 Ref 2 (Reported) Entered as Reported by: HEATH BATEMAN on 07/25/20523 Last Action: Reviewed on 07/25/202143 by Tarah Ruvalcaba Trazodone Hcl (Trazodone Hcl) 50 Mg Tablet, 50 MG PEG HS for depression, (Reported) Entered as Reported by: HEATH BATEMAN on 07/25/20523 Last Action: Reviewed on 07/25/202143 by Tarah Ruvalcaba Vits A and D/White Pet/Lanolin (A and D Ointment) 42.5 Gm Oint...g., 1 MICHAEL TP DAILY for dry skin, (Reported) Entered as Reported by: HEATH BATEMAN on 07/25/20523 Last Action: New Order on 07/25/20523 by HEATH BATEMAN [debrox solution] , 5 DROP EACH EAR QID for ear wax, (Reported) Entered as Reported by: HEATH BATEMAN on 07/25/20523 Last Action: New Order on 07/25/20523 by HEATH BATEMAN [docusate sodium liq] , 100 MG PEG BID for bowel care, (Reported) Entered as Reported by: HEATH BATEMAN on 07/25/20523 Last Action: Reviewed on 07/25/202143 by Tarah Ruvalcaba Scheduled PRN Acetaminophen (Acetaminophen) 650 Mg/20.3 Ml Solution, 650 MG PEG Q6HRS PRN for PAIN, (Reported) Entered as Reported by: HEATH BATEMAN on 07/25/20233 Last Action: Reviewed on 07/25/202143 by Tarah Ruvalcaba Dextran 70/Hypromellose (Artificial Tears Eye Drops) 15 Ml Drops, 1 DROP EACHEYE QID PRN for dry eyes, #30 Ref 0 (Reported) Entered as Reported by: HEATH BATEMAN on 07/25/20523 Last Action: New Order on 07/25/20523 by HEATH BATEMAN Glycerin (Adult Glycerin) 1 Each Supp.rect, 1 EACH RC DAILY PRN for constipat ion, (Reported) Entered as Reported by: HEATH BATEMAN on 07/25/20523 Last Action: New Order on 07/25/20523 by HEATH BATEMAN Guaifenesin (Tussin) 100 Mg/5 Ml Liquid, 10 ML PO Q4HRS PRN for COUGH for 10 Days, #200 Ref 0 (Reported) Entered as Reported by: HEATH BATEMAN on 07/25/20523 Last Action: New Order on 07/25/20523 by HEATH BATEMAN Polyethylene Glycol 3350 (Miralax) 17 Gm Powd.pack, 1 PACKET PO DAILY PRN for CONSTIPATION for 2 Days, #2 Ref 0 (Reported) dissolve in water Entered as Reported by: HEATH BATEMAN on 07/25/20523 Last Action: New Order on 07/25/20523 by HEATH BATEMAN Simethicone (Simethicone) 80 Mg Tab.chew, 80 MG PEG Q6HRS PRN for GAS / BLOATING, (Reported) Entered as Reported by: HEATH BATEMAN on 07/25/20523 Last Action: New Order on 07/25/20523 by HEATH BATEMAN [oxycodone vandana ] , 10 MG PEG Q4HRS PRN for PAIN for 6 Days, #30 Prescribed by: PENNY LUGO MD on 07/30/20 1110 Discontinued Medications Azithromycin (Azithromycin Tablet) 250 Mg Tablet, 250 MG PO DAILY for ANTI- BIOTIC, Ref 0 (Reported) X5 days start 07/25 Entered as Reported by: HEATH BATEMAN on 07/25/20523 Last Action: New Order on 07/25/20523 by HEATH BATEMAN Methocarbamol (Robaxin-750) 750 Mg Tablet, 1 TAB PO Q8HRS for muscle relaxer for 30 Days, #90 Ref 0 (Reported) Entered as Reported by: HEATH BATEMAN on 07/25/20523 Last Action: Reviewed on 07/25/202143 by Tarah Ruvalcaba Justicifation of Admission Dx: Justifications for Admission: Justification of Admission Dx: Yes PENNY LUGO MD Jul 30, 2020 11:20
--- NOTE | 2020-07-30 11:38 | NUR ---
Discharge Note: JOSE DEMPSEY [address] Discharge instructions and discharge home medications reviewed with [facility] and a copy given. All questions have been answered and understanding verbalized. The following instructions and handouts were given: metoprolol, lactobacillus, levofloxacin. Patient discharged to [facility] with transport via stretcher. Report called to Belia at [facility] and all medications reviewed with questions answered.
== END 2020-07-30 11:30 | DRG 871 ==
LOC: ER 20:37 → 5 NORTH 22:27 → 1 WEST ICU 07-25 03:34 → 6 SOUTH 07-25 17:40 → 2 NORTH 07-26 18:37
PROVIDERS: ADMIT Family Medicine; ATTEND Family Medicine
DX: A41.59 Other Gram-negative sepsis (principal); J69.0 Pneumonitis due to inhalation of food and vomit; J96.01 Acute respiratory failure with hypoxia; E43 Unspecified severe protein-calorie malnutrition; I50.33 Acute on chronic diastolic (congestive) heart failure; R65.21 Severe sepsis with septic shock; N17.9 Acute kidney failure, unspecified; I42.8 Other cardiomyopathies; I69.354 Hemiplegia and hemiparesis following cerebral infarction affecting left non-dominant side; R74.01 Elevation of levels of liver transaminase levels; F03.90 Unspecified dementia, unspecified severity, without behavioral disturbance, psychotic disturbance, mood disturbance, and anxiety; R13.10 Dysphagia, unspecified; D64.9 Anemia, unspecified; E78.5 Hyperlipidemia, unspecified; E87.6 Hypokalemia; I11.0 Hypertensive heart disease with heart failure; I37.1 Nonrheumatic pulmonary valve insufficiency; N40.0 Benign prostatic hyperplasia without lower urinary tract symptoms; Z82.5 Family history of asthma and other chronic lower respiratory diseases; Z87.442 Personal history of urinary calculi; Z87.891 Personal history of nicotine dependence; F32.9 Major depressive disorder, single episode, unspecified; K57.90 Diverticulosis of intestine, part unspecified, without perforation or abscess without bleeding; Z20.822 Contact with and (suspected) exposure to COVID-19; Z68.30 Body mass index [BMI] 30.0-30.9, adult
CPT/HCPCS: 96361; 96365; 96375; 99285; C8929; 36415; 71045; 73560; 73620; 74176; 80048; 80053; 80061; 81001; 82962; 83605; 83615; 83735; 83880; 84145; 84443; 84484; 85007; 85025; 85610; 85730; 87040; 87077; 87186; 87205; 87804; J0456; J0696; J1644; J2020; J2060; J2185; J2543; J3490; J7030; J7040; J7060; Q9956; U0003; 92526-GN; 92610-GN; G0378

== ENCOUNTER 2020-11-19 19:14 | Emergency (ER) | payer MEDICAID, MEDICARE, OTHER ==
[~2020-11-19] VITALS: Ht 182.9 cm; Wt 89.5 kg
[~2020-11-19 19:14] MED LIST changes: +ACET650S19 PEG; +ASPI-886 PO; +ATOR10TA PEG; +AZIT250T6 PO; +DEBROX EACH EAR; +DEXT15DR5 EACHEYE; +DICL100G54 TP; +DOCUSATE SODIUM PEG; +DONE10TA61 PEG; +DOXA2TAB2 PEG; +GABA250S6 PO; +GLYC1SUP RC; +GUAI100L34 PO; +LACT1CAP19 PO; +LEVO500T8 PO; +LIDO1ADH63 TP; +MELA5TAB20 PEG; +METH-38 PO; +METO-239 PO; +OXYCODONE PEG; +POLY17PO29 PO; +QUET25TA5 PEG; +SIME80TA14 PEG; +TRAZ-118 PEG; +VITS42.55 TP; +ceftriaxone IV
--- NOTE | 2020-11-19 19:23 | PHYS DOC ---
Past Medical History Past Medical History: CVA, Dementia, Kidney Stone, Stroke Past Surgical History: Tonsillectomy Smoking Status: Former Smoker Alcohol Use: None Drug Use: Marijuana General Adult EDM: Chief Complaint: GI PROBLEM HPI: HPI: Patient is a 85 year old male with a past medical history of CVA with G-tube feeding tube in place presents for evaluation due to G-tube malfunction. Prior to arrival nursing was feeding patient when she noticed patient G-tube leaking. Patient has no complaints. Review of Systems: Review of Systems: Review of systems: Constitutional symptoms- No fever, no chills. Eyes- No Discharge, No Visual Loss Respiratory symptoms- No shortness of breath, No wheezing, No Dyspnea on Exertion Cardiovascular Systems; No chest pain, No Palpitations, No syncope Gastrointestinal symptoms: NO abdominal pain, no nausea, no vomiting or diarrhea. Genitourinary symptoms: No dysuria. Musculoskeletal symptoms: No back pain No extremity pain. NEUROLOGICAL Symptoms: No headache, no generalized weakness; No focal Weakness Skin: No rash. Heart Score: C/O Chest Pain: N/A Risk Factors: Risk Factors: DM, Current or recent (<one month) smoker, HTN, HLP, family history of CAD, obesity. Risk Scores: Score 0 - 3: 2.5% MACE over next 6 weeks - Discharge Home Score 4 - 6: 20.3% MACE over next 6 weeks - Admit for Clinical Observation Score 7 - 10: 72.7% MACE over next 6 weeks - Early Invasive Strategies Allergies: Allergies: Allergies Coded Allergies Type Severity Reaction Last Updated Verified No Known Drug Allergies 03/01/17 No Physical Exam: PE: General: alert, no acute distress. Skin: warm, dry and intact. HENT: bilateral external ears normal, oropharynx moist, nose normal. Head:: Normocephalic, atraumatic. Neck: Trachea midline. Eyes: EOMI, Normal conjunctiva, No drainage CARDIOVASCULAR: Regular rate and rhythm RESPIRATORY: No respiratory distress Back: Full range of motion. Skin: Warm, dry, no erythema, no rash. MUSCULOSKELETAL: Full range of motion of bilateral upper and lower extremities. GASTROINTESTINAL: Abdomen soft without rebound or guarding. NEUROLOGICAL: Alert and noted to person, place and time. No neurological deficits observed Psychiatric: Cooperative. Normal judgment EKG: EKG: [] Radiology/Procedures: Radiology/Procedures: [] Course & Med Decision Making: Course & Med Decision Making Pertinent Labs and Imaging studies reviewed. (See chart for details) [] G-tube was examined found to have a leak. It was replaced with a comparable 18 Icelandic sized G-tube. 20 cc NS used to inflate the balloon. Procedure was performed under sterile technique. Patient without complications. Placement of tube was confirmed by radiology. Patient was discharged to care facility.. Dragon Disclaimer: Dragon Disclaimer: This electronic medical record was generated, in whole or in part, using a voice recognition dictation system. Departure Departure Impression: Primary Impression: Malfunction of gastrostomy tube Disposition: HOME / SELF CARE / HOMELESS Condition: STABLE Referrals: DORENE CASTELLANOS D.O. (PCP) Patient Instructions: Care of a Feeding Tube, [id number] ABEBA BENDER I DO Nov 19, 2020 19:23
[2020-11-19 19:56] VITALS: BP 109/58
--- NOTE | 2020-11-19 20:09 | RAD ---
Single view abdomen dated 11/19/2020. No comparison available. Clinical data indication: G-tube placement. FINDINGS: Single supine portable exam performed after injection of 40 cc Omnipaque by technologist. Image shows contrast material filling the stomach and proximal small bowel. No apparent leak. Nonobstructive gas pattern. IMPRESSION: G-tube within the stomach with no apparent leak. Electronically signed by: Lamin Taylor MD (11/19/2020 8:07 PM) [facility]
[2020-11-19] MEDS ORDERED: CONTRAST GIVEN. MC PRN (20:15)
[2020-11-19] MEDS ORDERED: IOHEXOL 240 MG/ML 50ML VIAL. PO ONE (20:15)
== END 2020-11-19 22:03 | disposition home or self-care (01) ==
LOC: ER 19:14
DX: K94.23 Gastrostomy malfunction (principal); F03.90 Unspecified dementia, unspecified severity, without behavioral disturbance, psychotic disturbance, mood disturbance, and anxiety; Z87.891 Personal history of nicotine dependence; Z86.73 Personal history of transient ischemic attack (TIA), and cerebral infarction without residual deficits; Y83.8 Other surgical procedures as the cause of abnormal reaction of the patient, or of later complication, without mention of misadventure at the time of the procedure
CPT/HCPCS: 43762; 74018; 99285; Q9966

== ENCOUNTER 2021-02-11 14:55 | Emergency (ER) | payer MEDICARE, MEDICAID ==
[~2021-02-11] VITALS: Ht 180.3 cm; Wt 88.9 kg
[~2021-02-11 14:55] MED LIST changes: +ASPI-630 PEG; +BUDE0.5A NEB; +CALC500T31 PO; +CYPR2SYR6 PEG; +FLUO40CA2 PEG; +MEMA10TA PO
[2021-02-11] MEDS ORDERED: IV RINGERS,LACTATED 1000ML 1,000 ML IV SCH (15:45)
[2021-02-11 15:54] LABS: BASO % 1 % (0-3); EOS # 0.3 x10^3/uL (0.0-0.7); EOS % 5 % (0-3); HEMATOCRIT 37.9 % (39.0-53.0); HEMOGLOBIN 12.8 g/dL (13.0-17.5); LYMPH # 1.5 x10^3/uL (1.0-4.8); LYMPH % 26 % (24-48); MEAN CORPUSCULAR HEMOGLOBIN 31 pg (25-35); MEAN CORPUSCULAR HGB CONC 34 g/dL (31-37); MEAN CORPUSCULAR VOLUME 92 fL (79-100); MONO # 0.5 x10^3/uL (0.0-1.1); MONO % 8 % (0-9); NEUT # 3.6 x10^3/uL (1.8-7.7); NEUT % 61 % (31-73); PLATELET COUNT 256 x10^3/uL (140-400); RED BLOOD COUNT 4.11 x10^6/uL (4.30-5.70); RED CELL DISTRIBUTION WIDTH 15.4 % (11.5-14.5); WHITE BLOOD COUNT 5.9 x10^3/uL (4.0-11.0)
--- NOTE | 2021-02-11 16:01 | PHYS DOC ---
Past Medical History Past Medical History: CHF, COPD, CVA, Dementia, Kidney Stone, Stroke, UTI Additional Past Medical Histor: [place],atrial septal defect,peg tube Past Surgical History: Tonsillectomy Additional Past Surgical Histo: peg tube Smoking Status: Unknown if ever smoked Alcohol Use: None Drug Use: Marijuana General Adult EDM: Chief Complaint: SEIZURE HPI: HPI: 85-year-old male past medical history of dementia, CVA, CHF, COPD, HTN, and BPH presents the ED with concern for seizure-like activity while patient was receiving physical therapy at [facility]. Review of Systems: Review of Systems: ROS limited due to dementia Heart Score: C/O Chest Pain: No Risk Factors: Risk Factors: DM, Current or recent (<one month) smoker, HTN, HLP, family history of CAD, obesity. Risk Scores: Score 0 - 3: 2.5% MACE over next 6 weeks - Discharge Home Score 4 - 6: 20.3% MACE over next 6 weeks - Admit for Clinical Observation Score 7 - 10: 72.7% MACE over next 6 weeks - Early Invasive Strategies Current Medications: Current Medications Medications (Trade) Dose Ordered Sig/Ida Start Time Stop Time Status Last Admin Dose Admin Ringer's Solution 1,000 ml @ 1,000 mls/hr Q1H 02/11/21 15:45 02/11/21 16:44 02/11/21 15:44 1,000 MLS/HR Allergies: Allergies: Allergies Coded Allergies Type Severity Reaction Last Updated Verified No Known Drug Allergies 03/01/17 No Physical Exam: PE: Constitutional: Well developed, well nourished, no acute distress, non-toxic appearance. HENT: Normocephalic, atraumatic, dry mucous membranes with no laceration or bleeding Eyes: EOMI, conjunctiva normal, no discharge. Neck: Normal range of motion, supple, no midline neck pain Cardiovascular: S1/2 present, regular rhythm Lungs & Thorax: Speaking in full sentences, bilateral equal chest rise, no tachypnea or increased work of breathing Abdomen: soft, no tenderness, no incontinence Skin: Warm, dry, no erythema, no rash. [] Extremities: No tenderness, no cyanosis, Neurologic: Alert, moves all 4 extremities, no facial droop Psychologic: Affect normal, judgement normal, mood normal. [] Current Patient Data: Labs: Laboratory Tests Test 02/11/21 15:05 02/11/21 15:15 Glucose (Fingerstick) 81 mg/dL (70-99) White Blood Count 5.9 x10^3/uL (4.0-11.0) Red Blood Count 4.11 x10^6/uL (4.30-5.70) L Hemoglobin 12.8 g/dL (13.0-17.5) L Hematocrit 37.9 % (39.0-53.0) L Mean Corpuscular Volume 92 fL (79-100) Mean Corpuscular Hemoglobin 31 pg (25-35) Mean Corpuscular Hemoglobin Concent 34 g/dL (31-37) Red Cell Distribution Width 15.4 % (11.5-14.5) H Platelet Count 256 x10^3/uL (140-400) Neutrophils (%) (Auto) 61 % (31-73) Lymphocytes (%) (Auto) 26 % (24-48) Monocytes (%) (Auto) 8 % (0-9) Eosinophils (%) (Auto) 5 % (0-3) H Basophils (%) (Auto) 1 % (0-3) Neutrophils # (Auto) 3.6 x10^3/uL (1.8-7.7) Lymphocytes # (Auto) 1.5 x10^3/uL (1.0-4.8) Monocytes # (Auto) 0.5 x10^3/uL (0.0-1.1) Eosinophils # (Auto) 0.3 x10^3/uL (0.0-0.7) Basophils # (Auto) 0.0 x10^3/uL (0.0-0.2) Laboratory Tests 02/11/21 15:15 Vital Signs: Vital Signs Date Time Temp Pulse Resp B/P (MAP) Pulse Ox O2 Delivery O2 Flow Rate FiO2 02/11/21 14:55 97.7 58 26 112/54 (73) 96 Room Air 97.7 EKG: EKG: Sinus bradycardia 56 bpm, normal intervals, T wave inversion lead III, aVF, V3 through V6, no ST elevations or ST depressions Radiology/Procedures: Radiology/Procedures: IMAGING REPORT Signed PATIENT: JOSE DEMPSEY ACCOUNT: [id number] : 1935 LOCATION: ER AGE: 85 SEX: M EXAM STATUS: REG ER ORD. PHYSICIAN: ROZ GALVAN DO REASON: seizure PROCEDURE: CT HEAD AND CERVICAL SPINE WO Examination: CT head and cervical spine HISTORY: History of seizure COMPARISON: None available Exposure: One or more of the following individualized dose reduction techniques were utilized for this examination: 1. Automated exposure control 2. Adjustment of the mA and/or kV according to patient size 3. Use of iterative reconstruction technique TECHNIQUE: 5 mm contiguous axial images were obtained from the skull base to the vertex in both bone and soft tissue algorithm. FINDINGS: Moderate-sized hypodensity identified in the right frontoparietal region likely related encephalomalacia measuring 4 cm similar to prior exam. Moderate b ilateral periventricular white matter hypodensities likely chronic small vessel ischemic disease. There is a new moderate-sized hypodensity identified in the left cerebellum. CT CERVICAL SPINE INDICATION: Reason: seizure COMPARISON: None Available. Technique: 2.5 mm contiguous axial images were obtained from the skull base through the cervicothoracic junction in both bone and soft tissue algorithm. Additional sagittal and coronal reconstructions were also performed. FINDINGS: Vertebral body height and alignment are maintained. Cervical lordosis is preserved. The lateral masses of C1 are aligned upon C2. No fractures identified. The bony canal is patent throughout. Large osteophyte formation identified in the cervical spine throughout likely degenerative changes. The paraspinous soft tissues are unremarkable. IMPRESSION: 1. New moderate-sized hypodensity identified in the left cerebellum could be infarct, age indeterminate. Recommend MRI for further evaluation. 2. Moderate-sized hypodensity identified in the right frontoparietal region likely related to encephalomalacia measuring 4 cm similar to prior exam. 3. No acute fracture cervical spine. 4. Large osteophyte formation identified in the cervical spine throughout likely degenerative changes. Electronically signed by: Eliot Alfonso MD (02/11/2021 4:29 PM) [id number] DICTATED and SIGNED BY: ELIOT ALFONSO MD DATE: 02/11/21 [id number] IMAGING REPORT Signed PATIENT: JOSE DEMPSEY ACCOUNT: [id number] : 1935 LOCATION: ER AGE: 85 SEX: M EXAM STATUS: REG ER ORD. PHYSICIAN: ROZ GALVAN DO REASON: seizure? PROCEDURE: PORTABLE CHEST 1V EXAM: CHEST 1 VIEW History: Seizure COMPARISON: 12/09/2020 TECHNIQUE: Single portable radiograph of the chest FINDINGS: Mild cardiomegaly . Mild left lung base atelectasis or infiltrates. The costophrenic sulci are clear and well demarcated. IMPRESSION: Mild left lung base atelectasis or infiltrates. Electronically signed by: Eliot Alfonso MD (02/11/2021 4:37 PM) [id number] DICTATED and SIGNED BY: ELIOT ALFONSO MD DATE: 02/11/21 [id number] 0 Course & Med Decision Making: Course & Med Decision Making Pertinent Labs and Imaging studies reviewed. (See chart for details) Concern for seizure-like activity while receiving physical therapy. CT head shows no acute, but does show an age indeterminate hypodensity. Will recommend MRI on a nonemergent outpatient basis. CT concerning for possible atelectasis with infiltrate, will prescribe azithromycin. Will discharge home with strict ED return precautions were given for repeat head injury, confusion, headache, nausea, vomiting or abnormal behavior. Encouraged urgent outpatient follow-up with PMD and neurology. Life-threatening processes were considered but are low suspicion at this time, given history, physical exam and ED workup. Pt was educated on all prescription medications and adverse effects. All patient's questions were answered and pt was stable at time of discharge. Life/limb-threatening differential includes but is not limited to, intracranial hemorrhage, diffuse axonal injury, spinal cord syndrome, unstable cervical fracture or SCIWORA, fractures or joint dislocations, neurovascular injuries, organ injury or laceration, pneumothorax, pneumoperitoneum, pericardial tamponade, unstable pelvic fracture, compartment syndrome, flail chest or respiratory distress, burn injury or asphyxiation I have spoken with the patient and/or caregivers. I explained the patient's condition, diagnoses and treatment plan based on the information available to me at this time. I have answered the patient and/or caregiver's questions and addressed any concerns. The patient and/or caregivers have a good understanding of patient's diagnosis, condition and treatment plan as can be expected at this point. Vital signs have been stable. Patient's condition is stable and appropriate for discharge from the emergency department. Patient will pursue further outpatient evaluation with primary care physician or other designated or consulting physician as outlined in the discharge instructions. The patient and/or caregivers are agreeable to this plan of care and follow-up instructions have been explained in detail. The patient and/or caregivers have received these instructions in written form and have expressed an understanding of the discharge instructions. The patient and/or caregivers are aware that any significant change of condition or worsening of symptoms should prompt immediate return to this or the closest emergency department or call to [facility] Disclaimer: Matchpoint Disclaimer: This electronic medical record was generated, in whole or in part, using a voice recognition dictation system. Departure Departure Impression: Primary Impression: Seizure-like activity Disposition: HOME / SELF CARE / HOMELESS Condition: STABLE Referrals: ANALY BOSTON MD (PCP) Follow-up with your primary care physician in 24 to 48 hours OR FOLLOW UP WITH FAMILY MEDICINE: [address] [facility], [facility] [address] [place] [address] Patient Instructions: Nonepileptic Seizures, Seizure, Adult Additional Instructions: FOLLOW UP WITH NEUROLOGY: FOR DEFINITIVE MANAGEMENT- CT findings show: New moderate-sized hypodensity identified in the left cerebellum could be infarct, age indeterminate. Recommend MRI for further evaluation. [facility] [address] [facility], [facility] [address] [place] [address] EMERGENCY DEPARTMENT GENERAL DISCHARGE INSTRUCTIONS Thank you for coming to [facility] Emergency Department (ED) today and trusting us with you care. We trust that you had a positive experience in our Emergency Department. If you wish to speak to the department management, you may call the Director at [phone]. YOUR FOLLOW UP INSTRUCTIONS ARE FOLLOWS: 1. Do you have a private Doctor? If you do not have a private doctor, please ask for a resource list of physicians or clinics that may be able to assist you with follow up care. 2. The Emergency Physicain has interpreted your x-rays. The X-Ray specialist will also review them. If there is a change in the findings, you will be notified in 48 hours when at all possible. 3. A lab test or culture has been done, your results will be reviewed and you will be notified if you need a change in treatment. ADDITIONAL INSTRUCTIONS AND INFORMATION: 1. Your care today has been supervised by a physician who is specially trained in emergency care. Many problems require more than one evaluation for a complete diagnosis and treatment. We recommend that you schedule your follow up appointment as recommended to ensure complete treatment of you illness or injury. If you are unable to obtain follow up care and continue to have a problem, or if your condition worsens, we recommend that you return to the ED. 2. We are not able to safely determine your condition over the phone nor are we able to give sound medical advice over the phone. For these safety reasons, if you call for medical advice we will ask you to come to the ED for further evaluation. 3. If you have any questions regarding these discharge instructions please call the ED at [phone]. SAFETY INFORMATION: In the interest of safety, wellness, and injury prevention; we encourage you to wear your sealbelt, if you smoke; quite smoking, and we encourage family to use a protective helmet for bicycling and other sporting events that present an increased risk for head injury. IF YOUR SYMPTOMS WORSEN OR NEW SYMPTOMS DEVELOP, OR YOU HAVE CONCERNS ABOUT YOUR CONDITION; OR IF YOUR CONDITION WORSENS WHILE YOU ARE WAITING FOR YOUR FOLLOW UP APPOINTMENT; EITHER CONTACT YOUR PRIMARY CARE DOCTOR, THE PHYSICIAN WHOSE NAME AND NUMBER YOU WERE GIVEN, OR RETURN TO THE ED IMMEDIATELY. Scripts Azithromycin (ZITHROMAX) 250 Mg Tablet 1 PKG PO UD, #6 TAB Prov: ROZ GALVAN DO 02/11/21 ROZ GALVAN DO Feb 11, 2021 16:01
[2021-02-11 16:06] LABS: GFR 71.4; POTASSIUM 4.3 mmol/L (3.5-5.1)
--- NOTE | 2021-02-11 16:08 | EKG ---
[facility] [address] [place] [address] Test Date: 2021-02-11 Test Time: 15:23:20 Pat Name: JOSE DEMPSEY Department: Room: Gender: Medical Doctor Nuclear Medicine: : 1935 Requested By: ROZ GALVAN Order Number: [id number] Reading MD: Eugenio Brock Measurements Intervals [place] Rate: 56 P: TN: QRS: -24 QRSD: 98 T: -43 QT: 440 QTc: 427 Interpretive Statements SINUS RHYTHM LEFTWARD AXIS T ABNORMALITY IN ANTERIOR LEADS INFEROLATERAL LEADS ABNORMAL ECG Electronically Signed On 02-12-2021 13:03:45 CDT by Eugenio Brock
[2021-02-11 16:12] LABS: ALBUMIN 2.7 g/dL (3.4-5.0); ALBUMIN/GLOBULIN RATIO 0.7 (1.0-1.7); MAGNESIUM 2.1 mg/dL (1.8-2.4); TOTAL BILIRUBIN 0.4 mg/dL (0.2-1.0); TOTAL PROTEIN 6.4 g/dL (6.4-8.2)
--- NOTE | 2021-02-11 16:31 | RAD ---
Examination: CT head and cervical spine HISTORY: History of seizure COMPARISON: None available Exposure: One or more of the following individualized dose reduction techniques were utilized for thi s examination: 1. Automated exposure control 2. Adjustment of the mA and/or kV according to patient size 3. Use of iterative reconstruction technique TECHNIQUE: 5 mm contiguous axial images were obtained from the skull base to the vertex in both bone and soft tissue algorithm. FINDINGS: Moderate-sized hypodensity identified in the right frontoparietal region likely related encephalomala lisa measuring 4 cm similar to prior exam. Moderate bilateral periventricular white matter hypodensiti es likely chronic small vessel ischemic disease. There is a new moderate-sized hypodensity identified in the left cerebellum. CT CERVICAL SPINE INDICATION: Reason: seizure COMPARISON: None Available. Technique: 2.5 mm contiguous axial images were obtained from the skull base through the cervicothorac ic junction in both bone and soft tissue algorithm. Additional sagittal and coronal reconstructions were also performed. FINDINGS: Vertebral body height and alignment are maintained. Cervical lordosis is preserved. The l ateral masses of C1 are aligned upon C2. No fractures identified. The bony canal is patent throughout. Large osteophyte formation identified in the cervical spine throughout likely degenerative changes. The paraspinous soft tissues are unremarkable. IMPRESSION: 1. New moderate-sized hypodensity identified in the left cerebellum could be infarct, age indetermin ate. Recommend MRI for further evaluation. 2. Moderate-sized hypodensity identified in the right frontoparietal region likely related to enceph alomalacia measuring 4 cm similar to prior exam. 3. No acute fracture cervical spine. 4. Large osteophyte formation identified in the cervical spine throughout likely degenerative change s. Electronically signed by: Eliot Alfonso MD (02/11/2021 4:29 PM) [id number]
--- NOTE | 2021-02-11 16:39 | RAD ---
EXAM: CHEST 1 VIEW History: Seizure COMPARISON: 12/09/2020 TECHNIQUE: Single portable radiograph of the chest FINDINGS: Mild cardiomegaly . Mild left lung base atelectasis or infiltrates. The costophrenic sulci are clear and well demarcated. IMPRESSION: Mild left lung base atelectasis or infiltrates. Electronically signed by: Eliot Alfonso MD (02/11/2021 4:37 PM) [id number]
[2021-02-11] MEDS ORDERED: AZIT250T PO (18:02)
[2021-02-11 18:12] VITALS: BP 112/56
== END 2021-02-11 20:00 | disposition home or self-care (01) ==
LOC: ER 14:55
DX: R56.9 Unspecified convulsions (principal); J44.9 Chronic obstructive pulmonary disease, unspecified; F03.90 Unspecified dementia, unspecified severity, without behavioral disturbance, psychotic disturbance, mood disturbance, and anxiety; Z86.73 Personal history of transient ischemic attack (TIA), and cerebral infarction without residual deficits
CPT/HCPCS: 36415; 70450; 71045; 72125; 80053; 82550; 82962; 83735; 83880; 84484; 85025; 93005; 96360; 96361; 99285; J7120

== ENCOUNTER → 2021-04-05 | Outpatient (CLI) | payer MEDICARE, MEDICAID ==
[~2021-04-05] MED LIST changes: +AZIT250T PO; -GUAI100L34 PO; +GUAI100L57 PO; -LEVO500T8 PO; +LEVO500T9 PO
--- NOTE | 2021-04-05 12:49 | RAD ---
MRI BRAIN WO Date: 04/05/2021 10:40 AM Indication: STROKE-LIKE SYMPTOMS,COMPLETE LEFT SIDE WEAKNESS Comparison: CT 02/11/2021. Technique: Multiplanar multisequence MRI of the brain was performed without intravenous contrast usin g the standard protocol. Findings: Extensive motion artifact degrades image quality. No acute infarct. No acute hemorrhage. The ventricles are normal in size and configuration without hy drocephalus. Extensive FLAIR hyperintense signal in the subcortical and periventricular deep white matter, a nonsp ecific finding, most commonly seen with chronic small vessel ischemic disease. Moderate-sized area of right frontal encephalomalacia with hemosiderin deposition due to chronic bloo d. Small areas of left frontal, left occipital, and left cerebellar encephalomalacia. The scalp and calvarium are normal. The pituitary and sella are normal. No Chiari malformation. Mild incompletely characterized degenerative spondylosis of the visualized upper cervical spine. IMPRESSION: 1. No acute infarct or acute hemorrhage. 2. Multifocal encephalomalacia as above. 3. Extensive chronic small vessel ischemic disease Electronically signed by: Avelino Baumann MD (04/05/2021 12:47 PM) YOKO
--- NOTE | 2021-04-05 18:01 | RAD ---
US DPLX CAROTID BILAT History: Strokelike symptoms COMPARISON: CT head and cervical spine 02/11/2021 Technique: Duplex sonography of the cervical portion of both carotid arteries was performed. Real-louis e grayscale, color flow Doppler, and Doppler spectral waveform analysis is performed. PQRS Compliance Statement - Stenosis calculations for CT, MR and conventional angiography are based u mary measurement of the distal ICA diameter in accordance with the NASCET methodology. Stenosis calcu lations for carotid ultrasound studies are derived from validated velocity criteria which are known t o correlate with the NASCET methodology. Findings: Right side: Peak systolic flow velocity of the distal CCA is 83 cm/sec. Peak systolic flow velocity of the ICA is 46 cm/sec. The ICA/CCA ratio is 0.55. Peak end diastolic flow velocity of the ICA is 11 cm/sec. The peak systolic velocity of the ECA is 85 cm/sec. No significant plaque formation is identified. Left side: Peak systolic flow velocity of the distal CCA is 62 cm/sec. Peak systolic flow velocity of the ICA is 56 cm/sec. The ICA/CCA ratio is 0.90. Peak end diastolic flow velocity of the ICA is 19 cm/sec. Peak systolic flow velocity of the ECA is 40 cm/sec. Left carotid bulb intimal thickening. Vertebral arteries: Bilateral vertebral arteries demonstrate antegrade flow. IMPRESSION: 1. No hemodynamically significant internal carotid artery stenosis. Electronically signed by: Isaias Lyn MD (04/05/2021 5:59 PM) [id number]
== END ==
LOC: US 09:44
PROVIDERS: ATTEND Nurse Practitioner Family
DX: I67.82 Cerebral ischemia (principal); G93.89 Other specified disorders of brain; M47.812 Spondylosis without myelopathy or radiculopathy, cervical region; R29.90 Unspecified symptoms and signs involving the nervous system
CPT/HCPCS: 70551; 93880

== ENCOUNTER 2021-05-08 13:57 | Emergency (ER) | payer MEDICARE, MEDICAID ==
[~2021-05-08] VITALS: Ht 172.7 cm; Wt 89.9 kg
[2021-05-08] MEDS ORDERED: EPINEPHrine SYRINGE 1 MG/10 ML SYRINGE. ONE (14:00)
[2021-05-08] MEDS ORDERED: ACETAMINOPHEN 650 MG SUPP.RECT. PR ONE (14:30)
[2021-05-08] MEDS ORDERED: PIPERACILLIN/TAZOBACTAM 4.5 GM in IV NORMAL SALINE 100ML 100 ML IV ONE (14:30)
[2021-05-08] MEDS ORDERED: IV NORMAL SALINE 1000ML BAG 1,000 ML IV ONE (14:30)
[2021-05-08] MEDS ORDERED: PIPERACILLIN/TAZOBACTAM 3.375 GM in IV NORMAL SALINE 50ML 50 ML IV ONE (14:30)
[2021-05-08 14:54] LABS: BASO % 1 % (0-3); EOS % 0 % (0-3); HEMATOCRIT 44.4 % (39.0-53.0); HEMOGLOBIN 14.7 g/dL (13.0-17.5); LYMPH # 0.9 x10^3/uL (1.0-4.8); LYMPH % 10 % (24-48); MEAN CORPUSCULAR HEMOGLOBIN 31 pg (25-35); MEAN CORPUSCULAR HGB CONC 33 g/dL (31-37); MEAN CORPUSCULAR VOLUME 94 fL (79-100); MONO # 0.3 x10^3/uL (0.0-1.1); MONO % 3 % (0-9); NEUT # 7.8 x10^3/uL (1.8-7.7); NEUT % 87 % (31-73); PLATELET COUNT 241 x10^3/uL (140-400); RED BLOOD COUNT 4.72 x10^6/uL (4.30-5.70); RED CELL DISTRIBUTION WIDTH 14.3 % (11.5-14.5)
--- NOTE | 2021-05-08 14:58 | PHYS DOC ---
Past Medical History Past Medical History: CHF, COPD, CVA, Dementia, Kidney Stone, Stroke, UTI Additional Past Medical Histor: redding,atrial septal defect,peg tube Past Surgical History: Tonsillectomy Additional Past Surgical Histo: peg tube Smoking Status: Unknown if ever smoked Alcohol Use: None Drug Use: Marijuana Adult General Chief Complaint Chief Complaint: ALTERED MENTAL STATUS HPI HPI The patient is an 85-year-old male with a history of hypertension, mild dementia but alert and oriented at baseline, prior stroke with unilateral weakness and dysphagia, G-tube reliant. Patient presents from his care facility for evaluation of change in level of consciousness. This occurred today at some time although the care facility could not tell us exactly when. There was a reported associated near fever at the nursing facility. Unclear if antipyretics were given. Staff noticed patient was less responsive than usual and not talking. During transport, vital signs were appropriate. Here, patient is alert but does not speak and does not follow commands. He is able to move his left side. He does not move his right side at all and seems to have a left gaze deviation. Unclear if this is new. He is afebrile here. No further history obtainable from the patient secondary to altered mental status. Review of Systems Review of Systems A 12 point review of systems could not be completed secondary to altered mental status. Current Medications Current Medications Current Medications Medications (Trade) Dose Ordered Sig/Ida Start Time Stop Time Status Last Admin Dose Admin Acetaminophen (Tylenol Supp) 650 mg 1X ONCE 05/08/21 14:30 05/08/21 14:31 DC 05/08/21 14:52 650 MG Levetiracetam 1000 mg/Dextrose 110 ml @ 440 mls/hr 1X ONCE 05/08/21 17:00 05/08/21 17:14 Ondansetron HCl (Zofran) 4 mg STK-MED ONCE 05/08/21 16:09 05/08/21 16:10 DC Piperacillin Sod/ Tazobactam Sod 3.375 gm/Sodium Chloride 50 ml @ 100 mls/hr 1X ONCE 05/08/21 14:30 05/08/21 14:59 DC 05/08/21 14:39 100 MLS/HR Piperacillin Sod/ Tazobactam Sod 4.5 gm/Sodium Chloride 100 ml @ 200 mls/hr 1X ONCE 05/08/21 14:30 05/08/21 14:59 UNV Propofol 100 ml @ 2.697 mls/ hr CONT PRN 05/08/21 17:15 Sodium Chloride 1,000 ml @ 1,000 mls/hr 1X ONCE 05/08/21 14:30 05/08/21 15:29 DC 05/08/21 14:39 1,000 MLS/HR Succinylcholine Chloride (Anectine) 200 mg STK-MED ONCE 05/08/21 16:38 05/08/21 16:38 DC Allergies Allergies Allergies Coded Allergies Type Severity Reaction Last Updated Verified No Known Drug Allergies 03/01/17 No Physical Exam Physical Exam Elderly male appearing nontoxic and in no acute distress. Head is normocephalic and atraumatic. Neck is supple and nontender. Oropharynx is moist. Lungs clear to auscultation at all stations. There is a normal S1 and S2 without rubs or gallops and capillary refill is appropriate, less than 2 seconds globally. Abdomen is soft, nontender and nondistended. Skin is warm and dry without cyanosis, clubbing or edema. Neurologically, patient moves his left side but does not follow commands and does not speak. He seems to have right-sided hemineglect which is probably chronic post stroke. Current Patient Data Vital Signs Vital Signs Date Time Temp Pulse Resp B/P (MAP) Pulse Ox O2 Delivery O2 Flow Rate FiO2 05/08/21 16:40 87 17 96/52 (67) 93 05/08/21 14:16 98.8 Room Air 98.8 Lab Values Laboratory Tests Test 05/08/21 14:25 05/08/21 14:55 05/08/21 15:06 White Blood Count 9.0 x10^3/uL (4.0-11.0) Red Blood Count 4.72 x10^6/uL (4.30-5.70) Hemoglobin 14.7 g/dL (13.0-17.5) Hematocrit 44.4 % (39.0-53.0) Mean Corpuscular Volume 94 fL (79-100) Mean Corpuscular Hemoglobin 31 pg (25-35) Mean Corpuscular Hemoglobin Concent 33 g/dL (31-37) Red Cell Distribution Width 14.3 % (11.5-14.5) Platelet Count 241 x10^3/uL (140-400) Neutrophils (%) (Auto) 87 % (31-73) H Lymphocytes (%) (Auto) 10 % (24-48) L Monocytes (%) (Auto) 3 % (0-9) Eosinophils (%) (Auto) 0 % (0-3) Basophils (%) (Auto) 1 % (0-3) Neutrophils # (Auto) 7.8 x10^3/uL (1.8-7.7) H Lymphocytes # (Auto) 0.9 x10^3/uL (1.0-4.8) L Monocytes # (Auto) 0.3 x10^3/uL (0.0-1.1) Eosinophils # (Auto) 0.0 x10^3/uL (0.0-0.7) Basophils # (Auto) 0.0 x10^3/uL (0.0-0.2) Lactic Acid Level 3.0 mmol/L (0.4-2.0) H SARS-CoV-2 Antigen (Rapid) Negative (NEGATIVE) Urine Collection Type Unknown Urine Color Yellow Urine Clarity Cloudy Urine pH 7.5 (<5.0-8.0) Urine Specific [place] 1.015 (1.000-1.030) Urine Protein Negative mg/dL (NEG-TRACE) Urine Glucose (UA) Negative mg/dL (NEG) Urine Ketones (Stick) Negative mg/dL (NEG) Urine Blood Moderate (NEG) Urine Nitrite Negative (NEG) Urine Bilirubin Negative (NEG) Urine Urobilinogen Dipstick 0.2 mg/dL (0.2 mg/dL) Urine Leukocyte Esterase Small (NEG) Urine RBC 20-40 /HPF (0-2) Urine WBC 5-10 /HPF (0-4) Urine Bacteria Many /HPF (0-FEW) Urine Opiates Screen Neg (NEG) Urine Methadone Screen Neg (NEG) Urine Barbiturates Neg (NEG) Urine Phencyclidine Screen Neg (NEG) Urine Amphetamine/Methamphetamine Neg (NEG) Urine Benzodiazepines Screen Neg (NEG) Urine Cocaine Screen Neg (NEG) Urine Cannabinoids Screen Neg (NEG) Urine Ethyl Alcohol Neg (NEG) Laboratory Tests 05/08/21 14:25 EKG EKG Sinus rhythm, rate 80, no acute ST elevation or depression, UT 152, QRS 104, QTc 500, EP interpretation. Nonischemic tracing. Interpretation minimally compromised by baseline artifact. Radiology/Procedures Radiology/Procedures CT head without contrast 05/08/2021 2:49 PM INDICATION: Altered mental status COMPARISON: CT head 02/11/2021 TECHNIQUE: Multiple axial CT images of the head were obtained from skull base through the vertex without intravenous contrast. FINDINGS: Head: There is a left frontoparietal intraparenchymal hematoma measuring 7.2 x 4.8 x 5.7 cm. There is associated hemorrhage within the left sylvian fissure and intraventricular hemorrhage with atria the left lateral ventricle. There is no hydrocephalus. Layering blood products identified in the occipital horn of left lateral ventricle. There is no definite trapping of the ventricle. There is mass effect on the left lateral ventricle which is partly effaced. There is midline shift to the right by approximately 4 mm. Low-attenuation in the periventricular white matter is suggestive of chronic small vessel ischemic changes. Cystic encephalomalacia identified involving the posterior right frontal lobe. There is subtle inflammation involving the inferior left cerebellum and medial left occipital lobe. Remote ischemic changes identified in the medial right parieto-occipital lobe. Globes are spherical in contour. Bilateral lens replacement. IMPRESSION: Left frontoparietal parenchymal hematoma with intraventricular involvement and subarachnoid involvement along the sylvian fissure. There is partial effacement of the left lateral ventricle without definite hydrocephalus. Rightward midline shift by 4 mm. No tonsillar herniation. Remote ischemic changes identified in the right frontoparietal lobe, inferior left cerebellum and bilateral occipital lobes. FOR INTERNAL CODING PURPOSES Critical result: Findings discussed with Dr. Mccormack at 05/08/2021 3:26 PM. RESULT CODE: (C) Electronically signed by: Rachel Mohr MD (05/08/2021 3:31 PM) [id number] Course & Med Decision Making Course & Med Decision Making Will send large altered mental status work-up as noted, cover empirically with a dose of Zosyn after cultures and will then reevaluate. Anticipate admission. 1600: Patient with significant intraparenchymal hemorrhage as noted above. Head of bed to 30 degrees. Blood pressure not elevated. Patient's level of alertness has declined and GCS is dropped below 8. Daughter/DPOA is here and would like everything possible done short of CPR. She is okay with intubation. After we secure the patient's airway he will be transferred to [facility] for further neurocritical care. He is graciously accepted in transfer by Dr. Drake. 1700: Patient intubated as per procedure note; tolerated well. Stable on the ventilator after that. Proceeding with transfer at this time. CC time 75 minutes, not including procedural time. Dragon Disclaimer Dragon Disclaimer This electronic medical record was generated, in whole or in part, using a voice recognition dictation system. Intubation Procedure Intub Indication: Respiratory failure, airway protection Consent: Patient unable to give consent due to emergent nature. Daughter/DPOA provided consent. Medications Used: see nursing note Procedure: The patient was placed in the appropriate position. Intubation was performed via VL; 7.5 endotracheal tube. Initial confirmation of placement included bilateral breath sounds, tube fogging, adequate chest rise, adequate pulse oximetry reading. A chest x-ray to verify correct placement of the tube showed appropriate tube position. The patient tolerated the procedure well. Complications: none. Departure Departure Impression: Primary Impression: Intraparenchymal hemorrhage of brain Disposition: 02 SHORT TERM HOSPITAL Condition: CRITICAL JULIUS MCCORMACK MD May 08, 2021 14:58
--- NOTE | 2021-05-08 15:13 | RAD ---
EXAM: XR CHEST 1V 05/08/2021 2:24 PM CLINICAL INDICATION: Altered mental status COMPARISON: Chest radiograph 02/11/2021 TECHNIQUE: AP upright view of the chest FINDINGS: The cardiac silhouette is prominent. There are calcified hilar lymph nodes. Pulmonary vasc ulature is indistinct. There are suspected left basilar opacities and/or small left pleural effusion, similar to prior exams. No pneumothorax. Severe left glenohumeral osteoarthrosis. IMPRESSION: Unchanged left basilar opacities and/or small left pleural effusion. Electronically signed by: Ely Wagner MD (05/08/2021 3:10 PM) [id number]
--- NOTE | 2021-05-08 15:34 | RAD ---
PQRS Compliance Statement: One or more of the following individualized dose reduction techniques were utilized for this examinat ion: 1. Automated exposure control 2. Adjustment of the mA and/or kV according to patient size 3. Use of iterative reconstruction technique CT head without contrast 05/08/2021 2:49 PM INDICATION: Altered mental status COMPARISON: CT head 02/11/2021 TECHNIQUE: Multiple axial CT images of the head were obtained from skull base through the vertex with out intravenous contrast. FINDINGS: Head: There is a left frontoparietal intraparenchymal hematoma measuring 7.2 x 4.8 x 5.7 cm. There is assoc iated hemorrhage within the left sylvian fissure and intraventricular hemorrhage with atria the left lateral ventricle. There is no hydrocephalus. Layering blood products identified in the occipital hor n of left lateral ventricle. There is no definite trapping of the ventricle. There is mass effect on the left lateral ventricle which is partly effaced. There is midline shift to the right by approximat bill 4 mm. Low-attenuation in the periventricular white matter is suggestive of chronic small vessel ischemic ch anges. Cystic encephalomalacia identified involving the posterior right frontal lobe. There is subtle inflammation involving the inferior left cerebellum and medial left occipital lobe. Remote ischemic changes identified in the medial right parieto-occipital lobe. Globes are spherical in contour. Bilateral lens replacement. IMPRESSION: Left frontoparietal parenchymal hematoma with intraventricular involvement and subarachnoid involveme nt along the sylvian fissure. There is partial effacement of the left lateral ventricle without defin ite hydrocephalus. Rightward midline shift by 4 mm. No tonsillar herniation. Remote ischemic changes identified in the right frontoparietal lobe, inferior left cerebellum and hcapo ateral occipital lobes. FOR INTERNAL CODING PURPOSES Critical result: Findings discussed with Dr. Mccormack at 05/08/2021 3:26 PM. RESULT CODE: (C) Electronically signed by: Rachel Mohr MD (05/08/2021 3:31 PM) [id number]
[2021-05-08 16:06] LABS: BARBITURATES NEG (NEG); BENZODIAZEPINES NEG (NEG); BILIRUBIN,URINE NEGATIVE (NEG); CANNABINOIDS NEG (NEG); CLARITY,URINE CLOUDY; COCAINE NEG (NEG); COLOR,URINE YELLOW; METHADONE NEG (NEG); NITRITE,URINE NEGATIVE (NEG); OPIATES NEG (NEG); PH,URINE 7.5 (<5.0-8.0); PHENCYCLIDINE NEG (NEG); PROTEIN,URINE NEGATIVE (NEG-TRACE); UROBILINOGEN,URINE 0.2 mg/dL (0.2 mg/dL)
[2021-05-08 16:08] LABS: AMPHETAMINE/METHAMPHETAMINE NEG (NEG)
[2021-05-08] MEDS ORDERED: ONDANSETRON PF 4 MG/2 ML VIAL. ONE (16:09)
[2021-05-08] MEDS ORDERED: ONDANSETRON PF 4 MG/2 ML VIAL. IVP ONE (16:15)
[2021-05-08 16:22] LABS: BACTERIA,URINE MANY /HPF (0-FEW)
[2021-05-08 16:23] LABS: RBC,URINE 20-40 /HPF (0-2)
[2021-05-08] MEDS ORDERED: SUCCINYLCHOLINE 200 MG/10 ML VIAL. ONE ×2 (16:38→19:04)
[2021-05-08] MEDS ORDERED: levETIRAcetam 1,000 MG in IV DEXTROSE 5% 100ML 100 ML IV ONE (17:00)
[2021-05-08] MEDS ORDERED: PROPOFOL 100 ML IV ONE (17:05)
[2021-05-08] MEDS ORDERED: NOREPINEPHRINE VIAL 8 MG in IV DEXTROSE 5% 250 ML IV ONE (17:15)
[2021-05-08] MEDS ORDERED: PROPOFOL 100 ML IV PRN (17:15)
[2021-05-08 17:21] LABS: CALCIUM 8.4 mg/dL (8.5-10.1); CREATININE 1.1 mg/dL (0.7-1.3); GFR 63.9; POTASSIUM 3.5 mmol/L (3.5-5.1)
[2021-05-08 17:24] LABS: ACETAMIN < 2 mcg/ml (10-30); ETHANOL < 10 mg/dL (0-10); SALIC 0.3 mg/dL (2.8-20.0)
[2021-05-08 17:27] LABS: ALBUMIN 2.8 g/dL (3.4-5.0); ALBUMIN/GLOBULIN RATIO 0.8 (1.0-1.7); TOTAL BILIRUBIN 0.5 mg/dL (0.2-1.0); TOTAL PROTEIN 6.4 g/dL (6.4-8.2)
[2021-05-08 17:36] VITALS: BP 104/61
[2021-05-08 18:10] LABS: BASE EXCESS ABG -6 mmol/L (-3-3); HCO3 ABG 20 mmol/L (21-28); PCO2 ABG 41 mmHg (35-46); PO2 ABG 183 mmHg (65-108); SAT O2 ABG 99 % (92-99)
[2021-05-08 18:11] LABS: FIO2 ABG 50% AC 20/500/5
[2021-05-08] MEDS ORDERED: KETAMINE HCL 500 MG/10 ML VIAL. ONE (19:03)
--- NOTE | 2021-05-08 19:08 | RAD ---
EXAMINATION: XR CHEST 1V CLINICAL HISTORY: Intubation TECHNIQUE: XR CHEST 1V COMPARISON: 05/08/2021 2:26 PM FINDINGS/ IMPRESSION: Interval intubation with endotracheal tube terminating approximately 6.3 cm above the fortino. Interva l placement of enteric tube terminating in the stomach. Remainder of the study otherwise unchanged. Electronically signed by: Martín Galicia DO (05/08/2021 7:05 PM) RAMIRO
--- NOTE | 2021-05-08 19:26 | EKG ---
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
--- NOTE | 2021-05-10 13:31 | NUR ---
IP: Pt is a [place] resident. Notified nurse Miley of negative results. she verbalized understanding.
== END 2021-05-08 18:32 | disposition short-term general hospital (02) ==
LOC: ER 13:57
DX: I61.5 Nontraumatic intracerebral hemorrhage, intraventricular (principal); Z20.822 Contact with and (suspected) exposure to COVID-19; I11.0 Hypertensive heart disease with heart failure; I50.9 Heart failure, unspecified; J44.9 Chronic obstructive pulmonary disease, unspecified; F03.90 Unspecified dementia, unspecified severity, without behavioral disturbance, psychotic disturbance, mood disturbance, and anxiety; Z86.73 Personal history of transient ischemic attack (TIA), and cerebral infarction without residual deficits
CPT/HCPCS: 31500; 36415; 36600; 70450; 71045; 80053; 80307; 80329; 81001; 82805; 83605; 84484; 85025; 85610; 85730; 87040; 87086; 87205; 87426; 92950; 93005; 96360; 96365; 96367; 96368; 99291; 99292; G0480; J0171; J1953; J2405; J2543; J3490; J7030; J7060; U0003; U0005; 87077; 94002